=== PATIENT | female | born 1995 | race Caucasian/White ===

== ENCOUNTER 2017-09-03 20:50 | Emergency (ER) | payer MEDICAID, SELFPAY ==
[2017-09-03 20:51] VITALS: BP 117/73; PULSE 93; RESP 15; TEMP 36.5; O2SAT 97; BMI 24.2
--- NOTE | 2017-09-03 22:17 | ED.RN ---
PT CALLS THIS RN TO ROOM, STATES I CAN'T GET THIS STYE TO DRAIN, ASKS IF SHE CAN TAKE ORAL MEDS TO JUST MAKE IT GO AWAY, PT EDUCATED ON TYPICAL TX FOR STYES, STATES I JUST CAN'T STAND TO HAVE ANYTHING COMING AT MY [facility] SHE WILL NOT ALLW MD TO TOUCH MY EYE. PT REQUESTS MD COME BACK FOR RE MD CELE AWARE.
--- NOTE | 2017-09-03 22:31 | ED.RN ---
THIS RN CALLED TO PT'S ROOM, PT STATES I'M JUST GOING TO LEAVE, I HAVE TO GET HOME. ADVISED PT THAT SHE WAS UP FOR RE CELE, MD WOULD BE BACK TO HER ROOM SOON. PT STATES SHE DOES NOT WANT TO WAIT AND SEE MD, STATES I'M JUST GOING TO LEAVE. PT DENIES FURTHER NEEDS, AMBULATED OUT OF UNIT WITH NO SIGNS OF DISTRESS.
--- NOTE | 2017-09-03 22:45 | ED.DCSUM_ITS ---
History of Present Illness Chief Complaint: Eye Problem Informant: Patient Onset: Days - 3 Context: Gradual Onset Timing: Continuous Quality: sore/pain, swollen Location: right lower eyelid Current Severity: Moderate Maximum Severity: Moderate Worsened by: blinking, palpation Relieved by: nothing. tried warm compresses. Associated Symptoms: matting this AM. no fevers, injury, other systemic sx. Narrative: Wears contacts, has left them out since beginning of this issue, and just wearing glasses. Also avoiding makeup application. Past Medical History - Allergies and Home Meds Allergies/Adverse Reactions: Allergies amoxicillin [Amoxicillin] Allergy (Verified 09/03/17 20:50) Hives codeine Allergy (Verified 09/03/17 20:50) Hives hydrocodone Allergy (Verified 09/03/17 20:50) Hives Primary Care Physician: Care Physician,No Primary [Primary Care Provider] - Past Medical History: None Smoking Status: Current every day smoker Review of Systems General: Denies: Fever Eyes: Reports: - - R lower eyelid pain/swelling. Denies: Visual changes - right , Diplopia Respiratory: Denies: Dyspnea, Cough Physical Exam Vital Signs/Narrative: Vital Signs Temp Pulse Resp BP Pulse Ox 09/03/17 20:51 97.7 F L 93 15 117/73 97 General: Well nourished, Well developed, - - well-appearing, nad Head: Normocephalic, Atraumatic Eyes: Perrl, EOMI, - - Medial right lower eyelid redness, swelling, with pointing whiteheaded abscess / hordeolum w/o spontaneous discharge. Tender w/ palpation. Normal globe and conjunctivae. No chemosis. No periorbital swelling/ erythema. Neck: Supple, No lymphadenopathy Neurological: Alert, Oriented x3, Cranial nerves II-XII grossly intact, Normal Strength, Normal Sensation Psychological: Normal affect Diagnostic/Tx/Re-eval - Medical Decision Making Given that she has been trying warm compresses and this small hordeolum is pointing and large for what it is, I recommend an incision and drainage at the margin as this will make it heal faster. After discussing this, and the fact that it would be very difficult to anesthetize in a painless way, recommending that we simply poke it at the peak and unroofed it, she was amenable. I swabbed it with a small amount of Betadine, and then with the patient's head against the bed, attempted to stab the roof of it with the tip of an 11 blade. She somehow moved her head further into the bed, so that the 11 blade did not puncture the abscess. I attempted again, the patient immediately turned her head and withdrew saying that she wanted me to stop which I did. I gave her the piece of gauze and advised her to squeeze it as hard as she could to see if she could get it to rupture, when I went to recheck on her, she eloped. ED Disposition - Plan for ED Patient: Chief Complaint: Eye Problem Diagnosis: Hordeolum externum right lower eyelid
== END 2017-09-03 22:46 | disposition home or self-care (01) ==
LOC: ED 21:57
PROVIDERS: Emergency Provider Emergency Medicine
DX: H00.012 Hordeolum externum right lower eyelid (principal)
CPT/HCPCS: 99282

== ENCOUNTER 2019-04-03 18:56 | Emergency (ER) | payer SELFPAY ==
[2019-04-03 18:57] VITALS: BP 119/74; PULSE 64; RESP 16; TEMP 36.6; O2SAT 98; BMI 29.0
[2019-04-03 19:21] LABS: Mucous, Urine 0 SEEN /hpf (<or=2+)
[2019-04-03 19:22] LABS: Color, Urine Yellow (Yellow); Glucose, Dipstick Normal (Normal); Leukocyte Esterase-Dipstick 500 /ul (Negative); Nitrite-Dipstick Positive (Negative); Occult Blood-Urine 250 /ul (Negative); Protein-Dipstick 30 mg/dl (Negative); Specific Gravity, Urine 1.025 (1.002-1.030); Urine Bilirubin Dipstick Negative (Negative); Urine Clarity Cloudy (Clear); Urine Urobilinogen Normal (Normal)
--- NOTE | 2019-04-03 19:33 | CT_ITS ---
STUDY: CT ABDOMEN AND PELVIS WITHOUT CONTRAST REASON FOR EXAM: Female, 24 years old. RIGHT FLANK PAIN WITH N/V TODAY RADIATION DOSAGE (If Supplied By Facility): CTDIvol = ( 6.61 ) mGy, DLP = ( 315.34 ) mGycm TECHNIQUE: Transaxial images were obtained from the dome of the diaphragm to the symphysis pubis without oral contrast, and without intravenous contrast. Sagittal and coronal images were reconstructed. Individualized dose optimization techniques were used for this CT. COMPARISON: None. FINDINGS: The visualized lung bases are unremarkable. The visualized portions of the heart are within normal limits. Normal liver. Normal gallbladder and extrahepatic biliary system. Normal spleen. Normal pancreas. Normal bilateral adrenal glands. There is a mild right hydronephrosis. There are several nonobstructing calculi in the cortex of the medial pole of the right kidney largest measuring 3 mm. There is an obstructing calculus in the proximal right ureter at the level of the UPJ measuring 8.7 x 5.3 mm. Normal left kidney. Normal visualized stomach. Normal small intestine. Normal colon. The appendix is visualized and appears normal. Normal abdominal aorta. Normal inferior vena cava. Normal retroperitoneum. Normal urinary bladder. An IUD is noted appearing in adequate position. Adnexal structures are unremarkable. There is a small umbilical hernia containing fat. Normal osseous structures. CT/Abdomen/Pelvis without Cont IMPRESSION: Obstructing 8.7 x 5.3 mm calculus in the proximal right ureter at the level of the UPJ with mild right hydronephrosis. There are several additional nonobstructing cortical calculi of the medial pole of the right kidney, largest measuring 3 mm. An IUD is seen appearing in adequate position. There is a small fat-containing umbilical hernia. Electronically Signed: Cedrick Ramos MD at 21:04 EST , Service support ,
[2019-04-03 19:47] LABS: Ketone-Dipstick 150 mg/dl (Negative)
[2019-04-03 19:50] LABS: Bacteria 3+ /hpf (None Seen); Red Blood Cells-Urine 50-100 SEEN /hpf (0-5); White Blood Cells 25-50 SEEN /hpf (0-5)
[2019-04-03 19:51] LABS: Squamous Epithelial Cells - UA 0-5 SEEN /hpf (5-10)
[2019-04-03] MEDS: 0.9% Normal Saline 1,000 ML 1000 ML IV (19:52)
[2019-04-03] MEDS: Morphine 4 MG/ML Syringe IV ×2 (19:52→22:38)
[2019-04-03] MEDS: Ondansetron 4 MG/2 ML Vial IV (19:52)
[2019-04-03 19:53] LABS: Transitional Epithelial - Ur 0-5 SEEN /hpf (0-5)
[2019-04-03] MEDS: Ketorolac 30 MG/ML Syringe IV (19:53)
[2019-04-03 20:08] LABS: Absolute Lymphocyte Count 2.67 X10^3/uL (0.83-4.51); Absolute Neutrophil Count 15.3 X10^3/uL (2.0-7.7); Basophil# 0.05 X10^3/uL; Basophil% 0.3 % (0-1); Eosinophil# 0.27 X10^3/uL; Eosinophils% 1.4 % (0-5); Hematocrit 44.2 % (37-47); Hemoglobin 15.2 g/dL (12.0-15.0); Lymphocyte # 2.67 X10^3/ul (4.0); Lymphocyte % 13.8 % (19-41); Mean Corp Hgb Conc 34.4 g/dL (32-36); Mean Corpuscular Hgb 31.1 pg (27.0-32.0); Mean Corpuscular Volume 90.4 fL (81-99); Mean Platelet Vol. 9.7 fl (6.2-12.0); Monocyte# 0.93 X10^3/uL; Monocyte% 4.8 % (0-10); NRBC Flagged by Analyzer 0 % (0-5); Neutrophil # 15.28 X10^3/uL (2.7-7.7); Neutrophil % 79.1 % (47-70); Platelet Count 303 K/mm3 (150-450); RBC Distribution Width CV 11.9 % (11.6-14.6); RBC Distribution Width SD 39.1 fl (35.1-43.9); Red Blood Count 4.89 M/mm3 (4.2-5.4); White Blood Count 19.3 K/mm3 (4.4-11.0)
[2019-04-03 20:24] LABS: Internal QC Validated? YES +Cl - CLEAR BKGD; Pregnancy, Serum, hCG Quali. NEGATIVE Negative
[2019-04-03 20:31] LABS: ALB/GLOB Ratio 1.1 RATIO (0.9-2.4); AST(SGOT) 8 U/L (15-37); Alanine Aminotransfer ALT/SGPT 18 U/L (13-56); Albumin, Serum 3.7 g/dL (3.2-5.0); Alkaline Phosphatase 74 U/L (45-117); Anion Gap 9 (5-15); BUN 9 mg/dL (7-18); Calcium,Total 8.6 mg/dL (8.5-10.1); Chloride 109 mmol/L (98-107); EST Glomerular Filtration Rate 161 mL/min (>60); Est Glom Filt Rate - Afr Amer 195 mL/min (>60); Estimated Creatinine Clearance 124.62 ml/min; Globulin 3.3 g/dL (2.2-4.2); Glucose 98 mg/dL (74-106); Lipase 65 U/L (73-393); Potassium 3.4 mmol/L (3.5-5.1); Sodium Level 140 mmol/L (136-145)
[2019-04-03] MEDS: Ceftriaxone 1 GM/50 ML BAG IV (20:52)
[2019-04-03 20:59] LABS: Lactic Acid 1.4 mmol/L (0.4-1.9)
--- NOTE | 2019-04-03 21:06 | ED.DCSUM_ITS ---
- ER Visit Summary Date of Service: 04/03/19 Chief Complaint: Right flank pain History of Present Illness: The patient is a 24 F with no primary care physician. She reports she has right flank pain that began this morning. States that it is gradually gotten worse. Over the past 2 hours it is become very severe. She describes it as sharp pain is 10 on 10 worsening a 10 currently. Nothing makes this better or worse. She is unable to find a comfortable position. She reports is been nausea on 10-12 times. No blood in her emesis. Last bowel was today. No melena [place]. No dysuria or frequency. She reports she is had chills, but no fever. Physical Examination: Vitals: Stable. Afebrile. General: Well-nourished and well-developed. Head: Normocephalic atraumatic. Neck: Supple, no lymphadenopathy. No JVD. Nontender. Cardiovascular: Regular rate and rhythm. No murmurs. Respiratory: No respiratory distress. Clear to auscultation bilaterally. Abdominal: Soft, mild diffuse tenderness palpation, nondistended, normal bowel sounds. No guarding, rebound, or peritoneal signs. Back: Moderate right CVA tenderness. Extremities: Nontender, no edema. Skin: Normal color, no rash. Neurologic: Alert and oriented ?3. Cranial nerves II through XII are intact. Normal strength and sensation. Psych: Normal affect. Test Results: CBC shows a white count of 19.3 with 79 segment neutrophils and 14 lymphocytes. Hemoglobin is 15.2. Lactic acid is 1.4. Chem-7 shows potassium 3.4, chloride 109, creatinine 0.5. LFTs show an AST of 6. Lipase is normal. UA does show an infection with 25-50 white blood cells and 50-100 red blood cells with 3+ bacteria. test is negative. Clinical Impression(s) from Imaging Studies Abdomen/Pelvis CT 04/03/19 19:33 IMPRESSION: Obstructing 8.7 x 5.3 mm calculus in the proximal right ureter at the level of the UPJ with mild right hydronephrosis. There are several additional nonobstructing cortical calculi of the medial pole of the right kidney, largest measuring 3 mm. An IUD is seen appearing in adequate position. There is a small fat-containing umbilical hernia. Electronically Signed: Cedrick Ramos MD at 21:04 EST , Service support , Emergency Department Course and Treatment: Patient had a urine sent for culture. She is given Rocephin IV. She was given morphine, Zofran, and Toradol IV. She is resting more comfortably. She feels well and would like to go home. Treatment Plan: The patient was discussed with Dr. Davila. She will be discharged with naproxen, Percocet, Zofran, and Cipro. Instructed to follow-up in the office in 2 days for another exam. Return the emerge part if she is unable to keep her antibiotic down or she cannot stand the pain. Disposition: To home in improved and stable condition. Impression: 1. Right ureterolithiasis. 2. Pyelonephritis. This note was generated with [employer] [place] dictation software. It may contain incorrect words, spelling, and punctuation that were not noted in review of the chart prior to signing ED Disposition - Plan for ED Patient: Disposition: Home or Assisted Living Instructions: PYELONEPHRITIS, Female (Adult), KIDNEY STONE w/ Colic Prescriptions: Ciprofloxacin [Cipro] 500 mg PO BID #14 tab Prescription Printed Naproxen [Naprosyn] 500 mg PO BID #14 tab Prescription Printed Oxycodone HCl/Acetaminophen [Percocet 5/325] 1 tab PO Q6H PRN PRN 5 Days #20 tab PRN Reason: Pain Score 6-10/10 Prescription Printed Ondansetron [Zofran Odt] 4 mg PO Q8H PRN PRN #10 tab PRN Reason: Nausea Prescription Printed
[2019-04-03 22:41] VITALS: BP 117/65; BP 117/75; PULSE 88; RESP 16; O2SAT 98
== END 2019-04-03 22:42 | disposition home or self-care (01) ==
PROVIDERS: Emergency Provider Emergency Medicine
DX: N13.6 Pyonephrosis (principal); R11.2 Nausea with vomiting, unspecified; Z72.0 Tobacco use
CPT/HCPCS: 74176; 80053; 81001; 83605; 83690; 84703; 85025; 87077; 87086; 87088; 87186; 96361; 96365; 96375; 96376; 99283; J7030; J7050; A4216; J2405

== ENCOUNTER 2019-04-09 19:23 | Emergency (ER) | payer SELFPAY ==
[2019-04-09 19:24] VITALS: BP 110/74; PULSE 79; RESP 18; TEMP 36.8; O2SAT 96; BMI 28.3
--- NOTE | 2019-04-09 20:42 | RAD_ITS ---
STUDY: X-RAY - ABDOMEN/PELVIS REASON FOR EXAM: Female, 24 years old. RIGHT KIDNEY STONE TECHNIQUE: Single AP view of the abdomen / pelvis. COMPARISON: CT 04/03/2019 FINDINGS: There is an unremarkable bowel gas pattern. No change in a 5 mm calcific opacity at the level of L2 consistent with a stone at the right ureteral pelvic junction. Normal soft tissue structures. Normal visualized osseous structures. RAD/Abdomen Single View IMPRESSION: No change in 5 mm right ureteropelvic junction stone. Electronically Signed: Juan Miguel Barreto MD at 21:38 EST Tel , Service support ,
--- NOTE | 2019-04-09 20:43 | ED.VIS.GEN ---
History of Present Illness Chief Complaint: Flank Pain Informant: Patient Onset: Days Context: Gradual Onset Timing: Waxes and wanes Current Severity: Moderate Maximum Severity: Severe Narrative: Patient presents with continued right flank pain, nausea, and vomiting. She was seen in the ER last Tuesday and diagnosed with a large proximal right-sided kidney stone. She also had evidence of a UTI. Patient was discharged with Percocet, anti-inflammatories, Zofran, and Cipro. Patient states she has had nausea and vomiting the past 4 days and has not been able to keep her medication down. She states she did follow-up with urology but was told it may be another week until she can have her surgery. Due to increased pain tonight she came to the emergency room. - Past Medical History (1) Bipolar disorder Status: Chronic (2) Asthma Status: Chronic (3) Kidney stone Status: Acute Past Medical History - Allergies and Home Meds Allergies/Adverse Reactions: Allergies amoxicillin [Amoxicillin] Allergy (Verified 04/09/19 19:27) Hives codeine Allergy (Verified 04/09/19 19:27) Hives hydrocodone Allergy (Verified 04/09/19 19:27) Hives Primary Care Physician: Care Physician,No Primary [Primary Care Provider] - Lives: With Family Smoking Status: Current every day smoker Review of Systems General: Denies: Chills, Fever Eyes: Denies: Visual changes - bilaterally ENT: Denies: Bilateral ear pain Cardiovascular: Denies: Chest pain Respiratory: Denies: Dyspnea, Cough Gastrointestinal: Reports: Abdominal pain, Nausea, Vomiting Genitourinary: Reports: Dysuria, Hematuria Musculoskeletal: Denies: Extremity Pain Skin: Denies: Rash Neurological: Denies: Headache Hematologic: Denies: Easy bruising, Easy bleeding Allergy: Denies: Uticaria Physical Exam Vital Signs/Narrative: Vital Signs Temp Pulse Resp BP Pulse Ox 04/09/19 19:24 98.3 F 79 18 110/74 96 Inital Vital Signs reviewed: Yes General: Well nourished, Well developed Head: Normocephalic ENT: Moist mucous membranes Neck: Supple Cardiovascular: Regular rate, Regular rhythm Respiratory: No distress, CTA bilaterally Abdomen: Soft, Nontender Back: CVA tenderness Skin: Normal color, No rash Neurological: Alert, Oriented x3 Psychological: Normal affect Diagnostic/Tx/Re-eval Impressions KUB X-Ray 04/09/19 20:42 IMPRESSION: No change in 5 mm right ureteropelvic junction stone. Electronically Signed: Juan Miguel Barreto MD at 21:38 EST Tel , Service support , 04/09/19 20:42 KUB [Abdomen Single View] [RAD] Stat Laboratory Results 04/09/19 04/09/19 04/09/19 20:38 20:38 21:30 WBC 9.6 RBC 4.65 Hgb 14.5 Hct 41.7 MCV 89.7 MCH 31.2 MCHC 34.8 RDW Std Deviation 38.0 RDW Coeff of Esme 11.9 Plt Count 364 MPV 9.3 Immature Gran % (Auto) 0.900 Neut % (Auto) 62.9 Lymph % (Auto) 26.7 Yates % (Auto) 6.3 Eos % (Auto) 2.7 Baso % (Auto) 0.5 Absolute Neuts (auto) 6.0 Absolute Lymphs (auto) 2.56 Nucleated RBC % 0 Sodium 138 Potassium 3.9 Chloride 108 H Carbon Dioxide 25.0 Anion Gap 5 BUN 12 Creatinine 0.66 Estim Creat Clear Calc 94.41 Est GFR (MDRD) Af Amer 141 Est GFR (MDRD) Non-Af 117 BUN/Creatinine Ratio 18.2 Glucose 85 Calcium 9.2 Urine Color Yellow Urine Clarity Cloudy Urine pH 6.5 Ur Specific [place] 1.015 Urine Protein 15 H Urine Glucose (UA) Normal Urine Ketones 50 H Urine Occult Blood 150 H Urine Nitrite Negative Urine Bilirubin Negative Urine Urobilinogen Normal Ur Leukocyte Esterase 500 H Urine RBC 0-5 SEEN Urine WBC 10-25 SEEN Ur Squamous Epith Cells 0-5 SEEN Urine Bacteria RARE Urine Mucus 0 SEEN - Medical Decision Making Patient was given morphine, Toradol, Zofran, and IV fluids. On repeat evaluation she feels significantly improved. In fact on repeat examination she is eating a bag of Fritos. Patient was discussed with Dr. Velasquez whom she has seen in the office. We will get her better antiemetics for home along with some more Percocet. Dr. Velasquez's office is supposed to be calling the patient to set up her surgery. Patient is given return instructions. She is happy with this plan. ED Disposition - Plan for ED Patient: Disposition: Home or Assisted Living Diagnosis: Kidney stone Instructions: KIDNEY STONE w/ Colic Prescriptions: Oxycodone HCl/Acetaminophen [Percocet 5/325] 1 tablet PO Q6H PRN PRN 5 Days #20 tablet PRN Reason: Pain Score 4-10/10 proMETHazine tablet [Phenergan] 25 mg PO Q6H PRN PRN #20 tablet PRN Reason: Nausea Referrals: Love Velasquez MD [STAFF PHYSICIAN] - As soon as possible
[2019-04-09] MEDS: 0.9% Normal Saline 1,000 ML 150 ML IV (21:14)
[2019-04-09] MEDS: 0.9% Normal Saline 1,000 ML 1000 ML IV (21:14)
[2019-04-09] MEDS: Morphine 4 MG/ML Syringe IV (21:14)
[2019-04-09] MEDS: Ketorolac 30 MG/ML Syringe IV (21:14)
[2019-04-09] MEDS: Ondansetron 4 MG/2 ML Vial IV (21:14)
[2019-04-09 21:30] VITALS: BP 116/71; PULSE 71; O2SAT 96
[2019-04-09 21:44] LABS: Absolute Lymphocyte Count 2.56 X10^3/uL (0.83-4.51); Basophil# 0.05 X10^3/uL; Basophil% 0.5 % (0-1); Eosinophil# 0.26 X10^3/uL; Eosinophils% 2.7 % (0-5); Hematocrit 41.7 % (37-47); Hemoglobin 14.5 g/dL (12.0-15.0); Lymphocyte # 2.56 X10^3/ul (4.0); Lymphocyte % 26.7 % (19-41); Mean Corp Hgb Conc 34.8 g/dL (32-36); Mean Corpuscular Hgb 31.2 pg (27.0-32.0); Mean Corpuscular Volume 89.7 fL (81-99); Mean Platelet Vol. 9.3 fl (6.2-12.0); Monocyte% 6.3 % (0-10); NRBC Flagged by Analyzer 0 % (0-5); Neutrophil # 6.04 X10^3/uL (2.7-7.7); Neutrophil % 62.9 % (47-70); Platelet Count 364 K/mm3 (150-450); RBC Distribution Width CV 11.9 % (11.6-14.6); Red Blood Count 4.65 M/mm3 (4.2-5.4); White Blood Count 9.6 K/mm3 (4.4-11.0)
[2019-04-09 21:53] LABS: Anion Gap 5 (5-15); BUN 12 mg/dL (7-18); BUN/Creat Ratio 18.2 RATIO (10-20); Calcium,Total 9.2 mg/dL (8.5-10.1); Chloride 108 mmol/L (98-107); Creatinine, Serum 0.66 mg/dL (0.55-1.02); EST Glomerular Filtration Rate 117 mL/min (>60); Est Glom Filt Rate - Afr Amer 141 mL/min (>60); Estimated Creatinine Clearance 94.41 ml/min; Glucose 85 mg/dL (74-106); Potassium 3.9 mmol/L (3.5-5.1); Sodium Level 138 mmol/L (136-145)
[2019-04-09 22:44] LABS: Mucous, Urine 0 SEEN /hpf (<or=2+)
[2019-04-09 22:45] LABS: Color, Urine Yellow (Yellow); Glucose, Dipstick Normal (Normal); Ketone-Dipstick 50 mg/dl (Negative); Leukocyte Esterase-Dipstick 500 /ul (Negative); Nitrite-Dipstick Negative (Negative); Occult Blood-Urine 150 /ul (Negative); Protein-Dipstick 15 mg/dl (Negative); Specific Gravity, Urine 1.015 (1.002-1.030); Urine Bilirubin Dipstick Negative (Negative); Urine Clarity Cloudy (Clear); Urine Urobilinogen Normal (Normal); Urine pH 6.5 (5.0 - 8.0)
[2019-04-09 22:51] LABS: White Blood Cells 10-25 SEEN /hpf (0-5)
[2019-04-09 22:52] LABS: Bacteria RARE /hpf (None Seen); Red Blood Cells-Urine 0-5 SEEN /hpf (0-5); Squamous Epithelial Cells - UA 0-5 SEEN /hpf (5-10)
[2019-04-09 23:17] VITALS: BP 138/75; PULSE 80; RESP 16; O2SAT 97
== END 2019-04-09 23:19 | disposition home or self-care (01) ==
PROVIDERS: Emergency Provider Emergency Medicine
DX: N20.2 Calculus of kidney with calculus of ureter (principal); J45.909 Unspecified asthma, uncomplicated; F17.200 Nicotine dependence, unspecified, uncomplicated; Z79.899 Other long term (current) drug therapy; Z88.0 Allergy status to penicillin; Z88.5 Allergy status to narcotic agent
CPT/HCPCS: 74018; 80048; 81001; 85025; 96361; 96374; 96375; 99285; J2405

== ENCOUNTER 2019-05-20 17:35 | Observation (INO) | payer SELFPAY ==
[2019-05-20 17:36] VITALS: BP 133/81; PULSE 107; RESP 18; TEMP 35.7; O2SAT 97; BMI 26.9
[2019-05-20] MEDS: 0.9% Normal Saline 1,000 ML 125 ML IV (18:02)
[2019-05-20] MEDS: Morphine 4 MG/ML Syringe IV ×2 (18:02→23:51)
[2019-05-20] MEDS: Ondansetron 4 MG/2 ML Vial IV (18:03)
[2019-05-20] MEDS: Ketorolac 30 MG/ML Syringe IV ×2 (18:03→22:19)
[2019-05-20 18:09] LABS: Mucous, Urine 0 SEEN /hpf (<or=2+)
--- NOTE | 2019-05-20 18:10 | RAD_ITS ---
STUDY: X-RAY - ABDOMEN/PELVIS REASON FOR EXAM: Female, 24 years old. right kidney stone, flank pain, vomiting TECHNIQUE: Single AP view of the abdomen / pelvis. COMPARISON: April 09, 2019 FINDINGS: Normal visualized lung bases. There is an unremarkable bowel gas pattern. 8 mm stone near the ureteropelvic junction on the right is unchanged in position. IUD is noted in the pelvis. The visualized liver, spleen and kidneys are grossly normal in size and morphology. Normal soft tissue structures. Normal visualized osseous structures. IMPRESSION: Stable nephrolith on the right. Normal x-ray examination of the abdomen and pelvis. Electronically Signed: Richy Beltre MD at 19:26 EDT , Service support , RAD/Abdomen Single View
[2019-05-20 18:12] LABS: Absolute Lymphocyte Count 2.38 X10^3/uL (0.83-4.51); Absolute Neutrophil Count 10.3 X10^3/uL (2.0-7.7); Basophil% 0.7 % (0-1); Eosinophil# 0.05 X10^3/uL; Eosinophils% 0.3 % (0-5); Hematocrit 40.1 % (37-47); Hemoglobin 13.8 g/dL (12.0-15.0); Lymphocyte # 2.38 X10^3/ul (4.0); Lymphocyte % 15.6 % (19-41); Mean Corp Hgb Conc 34.4 g/dL (32-36); Mean Corpuscular Hgb 30.5 pg (27.0-32.0); Mean Corpuscular Volume 88.5 fL (81-99); Mean Platelet Vol. 9.4 fl (6.2-12.0); Monocyte# 1.96 X10^3/uL; Monocyte% 12.8 % (0-10); NRBC Flagged by Analyzer 0 % (0-5); Neutrophil # 10.33 X10^3/uL (2.7-7.7); Neutrophil % 67.5 % (47-70); POSITIVE DIFFERENTIAL YES; Platelet Count 340 K/mm3 (150-450); RBC Distribution Width CV 12.7 % (11.6-14.6); RBC Distribution Width SD 41.4 fl (35.1-43.9); Red Blood Count 4.53 M/mm3 (4.2-5.4); White Blood Count 15.3 K/mm3 (4.4-11.0)
--- NOTE | 2019-05-20 18:12 | ED.VISSUMM ---
- ER Visit Summary Date of Service: 05/20/19 Chief Complaint: [Flank pain] History of Present Illness: The patient is a 24 F [presents to the emergency department with complaint of flank pain that started over a week ago. Patient states that she was diagnosed in the emergency department with a 9 mm proximal right ureteral stone and she has been following up with Dr. Velasquez. Patient was supposed to have surgery a week ago for this stone however it was canceled due to the novel coronavirus pandemic. Patient apparently did contact Dr. Velasquez who instructed her to come to the emergency department if she continued experience discomfort. Patient states she is been taking Percocet at home and it is taken the edge off at times and at times the pain severe. Patient is having hard time eating as she has had nausea and vomiting. Patient states that she has had some fevers at home but nothing higher than 99.8. She denies any urgency or frequency or hematuria. Patient otherwise has no medical history.] Physical Examination: [HEENT-PERRLA, EOMI. Cranial nerves II through XII grossly intact. TMs clear. Mucous membranes moist. No adenopathy. Cardiovascular-regular rate and rhythm without murmur or ectopy Lungs-clear to auscultation, chest wall stable without crepitus or subcu emphysema Abdomen-normoactive bowel sounds, soft, nontender, no rebound or rigidity, no peritoneal signs. Patient does have CVA tenderness on the right. Extremities-intact ?4, normal range of motion, normal pulses, atraumatic] Test Results: [CBC with differential obtained showed a white count of 15.3, hemoglobin 13.8, hematocrit 40, placed 340. Chemistries unremarkable other than a depressed potassium of 2.7. Urinalysis was positive for 500 cassette esterase as well as nitrites and 25-50 WBCs. KUB obtained was read by urology as nothing acute. They did not comment on the ureteral calculus at about the level of L1-L2 which does not seem to be changed in position compared to prior KUB.] Emergency Department Course and Treatment: [Patient was started on Rocephin 1 g IV. Patient on arrival was medicated with Toradol 30 mg IV, Zofran 4 mg IV, and morphine 4 mg IV. Case was discussed with urologist on-call who will admit patient] Treatment Plan: [Admit] Disposition: [Admit] Impression: [Kidney stone with colic UTI Intractable pain Hypokalemia] This note was generated with [employer] dictation software. It may contain incorrect words, spelling, and punctuation that were not noted in review of the chart prior to signing ED Disposition - Plan for ED Patient: Referrals: Love Velasquez MD [STAFF PHYSICIAN] -
[2019-05-20 18:13] LABS: Color, Urine Yellow (Yellow); Glucose, Dipstick Normal (Normal); Leukocyte Esterase-Dipstick 500 /ul (Negative); Nitrite-Dipstick Positive (Negative); Occult Blood-Urine 250 /ul (Negative); Protein-Dipstick 100 mg/dl (Negative); Urine Clarity Sl. Cloudy (Clear); Urine Urobilinogen 4 mg/dl (Normal)
[2019-05-20 18:14] LABS: Urine Bilirubin Dipstick 1 mg/dL (Negative)
[2019-05-20 18:19] LABS: Ketone-Dipstick 150 mg/dl (Negative)
[2019-05-20 18:20] LABS: Differential Indicated SCAN CRITERIA MET; Red Blood Cells-Urine 25-50 SEEN /hpf (0-5); Squamous Epithelial Cells - UA 5-10 SEEN /hpf (5-10); White Blood Cells 50-100 SEEN /hpf (0-5)
[2019-05-20 18:21] LABS: Amorphous Sediment 1+ URATE; Bacteria 3+ /hpf (None Seen)
[2019-05-20 18:25] LABS: Anion Gap 6 (5-15); BUN 10 mg/dL (7-18); BUN/Creat Ratio 11.2 RATIO (10-20); Calcium,Total 9.4 mg/dL (8.5-10.1); Chloride 102 mmol/L (98-107); Creatinine, Serum 0.89 mg/dL (0.55-1.02); EST Glomerular Filtration Rate 83 mL/min (>60); Est Glom Filt Rate - Afr Amer 100 mL/min (>60); Estimated Creatinine Clearance 70.01 ml/min; Glucose 98 mg/dL (74-106); Potassium 2.7 mmol/L (3.5-5.1); Sodium Level 135 mmol/L (136-145)
[2019-05-20 18:41] LABS: Differential Comment SCANNED
[2019-05-20 18:42] VITALS: BP 98/66; PULSE 99; RESP 15
[2019-05-20] MEDS: Ceftriaxone 1 GM/50 ML BAG IV (19:55)
[2019-05-20 20:15] VITALS: BP 105/69; PULSE 98; RESP 16; TEMP 36.7; O2SAT 96
[2019-05-20 20:23] VITALS: BMI 27.0
[2019-05-20 20:38] VITALS: BMI 27.1
[2019-05-20 20:58] VITALS: BP 91/65; PULSE 88; RESP 16; TEMP 37.2; O2SAT 95
[2019-05-20] MEDS: Dext 5%-0.45% NS 1,000 ML 125 ML IV (22:19)
[2019-05-20] MEDS: 0.9% Saline Lock 10 ML Syringe IV ×2 (22:19→23:51)
[2019-05-20 23:53] LABS: Internal QC Validated? YES +Cl - CLEAR BKGD; Pregnancy, Urine Negative Negative
[2019-05-21] VITALS (13 sets, daily range): BP systolic 92–108; BP diastolic 56–72; PULSE 83–118; RESP 16–36; TEMP 36.3–39.3; O2SAT 91–100; BMI 27.0
[2019-05-21] MEDS: proMETHazine 25 MG/ML Syringe 12.5 MG IV
--- NOTE | 2019-05-21 | CALC_PTH ---
PATIENT: JUSTIN LOVE LOC: PCU U#:[id number] AGE/SX: 24/F ROOM: [facility] RE05/20/[address]: Dr. Love Velasquez MD : 1995 BED: 1 DIS: 05/22/2019 SPEC #: [id number] RECD: 05/21/19 12:03 STATUS: KRISTIE RUTHANN #: [id number] KAREN: 05/21/19 00:[address]: Love Velasquez DEPT: SURGICAL PATHOLOGY RECD BY: Vazquez Rasheed ENTERED: 05/21/19 12:04 SP TYPE: Calculi OTHR DR: No Primary Care Phys Tissues: CALCULI Procedures: Surgery Specimen Level I HEADER OPERATION: Not noted PRE-OP DIAGNOSIS: Calculi TISSUE SUBMITTED: Calculi GROSS DIAGNOSIS Two minute fragments of stones, clinically urinary stones for analysis. SJ:mauri 05/21/19 COMMENT The calculi are submitted in its entirety for chemical stone analysis. The results from this study will be reported separately. GROSS DESCRIPTION Received is one container labeled with the patient's name and designated urinary stone for analysis. The specimen consists of two minute fragments of brownish-black stone each measuring <0.1 cm in greatest dimension. The entire specimen is submitted for stone analysis. / PAGE:mauri 05/21/19 CPT: 40201
[2019-05-21] MEDS: Morphine 4 MG/ML Syringe IV (03:26)
[2019-05-21] MEDS: 0.9% Saline Lock 10 ML Syringe IV ×3 (03:26→14:18)
[2019-05-21] MEDS: Dext 5%-0.45% NS 1,000 ML 125 ML IV ×3 (06:15→20:02)
[2019-05-21] MEDS: Ketorolac 30 MG/ML Syringe IV ×3 (06:15→22:53)
[2019-05-21] MEDS: Ciprofloxacin 400 MG/200 ML BAG 200 MG IV ×2 (07:08→22:52)
[2019-05-21 07:52] LABS: Anion Gap 8 (5-15); BUN 8 mg/dL (7-18); BUN/Creat Ratio 10.1 RATIO (10-20); Chloride 104 mmol/L (98-107); Creatinine, Serum 0.79 mg/dL (0.55-1.02); EST Glomerular Filtration Rate 95 mL/min (>60); Est Glom Filt Rate - Afr Amer 115 mL/min (>60); Estimated Creatinine Clearance 108.34 ml/min; Glucose 130 mg/dL (74-106); Sodium Level 135 mmol/L (136-145)
[2019-05-21 08:35] LABS: Potassium 2.7 mmol/L (3.5-5.1)
--- NOTE | 2019-05-21 08:38 | NURSING ---
report called to Teressa MUNOZ PACU/AC
[2019-05-21] MEDS: Lactated Ringers 1,000 ML 100 ML IV (09:00)
[2019-05-21] MEDS: Potassium Chloride 10mEq/100mL 10 MEQ/100 ML IV.SOLN. 100 MEQ IV BOLUS ×4 (09:03→16:42)
--- NOTE | 2019-05-21 09:06 | PCM.HP.STD ---
Problem List (1) Urinary tract infection Status: Acute (2) Kidney stone Status: Acute History of Present Illness Date of Admission: 05/20/19 Chief Complaint: right back pain, nausea and vomiting The patient is a 24 year old F with a known right proximal ureteral calculus. She was initially scheduled for surgical intervention on April 27, 2019. Due to the [address] emergency, this surgical case was canceled. She called on Tuesday complaining of pain with no pain medication. At that time she had no fever but was having nausea and vomiting secondary to pain. She was given medication and 5 days later the nausea and vomiting returned and worsened significantly. Yesterday she presented to the emergency room with systemic symptoms including low-grade fever at home, continued nausea, vomiting, dehydration and fatigue. Her pain had also worsened. Past Medical History Past Medical History (Chronic Problems): Chronic Problems Bipolar disorder (Chronic) Asthma (Chronic) Allergies amoxicillin [Amoxicillin] Allergy (Verified 05/20/19 17:38) Hives codeine Allergy (Verified 05/20/19 17:38) Hives hydrocodone Allergy (Verified 05/20/19 17:38) Hives Influenza Virus Vaccines Allergy (Verified 05/20/19 20:49) Anaphylaxis Home Medications: Ambulatory Orders Medication Instructions Recorded Oxycodone HCl/Acetaminophen 1 ea PO Q4H PRN 05/20/19 [Percocet 5-325 mg Tablet] Tamsulosin HCl [Flomax] 0.4 mg PO DAILY 05/20/19 Smoking Status: Current every day smoker Tobacco Use: Cigarettes Review of Systems Constitutional: Reports: Anorexia, Chills, Fever, Malaise, Fatigue Eyes: Denies: Vision Change HEENT: Denies: Difficulty Swallowing, Visual Changes Cardiovascular: Denies: Chest Pain, Chest Pressure, Chest Tightness Respiratory: Denies: Cough, Shortness of Breath Gastrointestinal: Reports: Abdominal Pain, Nausea, Vomiting Genitourinary: Reports: Dysuria. Denies: Hematuria, Incontinence, Nocturia, Retention Musculoskeletal: Denies: Joint Pain, Muscle pain Skin: Denies: Wounds Neurological: Denies: Balance problems Endocrine: Denies: Change in Body Habitus Hematologic/ Lymphatic: Denies: Petechiae VTE Information - Inpt Only VTE Present on Admission: Yes VTE Mechan Device Prophylaxis: SCD's VTE Pharm Prophylaxis ordered?: No Reason prophylaxis not ordered:: Treatment Not Indicated Patient Problems: Active and Suspected Problems Urinary tract infection (Acute) - Physical Exam Vitals/I&O's: Vital Signs Temp Pulse Resp BP Pulse Ox 98.9 F 102 H 20 H 103/67 98 05/21/19 07:14 05/21/19 07:14 05/21/19 07:14 05/21/19 07:14 05/21/19 07:14 Oxygen Flow Rate (L/min) 2 Oxygen Delivery Method Nasal Cannula Weight: 62.5 kg Body Mass Index (BMI) 27.0 Intake and Output for Last 24 Hours 05/19/19 05/20/19 05/21/19 23:59 23:59 23:59 Intake Total 585.42 / 1285.42 1810.42 / 1810.42 Output Total 125 / 125 Balance 585.42 / 1285.42 1685.42 / 1685.42 General: Alert, Oriented x3, Cooperative, No apparent distress HEENT: Atraumatic, Normocephalic Oral: Dry Mucosa Neck: Supple, Trachea Midline Lungs: Normal air movement Cardiovascular: Tachycardic Abdomen: Soft, Non-Distended, - - right CVA tenderness Extremities: No Calf Tenderness Skin: No rashes Musculoskeletal: No Muscle Wasting Neurological: Cranial nerves II-XII grossly intact Psych/Mental Status: Normal Affect, Appropriate Laboratory Results 05/20/19 18:00: WBC 15.3 H, RBC 4.53, Hgb 13.8, Hct 40.1, MCV 88.5, MCH 30.5, MCHC 34.4, RDW Std Deviation 41.4, RDW Coeff of Esme 12.7, Plt Count 340, MPV 9.4, Immature Gran % (Auto) 3.100 H, Neut % (Auto) 67.5, Lymph % (Auto) 15.6 L, Mclean % (Auto) 12.8 H, Eos % (Auto) 0.3, Baso % (Auto) 0.7, Absolute Neuts (auto) 10.3 H, Absolute Lymphs (auto) 2.38, Nucleated RBC % 0, Differential Comment SCANNED, Diff Path Review June05/20/19 18:00: Sodium 135 L, Potassium 2.7 L*, Chloride 102, Carbon Dioxide 27.0, Anion Gap 6, BUN 10, Creatinine 0.89, Estim Creat Clear Calc 70.01, Est GFR (MDRD) Af Amer 100, Est GFR (MDRD) Non-Af 83, BUN/Creatinine Ratio 11.2, Glucose 98, Calcium 9.4 05/20/19 18:00: Urine Color Yellow, Urine Clarity Sl. Cloudy, Urine pH 6.0, Ur Specific Mccaskill 1.020, Urine Protein 100 H, Urine Glucose (UA) Normal, Urine Ketones 150 H, Urine Occult Blood 250 H, Urine Nitrite Positive H, Urine Bilirubin 1 H, Urine Urobilinogen 4 H, Ur Leukocyte Esterase 500 H, Urine RBC 25-50 SEEN, Urine WBC 50-100 SEEN, Ur Squamous Epith Cells 5-10 SEEN, Amorphous Sediment 1+ URATE, Urine Bacteria 3+, Urine Mucus 0 SEEN 05/20/19 23:30: Urine Test Negative 05/21/19 06:54: Sodium 135 L, Potassium 2.7 L*, Chloride 104, Carbon Dioxide 23.0, Anion Gap 8, BUN 8, Creatinine 0.79, Estim Creat Clear Calc 108.34, Est GFR (MDRD) Af Amer 115, Est GFR (MDRD) Non-Af 95, BUN/Creatinine Ratio 10.1, Glucose 130 H, Calcium 8.0 L Current Medications Acetaminophen (Tylenol) 650 mg PO Q4H PRN PRN PRN Reason: Pain or Fever Sodium Chloride () 250 mls @ 15 mls/hr IV .[id number] PRN PRN Reason: Saline Flush Sodium Chloride () 250 mls @ 15 mls/hr IV .[id number] PRN PRN Reason: Additional IVPB Infusion Dextrose/Sodium Chloride () 1,000 mls @ 125 mls/hr IV .Q8H [facility] Last Infusion: 05/21/19 07:12 Dose: 0 mls/hr Documented by: Ciprofloxacin (Cipro) 400 mg in 200 mls @ 200 mls/hr IV Q12 [facility] Last Admin: 05/21/19 07:08 Dose: 200 mls/hr Documented by: Potassium Chloride () 10 meq in 100 mls @ 100 mls/hr IV BOLUS Q1H [facility] Stop: 05/21/19 13:14 Last Admin: 05/21/19 09:03 Dose: 100 mls/hr Documented by: Ketorolac Tromethamine (Toradol (Bkc)) 30 mg IV Q8 [facility] Stop: 05/25/19 22:01 Last Admin: 05/21/19 06:15 Dose: 30 mg Documented by: Morphine Sulfate () 4 mg IV Q3H PRN PRN PRN Reason: pain score 7-10/10 Last Admin: 05/21/19 03:26 Dose: 4 mg Documented by: Nutritional Formula (Lactose Free) (Ensure Enlive) 120 ml PO 4X/DAY DERRICK Ondansetron HCl (Zofran) 4 mg IV Q8H PRN PRN PRN Reason: NAUSEA/VOMITING Oxycodone HCl (Oxyir) 5 - 10 mg PO Q4H PRN PRN PRN Reason: pain Promethazine HCl (Phenergan) 12.5 mg IV Q8H PRN PRN PRN Reason: NAUSEA/VOMITING Last Admin: 05/21/19 00:00 Dose: 12.5 mg Documented by: Sodium Chloride () 10 - 40 ml IV UD PRN PRN Reason: SALINE FLUSH Last Admin: 05/21/19 06:15 Dose: 10 ml Documented by: Assessment/Plan All Active Problems Kidney stone (Acute) Urinary tract infection (Acute) Vaginitis (Acute) Dysuria (Acute) antibiotics, await culture results supportive care electrolyte management cystoscopy and right ureteral stent home as soon as stable enough to tolerate oral management with fluid and meds. Essential Procedure Criteria Procedure Essential: Yes Criteria Note: On 04/24/2019 the [place] Department of Health ([facility]) Public Order signed by [facility] Director Nicole Riley M.D., regarding the Management of Non-Essential Surgeries and Procedures for the purpose of preserving Personal Protective Equipment (PPE) and critical hospital capacity and resources within [place] went into effect as of 04/25/2019 at 5:00PM. According to the [facility] Public Order: This action will remain in full force and effect until the State of Emergency declared by the Governor no longer exists or the Director of the [facility] rescinds or modifies this Order.. This [facility] order stated all non-essential or elective surgeries and procedures that utilize PPE should be delayed unless there is undue risk to the current or future health of a patient. After reviewing the aforementioned [facility] Public Order and the patients clinical case, I have determined that the scheduled procedure meets the criteria to go forward. Risk to Patient if Procedure Delayed: Threat to patient's life if surgery or procedure is not performed - Patient has an obstructing right proximal ureteral calculus with evidence of sepsis.
--- NOTE | 2019-05-21 09:41 | OP.PCM_ITS ---
Problem List (1) Urinary tract infection Status: Acute (2) Kidney stone Status: Acute Report of Operation Date of Procedure: 05/21/19 Pre-Operative Diagnosis: right proximal ureteral calculus with obstruction and infection Post-Operative Diagnosis: same Surgery/Procedure Performed:: cystoscopy, right ureteral stent insertion Type of Anesthesia:: MAC Description of Procedure: The patient is a 24-year-old female with an obstructing 9 mm right proximal ureteral calculus with infection. She presents for a cystoscopy and insertion of right ureteral stent under anesthesia. All risks, benefits and alternatives were discussed and informed consent was obtained. The patient was taken to the operating room and placed on the operating room table. Anesthesia monitored the head, neck, airway, IV access and vital signs throughout the case. Once anesthesia was appropriately administered the patient was placed into dorsal lithotomy position was prepped and draped in usual sterile fashion. A cystourethroscopy with 30 degree lens was then performed through the urethra. There is very minimal urine concentrated within the urinary bladder. There was a small calculus approximately 2 to 3 mm in size was identified on the floor of the bladder wall. This was grasped, removed and sent for analysis. At this time a 0.035 Glidewire was inserted through the right ureteral orifice into the urinary bladder under fluoroscopic visualization. The wire was manipulated past the area of the stone and purulent fluid began to emanate from the right ureteral orifice. A 6 German 22 cm double-J stent was then inserted over the wire passed the stone with positioning in the renal pelvis and curling in the bladder. Urine was sent for culture. The patient tolerated the procedure and was awakened and taken to the recovery room in good condition. No complications during the procedure. Grafts/Implants Used: [id number] jj ureteral stent - Complications None - Admit VTE Documentation VTE Present on Admission: Yes VTE Mechan Device Prophylaxis: SCD's VTE Pharm Prophylaxis ordered?: Yes Essential Procedure Criteria Procedure Essential: Yes Criteria Note: On 04/24/2019 the [place] Department of Health ([facility]) Public Order signed by [facility] Director Nicole Riley M.D., regarding the Management of Non- Essential Surgeries and Procedures for the purpose of preserving Personal Protective Equipment (PPE) and critical hospital capacity and resources within [place] went into effect as of 04/25/2019 at 5:00PM. According to the [facility] Public Order: This action will remain in full force and effect until the State of Emergency declared by the Governor no longer exists or the Director of the [facility] rescinds or modifies this Order.. This [facility] order stated all non-essential or elective surgeries and procedures that utilize PPE should be delayed unless there is undue risk to the current or future health of a patient. After reviewing the aforementioned [facility] Public Order and the patients clinical case, I have determined that the scheduled procedure meets the criteria to go forward. Risk to Patient if Procedure Delayed: Threat to patient's life if surgery or procedure is not performed - Right ureteral obstruction secondary to stone with urosepsis
[2019-05-21 11:12] LABS: Pathologist Review Reviewed
[2019-05-21] MEDS: oxyCODONE 5 MG Tablet PO ×2 (11:44→18:02)
[2019-05-22 04:02] VITALS: BP 95/61; PULSE 84; RESP 16; TEMP 36.4; O2SAT 97
[2019-05-22] MEDS: Dext 5%-0.45% NS 1,000 ML 125 ML IV (04:08)
[2019-05-22 05:07] LABS: Hematocrit 32.3 % (37-47); Mean Corp Hgb Conc 34.1 g/dL (32-36); Mean Corpuscular Hgb 30.3 pg (27.0-32.0); Mean Platelet Vol. 9.4 fl (6.2-12.0); POSITIVE COUNT YES; POSITIVE MORPHOLOGY YES; Platelet Count 319 K/mm3 (150-450); RBC Distribution Width CV 12.7 % (11.6-14.6); Red Blood Count 3.63 M/mm3 (4.2-5.4); White Blood Count 10.5 K/mm3 (4.4-11.0)
[2019-05-22 05:08] LABS: Differential Indicated MANUAL DIFF
[2019-05-22 05:34] LABS: Anion Gap 5 (5-15); BUN 7 mg/dL (7-18); Calcium,Total 7.9 mg/dL (8.5-10.1); Chloride 105 mmol/L (98-107); Creatinine, Serum 0.54 mg/dL (0.55-1.02); EST Glomerular Filtration Rate 148 mL/min (>60); Est Glom Filt Rate - Afr Amer 179 mL/min (>60); Glucose 117 mg/dL (74-106); Potassium 3.1 mmol/L (3.5-5.1); Sodium Level 136 mmol/L (136-145)
[2019-05-22 05:43] LABS: Basophil 3 % (0-1); Lymphocyte 25 % (19-41); Monocyte 9 % (0-10); Neutrophil-Band 7 % (0-5); Neutrophil-Segmented 56 % (47-70); Total Cells Counted 100 (MANUAL DIFF)
[2019-05-22 05:44] LABS: Absolute Lymphocyte Count 2.63 X10^3/uL (0.83-4.51); Absolute Neutrophil Count 6.6 X10^3/uL (2.0-7.7); Lymphocyte # 2.63 X10^3/ul (4.0); Neutrophil # 6.63 X10^3/uL (2.7-7.7)
[2019-05-22 05:45] LABS: Monocyte# 0.74 X10^3/uL
[2019-05-22] MEDS: Ketorolac 30 MG/ML Syringe IV (06:22)
[2019-05-22] MEDS: Ciprofloxacin 400 MG/200 ML BAG 200 MG IV (09:03)
--- NOTE | 2019-05-22 09:06 | CASEMGMT ---
SW spoke with patient, introduced self and role at [facility]. SW gave patient financial resources for the community. She thanked SW for the information. Lauryn PHILLIPS MSW
[2019-05-22 09:08] VITALS: BP 92/55; PULSE 69; RESP 18; TEMP 36.4; O2SAT 98
--- NOTE | 2019-05-22 11:09 | DCINST_ITS ---
Discharge Diet: No Restrictions Discharge Activity: May not drive while taking narcotic pain medications., May Shower May resume sexual activity in: 1 week Call your doctor if you observe: Fever of 101 or Higher - you will likely have some fever, usually at night, on and off for the next 2 weeks. if you are concerned or otherwise not feeling well, or fever is greater than 102, please call., Inability to urinate, Inability to have a bowel movement, Uncontrolled pain Allergies/Adverse Reactions: Allergies amoxicillin [Amoxicillin] Allergy (Verified 05/20/19 17:38) Hives codeine Allergy (Verified 05/20/19 17:38) Hives hydrocodone Allergy (Verified 05/20/19 17:38) Hives Influenza Virus Vaccines Allergy (Verified 05/20/19 20:49) Anaphylaxis strawberry Allergy (Verified 05/21/19 11:45) Anaphylaxis Medications to take at Discharge Oxycodone HCl/Acetaminophen [Percocet 5-325 mg Tablet] 1 ea PO Q4H PRN 05/20/19 Tamsulosin HCl [Flomax] 0.4 mg PO DAILY 05/20/19 Oxycodone HCl/Acetaminophen [Percocet 5/325] 2 tablet PO Q8H PRN PRN 7 Days #30 tablet 05/22/19 Phenazopyridine HCl [Pyridium] 200 mg PO TID PRN PRN 7 Days #30 tab 05/22/19 Smz/Tmp Ds [Bactrim Ds] 1 tab PO BID 14 Days #28 tab 05/22/19 The following prescriptions were given: Smz/Tmp Ds [Bactrim Ds] 1 tab PO BID 14 Days #28 tab Transmission Status: Pending to [facility] Oxycodone HCl/Acetaminophen [Percocet 5/325] 2 tablet PO Q8H PRN PRN 7 Days #30 tablet PRN Reason: Pain Transmission Status: Sent to [facility] Phenazopyridine HCl [Pyridium] 200 mg PO TID PRN PRN 7 Days #30 tab PRN Reason: Bladder Spasms Transmission Status: Pending to [facility] Primary Care Physician: Love Velasquez MD [STAFF PHYSICIAN] - Test Results: Test results from this visit will be discussed in further detail at your follow- up appointment, if applicable. Please Follow Up With: Love Velasquez MD When: call the office for appt in 10-14 days, telemedicine Proposed Discharge Date: 05/22/19
[2019-05-22 11:11] VITALS: BP 104/71; PULSE 67; RESP 20; TEMP 36.6; O2SAT 93
[2019-05-22 11:44] LABS: Pathologist Review Reviewed
== END 2019-05-22 11:30 | disposition home or self-care (01) ==
LOC: ED 18:27 → PCU 05-21 07:12
PROVIDERS: Admitting Provider Urology; Emergency Provider Emergency Medicine; Visit Provider Urology
PROC: (CPT 52332; principal; 2019-05-21 09:20)
DX: N20.1 Calculus of ureter (principal); N39.0 Urinary tract infection, site not specified; E87.6 Hypokalemia; J45.909 Unspecified asthma, uncomplicated; F17.210 Nicotine dependence, cigarettes, uncomplicated
CPT/HCPCS: 52332; 36415; 74018; 76000; 80048; 81001; 81025; 82360; 85025; 87040; 87077; 87086; 87088; 87186; 88300; 96361; 96365; 96366; 96367; 96375; 96376; 97802; 99218; 99285; 99406; J7030; J7040; J7120; A4216; C1769; C2625; G0378; J0744; J2405; J7799

== ENCOUNTER → 2019-06-14 16:50 | Outpatient (CLI) | payer SELFPAY ==
[2019-05-21 08:22] VITALS: BMI 27.0
== END ==
PROVIDERS: Referring Provider Urology; Visit Provider Urology
DX: N20.1 Calculus of ureter (principal)
CPT/HCPCS: 87077; 87086; 87088; 87186

== ENCOUNTER → 2019-07-06 15:20 | Outpatient (CLI) | payer SELFPAY ==
[2019-05-21 08:22] VITALS: BMI 27.0
== END ==
PROVIDERS: Referring Provider Urology; Visit Provider Urology
DX: N39.0 Urinary tract infection, site not specified (principal)
CPT/HCPCS: 87086; 87088

== ENCOUNTER → 2019-07-09 15:38 | Outpatient (CLI) | payer SELFPAY ==
[2019-05-21 08:22] VITALS: BMI 27.0
== END ==
LOC: MTLAB 15:40
PROVIDERS: Referring Provider Urology; Visit Provider Urology
DX: N39.0 Urinary tract infection, site not specified (principal)
CPT/HCPCS: 87086; 87088

== ENCOUNTER 2019-07-13 11:54 | Day surgery (SDC) | payer SELFPAY ==
[2019-05-21 08:22] VITALS: BMI 27.0
[2019-07-12 17:52] LABS: Probe Check PASS; Specimen Processing Control PASS
[2019-07-13] VITALS (9 sets, daily range): BP systolic 94–116; BP diastolic 64–85; PULSE 57–96; RESP 14–16; TEMP 36.3–36.6; O2SAT 95–99; BMI 27.1
[2019-07-13] MEDS: Lactated Ringers 1,000 ML 100 ML IV (12:49)
[2019-07-13 12:50] LABS: Internal QC Validated? YES +Cl - CLEAR BKGD; Pregnancy, Urine Negative Negative
[2019-07-13] MEDS: Ciprofloxacin 400 MG/200 ML BAG 200 MG IV (12:50)
--- NOTE | 2019-07-13 13:08 | PCM.HP.STD ---
Problem List (1) Kidney stone Status: Acute History of Present Illness Date of Admission: 07/13/19 Chief Complaint: left renal stone The patient is a 24 year old F who underwent a left ureteral stent insertion for obstructing left renal calculus. She now presents for definitive management of her stone. Benefits and alternatives were discussed including that of COVID-19. Patient understands and agrees to proceed. Past Medical History Past Medical History (Chronic Problems): Chronic Problems Bipolar disorder (Chronic) Asthma (Chronic) Allergies amoxicillin [Amoxicillin] Allergy (Verified 07/13/19 12:30) Hives codeine Allergy (Verified 07/13/19 12:30) Hives hydrocodone Allergy (Verified 07/13/19 12:30) Hives Influenza Virus Vaccines Allergy (Verified 07/13/19 12:30) Anaphylaxis strawberry Allergy (Verified 07/13/19 12:30) Anaphylaxis Home Medications: Ambulatory Orders Medication Instructions Recorded Ibuprofen 200 mg PO PRN PRN 06/18/19 Surgical History: - - cystoscopy with left ureteral stent insertion Smoking Status: Current some day smoker Tobacco Use: Cigarettes Review of Systems Constitutional: Denies: Anorexia, Chills, Fever, Weight Change, Fatigue Eyes: Denies: Vision Change HEENT: Denies: Visual Changes Cardiovascular: Denies: Chest Pain, Chest Pressure Respiratory: Denies: Cough, Shortness of Breath Gastrointestinal: Reports: Abdominal Pain, - - left flank pain. Denies: Vomiting Genitourinary: Reports: Frequency, Hematuria, Urgency. Denies: Dysuria Gynecological: Denies: Breast symptoms Musculoskeletal: Denies: Muscle pain Skin: Denies: Wounds Neurological: Denies: Difficulty swallowing VTE Information - Inpt Only VTE Present on Admission: Yes VTE Mechan Device Prophylaxis: SCD's VTE Pharm Prophylaxis ordered?: No Reason prophylaxis not ordered:: Treatment Not Indicated - Physical Exam Vitals/I&O's: Vital Signs Temp Pulse Resp BP Pulse Ox 97.9 F 76 14 100/67 99 07/13/19 12:30 07/13/19 12:30 07/13/19 12:30 07/13/19 12:30 07/13/19 12:30 Oxygen Delivery Method Room Air Weight: 63.1 kg Body Mass Index (BMI) 27.1 General: Alert, Oriented x3, Cooperative, No apparent distress HEENT: Atraumatic, Normocephalic Oral: Moist Mucosa Neck: Supple, Trachea Midline Lungs: Normal air movement Cardiovascular: Regular rate, Regular Rhythm Abdomen: Soft, Non Tender, Non-Distended Extremities: No clubbing, No cyanosis Skin: No rashes Musculoskeletal: No Muscle Wasting Neurological: Cranial nerves II-XII grossly intact, Neuro grossly intact Psych/Mental Status: Normal Affect, Alert and oriented to time, place, person, mood and affect Laboratory Results 07/12/19 14:40: COVID-19 (YOMAIRA) Negative 07/13/19 12:15: Urine Test Negative Current Medications Lactated Ringer's () 1,000 mls @ 100 mls/hr IV .Q10H [facility] Last Admin: 07/13/19 12:49 Dose: 100 mls/hr Documented by: Assessment/Plan All Active Problems Kidney stone (Acute) Urinary tract infection (Acute) Vaginitis (Acute) Dysuria (Acute) left renal extracorporeal shockwave lithotripsy Procedure Criteria Procedure Type: Elective Procedure Essential: Yes Criteria Statement: On 04/24/2019 the [facility] ([facility]) Public Order signed by [facility] Director Nicole Riley M.D., regarding the Management of Non-Essential Surgeries and Procedures for the purpose of preserving Personal Protective Equipment (PPE) and critical hospital capacity and resources within [place] went into effect as of 04/25/2019 at 5:00PM. According to the [facility] Public Order: This action will remain in full force and effect until the State of Emergency declared by the Governor no longer exists or the Director of the [facility] rescinds or modifies this Order. This [facility] order stated all non-essential or elective surgeries and procedures that utilize PPE should be delayed unless there is undue risk to the current or future health of a patient. After reviewing the aforementioned [facility] Public Order and the patient's clinical case, I have determined that the scheduled procedure meets the criteria to go forward. Risk to Patient if Procedure Delayed: Presence of severe symptoms causing an inability to perform ADL's - pain, infection and renal obstruction COVID Risk Discussion: The surgeon/proceduralist and patient have discussed in detail the risk of exposure to and/or potential harm posed by the COVID-19 virus with having a surgery/procedure at this time versus the risk of delaying the surgery/procedure. It is not possible to know either the risk of delaying the surgery or procedure or chance of getting an infection with perfect accuracy, but a joint decision was made between the patient and the surgeon/proceduralist to proceed at this time with the scheduled surgery/procedure as indicated on the consent form.
--- NOTE | 2019-07-13 13:12 | PCM.OPRPT ---
Problem List (1) Kidney stone Status: Acute Report of Operation Date of Procedure: 07/13/19 Pre-Operative Diagnosis: right renal stone Post-Operative Diagnosis: same Surgery/Procedure Performed:: right renal extracorporeal shockwave lithotripsy Type of Anesthesia:: General Specimen's removed: none Description of Procedure: The patient is a 24-year-old female with a right renal calculus status post insertion of right ureteral stent via cystoscopy. She now presents for definitive management of her right renal calculus. Risk benefits and alternatives were discussed including that of COVID-19. She understands and agrees to proceed. Patient was taken to the operating room and placed on the operating room table. Anesthesia monitored the head, neck, airway, IV access and vital signs throughout the case. Once anesthesia was a probably administered, the patient was aligned with the lithotripter. The stone was easily identified. 3000 shocks were applied to the stone which appeared to be fragmented at the conclusion of the shocks. The patient was then awakened and taken to the recovery room in good condition. There were no complications during this procedure. - Complications none - Admit VTE Documentation VTE Present on Admission: Yes VTE Mechan Device Prophylaxis: SCD's VTE Pharm Prophylaxis ordered?: No Reason prophylaxis not ordered:: Treatment Not Indicated
--- NOTE | 2019-07-13 13:16 | DCINST_ITS ---
Discharge Diet: No Restrictions Discharge Activity: May not drive while taking narcotic pain medications. Call your doctor if you observe: Fever of 101 or Higher, Inability to urinate, Inability to have a bowel movement Allergies/Adverse Reactions: Allergies amoxicillin [Amoxicillin] Allergy (Verified 07/13/19 12:30) Hives codeine Allergy (Verified 07/13/19 12:30) Hives hydrocodone Allergy (Verified 07/13/19 12:30) Hives Influenza Virus Vaccines Allergy (Verified 07/13/19 12:30) Anaphylaxis strawberry Allergy (Verified 07/13/19 12:30) Anaphylaxis Medications to take at Discharge Ibuprofen 200 mg PO PRN PRN 06/18/19 Oxycodone HCl/Acetaminophen [Percocet 5/325] 2 tablet PO Q8H PRN PRN 7 Days #20 tablet 07/13/19 Phenazopyridine HCl [Pyridium] 200 mg PO TID PRN PRN 7 Days #30 tab 07/13/19 Smz/Tmp Ds [Bactrim Ds] 1 tab PO BID 3 Days #6 tab 07/13/19 The following prescriptions were given: Smz/Tmp Ds [Bactrim Ds] 1 tab PO BID 3 Days #6 tab [facility] Oxycodone HCl/Acetaminophen [Percocet 5/325] 2 tablet PO Q8H PRN PRN 7 Days #20 tablet PRN Reason: Pain [id number] Phenazopyridine HCl [Pyridium] 200 mg PO TID PRN PRN 7 Days #30 tab PRN Reason: Bladder Spasms Transmission [facility] Orders to be completed after discharge: CORONAVIRUS 19, YOMAIRA Time Frame: 07/12/19, Facility: [facility], Location: Laboratory Primary Care Physician: Care Physician,No Primary [Primary Care Provider] - Test Results: Test results from this visit will be discussed in further detail at your follow- up appointment, if applicable. Please Follow Up With: Love Velasquez MD When: call office for appt to be seen in 2-3 weeks Proposed Discharge Date: 07/13/19
[2019-07-13] MEDS: Acetaminophen 325 MG Tablet 650 MG PO (16:20)
[2019-07-13] MEDS: oxyCODONE 5 MG Tablet 10 MG PO (16:26)
== END 2019-07-13 15:10 | disposition home or self-care (01) ==
LOC: SDC 11:56 → AC 11:57
PROVIDERS: Anesthesiology; Referring Provider Urology; Visit Provider Urology
PROC: (CPT 50590; principal; 2019-07-13 13:20)
DX: N20.0 Calculus of kidney (principal); F17.210 Nicotine dependence, cigarettes, uncomplicated; Z88.0 Allergy status to penicillin; Z88.5 Allergy status to narcotic agent; Z11.59 Encounter for screening for other viral diseases
CPT/HCPCS: 50590; 81025; 87635; G2023; J7120; J0744; J2405; U0003

== ENCOUNTER → 2019-07-26 14:30 | Outpatient (CLI) | payer SELFPAY ==
[2019-07-13 12:30] VITALS: BMI 27.1
--- NOTE | 2019-07-26 14:32 | RAD_ITS ---
STUDY: X-RAY - ABDOMEN/PELVIS REASON FOR EXAM: Female, 24 years old. Right-sided nephrolithiasis TECHNIQUE: Single AP view of the abdomen / pelvis. COMPARISON: 05/20/2019 FINDINGS: Normal visualized lung bases. Normal bowel gas pattern. There is no demonstrated free abdominal air. No mucosal wall thickening. The visualized liver, spleen and kidneys are grossly normal in size and morphology. Interval placement of a right double-J ureteral stent with the cranial pigtail loop formed over the region of the right renal pelvis and the caudal pigtail loop formed over the region of the urinary bladder. The calcific density previously seen in the region of the proximal right ureter has clear. No residual calculus identified. Normal soft tissue structures. Normal visualized osseous structures. Intrauterine device overlies the mid pelvis. RAD/Abdomen Single View IMPRESSION: Interval placement of a right double-J ureteral stent with interval clearing of a previously noted proximal right ureteral calculus. Electronically Signed: Vazquez Sullivan MD at 3:14 EDT Tel , Service support ,
== END ==
PROVIDERS: Referring Provider Urology; Visit Provider Urology
DX: N20.1 Calculus of ureter (principal)
CPT/HCPCS: 74018

== ENCOUNTER 2020-08-11 19:01 | Observation (INO) | payer SELFPAY ==
[2019-07-13 12:30] VITALS: BMI 27.1
[2020-08-11 19:02] VITALS: BP 120/67; PULSE 125; RESP 18; TEMP 38.1; O2SAT 99; BMI 24.6
--- NOTE | 2020-08-11 19:17 | CT_ITS ---
STUDY: CT ABDOMEN AND PELVIS WITHOUT CONTRAST REASON FOR EXAM: Female, 25 years old. left flank pain RADIATION DOSAGE (If Supplied By Facility): CTDIvol = ( 6.04 ) mGy, DLP = ( 283.99 ) mGycm TECHNIQUE: Transaxial images were obtained from the dome of the diaphragm to the symphysis pubis without oral contrast, and without intravenous contrast. Sagittal and coronal images were reconstructed. Individualized dose optimization techniques were used for this CT. COMPARISON: 04/03/2019. FINDINGS: The visualized lung bases are unremarkable. The visualized portions of the heart are within normal limits. There is obstruction of the left kidney with mild hydronephrosis and moderate hydroureter down to a 6.5 mm left UVJ stone seen on axial image 140 and coronal image 56. Additional nonobstructing stones are seen in the lower pole the right kidney and at the right renal hilum. There is fatty liver with hepatomegaly. Gallbladder, pancreas, spleen, and adrenal glands are unremarkable. Evaluation of the GI tract is limited by absence of oral contrast. Cannot exclude stomach wall thickening. No dilated loops of bowel or evidence for obstruction. Cannot exclude segmental thickening of the baker of the small or large bowel. Cannot exclude enteritis or colitis. Moderate diffuse fecal retention. Appendix within normal limits. Normal appearance of the bladder and uterus, with IUD in normal position. Abdominal wall and skeletal structures are unremarkable. CT/Abdomen/Pelvis without Cont IMPRESSION: Obstruction of the left kidney collecting system and ureter from a 6.5 mm left UVJ stone. Electronically Signed: Akash Larry MD at 21:55 EDT , Service support ,
--- NOTE | 2020-08-11 19:34 | EDS_ITS ---
HPI History of Present Illness Chief Complaint: Flank Pain Informant: patient Onset/Context/Timing Onset: Weeks Context: Gradual Onset Timing: Intermittent Current Severity: Moderate Maximum Severity: Moderate Narrative Narrative: Patient presents with intermittent left flank and back pain over the past couple of weeks. She describes body aches, fever, nausea and vomiting. She denies diarrhea. She has had some mild dysuria with urgency and frequency. She reports a mild cough. T-max has been 101.6. She denies having the Covid vaccine but denies any known exposures as well. Past medical history: Bipolar disorder Asthma Kidney stone Pyelonephritis PFSH PFSH Home Medications ibuprofen 200 mg PO PRN PRN 06/18/19 [History Last Taken Unknown] Allergy/AdvReac Type Severity Reaction Status Date / Time amoxicillin [Amoxicillin] Allergy Hives Verified 08/11/20 19:04 codeine Allergy Hives Verified 08/11/20 19:04 hydrocodone Allergy Hives Verified 08/11/20 19:04 Influenza Virus Vaccines Allergy Anaphylaxis Verified 08/11/20 19:04 strawberry Allergy Anaphylaxis Verified 08/11/20 19:04 Social History Smoking Status: Former smoker ROS ROS ED Constitutional Constitutional ED: Reports chills and fever(s) Eyes Eyes: Denies change in vision ENT ENT ED: Denies sore throat Cardiovascular Cardiovascular: Denies chest pain Respiratory/Chest Respiratory/Chest: Denies cough or dyspnea Gastrointestinal Gastrointestinal: Reports abdominal pain, nausea and vomiting; Denies diarrhea Genitourinary Genitourinary ED: Reports dysuria Musculoskeletal Musculoskeletal: Reports back pain Integumentary Denies rash Neurologic Neurologic: Denies headache(s) or weakness Psychiatric Psychiatric: Denies anxiety or depression Endocrine Endocrinology: Denies polydipsia or polyuria Allergic/Immunologic Allergic/Immunologic ED: Denies urticaria EXAM Physical Exam Const Vital Signs: 08/11/20 19:02 08/11/20 21:15 Temperature 100.6 F H 99.6 F H Temperature Source Temporal Oral Pulse Rate 125 H 83 Respiratory Rate 18 18 Blood Pressure 120/67 106/63 Blood Pressure Mean 84 77 Pulse Ox 99 97 Oxygen Delivery Method Room Air Room Air Positive well nourished and well developed General Appearance ED: well developed HEENT Reports normocephalic and head/scalp atraumatic Eyes PERRL and EOMs intact bilaterally Neck supple Chest Wall inspection of chest normal and palpation of chest normal Resp normal respiratory effort and clear to auscultation bilaterally Cardio regular rate and regular rhythm GI normal to inspection, nondistended, normoactive bowel sounds and non-tender Palpation: soft Back/Spine General Back: CVA tenderness left Extremity normal to inspection Neuro oriented x3 and no sensory deficits noted Sensorium / Orientation: alert Motor Exam: strength 5/5 throughout Psych mental status grossly normal Skin no rashes or lesions noted MDM MDM MDM Narrative Medical decision making narrative: Patient was given Tylenol along with Toradol, morphine, Zofran, and IV fluids. Lab work, blood cultures, urinalysis, urine cultures are sent. CT flank is obtained. Lab Data Attestation: I reviewed the patient's lab results. Labs: Laboratory Results - last 24 hr 08/11/20 08/11/20 08/11/20 19:45 19:45 19:45 WBC 15.3 H RBC 4.29 Hgb 13.2 Hct 38.6 MCV 90.0 MCH 30.8 MCHC 34.2 RDW Std Deviation 38.5 RDW Coeff of Esme 11.8 Plt Count 376 MPV 9.0 Immature Gran % (Auto) 0.500 Neut % (Auto) 80.0 H Lymph % (Auto) 8.8 L [place] % (Auto) 9.4 Eos % (Auto) 1.0 Baso % (Auto) 0.3 Absolute Neuts (auto) 12.2 H Absolute Lymphs (auto) 1.35 Nucleated RBC % 0 Sodium 141 Potassium 3.3 L Chloride 108 H Carbon Dioxide 25.0 Anion Gap 8 BUN 6 L Creatinine 0.46 L Estim Creat Clear Calc 134.29 Est GFR (MDRD) Af Amer 213 Est GFR (MDRD) Non-Af 176 BUN/Creatinine Ratio 13.1 Glucose 92 Lactic Acid 0.7 Calcium 8.3 L Serum , Qual Urine Color Urine Clarity Urine pH Ur Specific [place] Urine Protein Urine Glucose (UA) Urine Ketones Urine Occult Blood Urine Nitrite Urine Bilirubin Urine Urobilinogen Ur Leukocyte Esterase Urine RBC Urine WBC Ur Squamous Epith Cells Urine Bacteria Urine Mucus 08/11/20 08/11/20 19:45 19:45 WBC RBC Hgb Hct MCV MCH MCHC RDW Std Deviation RDW Coeff of Esme Plt Count MPV Immature Gran % (Auto) Neut % (Auto) Lymph % (Auto) [place] % (Auto) Eos % (Auto) Baso % (Auto) Absolute Neuts (auto) Absolute Lymphs (auto) Nucleated RBC % Sodium Potassium Chloride Carbon Dioxide Anion Gap BUN Creatinine Estim Creat Clear Calc Est GFR (MDRD) Af Amer Est GFR (MDRD) Non-Af BUN/Creatinine Ratio Glucose Lactic Acid Calcium Serum , Qual NEGATIVE Urine Color Yellow Urine Clarity Cloudy Urine pH 7.0 Ur Specific [place] 1.010 Urine Protein 30 H Urine Glucose (UA) Normal Urine Ketones Negative Urine Occult Blood 50 H Urine Nitrite Positive H Urine Bilirubin Negative Urine Urobilinogen Normal Ur Leukocyte Esterase 500 H Urine RBC 0-5 SEEN Urine WBC 25-50 SEEN Ur Squamous Epith Cells 0-5 SEEN Urine Bacteria 1+ Urine Mucus 0 SEEN Radiography Diagnostic Testing: Radiology Impression Abdomen/Pelvis CT 08/11/20 19:17 IMPRESSION: Obstruction of the left kidney collecting system and ureter from a 6.5 mm left UVJ stone. Electronically Signed: Akash Larry MD at 21:55 EDT , Service support , Treatment and Re-Evaluation Comments:: Repeat evaluation patient is feeling improved. She does have evidence of a UTI and was given a dose of Rocephin. She does have evidence of obstruction on the left collecting system secondary to a 6.5 mm left UVJ stone. I spoke with Dr. Davila who the patient is seen in the past. He will admit the patient for further treatment. Discharge Plan Triage Chief Complaint: Flank Pain ED Provider: Lucero Tijerina Dx/Rx/DC Orders Clinical Impression: Kidney stone, Pyelonephritis Prescriptions: No Action ibuprofen 200 MG tablet 200 mg PO PRN PRN (Reason: Pain Or Fever) RF: 0 Primary Care Provider: Care Physician,No Primary Referrals: Care Physician,No Primary [Primary Care Provider] - Disposition Disposition: [facility]
[2020-08-11] MEDS: Ondansetron 4 MG/2 ML Vial IV (19:42)
[2020-08-11] MEDS: Acetaminophen 325 MG Tablet 650 MG PO (19:42)
[2020-08-11] MEDS: 0.9% Normal Saline 1,000 ML 1000 ML IV (19:42)
[2020-08-11] MEDS: Ketorolac 15 MG/ML Vial IV (19:42)
[2020-08-11] MEDS: Morphine 4 MG/ML Syringe IV (19:42)
[2020-08-11 19:56] LABS: Mucous, Urine 0 SEEN /hpf (<or=2+)
[2020-08-11 19:58] LABS: Absolute Lymphocyte Count 1.35 X10^3/uL (0.83-4.51); Absolute Neutrophil Count 12.2 X10^3/uL (2.0-7.7); Basophil# 0.05 X10^3/uL; Basophil% 0.3 % (0-1); Eosinophil# 0.15 X10^3/uL; Hematocrit 38.6 % (37-47); Hemoglobin 13.2 g/dL (12.0-15.0); Lymphocyte # 1.35 X10^3/ul (0.83-4.51); Lymphocyte % 8.8 % (19-41); Mean Corp Hgb Conc 34.2 g/dL (32-36); Mean Corpuscular Hgb 30.8 pg (27.0-32.0); Monocyte# 1.44 X10^3/uL; Monocyte% 9.4 % (0-10); NRBC Flagged by Analyzer 0 % (0-5); Neutrophil # 12.21 X10^3/uL (2.7-7.7); Platelet Count 376 K/mm3 (150-450); RBC Distribution Width CV 11.8 % (11.6-14.6); RBC Distribution Width SD 38.5 fl (35.1-43.9); Red Blood Count 4.29 M/mm3 (4.2-5.4); White Blood Count 15.3 K/mm3 (4.4-11.0)
[2020-08-11 19:59] LABS: Color, Urine Yellow (Yellow); Glucose, Dipstick Normal (Normal); Ketone-Dipstick Negative (Negative); Leukocyte Esterase-Dipstick 500 /ul (Negative); Nitrite-Dipstick Positive (Negative); Occult Blood-Urine 50 /ul (Negative); Protein-Dipstick 30 mg/dl (Negative); Urine Bilirubin Dipstick Negative (Negative); Urine Clarity Cloudy (Clear); Urine Urobilinogen Normal (Normal)
[2020-08-11 20:07] LABS: Bacteria 1+ /hpf (None Seen); Red Blood Cells-Urine 0-5 SEEN /hpf (0-5); Squamous Epithelial Cells - UA 0-5 SEEN /hpf (5-10); White Blood Cells 25-50 SEEN /hpf (0-5)
[2020-08-11 20:08] LABS: Internal QC Validated? YES +Cl - CLEAR BKGD; Pregnancy, Serum, hCG Quali. NEGATIVE Negative
[2020-08-11 20:12] LABS: Anion Gap 8 (5-15); BUN 6 mg/dL (7-18); BUN/Creat Ratio 13.1 RATIO (10-20); Calcium,Total 8.3 mg/dL (8.5-10.1); Chloride 108 mmol/L (98-107); Creatinine, Serum 0.46 mg/dL (0.55-1.02); EST Glomerular Filtration Rate 176 mL/min (>60); Est Glom Filt Rate - Afr Amer 213 mL/min (>60); Estimated Creatinine Clearance 134.29 ml/min; Glucose 92 mg/dL (74-106); Potassium 3.3 mmol/L (3.5-5.1); Sodium Level 141 mmol/L (136-145)
[2020-08-11 20:46] LABS: Lactic Acid 0.7 mmol/L (0.4-1.9)
[2020-08-11] MEDS: Ceftriaxone 1 GM/50 ML BAG IV (20:57)
[2020-08-11] MEDS: 0.9% Normal Saline 1,000 ML 150 ML IV (20:57)
[2020-08-11 21:15] VITALS: BP 106/63; PULSE 83; RESP 18; TEMP 37.6; O2SAT 97
[2020-08-11 22:32] VITALS: BP 97/63; PULSE 85; RESP 18; TEMP 36.6; O2SAT 96
[2020-08-11 23:17] VITALS: BMI 22.8
[2020-08-11 23:22] VITALS: BP 95/53; PULSE 71; RESP 16; TEMP 36.6; O2SAT 96
[2020-08-11] MEDS: 0.9% Saline Lock 10 ML Syringe IV (23:43)
[2020-08-11] MEDS: 0.9% Normal Saline 1,000 ML 125 ML IV (23:43)
[2020-08-12] VITALS (9 sets, daily range): BP systolic 95–117; BP diastolic 62–76; PULSE 70–97; RESP 16–18; TEMP 36.3–37.7; O2SAT 96–100; BMI 23.1
[2020-08-12] MEDS: Ketorolac 15 MG/ML Vial IV ×2 (02:21→10:17)
[2020-08-12 06:05] LABS: Absolute Lymphocyte Count 1.23 X10^3/uL (0.83-4.51); Absolute Neutrophil Count 9.8 X10^3/uL (2.0-7.7); Basophil# 0.04 X10^3/uL; Basophil% 0.3 % (0-1); Eosinophil# 0.06 X10^3/uL; Eosinophils% 0.5 % (0-5); Hematocrit 32.4 % (37-47); Lymphocyte # 1.23 X10^3/ul (0.83-4.51); Lymphocyte % 10.1 % (19-41); Mean Corpuscular Hgb 30.9 pg (27.0-32.0); Mean Platelet Vol. 9.1 fl (6.2-12.0); Monocyte# 0.98 X10^3/uL; Monocyte% 8.1 % (0-10); NRBC Flagged by Analyzer 0 % (0-5); Neutrophil # 9.77 X10^3/uL (2.7-7.7); Neutrophil % 80.6 % (47-70); Platelet Count 308 K/mm3 (150-450); RBC Distribution Width CV 11.8 % (11.6-14.6); RBC Distribution Width SD 39.7 fl (35.1-43.9); Red Blood Count 3.56 M/mm3 (4.2-5.4); White Blood Count 12.1 K/mm3 (4.4-11.0)
--- NOTE | 2020-08-12 06:57 | HP.PCM_ITS ---
HPI - General General Date of Admission: 08/11/20 HPI Narrative JUSTIN LOVE, is a 25 F who presents with multiple stone fragments in the distal left ureter causing obstruction and hydronephrosis, she also has some nonobstructing stones in the right kidney lower pole. Patient was admitted for fever and pain control and pyelonephritis. PFSH Medical History Anemia Depression Former smoker Home Medications NK 08/11/20 [History Last Taken Unknown] Allergy/AdvReac Type Severity Reaction Status Date / Time amoxicillin [Amoxicillin] Allergy Hives Verified 08/11/20 19:04 codeine Allergy Hives Verified 08/11/20 19:04 hydrocodone Allergy Hives Verified 08/11/20 19:04 Influenza Virus Vaccines Allergy Anaphylaxis Verified 08/11/20 19:04 strawberry Allergy Anaphylaxis Verified 08/11/20 19:04 Surgical History (Updated 08/12/20 @ 00:17 by Chauncey Kingsley) History of lithotripsy Social History Smoking Status: Former smoker ROS Constitutional Constitutional: Denies chills, fever(s) or malaise Eyes Eyes: Denies blurry vision or change in vision ENT HEENT: Reports none Cardiovascular Cardiovascular: Denies chest pain or palpitations Respiratory/Chest Respiratory/Chest: Denies cough or shortness of breath with exertion Gastrointestinal Gastrointestinal: Denies abdominal pain, constipation or diarrhea Genitourinary Genitourinary: Reports systems reviewed and no addt'l complaints, except as documented Musculoskeletal Musculoskeletal: Denies back pain, joint stiffness or joint swelling Integumentary Integumentary: Denies dry skin, jaundice, lesions or rash Neurologic Neurologic: Denies confusion, syncope or weakness Psychiatric Psychiatric: Reports none; Denies anxiety or depression Endocrine Endocrinology: Denies excessive sweating, fatigue or flushing Hematologic/Lymphatic Hematologic/Lymphatic: Denies anemia, easy bleeding or easy bruising Vital Signs Vital Signs Vital Signs: 08/11/20 19:02 08/11/20 21:15 08/11/20 22:32 Temperature 100.6 F H 99.6 F H 97.8 F Temperature Source Temporal Oral Oral Pulse Rate 125 H 83 85 Respiratory Rate 18 18 18 Blood Pressure 120/67 106/63 97/63 Blood Pressure Mean 84 77 74 Blood Pressure Source Blood Pressure Position Blood Pressure Location Pulse Ox 99 97 96 Oxygen Delivery Method Room Air Room Air Room Air 08/11/20 23:22 08/12/20 02:23 Temperature 97.9 F 99.8 F H Temperature Source Oral Oral Pulse Rate 71 97 Respiratory Rate 16 17 Blood Pressure 95/53 L 117/69 Blood Pressure Mean 67 85 Blood Pressure Source Monitor Monitor Blood Pressure Position Semi-Fowlers Semi-Fowlers Blood Pressure Location Right Arm Left Arm Pulse Ox 96 99 Oxygen Delivery Method Room Air Room Air Weight Weight: 53.2 kg Body Mass Index (BMI) 22.8 Physical Exam Const alert and oriented x3 General Appearance: cooperative HEENT normocephalic, head/scalp atraumatic, EAC's normal and TM's normal bilaterally Eyes PERRL and EOMs intact bilaterally Pupil: sluggish Neck no lymphadenopathy, supple and no JVD General: trachea midline Lymph Lymphatic: no lymphadenopathy noted, lymphedema and lymphadenopathy Resp normal respiratory effort, normal air movement and clear to auscultation bilaterally Cardio regular rate, regular rhythm and peripheral pulses 2+ throughout GI soft to palpation, non-tender and non-distended Extremity normal capillary refill and no clubbing, cyanosis or edema General Extremity: no tenderness to palpation of joints or extremities Skin no rashes or lesions noted General Skin Exam: turgor normal Lesions: no lesions Rashes: no rashes Neuro CN's II-XII intact bilaterally Speech: speech normal Motor Exam: strength 5/5 throughout; Negative for general weakness Psych thought process normal, cooperative and affect normal Appearance: appropriate Results Lab / Micro Data Result Diagrams: 08/12/20 05:38 08/11/20 19:45 Labs: Laboratory Results - last 24 hr 08/11/20 08/11/20 08/11/20 19:45 19:45 19:45 WBC 15.3 H RBC 4.29 Hgb 13.2 Hct 38.6 MCV 90.0 MCH 30.8 MCHC 34.2 RDW Std Deviation 38.5 RDW Coeff of Esme 11.8 Plt Count 376 MPV 9.0 Immature Gran % (Auto) 0.500 Neut % (Auto) 80.0 H Lymph % (Auto) 8.8 L [place] % (Auto) 9.4 Eos % (Auto) 1.0 Baso % (Auto) 0.3 Absolute Neuts (auto) 12.2 H Absolute Lymphs (auto) 1.35 Nucleated RBC % 0 Sodium 141 Potassium 3.3 L Chloride 108 H Carbon Dioxide 25.0 Anion Gap 8 BUN 6 L Creatinine 0.46 L Estim Creat Clear Calc 134.29 Est GFR (MDRD) Af Amer 213 Est GFR (MDRD) Non-Af 176 BUN/Creatinine Ratio 13.1 Glucose 92 Lactic Acid 0.7 Calcium 8.3 L Serum , Qual Urine Color Urine Clarity Urine pH Ur Specific [place] Urine Protein Urine Glucose (UA) Urine Ketones Urine Occult Blood Urine Nitrite Urine Bilirubin Urine Urobilinogen Ur Leukocyte Esterase Urine RBC Urine WBC Ur Squamous Epith Cells Urine Bacteria Urine Mucus 08/11/20 08/11/20 08/12/20 19:45 19:45 05:38 WBC 12.1 H RBC 3.56 L Hgb 11.0 L Hct 32.4 L MCV 91.0 MCH 30.9 MCHC 34.0 RDW Std Deviation 39.7 RDW Coeff of Esme 11.8 Plt Count 308 MPV 9.1 Immature Gran % (Auto) 0.400 Neut % (Auto) 80.6 H Lymph % (Auto) 10.1 L [place] % (Auto) 8.1 Eos % (Auto) 0.5 Baso % (Auto) 0.3 Absolute Neuts (auto) 9.8 H Absolute Lymphs (auto) 1.23 Nucleated RBC % 0 Sodium Potassium Chloride Carbon Dioxide Anion Gap BUN Creatinine Estim Creat Clear Calc Est GFR (MDRD) Af Amer Est GFR (MDRD) Non-Af BUN/Creatinine Ratio Glucose Lactic Acid Calcium Serum , Qual NEGATIVE Urine Color Yellow Urine Clarity Cloudy Urine pH 7.0 Ur Specific [place] 1.010 Urine Protein 30 H Urine Glucose (UA) Normal Urine Ketones Negative Urine Occult Blood 50 H Urine Nitrite Positive H Urine Bilirubin Negative Urine Urobilinogen Normal Ur Leukocyte Esterase 500 H Urine RBC 0-5 SEEN Urine WBC 25-50 SEEN Ur Squamous Epith Cells 0-5 SEEN Urine Bacteria 1+ Urine Mucus 0 SEEN Micro: Microbiology 08/11/20 19:45 SARS-CoV-2 Antigen (Rapid) - Final Mucosa - Nose Radiology Impression Abdomen/Pelvis CT 08/11/20 19:17 IMPRESSION: Obstruction of the left kidney collecting system and ureter from a 6.5 mm left UVJ stone. Electronically Signed: Akash Larry MD at 21:55 EDT , Service support , Assessment & Plan Assessment/Plan (1) Ureteral calculi: PLAN: Plan to take the surgery today for cystoscopy and left stent placeme nt for obstructing stone and infection.
[2020-08-12] MEDS: 0.9% Normal Saline 1,000 ML 125 ML IV (07:09)
[2020-08-12 08:14] LABS: Anion Gap 5 (5-15); BUN 5 mg/dL (7-18); BUN/Creat Ratio 14.1 RATIO (10-20); Calcium,Total 7.7 mg/dL (8.5-10.1); Chloride 110 mmol/L (98-107); Creatinine, Serum 0.36 mg/dL (0.55-1.02); EST Glomerular Filtration Rate 236 mL/min (>60); Est Glom Filt Rate - Afr Amer 286 mL/min (>60); Estimated Creatinine Clearance 171.59 ml/min; Glucose 91 mg/dL (74-106); Potassium 3.4 mmol/L (3.5-5.1); Sodium Level 139 mmol/L (136-145)
[2020-08-12] MEDS: Ceftriaxone 1 GM/50 ML BAG IV (10:17)
--- NOTE | 2020-08-12 16:37 | CASEMGMT ---
Social Work Note Pt is listed as self-pay. SW placed Self-pay packet on pt's table in pt's room as pt is out of the room currently. PFS has also been in contact with pt per PFS notes. Deborah Vogel [employer]ESS OPERATOR, [employer]
--- NOTE | 2020-08-12 17:46 | PCM.DC ---
Discharge Instructions Diet Discharge Diet: No restrictions Activity Discharge Activity: Return to Normal Activity and May Not Drive (while taking narcotic pain medications.) Dressing / Incision Call your doctor if you observe: Fever of 101 or Higher Follow Up Care Please Follow Up With: Trevor Davila MD When: Call [phone] for an appointment Test Results: Test results from this visit will be discussed in further detail at your follow-up appointment, if applicable. Discharge Plan Admission Admit Date/Time: 08/11/20 22:26 Primary Reason for Your Visit: cysto stent placement Attending Provider: Trevor Davila Primary Care Provider: Care Physician,No Primary Instructions Additional Instructions / Restrictions: Plan is to have outpatient surgery on Tuesday08/15/20 at [facility] with Pt needs to be NPO at midnight [facility] will call pt a day prior to surgery for arrival time. Discharge Orders/Prescriptions Prescriptions: New ciprofloxacin HCl [Cipro] 500 mg tablet 500 mg PO BID Qty: 10 RF: 0 oxycodone-acetaminophen 5-325 mg tablet 1 tab PO Q4H PRN (Reason: pain) 7 Days Qty: 14 RF: 0 Referrals / Follow Up: Trevor Davila MD [STAFF PHYSICIAN] - Care Physician,No Primary [Primary Care Provider] - Disposition Discharge Orders: Discharge Patient (Routine); Ordered 08/12/20 Ordered By: Dr. Trevor Davila
[2020-08-12] MEDS: Lidocaine Jelly 2% 20 ML Syringe (URO-JET) 20 APPLIC (18:03)
--- NOTE | 2020-08-12 18:10 | PCM.OPRPT ---
Report of Operation Date of Procedure: 08/12/20 Pre-Operative Diagnosis: Left obstructing distal ureteral calculi Post-Operative Diagnosis: Same Surgery/Procedure Performed:: Cystoscopy, left retrograde pyelogram left stent placement interpretation fluoroscopic images Description of Surgical Findings:: Patient was taken back to the operating room after induction of general anesthesia, the patient was placed in dorsolithotomy position. The urethra and genitals were prepped and draped in usual sterile fashion. Using a 21 [place] rigid cystourethroscope the entire length of the urethra was normal then went into the bladder. Identified the trigone the left and right ureteral orifice. I then cannulated the left orifice and advanced a wire up into the kidney. I then backloaded a 5 [place] open ended catheter over the wire and injected contrast to delineate the anatomy. Contrast was injected into the ureter he can see contrast going up to the kidney in a smooth fashion there were no filling defects stones along the course of the ureter the kidney filled out nicely with no filling defects within the kidney. After the retrograde was performed I then used fluoroscopic images and guidance to advanced a wire up into the kidney and over the 0.038 glidewire I advanced a 6 [place] by 26 cm double pigtail stent. I then pulled the 0.038 Glidewire off and the stent coiled in the kidney bladder good position. The bladder was then drained. We confirmed the position of the stent by fluoroscopy. Patient anesthetic was reversed and was taken back to the PACU in good condition. Type of Anesthesia: General Drains: stent left Admit VTE Documentation VTE Present on Admission: No VTE Mechan Device Prophylaxis: SCD's
== END 2020-08-12 20:35 | disposition home or self-care (01) ==
LOC: ED 22:26 → MS3 22:39
PROVIDERS: Admitting Provider Urology; Emergency Provider Emergency Medicine; Visit Provider Urology
PROC: (CPT 52332; principal; 2020-08-12 16:50)
DX: N13.6 Pyonephrosis (principal); J45.909 Unspecified asthma, uncomplicated; Z87.891 Personal history of nicotine dependence
CPT/HCPCS: 52332; 36415; 74176; 76000; 80048; 81001; 83605; 84703; 85025; 87040; 87077; 87086; 87088; 87186; 87426; 96361; 96365; 96366; 96375; 96376; 99218; 99283; J7030; A4216; C1769; C2617; G0378; J2405

== ENCOUNTER 2020-08-15 06:18 | Day surgery (SDC) | payer SELFPAY ==
[2020-08-12 10:26] VITALS: BMI 23.1
[2020-08-15 06:39] LABS: Internal QC Validated? YES +Cl - CLEAR BKGD; Pregnancy, Urine Negative Negative
[2020-08-15 06:47] VITALS: BP 101/66; PULSE 72; RESP 14; TEMP 36.2; O2SAT 97; BMI 22.7
[2020-08-15] MEDS: Lactated Ringers 1,000 ML 100 ML IV (07:03)
--- NOTE | 2020-08-15 07:49 | PCM.HP.STD ---
HPI - General HPI Narrative JUSTIN LOVE, is a 25 F who presents treatment of a distal left ureteral calculi status post stent placement. She also has several nonobstructing stones in the right kidney plan to treat as later. [facility] Medical History (Updated 08/13/20 @ 11:33 by Azul Ames) Anemia Asthma Depression Former smoker History of renal disease Wears contact lenses Wears glasses Home Medications ciprofloxacin HCl [Cipro] 500 mg PO BID #10 tab 08/12/20 [Rx Last Taken Unknown] oxycodone-acetaminophen 1 tab PO Q4H PRN 7 Days #14 tab 08/12/20 [Rx Last Taken Unknown] Allergy/AdvReac Type Severity Reaction Status Date / Time amoxicillin [Amoxicillin] Allergy Hives Verified 08/11/20 19:04 codeine Allergy Hives Verified 08/11/20 19:04 hydrocodone Allergy Hives Verified 08/11/20 19:04 Influenza Virus Vaccines Allergy Anaphylaxis Verified 08/11/20 19:04 strawberry Allergy Anaphylaxis Verified 08/11/20 19:04 Surgical History (Updated 08/12/20 @ 00:17 by Chauncey Kingsley) History of lithotripsy Social History Smoking Status: Former smoker ROS Constitutional Constitutional: Denies chills, fever(s) or malaise Eyes Eyes: Denies blurry vision or change in vision ENT HEENT: Reports none Cardiovascular Cardiovascular: Denies chest pain or palpitations Respiratory/Chest Respiratory/Chest: Denies cough or shortness of breath with exertion Gastrointestinal Gastrointestinal: Denies abdominal pain, constipation or diarrhea Musculoskeletal Musculoskeletal: Denies back pain, joint stiffness or joint swelling Integumentary Integumentary: Denies dry skin, jaundice, lesions or rash Neurologic Neurologic: Denies confusion, syncope or weakness Psychiatric Psychiatric: Reports none; Denies anxiety or depression Endocrine Endocrinology: Denies excessive sweating, fatigue or flushing Hematologic/Lymphatic Hematologic/Lymphatic: Denies anemia, easy bleeding or easy bruising Vital Signs Vital Signs Vital Signs: 08/15/20 06:47 Temperature 97.2 F L Temperature Source Temporal Pulse Rate 72 Respiratory Rate 14 Respiratory Pattern Normal Blood Pressure 101/66 Blood Pressure Mean 77 Blood Pressure Source Monitor Blood Pressure Position Semi-Fowlers Blood Pressure Location Right Arm Pulse Ox 97 Oxygen Delivery Method Room Air Weight Weight: 52.9 kg Body Mass Index (BMI) 22.7 Physical Exam Const alert and oriented x3 General Appearance: cooperative HEENT normocephalic, head/scalp atraumatic, EAC's normal and TM's normal bilaterally Eyes PERRL and EOMs intact bilaterally Pupil: sluggish Neck no lymphadenopathy, supple and no JVD General: trachea midline Lymph Lymphatic: no lymphadenopathy noted, lymphedema and lymphadenopathy Resp normal respiratory effort, normal air movement and clear to auscultation bilaterally Cardio regular rate, regular rhythm and peripheral pulses 2+ throughout GI soft to palpation, non-tender and non-distended Extremity normal capillary refill and no clubbing, cyanosis or edema General Extremity: no tenderness to palpation of joints or extremities Skin no rashes or lesions noted General Skin Exam: turgor normal Lesions: no lesions Rashes: no rashes Neuro CN's II-XII intact bilaterally Speech: speech normal Motor Exam: strength 5/5 throughout; Negative for general weakness Psych thought process normal, cooperative and affect normal Appearance: appropriate Results Lab / Micro Data Labs: Laboratory Results - last 24 hr 08/14/20 08/15/20 16:00 06:30 Urine Test Negative COVID-19 ([place]) Not Detected Assessment & Plan Assessment/Plan (1) Kidney stone: PLAN: Plan to proceed with left ureteroscopy laser and basket of stones.
--- NOTE | 2020-08-15 07:51 | PCM.DC ---
Discharge Instructions Diet Discharge Diet: No restrictions Activity Discharge Activity: Return to Normal Activity and May Not Drive (while taking narcotic pain medications.) Dressing / Incision Call your doctor if you observe: Fever of 101 or Higher Follow Up Care Please Follow Up With: Trevor Davila MD When: Call [phone] for an appointment Test Results: Test results from this visit will be discussed in further detail at your follow-up appointment, if applicable. Discharge Plan Admission Primary Reason for Your Visit: ureteroscopy laser stone Attending Provider: Trevor Davila Primary Care Provider: Care Physician,No Primary Discharge Orders/Prescriptions Prescriptions: Continued ciprofloxacin HCl [Cipro] 500 mg tablet 500 mg PO BID Qty: 10 RF: 0 oxycodone-acetaminophen 5-325 mg tablet 1 tab PO Q4H PRN (Reason: pain) 7 Days Qty: 14 RF: 0 Referrals / Follow Up: Trevor Davila MD [STAFF PHYSICIAN] - Care Physician,No Primary [Primary Care Provider] - Disposition Disposition (needs filled in before D/C Order can be placed): Home, Self Care
[2020-08-15] MEDS: Cefazolin 2 GM in 0.9% Normal Saline 100 ML IV (08:02)
--- NOTE | 2020-08-15 08:19 | PCM.OPRPT ---
Report of Operation Date of Procedure: 08/15/20 Pre-Operative Diagnosis: Left ureteral calculi status post stent Post-Operative Diagnosis: Same Surgery/Procedure Performed:: Cystoscopy left ureteroscopy basket extraction, no stent Description of Surgical Findings:: 25-year-old female who presented to the operating room today for she is status post stent placement for obstructing stone in the distal left ureter earlier this week and infection. She is still taking Cipro. Today she presents for treatment of the obstructing stones possible removal of stent. Patient was taken back to the operating room at the smooth induction of general anesthesia she was placed in dorsolithotomy position the urethra vaginal area prepped and draped usual sterile fashion went into the bladder with a twenty-one Latvian rigid cystourethroscope grabbed the existing stent from the left side pulled out to the meatus advance a wire through the stent left the wire in place and then next the wire went in with a seven Latvian semirigid ureteroscope. Was able to get into the ureter quite easily encountered an area of severe inflammation with the stone apparently been stuck and then worked my way up the ureter, I worked all my way up to the UPJ did not see any major fragments look that the large fragment has passed it was a small little fragment that was in the ureter I used a tipless nitinol basket was able to basket this fragment out but is quite small. Since all the stones were gone there is no obstruction I then remove the wire came out with the ureteroscope drained the bladder and patient anesthetic reversed she will go home she has no stent in place plan to see her back in a few weeks with a KUB she does have some larger stones in the right kidney that are up in the kidney the need to be treated Surgeon: vahe Drains: none Admit VTE Documentation VTE Present on Admission: No VTE Mechan Device Prophylaxis: SCD's
[2020-08-15 08:28] VITALS: BP 101/66; BP 91/63; PULSE 80; RESP 16; TEMP 36.5; O2SAT 99
[2020-08-15 08:45] VITALS: BP 101/66; BP 94/61; PULSE 71; RESP 16; O2SAT 97
[2020-08-15 09:00] VITALS: BP 101/66; BP 96/66; PULSE 76; RESP 16; O2SAT 98
[2020-08-15 09:02] VITALS: BP 101/66; BP 98/67; PULSE 75; RESP 16; TEMP 36.7; O2SAT 97
[2020-08-15 09:30] VITALS: BP 101/66
== END 2020-08-15 09:41 | disposition home or self-care (01) ==
LOC: SDC 06:19 → AC 06:20
PROVIDERS: Anesthesiology; Referring Provider Urology; Visit Provider Urology
PROC: 0TJ98ZZ Inspection of Ureter, Via Natural or Artificial Opening Endoscopic (ICD-10-PCS; CPT 52352; principal; 2020-08-15 08:05)
DX: N20.2 Calculus of kidney with calculus of ureter (principal); Z20.822 Contact with and (suspected) exposure to COVID-19; J45.909 Unspecified asthma, uncomplicated; F32.9 Major depressive disorder, single episode, unspecified; Z79.899 Other long term (current) drug therapy; Z87.891 Personal history of nicotine dependence
CPT/HCPCS: 00918; 52352; 76000; 81025; 87635; J7120; U0005; C1769; J2405; U0003

== ENCOUNTER 2021-02-24 16:40 | Emergency (ER) | payer SELFPAY ==
[2021-02-24 16:41] VITALS: BP 110/75; PULSE 104; RESP 16; TEMP 36.4; O2SAT 96; BMI 22.4
--- NOTE | 2021-02-24 17:48 | EDS_ITS ---
HPI History of Present Illness Chief Complaint: General Illness Informant: patient Onset/Context/Timing Onset: Yesterday Context: Gradual Onset Timing: Continuous Quality: Lightheadedness Location: Generalized Worsened by: Standing up Relieved by: Laying down Narrative Narrative: Patient presents with dizziness and fever that began last night. Patient states her temperature at home was up to 101.2. Patient states her dizziness feels like she is lightheaded. Patient states this is worse with standing and better with laying down. Patient admits to some cough but denies any sputum production. Patient admits to nausea but denies any vomiting. Patient also admits to a headache. Patient also admits to some rhinorrhea. Patient states other family members have had similar symptoms. [facility] Medical History Anemia Asthma Depression Former smoker History of renal disease Wears contact lenses Wears glasses Home Medications ciprofloxacin HCl [Cipro] 500 mg PO BID #10 tab 08/12/20 [Rx Last Taken Unknown] oxycodone-acetaminophen 1 tab PO Q4H PRN 7 Days #14 tab 08/12/20 [Rx Last Taken Unknown] Allergy/AdvReac Type Severity Reaction Status Date / Time amoxicillin [Amoxicillin] Allergy Hives Verified 08/11/20 19:04 codeine Allergy Hives Verified 08/11/20 19:04 hydrocodone Allergy Hives Verified 08/11/20 19:04 Influenza Virus Vaccines Allergy Anaphylaxis Verified 08/11/20 19:04 strawberry Allergy Anaphylaxis Verified 08/11/20 19:04 Surgical History History of lithotripsy Social History Smoking Status: Former smoker ROS ROS ED Constitutional Constitutional ED: Reports fever(s); Denies chills Eyes Eyes: Denies blurry vision or change in vision ENT ENT ED: Reports rhinorrhea; Denies sore throat Cardiovascular Cardiovascular: Denies chest pain or palpitations Respiratory/Chest Respiratory/Chest: Reports cough; Denies dyspnea Gastrointestinal Gastrointestinal: Reports nausea; Denies vomiting Genitourinary Genitourinary ED: Denies dysuria or hematuria Musculoskeletal Musculoskeletal: Reports back pain; Denies neck pain Integumentary Denies abscess or rash Neurologic Neurologic: Reports headache(s); Denies weakness Allergic/Immunologic Allergic/Immunologic ED: Denies mouth swelling or urticaria EXAM Physical Exam Const Vital Signs: 02/24/21 16:41 02/24/21 17:19 Temperature 97.5 F L Temperature Source Temporal Pulse Rate 104 H Respiratory Rate 16 Respiratory Effort Normal Non-Labored Blood Pressure 110/75 Blood Pressure Mean 86 Pulse Ox 96 Oxygen Delivery Method Room Air Positive well nourished and well developed General Appearance ED: well developed HEENT Reports moist mucous membranes HEENT Narrative: Oropharynx is clear. Airway is patent. There are no exudates noted. Neck supple and no JVD Resp normal respiratory effort and clear to auscultation bilaterally Cardio regular rate, regular rhythm and no murmurs GI normal to inspection, nondistended, normoactive bowel sounds and non-tender Palpation: soft Extremity normal to inspection General Extremety ED: Negative for edema or tenderness General Extremity: Negative for edema Neuro oriented x3, CN's II-XII intact bilaterally and no sensory deficits noted Sensorium / Orientation: alert Motor Exam: strength 5/5 throughout Psych mental status grossly normal Skin no rashes or lesions noted MDM MDM MDM Narrative Medical decision making narrative: Portable 1 view chest x-ray was obtained. On my interpretation, lung cuellar are clear. There is normal cardiac silhouette. Bony thorax is normal. There is no acute process noted. Radiologist also interpreted the x-ray and agrees. COVID-19 rapid antigen was obtained and was negative. Patient was advised of her findings. Patient was advised that this may be a viral upper respiratory infection. Patient was instructed to follow-up with her primary care physician in 5 to 7 days. Patient understood and was agreeable with the plan. All questions were answered. Radiography Diagnostic Testing: Clinical Impression(s) from Imaging Studies Chest X-Ray 02/24/21 18:00 IMPRESSION: There are no acute findings. Electronically Signed: Elliott Hogan MD at 18:30 EST , Service support , Discharge Plan Triage Chief Complaint: General Illness ED Provider: Dennis Galindo Dx/Rx/DC Orders Clinical Impression: Viral upper respiratory tract infection Instructions: ED URI, Viral, No Abx (Adult) Prescriptions: No Action ciprofloxacin HCl [Cipro] 500 mg tablet 500 mg PO BID Qty: 10 RF: 0 oxycodone-acetaminophen 5-325 mg tablet 1 tab PO Q4H PRN (Reason: pain) 7 Days Qty: 14 RF: 0 Primary Care Provider: Care Physician,No Primary Referrals: Cynthia Carl [NON-STAFF] - 5-7 Days Care Physician,No Primary [Primary Care Provider] - Disposition Disposition: Home, Self Care
--- NOTE | 2021-02-24 18:00 | RAD_ITS ---
STUDY: X-RAY CHEST REASON FOR EXAM: Female, 25 years old. CHEST PAIN Cough TECHNIQUE: XR Chest 1 View COMPARISON: 4 FINDINGS: There is no demonstrated pleural abnormality. Normal size heart. Normal mediastinum and pradeep. Normal visualized pulmonary arteries. Normal visualized aortic arch and descending thoracic aorta. Normal visualized thoracic spine. Normal visualized ribs, clavicles, and shoulders. There is no demonstrated abnormality of the visualized soft tissue structures of the upper abdomen. RAD/Chest 1 View (Portable) IMPRESSION: There are no acute findings. Electronically Signed: Elliott Hogan MD at 18:30 EST , Service support ,
[2021-02-24 19:49] VITALS: BP 119/78; PULSE 81; RESP 16; O2SAT 100
--- NOTE | 2021-02-24 19:49 | ED.RN ---
THIS NURSE REVIEWED D/C INSTRUCTIONS WITH PT. PT VERBALIZED UNDERSTANDING OF INSTRUCTIONS. PT DENIES FURTHER NEEDS OR QUESTIONS AT THIS TIME
== END 2021-02-24 19:50 | disposition home or self-care (01) ==
PROVIDERS: Emergency Provider Emergency Medicine; Visit Provider Emergency Medicine
DX: J06.9 Acute upper respiratory infection, unspecified (principal); Z87.891 Personal history of nicotine dependence
CPT/HCPCS: 71045; 87426; 99282

== ENCOUNTER 2023-03-22 14:37 | Emergency (ER) | payer MEDICAID, SELFPAY ==
[2023-03-22 14:38] VITALS: BP 121/64; PULSE 91; RESP 18; TEMP 36.6; O2SAT 96; BMI 24.6
[2023-03-22] MEDS: proMETHazine 25 MG Tablet PO (17:11)
--- NOTE | 2023-03-22 17:16 | EX.ED.VIS.UR ---
HPI HPI - URI History of Present Illness Chief Complaint: Nausea/Vomiting Narrative Narrative: 28-year-old female presenting for nausea and vomiting. She states that Tuesday of last week she left work because she felt ill. She states that she went to urgent care on Tuesday and was diagnosed with influenza B. She reports that she was sent back to work on of that week. She still was not better and went home. Tuesday and Tuesday she had more nausea and vomiting. Fevers have since resolved. Patient states she still vomiting. She was post to go back to work because she could not. She has Zofran which is not helping. Patient does have some abdominal pain which she thinks is from retching. No urinary or vaginal complaints. No constipation or diarrhea. ROS ROS ED Constitutional Constitutional ED: Denies chills, fever(s) or sweats Eyes Eyes: Denies blurry vision or change in vision ENT ENT ED: Denies ear pain or sore throat Cardiovascular Cardiovascular: Denies chest pain, palpitations or racing heartbeat Respiratory/Chest Respiratory/Chest: Denies cough, dyspnea or sputum Gastrointestinal Gastrointestinal: Reports abdominal pain, nausea and vomiting; Denies constipation or diarrhea Genitourinary Genitourinary ED: Denies dysuria, hematuria or urinary frequency Musculoskeletal Musculoskeletal: Denies arthralgias, myalgias or neck pain Integumentary Denies abscess, Abrasions or rash Neurologic Neurologic: Denies headache(s), paresthesias or weakness Psychiatric Psychiatric: Denies anxiety, depression, suicidal ideation or suicidal thoughts Endocrine Endocrinology: Denies polydipsia or polyuria PFSH PFS Medical History Anemia Asthma Depression Former smoker History of renal disease Wears contact lenses Wears glasses Home Medications ciprofloxacin HCl 500 mg tablet (Cipro) 500 mg PO BID #10 tabs 08/12/20 [Rx Last Taken Unknown] oxycodone-acetaminophen 5 mg-325 mg tablet 1 tab PO Q4H PRN pain 7 days #14 tabs 08/12/20 [Rx Last Taken Unknown] Allergy/AdvReac Type Severity Reaction Status Date / Time acetaminophen [From Vicodin] Allergy Mild Other Verified 03/22/23 14:38 amoxicillin [Amoxicillin] Allergy Hives Verified 03/22/23 14:37 codeine Allergy Hives Verified 03/22/23 14:37 hydrocodone Allergy Hives Verified 03/22/23 14:37 Influenza Virus Vaccines Allergy Anaphylaxis Verified 03/22/23 14:37 strawberry Allergy Anaphylaxis Verified 03/22/23 14:37 Surgical History History of lithotripsy Social History Smoking Status: Former smoker EXAM Physical Exam Const Vital Signs: 03/22/23 14:38 Temperature 98 F Temperature Source Temporal Pulse Rate 91 Respiratory Rate 18 Blood Pressure 121/64 H Blood Pressure Mean 83 Pulse Ox 96 Oxygen Delivery Method Room Air Positive well nourished General Appearance ED: NAD; Negative for pallor HEENT Reports moist mucous membranes normocephalic and atraumatic Neck no lymphadenopathy Resp normal respiratory effort Auscultation: Negative for rales, rhonchi or wheezes Cardio Rate: regular rate Rhythm: regular rhythm GI non-tender Neuro oriented x3 and CN's II-XII intact bilaterally Sensorium / Orientation: alert Motor Exam: strength 5/5 throughout Psych mental status grossly normal Skin General Skin Exam: Negative for jaundice or pallor MDM MDM MDM Narrative Medical decision making narrative: 20-year-old female with history of flu B requesting something for nausea. She is given Phenergan and was able to hold this down. I offered her IV fluids and IV medications but she declines. She states she just wants to feel little bit better and go home. She also request a work note. On reevaluation he is doing much better. Discharged home with some Phenergan. Return precautions discussed. Impression: 1. Nausea/vomiting. 2. History of influenza B. Lab Data Attestation: I reviewed the patient's lab results. Discharge Plan Triage Chief Complaint: Nausea/Vomiting ED Provider: Moses Khalil Dx/Rx/DC Orders Prescriptions: No Action ciprofloxacin HCl [Cipro] 500 mg tablet 500 mg PO BID Qty: 10 0RF oxycodone-acetaminophen 5-325 mg tablet 1 tab PO Q4H PRN (Reason: pain) 7 Days Qty: 14 0RF Primary Care Provider: Care Physician,No Primary Referrals: Care Physician,No Primary [Primary Care Provider] -
[2023-03-22 18:20] VITALS: BP 112/76; PULSE 66; RESP 18; TEMP 36.8; O2SAT 100
== END 2023-03-22 18:21 | disposition home or self-care (01) ==
PROVIDERS: Emergency Provider Student in an Organized Health Care Education/Training Program; Visit Provider Student in an Organized Health Care Education/Training Program
DX: R11.2 Nausea with vomiting, unspecified (principal); R10.9 Unspecified abdominal pain; J45.909 Unspecified asthma, uncomplicated; Z79.899 Other long term (current) drug therapy; Z87.891 Personal history of nicotine dependence
CPT/HCPCS: 99282

== ENCOUNTER 2023-08-26 16:09 | Emergency (ER) | payer SELFPAY ==
[2023-08-26 16:10] VITALS: BP 133/87; PULSE 99; RESP 17; TEMP 36.1; O2SAT 99; BMI 25.7
[2023-08-26 16:11] VITALS: BP 133/87; PULSE 99; RESP 17; TEMP 36.1; O2SAT 99
--- NOTE | 2023-08-26 17:31 | EDS_ITS ---
HPI <MARY Merlos - Last Filed: 08/26/23 20:59> History of Present Illness Chief Complaint: Complaint Narrative Narrative: 28-year-old female states 1 week ago she had [employer] and drank alcohol and the next day had nausea and vomiting which she thought was from this but it continued throughout the week. She had some mild lower abdominal pain and a few episodes of sharp right flank pain so she went to urgent care yesterday. Her urine dip showed blood and they prescribed Macrobid for a UTI but the urine culture came back negative today. She states she is concerned that her symptoms could be from a kidney stone because she has had these twice in the past. Both times required a stent. She states her abdominal pain is well-managed right now with Tylenol and she has no dysuria, frequency, or hematuria. PFSH <MARY Merlos - Last Filed: 08/26/23 20:59> PFSH Medical History Anemia Asthma Depression Former smoker History of renal disease Wears contact lenses Wears glasses Home Medications ?Medication ?Instructions ?Recorded ?Last Taken ?Type ciprofloxacin HCl 500 mg tablet 500 mg PO BID #10 tabs 08/12/20 Unknown Rx (Cipro) oxycodone-acetaminophen 5 mg-325 1 tab PO Q4H PRN pain 7 days #14 08/12/20 Unknown Rx mg tablet tabs famotidine 20 mg tablet (Pepcid) 20 mg PO BID #10 tabs 03/22/23 Unknown Rx promethazine 25 mg tablet 25 mg PO Q6H PRN nausea and 03/22/23 Unknown Rx vomiting #20 tabs ondansetron 4 mg disintegrating 4 mg PO Q6H PRN nausea and 08/26/23 Unknown Rx tablet vomiting #12 tabs Allergy/AdvReac Type Severity Reaction Status Date / Time acetaminophen (From Vicodin) Allergy Mild Other Verified 08/26/23 16:09 amoxicillin (Amoxicillin) Allergy Hives Verified 08/26/23 16:09 codeine Allergy Hives Verified 08/26/23 16:09 hydrocodone Allergy Hives Verified 08/26/23 16:09 Influenza Virus Vaccines Allergy Anaphylaxis Verified 08/26/23 16:09 strawberry Allergy Anaphylaxis Verified 08/26/23 16:09 Surgical History History of lithotripsy Social History Smoking Status: Former smoker ROS <MARY Merlos - Last Filed: 08/26/23 20:59> ROS ED ROS Narrative Constitutional: Negative for fever, chills, malaise. CVS: Negative for chest pain. Respiratory: Negative for shortness of breath. GI: Positive for abdominal pain, nausea, vomiting. Negative for diarrhea, constipation, melena, hematochezia. : Negative for dysuria, hematuria or frequency. EXAM <MARY Merlos - Last Filed: 08/26/23 20:59> Physical Exam Narrative Exam Narrative: CONST: Patient sitting in no acute distress. EYES: Normal inspection. ENT: Normal inspection, moist mucous membranes. NECK: Normal inspection. RESP: No respiratory distress, CTAB. CVS: Regular rate and rhythm, no murmur, no gallop. ABD: Soft with suprapubic tenderness, no guarding or rebound, nondistended. Back: Normal inspection, no CVA tenderness. SKIN: Color normal, no rash, warm, dry, intact. EXTREMITIES: Normal appearance, no pedal edema. NEURO: Alert and answering questions appropriately. PSYCH: Normal affect. Const Vital Signs: 08/26/23 16:10 08/26/23 16:11 08/26/23 17:55 Temperature 97 F L 97 F L 98.4 F Temperature Source Temporal Temporal Oral Pulse Rate 99 99 74 Respiratory Rate 17 17 16 Blood Pressure 133/87 H 133/87 H 102/71 Blood Pressure Mean 102 102 81 Pulse Ox 99 99 98 Oxygen Delivery Method Room Air Room Air 08/26/23 17:57 08/26/23 20:00 08/26/23 20:57 Temperature 98.4 F 97.8 F 99 F Temperature Source Oral Temporal Pulse Rate 75 68 18 L Respiratory Rate 16 18 18 Blood Pressure 102/71 113/78 104/86 H Blood Pressure Mean 81 89 92 Pulse Ox 98 98 99 Oxygen Delivery Method Room Air Room Air <Dr. Dean Alfaro DO - Last Filed: 08/26/23 22:08> Physical Exam Const Vital Signs: 08/26/23 16:10 08/26/23 16:11 08/26/23 17:55 Temperature 97 F L 97 F L 98.4 F Temperature Source Temporal Temporal Oral Pulse Rate 99 99 74 Respiratory Rate 17 17 16 Blood Pressure 133/87 H 133/87 H 102/71 Blood Pressure Mean 102 102 81 Pulse Ox 99 99 98 Oxygen Delivery Method Room Air Room Air 08/26/23 17:57 08/26/23 20:00 08/26/23 20:57 Temperature 98.4 F 97.8 F 99 F Temperature Source Oral Temporal Pulse Rate 75 68 18 L Respiratory Rate 16 18 18 Blood Pressure 102/71 113/78 104/86 H Blood Pressure Mean 81 89 92 Pulse Ox 98 98 99 Oxygen Delivery Method Room Air Room Air [facility] <MARY Merlos - Last Filed: 08/26/23 20:59> [facility] Narrative Medical decision making narrative: Patient has had recent nausea and vomiting and suprapubic pain. She had 1 brief episode of right flank pain earlier this week. She started Macrobid last night from urgent care for UTI. She appears well and nontoxic and is afebrile with normal vital signs. She has mild suprapubic tenderness on exam and no flank pain. She states she really has no pain and declined analgesia. CBC, BMP, liver enzymes and lipase are unremarkable. Urine is nitrite positive, 500 leukocytes, and has had over 100 WBCs. There is no RBCs or bacteria. It was sent for culture. Based on her exam and symptoms I do not have strong concern for a kidney stone or pyelonephritis and she has no leukocytosis; I do not think a CT scan is indicated. I recommended she continue Macrobid and I prescribed Zofran as needed. Return if symptoms worsen. She was discharged in stable condition. Lab Data Attestation: I reviewed the patient's lab results. Labs: Laboratory Results - last 24 hr 08/26/23 08/26/23 17:53 18:35 WBC 8.9 RBC 4.53 Hgb 13.9 Hct 41.2 MCV 90.9 MCH 30.7 MCHC 33.7 RDW Std Deviation 40.5 RDW Coeff of Esme 12.4 Plt Count 322 MPV 9.3 Immature Gran % (Auto) 0.700 Neut % (Auto) 58.7 Lymph % (Auto) 29.2 Ward % (Auto) 7.0 Eos % (Auto) 3.8 Baso % (Auto) 0.6 Absolute Neuts (auto) 5.2 Absolute Lymphs (auto) 2.59 Nucleated RBC % 0 Sodium 143 Potassium 3.5 Chloride 109 H Carbon Dioxide 28.0 Anion Gap 6 BUN 5 L Creatinine 0.47 L Estim Creat Clear Calc 144.21 Est GFR (MDRD) Af Amer 204 Est GFR (MDRD) Non-Af 168 BUN/Creatinine Ratio 10.7 Glucose 95 Calcium 8.5 Total Bilirubin 0.40 Direct Bilirubin 0.12 AST 11 L ALT 12 L Alkaline Phosphatase 65 Total Protein 6.4 Albumin 3.2 Globulin 3.2 Lipase 24 Urine Color Yellow Urine Clarity Turbid Urine pH 7.0 Ur Specific [place] 1.010 Urine Protein 100 H Urine Glucose (UA) Normal Urine Ketones Negative Urine Occult Blood 250 H Urine Nitrite Positive H Urine Bilirubin Negative Urine Urobilinogen Normal Ur Leukocyte Esterase 500 H Urine RBC 0 SEEN Urine WBC >100 SEEN Ur Squamous Epith Cells 0 SEEN Urine Bacteria 0 SEEN Urine Mucus 0 SEEN Urine Test Negative <Dr. Dean Alfaro, DO - Last Filed: 08/26/23 22:08> [facility] Narrative Medical decision making narrative: Patient has had recent nausea and vomiting and suprapubic pain. She had 1 brief episode of right flank pain earlier this week. She started Macrobid last night from urgent care for UTI. She appears well and nontoxic and is afebrile with normal vital signs. She has mild suprapubic tenderness on exam and no flank pain. She states she really has no pain and declined analgesia. CBC, BMP, liver enzymes and lipase are unremarkable. Urine is nitrite positive, 500 leukocytes, and has had over 100 WBCs. There is no RBCs or bacteria. It was sent for culture. Based on her exam and symptoms I do not have strong concern for a kidney stone or pyelonephritis and she has no leukocytosis; I do not think a CT scan is indicated. I recommended she continue Macrobid and I prescribed Zofran as needed. Return if symptoms worsen. She was discharged in stable condition. I have personally performed a face to face assessment of the patient and have reviewed the CYNDI Note. I performed a substantive portion of the visit including all aspects of the following. My cowart findings include: History is 28-year-old female presenting to the emergency room with nausea vomiting. She was at urgent care yesterday and they told that she had blood in her urine and placed her on Macrobid. Exam is afebrile vital signs are stable. Mild suprapubic tenderness. She is otherwise well-appearing. Medical Decison Making CBC BMP liver enzymes and lipase is negative. Urine is nitrate positive greater than 1 blood cells. This was sent for culture. Think she should continue on the Macrobid. Urinary symptoms improved with the vomiting. Patient to return if worsening or concerns. History & Record Review Discussion w/independent historian: Patient Lab Data Labs: Laboratory Results - last 24 hr 08/26/23 08/26/23 17:53 18:35 WBC 8.9 RBC 4.53 Hgb 13.9 Hct 41.2 MCV 90.9 MCH 30.7 MCHC 33.7 RDW Std Deviation 40.5 RDW Coeff of Esme 12.4 Plt Count 322 MPV 9.3 Immature Gran % (Auto) 0.700 Neut % (Auto) 58.7 Lymph % (Auto) 29.2 Ward % (Auto) 7.0 Eos % (Auto) 3.8 Baso % (Auto) 0.6 Absolute Neuts (auto) 5.2 Absolute Lymphs (auto) 2.59 Nucleated RBC % 0 Sodium 143 Potassium 3.5 Chloride 109 H Carbon Dioxide 28.0 Anion Gap 6 BUN 5 L Creatinine 0.47 L Estim Creat Clear Calc 144.21 Est GFR (MDRD) Af Amer 204 Est GFR (MDRD) Non-Af 168 BUN/Creatinine Ratio 10.7 Glucose 95 Calcium 8.5 Total Bilirubin 0.40 Direct Bilirubin 0.12 AST 11 L ALT 12 L Alkaline Phosphatase 65 Total Protein 6.4 Albumin 3.2 Globulin 3.2 Lipase 24 Urine Color Yellow Urine Clarity Turbid Urine pH 7.0 Ur Specific [place] 1.010 Urine Protein 100 H Urine Glucose (UA) Normal Urine Ketones Negative Urine Occult Blood 250 H Urine Nitrite Positive H Urine Bilirubin Negative Urine Urobilinogen Normal Ur Leukocyte Esterase 500 H Urine RBC 0 SEEN Urine WBC >100 SEEN Ur Squamous Epith Cells 0 SEEN Urine Bacteria 0 SEEN Urine Mucus 0 SEEN Urine Test Negative Discharge Plan Triage Chief Complaint: Complaint ED Midlevel Provider: Alley Cash ED Provider: Dean Alfaro Dx/Rx/DC Orders Clinical Impression: UTI (urinary tract infection), Nausea and vomiting Instructions: Urinary Tract Infections in Women, ED Vomiting (Adult) Prescriptions: New ondansetron 4 mg tablet,disintegrating 4 mg PO Q6H PRN (Reason: nausea and vomiting) Qty: 12 0RF No Action ciprofloxacin HCl [Cipro] 500 mg tablet 500 mg PO BID Qty: 10 0RF oxycodone-acetaminophen 5-325 mg tablet 1 tab PO Q4H PRN (Reason: pain) 7 Days Qty: 14 0RF promethazine 25 mg tablet 25 mg PO Q6H PRN (Reason: nausea and vomiting) Qty: 20 0RF famotidine [Pepcid] 20 mg tablet 20 mg PO BID Qty: 10 0RF Primary Care Provider: Care Physician,No Primary Referrals: Care Physician,No Primary [Primary Care Provider] - Activity Restrictions/Additional Instructions: Continue the nitrofurantoin antibiotic prescribed for UTI by urgent care and I prescribed Zofran as needed for nausea and vomiting. I recommend Tylenol or ib uprofen for pain. Print Language: Lithuanian Disposition Disposition: Home, Self Care Discharge Date/Time: 08/26/23 20:58
[2023-08-26 17:55] VITALS: BP 102/71; PULSE 74; RESP 16; TEMP 36.9; O2SAT 98
[2023-08-26 17:56] LABS: Bacteria 0 SEEN /hpf (None Seen); Mucous, Urine 0 SEEN /hpf (<or=2+); Red Blood Cells-Urine 0 SEEN /hpf (0-5); Squamous Epithelial Cells - UA 0 SEEN /hpf (5-10)
[2023-08-26 17:57] VITALS: BP 102/71; PULSE 75; RESP 16; TEMP 36.9; O2SAT 98
[2023-08-26 18:01] LABS: Color, Urine Yellow (Yellow); Glucose, Dipstick Normal (Normal); Ketone-Dipstick Negative (Negative); Leukocyte Esterase-Dipstick 500 /ul (Negative); Nitrite-Dipstick Positive (Negative); Occult Blood-Urine 250 /ul (Negative); Protein-Dipstick 100 mg/dl (Negative); Urine Bilirubin Dipstick Negative (Negative); Urine Clarity Turbid (Clear); Urine Urobilinogen Normal (Normal)
[2023-08-26 18:04] LABS: Internal QC Validated? YES +Cl - CLEAR BKGD; Pregnancy, Urine Negative Negative; Record Kit Lot#,Urine Preg 772476
[2023-08-26 18:46] LABS: White Blood Cells >100 SEEN /hpf (0-5)
[2023-08-26 18:48] LABS: Absolute Lymphocyte Count 2.59 X10^3/uL (0.83-4.51); Absolute Neutrophil Count 5.2 X10^3/uL (2.0-7.7); Basophil# 0.05 X10^3/uL; Basophil% 0.6 % (0-1); Eosinophil# 0.34 X10^3/uL; Eosinophils% 3.8 % (0-5); Hematocrit 41.2 % (37-47); Hemoglobin 13.9 g/dL (12.0-15.0); Lymphocyte # 2.59 X10^3/ul (0.83-4.51); Lymphocyte % 29.2 % (19-41); Mean Corp Hgb Conc 33.7 g/dL (32-36); Mean Corpuscular Hgb 30.7 pg (27.0-32.0); Mean Corpuscular Volume 90.9 fL (81-99); Mean Platelet Vol. 9.3 fl (6.2-12.0); Monocyte# 0.62 X10^3/uL; NRBC Flagged by Analyzer 0 % (0-5); Neutrophil # 5.21 X10^3/uL (2.7-7.7); Neutrophil % 58.7 % (47-70); Platelet Count 322 K/mm3 (150-450); RBC Distribution Width CV 12.4 % (11.6-14.6); RBC Distribution Width SD 40.5 fl (35.1-43.9); Red Blood Count 4.53 M/mm3 (4.2-5.4); White Blood Count 8.9 K/mm3 (4.4-11.0)
[2023-08-26 19:07] LABS: Anion Gap 6 (5-15); BUN 5 mg/dL (7-18); BUN/Creat Ratio 10.7 RATIO (10-20); Calcium,Total 8.5 mg/dL (8.5-10.1); Chloride 109 mmol/L (98-107); Creatinine, Serum 0.47 mg/dL (0.55-1.02); EST Glomerular Filtration Rate 168 mL/min (>60); Est Glom Filt Rate - Afr Amer 204 mL/min (>60); Estimated Creatinine Clearance 144.21 ml/min; Glucose 95 mg/dL (74-106); Potassium 3.5 mmol/L (3.5-5.1); Sodium Level 143 mmol/L (136-145)
[2023-08-26 20:00] VITALS: BP 113/78; PULSE 68; RESP 18; TEMP 36.6; O2SAT 98
[2023-08-26 20:28] LABS: AST(SGOT) 11 U/L (15-37); Alanine Aminotransfer ALT/SGPT 12 U/L (13-56); Albumin, Serum 3.2 g/dL (3.2-5.0); Alkaline Phosphatase 65 U/L (45-117); Bilirubin, Direct 0.12 mg/dL (0.00-0.30); Globulin 3.2 g/dL (2.2-4.2); Lipase 24 U/L (13-75); Protein, Total 6.4 g/dL (6.4-8.2)
[2023-08-26 20:57] VITALS: BP 104/86; PULSE 18; RESP 18; TEMP 37.2; O2SAT 99
== END 2023-08-26 20:58 | disposition home or self-care (01) ==
PROVIDERS: Physician Assistant; Emergency Provider Emergency Medicine; Visit Provider Emergency Medicine
DX: N39.0 Urinary tract infection, site not specified (principal); R11.2 Nausea with vomiting, unspecified; R31.9 Hematuria, unspecified; R10.30 Lower abdominal pain, unspecified; J45.909 Unspecified asthma, uncomplicated; Z87.891 Personal history of nicotine dependence
CPT/HCPCS: 80048; 80076; 81001; 81025; 83690; 85025; 87077; 87086; 87088; 87186; 99283; A4216

== ENCOUNTER 2024-08-19 12:08 | Emergency (ER) | payer MEDICAID, SELFPAY ==
[2024-08-19 12:09] VITALS: BP 124/77; PULSE 62; RESP 18; TEMP 36.6; O2SAT 98; BMI 21.5
--- NOTE | 2024-08-19 12:14 | EDS_ITS ---
HPI History of Present Illness Chief Complaint: Nausea/Vomiting [facility] Medical History Anemia Asthma Depression Former smoker History of renal disease Wears contact lenses Wears glasses Home Medications ?Medication ?Instructions ?Recorded ?Last Taken ?Type ondansetron 4 mg disintegrating 4 mg PO Q6H PRN nausea and 08/26/23 Unknown Rx tablet vomiting #12 tabs albuterol sulfate 90 mcg/actuation inhalation 08/19/24 Unknown History aerosol inhaler benzonatate 100 mg capsule 100 mg PO TID 08/19/24 Unkn own History Allergy/AdvReac Type Severity Reaction Status Date / Time amoxicillin (Amoxicillin) Allergy Hives Verified 08/19/24 12:10 codeine Allergy Hives Verified 08/19/24 12:10 hydrocodone Allergy Hives Verified 08/19/24 12:10 Influenza Virus Vaccines Allergy Anaphylaxis Verified 08/19/24 12:10 strawberry Allergy Anaphylaxis Verified 08/19/24 12:10 Surgical History History of lithotripsy Social History Smoking Status: Former smoker EXAM Physical Exam Const Vital Signs: 08/19/24 12:09 08/19/24 14:08 Temperature 97.8 F 98.4 F Temperature Source Oral Oral Pulse Rate 62 55 L Respiratory Rate 18 17 Blood Pressure 124/77 H 121/86 H Blood Pressure Mean 92 97 Pulse Ox 98 100 Oxygen Delivery Method Room Air Room Air MDM MDM MDM Narrative Medical decision making narrative: HISTORY OF PRESENT ILLNESS: Chief complaint: Nausea vomiting 29-year-old female history of bipolar disorder, asthma presents with nausea vomiting since 5 AM approximately 7 hours prior to arrival. She states she is exhausted. She notes no sick contacts. No recent travel, antibiotics hospitalization. She notes left-sided abdominal pain. She denies any dysuria, hematuria urgency. Does not feel like prior kidney stones. Denies fevers or chills or cough. REVIEW OF SYSTEMS: Pertinent positives: Nausea vomiting, abdominal pain Pertinent negatives: Chest pain, fever PHYSICAL EXAM: Nursing triage notes reviewed, Vital signs reviewed Constitutional: please see mdm HENT: MMM Eyes: Pupils equal round and reactive to light, Extraocular muscles intact Neck: No stridor, no JVD, full neck ROM Lungs: Clear to auscultation, No wheezing or rales. No increased work of breathing, no conversational dyspnea, no accessory muscle use, no nasal flaring. No respiratory distress noted Heart: Regular rate and rhythm, No murmurs, No rubs and No gallops, 2+ distal pulses (radial, femoral, posterior tibial) in all extremities Abdomen: Soft, there is no tenderness, rigidity, rebound or guarding, no obvious peritoneal signs, no palpable pulsatile abdominal masses, no auscultated abdominal bruit : No CVAT Extremities: No edema Neuro: No new focal neurological deficits, cranial nerves II through XII intact, 5/5 strength in all present extremities. Intact sensation to light touch in all present extremities, 2+ reflexes bilateral patella tendons. Skin: No rash or lesions noted MEDICAL DECISION MAKING: Chief Complaint: please see HPI External records reviewed: Reviewed prior ER visits. Factors affecting care: Social determinants of health: none History obtained from others: none Consults: none [facility] Narrative: Patient was initially hemodynamically stable, afebrile and nontoxic-appearing. Exam with benign abdomen. No CVA tenderness. No elicited tenderness on exam. I considered the following differential diagnosis: Dehydration, viral gastroenteritis, obstruction, perforation While I considered bowel obstruction or solid organ perforation the patient abdominal exam and vital signs not consistent with these etiologies. As such no advanced imaging was pursued initially I obtained labs and gave IV fluids as well as Reglan and Pepcid for symptomatic relief. Labs to further determine if the patient was suffering from a life- threatening etiology specifically dehydration, electrolyte abnormalities or BETTINA. ALL IMAGES (IF OBTAINED) HAVE BEEN PERSONALLY REVIEWED AND INTERPRETED BY MYSELF. CBC with leukocytosis that similar to prior studies actually downtrending from prior studies, no significant anemia or thrombocytopenia noted Lipase is wnl indicating no pancreatic inflammation. LFTs show no evidence of hepatobiliary pathology. Repeat abdominal exam remained benign. Patient was able to tolerate p.o. ice chips and fluids after haloperidol. Will give Phenergan for home-going nausea control. Strict return precaution will be discussed The patient and/or family, caregivers express understanding. The patient and/or family, caregivers agrees with the plan. Shared decision making: I will have a discussion with the patient and or visitors regarding risk/b enefits of further testing or admission. They will be made aware of of the risk/benefits inherent in this decision they will be given the opportunity to voice understanding. Total critical care time today provided was at least 0 minutes. This excludes separately billable procedures. Critical care time (if documented) is secondary to the patient having high probability of clinically significant/life threatening deterioration in the patient's condition which required my urgent intervention. Impression: 1. Acute abdominal pain 2. Nausea vomiting Dispo: Discharge home This note was generated with [employer] dictation software. It may contain incorrect words, spelling, and punctuation that were not noted in review of the chart prior to signing. Lab Data Labs: Laboratory Results - last 24 hr 08/19/24 12:30 WBC 13.4 H RBC 4.69 Hgb 14.5 Hct 40.7 MCV 86.8 MCH 30.9 MCHC 35.6 RDW Std Deviation 37.4 RDW Coeff of Esme 11.9 Plt Count 487 H MPV 9.8 Immature Gran % (Auto) 0.700 Neut % (Auto) 86.1 H Lymph % (Auto) 10.9 L Sequoyah % (Auto) 1.9 Eos % (Auto) 0.0 Baso % (Auto) 0.4 Absolute Neuts (auto) 11.5 H Absolute Lymphs (auto) 1.46 Nucleated RBC % 0 Sodium 140 Potassium 3.6 Chloride 102 Carbon Dioxide 22.6 Anion Gap 16 H BUN 5 Creatinine 0.60 L Estim Creat Clear Calc 99.37 Est GFR (MDRD) Non-Af 125 BUN/Creatinine Ratio 8.9 L Glucose 169 H Calcium 9.6 Total Bilirubin 0.62 AST 20 ALT 14 Alkaline Phosphatase 97 Total Protein 7.4 Albumin 4.4 Globulin 3.0 Albumin/Globulin Ratio 1.4 Lipase 18 Discharge Plan Triage Chief Complaint: Nausea/Vomiting ED Provider: Joshua Lopez Dx/Rx/DC Orders Instructions: ED Diet Vomiting Diarrhea Prescriptions: No Action ondansetron 4 mg tablet,disintegrating 4 mg PO Q6H PRN (Reason: nausea and vomiting) Qty: 12 0RF benzonatate 100 mg capsule 100 mg PO TID albuterol sulfate 90 mcg/actuation HFA aerosol inhaler inhalation Primary Care Provider: Care Physician,No Primary Referrals: Care Physician,No Primary [Primary Care Provider] - Print Language: Vietnamese
--- NOTE | 2024-08-19 12:36 | EKG12_ITS ---
Test Reason : N/V Blood Pressure : */* mmHG Vent. Rate : 53 BPM Atrial Rate : 53 BPM P-R Int : 110 ms QRS Dur : 94 ms QT Int : 566 ms P-R-T Axes : 37 68 61 degrees QTcB Int : 531 ms Sinus bradycardia with short [place] Prolonged QT Abnormal ECG Confirmed by Timur Arce ([id number]), deputy editor in chief NAY MURRY ([id number]) on 08/20/2024 1:10:36 PM Referred By: Confirmed By: Timur Arce
[2024-08-19] MEDS: 0.9% Normal Saline (1000mL) 1,000 ML 999 ML IV (12:46)
--- OUTSIDE RECORDS SUMMARY | 2024-08-19 12:48 | XMS RPT_ITS | CCD ---
Author Organization [facility] Care Team Providers Care Office Executive Name Role Phone CHARLEE CHAVEZ Unavailable Unavailable DEBRA FENG Unavailable Unavailable Debra Feng Primary Care Provider JungDebra seaman Primary Care Provider Care Physician, No Primary Primary Care Unava ilable Dean Alfaro Attending Unavailable Care Physician, No Primary Primary Care Unava ilable Moses Khalil Attending Unavailable Unavailable Primary Care Provider UnavailNAOMI Brownlee Attending Unavailable ROYAL MARSH Attending Unavailable JUNG, DEBRA KINCAID Primary Care Unavaila LUCITA Wells Attending Unavailable SELF Referring Unavailable Allergies Allergy Classification Reported Allergen(s) Allergy Type Date of Onset Reaction(s) Facility (9 sources) Amoxicillin; Translations: [AMOXICILLIN] Drug Allergy 3 [facility] (8 sources) Ciprofloxacin; Translations: [CIPROFLOXACIN] Drug Allergy [address] [facility] Work Phone: (9 sources) Codeine; Translations: [CODEINE] Drug Allergy 7 [facility] (8 sources) Seasonal allergy; Translations: [SEASONAL ALLERGIES] Allergy to substance 3 Other: See [facility] (8 sources) Flu Vac 2011 (18-64yrs)(Pf); Translations: [FLU VAC 2011 (18-64YRS)(PF)] Drug Allergy [address] [facility] (1 source) Acetaminophen Drug Allergy [address] [facility] (1 source) HYDROcodone Drug Allergy [address] [facility] (1 source) Influenza Vaccines Allergy to substance [address] [facility] (1 source) strawberry allergenic extract Drug Allergy [address] [facility] (1 source) Acetaminophen Drug Allergy [address] [facility] (1 source) Amoxicillin Drug Allergy [address] [facility] (1 source) Codeine Drug Allergy [address] [facility] (1 source) HYDROcodone Drug Allergy [address] [facility] (1 source) strawberry allergenic extract Drug Allergy [address] [facility] (1 source) Influenza Virus Vaccines Drug allergy (disorder) [address] [facility] Medications Current Medications Medication Drug Class(es) Dates Sig (Normalized) Sig (Original) acetaminophen 325 mg / oxyCODONE hydrochloride 5 mg oral tablet (5 sources) Opioid Agonist Start: 08-12-2020 take 1 tablet by mouth every four hours Oxycodone-Acetami nophen Active 1 TABLET PO Q4H 14 7 August 12, 2020 Start: 07-13-2019 End: 07-20-2019 take 2 tablets by mouth every eight hours as needed Oxycodone-Acetaminophen Discontinued 2 TABLET PO EVERY 8 HOURS NEEDED 7 July 13, 2019 July 19, 2019 11:02pm Start: 05-22-2019 End: 05-29-2019 take 2 tablets by mouth every eight hours as needed Oxycodone-Acetaminophen Discontinued 2 TABLET PO EVERY 8 HOURS NEEDED 30 7 May 22, 2019 May 28, 2019 11:02pm Start: 04-09-2019 End: 04-14-2019 take 1 tablet by mouth every six hours as needed Oxycodone-Acetaminophen Discontinued 1 TABLET PO EVERY 6 HOURS NEEDED 20 5 April 09, 2019 April 14, 2019 12:09am Start: 04-03-2019 End: 04-08-2019 take 1 tablet by mouth every six hours as needed Oxycodone-Acetaminophen Discontinued 1 TABLET PO EVERY 6 HOURS NEEDED 20 5 April 03, 2019 April 08, 2019 12:11am [id number] 200 actuat albuterol 0.09 mg/actuat metered dose inhaler (8 sources) beta2-Adrenergic Agonist Start: 01-23-2018 End: 09-12-2024 take 2 puff(s) by inhalation every four hours as needed for wheezing albuterol HFA (PROVENTIL HFA, VENTOLIN HFA) 90 mcg/actuation inhaler Inhale 2 puffs as instructed every 4 hours as needed for wheezing/shortness of breath. 1 each 08/13/2024 09/12/2024 Active Comment on above: Inhale 2 Puffs as in structed every 4 hours as needed for Wheezing/Shortness of Breath. Beclomethasone (7 sources) Corticosteroid BECLOMETHASONE DIPROPIONATE (QVAR INHALATION) Inhale as instructed. Active BECLOMETHASONE D IPROPIONATE (QVAR INHALATION) Inhale as instructed. 0 Active Comment on above: Inhale as instructed . benzonatate 100 mg oral capsule (1 source) Non-narcotic Antitussive Start: End: take 1 capsule by mouth three times daily as needed for cough benzonatate (TESSALON PERLE) 100 mg capsule Indications: Acute URI Take 1 capsule by mouth three times a day as needed for cough for up to 7 days. 21 capsule 08/13/2024 08/20/2024 Active ciprofloxacin 500 mg oral tablet (1 source) Quinolone Antimicrobial Start: 021 take 1 tablet by mouth twice daily Ciprofloxacin Hcl (Cipro) 500 mg tablet Active 500 MG PO TWICE A DAY August 11, 2020 11:00pm famotidine 20 mg oral tablet (1 source) Histamine-2 Receptor Antagonist Start: 024 take 1 tablet by mouth twice daily Famotidine (Pepcid) 20 mg tablet Active 20 MG PO TWICE A DAY March 22, 2023 12:00am levonorgestrel 0.475714 mg/hr intrauterine system (7 sources) Progestin, Progestin-containing Intrauterine Device levonorgestrel (MIRENA) 20 mcg/24 hr (5 years) IUD 1 Each by INTRAUTERINE route one time only. Active Comment on above: 1 Each by INTRAUTERI NE route one time only. loratadine 10 mg oral tablet (7 sources) take 1 tablet by mouth once daily loratadine (CLARITIN) 10 mg tablet Take 10 mg by mouth once daily. Active Comment on above: Take 10 mg by mouth once daily. Mometasone (7 sources) Corticosteroid MOMETASONE FUROA TE (NASONEX NASAL) Use in the nose. Active MOMETASONE FUROA TE (NASONEX NASAL) Use in the nose. 0 Active Comment on above: Use in the nose. nitrofurantoin, macrocrystals 25 mg / nitrofurantoin, monohydrate 75 mg oral capsule (2 sources) Nitrofuran Antibacterial Start: End: take 1 capsule by mouth twice daily nitrofurantoin monohydrate and macrocrystal (MACROBID) 100 mg capsule Indications: Nausea and vomiting, unspecified vomiting type Take 1 capsule by mouth two times a day for 5 days. 10 capsule 0 08/25/2023 08/30/2023 Active ondansetron 4 mg disintegrating oral tablet (10 sources) Serotonin-3 Receptor Antagonist Start: take 1 tablet by mouth every six hours as needed ondansetron orally disintegrating (ZOFRAN ODT) 4 mg disintegrating tablet Take 1 tablet by mouth every 6 hours as needed for nausea/vomiting. 12 tablet 03/14/2024 Active Start: 08-25-2023 take 1 tablet by tod th every eight hours as needed for nausea ondansetron orally disintegrating (ZOFRAN ODT) 4 mg disintegrating tablet Indications: Nausea and vomiting, unspecified vomiting type Take 1 tablet by mouth every 8 hours as needed for nausea/vomiting. 10 tablet 08/25/2023 Active promethazine hydrochloride 25 mg oral tablet (1 source) Phenothiazine Start: 03-22-2023 take 25 mg by mouth every six hours Promethazine Active 25 MG PO EVERY 6 HOURS March 22, 2023 5:46pm Completed/Discontinued Medications Medication Drug Class(es) Dates Sig (Normalized) Sig (Original) Inhalational Spacing Device (1 source) Start: 08-13-2024 End: 08-13-2024 Inhalational Spacing Device 1 device one time only for 1 dose. 1 each 08/13/2024 08/13/2024 nitrofurantoin, macrocrystals 100 mg oral capsule (1 source) Nitrofuran Antibacterial Start: 12-29-2012 End: 02-15-2013 take 100 mg by mouth every twelve hours Nitrofurantoin Monohyd/M-Cryst Discontinued 100 MG PO EVERY 12 HOURS December 29, 2012 12:00am February 15, 2013 4:27pm phenazopyridine hydrochloride 200 mg oral tablet (2 sources) Start: 07-13-2019 End: 07-20-2019 take 200 mg by mouth three times daily as needed Phenazopyridine Discontinued 200 MG PO 3 TIMES DAILY NEEDED 30 July 12, 2019 11:00pm July 19, 2019 11:02pm Start: 12-29-2012 End: 02-15-2013 take 200 mg by mouth three times daily Phenazopyridine Discontinued 200 MG PO THREE TIMES A DAY December 29, 2012 12:00am February 15, 2013 4:27pm sulfamethoxazole 800 mg / trimethoprim 160 mg oral tablet (2 sources) Dihydrofolate Reductase Inhibitor Antibacterial, Sulfonamide Antimicrobial Start: 07-13-2019 End: 07-16-2019 take 1 tablet by mouth twice daily Sulfamethoxazole-Trimethoprim Discontinued 1 TABLET PO TWICE A DAY 6 July 12, 2019 11:00pm July 15, 2019 11:02pm Start: 05-22-2019 End: 06-05-2019 take 1 tablet by mouth twice daily Sulfamethoxazole-Trimethoprim Discontinu ed 1 TABLET PO TWICE A DAY May 21, 2019 11:00pm June 04, 2019 11:02pm Problems Active Problems Problem Classification Problem Date Documented Date Episodic/Chronic Administrative/social admission (1 source) Patient encounter status; Translations: [Encounter for other administrative examinations] 03-14-2024 Episodic Asthma (10 sources) Exercise-induced asthma; Translations: [Exercise induced bronchospasm] Onset: 12-12-2012 12-12-2012 Chronic Calculus of urinary tract (2 sources) Kidney stone; Translations: [Calculus of kidney] 08-11-2020 Episodic Fever of unknown origin (2 sources) Fever; Translations: [Fever, unspecified] Onset: 08-01-2024 08-01-2024 Episodic Immunizations and screening for infectious disease (1 source) Contact with and (suspected) exposure to other viral communicable diseases; Translations: [Contact with or exposure to other viral diseases] 03-14-2024 Episodic Inflammation; infection of eye (except that caused by tuberculosis or sexually transmitteddisease) (1 source) Hordeolum externum of lower eyelid of right eye; Translations: [Hordeolum externum right lower eyelid] 09-04-2017 Episodic Inflammatory diseases of female pelvic organs (1 source) Vaginitis; Translations: [Acute vaginitis] 09-03-2017 Episodic Intestinal infection (2 sources) Viral gastroenteritis; Translations: [Viral intestinal infection, unspecified] Onset: 08-01-2024 08-01-2024 Episodic Mood disorders (1 source) Bipolar disorder; Translations: [Bipolar disorder, unspecified] 04-09-2019 Chronic Nausea and vomiting (4 sources) Nausea and vomiting; Translations: [Nausea with vomiting, unspecified] Onset: 04-30-2023 08-25-2023 Episodic Other upper respiratory infections (6 sources) Viral upper respiratory tract infection; Translations: [Acute upper respiratory infection, unspecified] Onset: 08-13-2024 03-04-2021 Episodic Residual codes; unclassified (1 source) Viral syndrome; Translations: [Other general symptoms and signs] 03-18-2024 Episodic Urinary tract infections (2 sources) Urinary tract infectious disease; Translations: [Urinary tract infection, site not specified] 07-13-2019 Episodic Past or Other Problems Problem Classification Problem Date Documented Da te Episodic/Chronic Bacterial infection; unspecified site (6 sources) Bacteria present; Translations: [Streptococcus, group B, as the cause of diseases classified elsewhere] Onset: 07-20-2016 Resolved: 09-09-2016 09-09-2016 Episodic Genitourinary symptoms and ill-defined conditions (8 sources) Dysuria; Translations: [Dysuria] Onset: 04-08-2016 Resolved: 09-09-2016 09-03-2017 Episodic Other complications of (6 sources) Late entry into care; Translations: [Supervision of with insufficient care, unspecified trimester] Onset: 04-08-2016 Resolved: 09-09-2016 09-09-2016 Episodic Other diseases of kidney and ureters (7 sources) Kidney disease; Translations: [Disorder of kidney and ureter, unspecified] Onset: 12-12-2012 12-12-2012 Episodic Screening and history of mental health and substance abuse codes (7 sources) H/O: manic depressive disorder; Translations: [Personal history of other mental and behavioral disorders] Onset: 04-08-2016 04-08-2016 Episodic Results Test Name Value Interpretation Reference Range Facil ity CNOVon 08-13-2024 CNOV Office Visit (UCWSTR ) JUSTIN GARCIA ([id number]) 1995 F Date Time Provider Department 08/13/24 7:00 PM MORENITAROYAL [facility] During your visit today, we recorded the following information about you: Temperature Pulse Respiration Blood pressure 99.2 degrees 112/minute 16/minute 108/62 Weight 52.7 kg Royal Marsh PA-C 08/13/2024 7:17 PM Signed This note was created using VisConPro. Subjective Justin Garcia is a 29 year old female. Patient is a 29-year-old female who complains of mild congestion, sore throat and cough that she has been experiencing for the past 3 days. Patient reports no sinus pressure or ear pain. Patient also denies fever, chills or myalgia. Patient does have asthma but reports no increased episodes of wheezing. Patient states that her albuterol inhaler is and is requesting a new prescription for same. Review of Systems HENT: Positive for congestion and sore throat. Respiratory: Positive for cough. All other systems reviewed and are negative. Objective BP 108/62 Pulse 112 Temp 37.3 ?C (99.2 ?F) Resp 16 Wt 52.7 kg (116 lb 2.9 oz) LMP 01/02/2017 (Exact Date) SpO2 94% BMI 21.95 kg/m? Physical Exam Vitals and nursing note reviewed. Constitutional: Appearance: Normal appearance. She is normal weight. HENT: Head: Normocephalic and atraumatic. Right Ear: Tympanic membrane, ear canal and external ear normal. Left Ear: Tympanic membrane, ear canal and external ear normal. Nose: Nose normal. Mouth/Throat: Mouth: Mucous membranes are moist. Pharynx: Oropharynx is clear. Eyes: Extraocular Movements: Extraocular movements intact. Conjunctiva/sclera: Conjunctivae normal. Pupils: Pupils are equal, round, and reactive to light. Cardiovascular: Rate and Rhythm: Normal rate and regular rhythm. Pulses: Normal pulses. Heart sounds: Normal heart sounds. Pulmonary: Effort: Pulmonary effort is normal. Breath sounds: Normal breath sounds. Musculoskeletal: Cervical back: Normal range of motion and neck supple. Skin: General: Skin is warm and dry. Capillary Refill: Capillary refill takes less than 2 seconds. Neurological: General: No focal deficit present. Mental Status: She is alert and oriented to person, place, and time. Psychiatric: Mood and Affect: Mood normal. Behavior: Behavior normal. Thought Content: Thought content normal. Judgment: Judgment normal. Assessment and Plan Physical exam findings as noted above. Rapid strep test is negative. Patient was provided with prescriptions for Tessalon 100 mg and an albuterol MDI. Supportive care instructions were discussed and patient verbalizes excellent understanding of same. CLINICAL IMPRESSION: Acute URI; Asthma; Medication Refill ASSESSMENT/PLAN: 1. Sore throat - ICD9: 462, ICD10: J02.9 (primary diagnosis) - STREP A MOLECULAR (POC) 2. Mild intermittent asthma without complication (HCC) - ICD9: 493.90, ICD10: J45.20 3. Acute URI - ICD9: 465.9, ICD10: J06.9 - BENZONATATE 100 MG CAPSULE Royal Marsh PA-C Allergies As of Date: 08/13/2024 Noted Allergy Reaction AMOXICILLIN 12/12/2012 4 - Hives CIPROFLOXACIN 06/16/2016 8 - GI Upset Comments: Nausea, Dizziness, and Racing Heartbeat. CODEINE 04/05/2016 4 - Hives FLU VAC 2011 (18-64YRS)(PF) 01/23/2018 8 - GI Upset SEASONAL ALLERGIES 12/12/2012 14 - Other: See Comments Comments: Stuffy nose sore throat hives Date Reviewed: 08/13/2024 Reviewed by: Aline Madrid MA - Fully Assessed Reason for Visit: Chest Congestion [236] Cmt: cough x 1 week Primary Visit Diagnosis:Sore throat [J02.9] Other Visit Diagnoses:Mild intermittent asthma without complication (HCC) [J45.20] Acute URI [J06.9] Order(s):STREP A MOLECULAR (POC) [2016130] Order #: [id number]. #:[id number] albuterol HFA (PROVENTIL HFA, VENTOLIN HFA) 90 mcg/actuation inhalerInhale 2 puffs as instructed every 4 hours as needed for wheezing/shortness of breath.Disp: 1 eachRfl: 0 Inhalational Spacing Device1 device one time only for 1 dose.Disp: 1 eachRfl: 0 benzonatate (TESSALON PERLE) 100 mg capsuleTake 1 capsule by mouth three times a day as needed for cough for up to 7 days.Disp: 21 capsuleRfl: 0 Prescriptions as of 08/13/2024 - albuterol HFA (PROVENTIL HFA, VENTOLIN HFA) 90 mcg/actuation inhaler Inhale 2 puffs as instructed every 4 hours as needed for wheezing/shortness of breath. - Inhalational Spacing Device 1 device one time only for 1 dose. - benzonatate (TESSALON PERLE) 100 mg capsule Take 1 capsule by mouth three times a day as needed for cough for up to 7 days. - ondansetron orally disintegrating (ZOFRAN ODT) 4 mg disintegrating tablet Take 1 tablet by mouth every 6 hours as needed for nausea/vomiting. - ondansetron orally disintegrating (ZOFRAN ODT) 4 mg disintegrating tablet Take 1 tablet (more content not included)... Normal [facility] STREP A MOLECULAR (POC)on Procedural Control Valid [facility] Strep A (POCT) Negative Negative [facility] CNOVon 08-01-2024 CNOV Office Visit (UCWSTR ) JUSTIN GARCIA ([id number]) 1995 F Date Time Provider Department 08/01/24 8:15 AM NAOMI MITCHELL [facility] During your visit today, we recorded the following information about you: Temperature Pulse Respiration Blood pressure 98.3 degrees 104/minute 18/minute 102/64 Weight 55 kg Naomi Mitchell APRN.[facility] 08/01/2024 8:30 AM Signed [facility] Subjective Justin Garcia is a 29 year old female. Patient presents with: Fever: Fever, vomiting, diarrhea and bodyaches x 1 day Fever, Nausea, Emesis, and Abdominal Pain: - Symptoms began after returning from a 5-day vacation at [place]. - Initially thought it was sun poisoning; stayed indoors with blinds shut and air conditioning on low. - Persistent emesis since 0530 this morning. - Recorded fever of 100.1 degreeF; took Tylenol 45 minutes before leaving home, reducing fever to 99.6 degreeF. - Experiencing mild abdominal pain upper gastric. - Able to drink fluids; slight improvement in nausea. - Does have zophran at home. - Finataly was sick for a couple of days at the beginning of the vacation. Constitutional: (+) fever Gastrointestinal: (+) vomiting, (+) nausea, (-) abdominal pain Objective BP 102/64 Pulse 104 Temp 36.8 ?C (98.3 ?F) (Tympanic) Resp 18 Wt 55 kg (121 lb 4.1 oz) LMP 01/02/2017 (Exact Date) SpO2 99% BMI 22.91 kg/m? PAST MEDICAL HISTORY Diagnosis Date Asthma (HCC) Bipolar affective (HCC) Irregular menses Kidney disorder PAST SURGICAL HISTORY Procedure Laterality Date PAST SURGICAL HISTORY OF wisdom teeth, tubes in ears ALLERGIES Amoxicillin, Ciprofloxacin, Codeine, Flu Vac 2011 (18-64yrs)(Pf), and Seasonal Allergies MEDICATIONS ondansetron orally disintegrating (ZOFRAN ODT) 4 mg disintegrating tablet Take 1 tablet by mouth every 6 hours as needed for nausea/vomiting. ondansetron orally disintegrating (ZOFRAN ODT) 4 mg disintegrating tablet Take 1 tablet by mouth every 8 hours as needed for nausea/vomiting. levonorgestrel (MIRENA) 20 mcg/24 hr (5 years) IUD 1 Each by INTRAUTERINE route one time only. albuterol HFA (PROAIR HFA) 90 mcg/actuation inhaler Inhale 2 Puffs as instructed every 4 hours as needed for Wheezing/Shortness of Breath. loratadine (CLARITIN) 10 mg tablet Take 10 mg by mouth once daily. BECLOMETHASONE DIPROPIONATE (QVAR INHALATION) Inhale as instructed. MOMETASONE FUROATE (NASONEX NASAL) Use in the nose. FAMILY HISTORY Problem Relation Age of Onset Psychiatry Mother Bipolar Asthma Father None Brother COPD Maternal Grandmother Heart Maternal Grandfather Kidney Disease Paternal Grandmother Social History Tobacco Use Smoking status: Never Smokeless tobacco: Never Substance Use Topics Alcohol use: No Drug use: No Physical Exam Vitals and nursing note reviewed. Constitutional: Appearance: Normal appearance. HENT: Mouth/Throat: Mouth: Mucous membranes are moist. Pharynx: No oropharyngeal exudate or posterior oropharyngeal erythema. Cardiovascular: Rate and Rhythm: Normal rate and regular rhythm. Pulses: Normal pulses. Heart sounds: Normal heart sounds. Pulmonary: Effort: Pulmonary effort is normal. Breath sounds: Normal breath sounds. Abdominal: General: Abdomen is flat. Bowel sounds are normal. There is no distension. Tenderness: There is no abdominal tenderness. There is no right CVA tenderness, left CVA tenderness or guarding. Neurological: Mental Status: She is alert. {1. Viral gastroenteritis (A08.4) 2. Nausea and vomiting, unspecified vomiting type (R11.2) 3. Fever, unspecified fever cause (R50.9) - Recent travel history; returned from a five-day vacation at [place]. - Experiencing nausea, vomiting, and low-grade fever (Tmax 100.1 degreeF) - Symptoms persist with viral gastroenteritis. - No concern of an acute abdomen such as appendicitis based on exam today. - Advised rest, hydration, and continuation of Zofran for nausea management; patient has six doses remaining. - Provided work notes for missed days. - ER if severe abddominal pain, unable to tolerate fluids, or worsening of symptoms. and Recording using inZair software for draft documentation of the visit was discussed with the patient/authorized traffic representative; all questions welcomed and answered. Patient/authorized traffic representative agreed to proceed History and Record Review Clinical information obtained from an independent historian. History obtained from or confirmed by: parent. External record(s) reviewed: prior outpatient record. Findings from review of outpatient records: Previous medical history Differential Diagnoses - Viral gastroenteritis is more likely for the following reason(s): suggested by HANDP - Acute abdomen is less likely for the following reason(s): Abdominal exam within normal limits, MERA (more content not included)... Normal [facility] CNCOon 03-18-2024 CNCO Letter Text Normal [facility] CNOVon 03-14-2024 CNOV Office Visit (UCWSTR ) JUSTIN GARCIA ([id number]) 1995 F Date Time Provider Department 03/14/24 4:30 PM MARIA EUGENIA GODOY [facility] During your visit today, we recorded the following information about you: Temperature Pulse Respiration Blood pressure 98.3 degrees 64/minute 20/minute 106/74 Weight 56.1 kg Maria Eugenia Godoy APRN.[employer] 03/14/2024 5:07 PM Signed This note was created using NoteWriter. Subjective Justin Garcia is a 29 year old female. 29 year old female with PMH exercise induced asthma presents for illness Acute onset 2 days ago +fever +nausea +emesis, x 6 non bloody bouts +fever +diarrhea x 2 bouts +nasal congestion +body aches +fatigue +headache Denies CP Denies cough Denies sore throat Denies dyspnea Denies using homeopathic or OTC medicines Denies tobacco usage The history is provided by the patient. No speech language pathology assistant was used. Flu Like Symptoms This is a new problem. Episode onset: 2 days ago. The problem occurs constantly. The problem has been gradually worsening. Associated symptoms include congestion, fatigue, a fever, headaches, myalgias, nausea, swollen glands and vomiting. Pertinent negatives include no abdominal pain, anorexia, arthralgias, change in bowel habit, chest pain, chills, coughing, diaphoresis, joint swelling, neck pain, numbness, rash, sore throat, urinary symptoms, vertigo, visual change or weakness. Nothing aggravates the symptoms. She has tried nothing for the symptoms. The treatment provided no relief. PAST MEDICAL HISTORY Diagnosis Date Asthma Bipolar affective (HCC) Irregular menses Kidney disorder PAST SURGICAL HISTORY Procedure Laterality Date PAST SURGICAL HISTORY OF wisdom teeth, tubes in ears ALLERGIES Amoxicillin, Ciprofloxacin, Codeine, Flu Vac 2011 (18-64yrs)(Pf), and Seasonal Allergies MEDICATIONS ondansetron orally disintegrating (ZOFRAN ODT) 4 mg disintegrating tablet Take 1 tablet by mouth every 8 hours as needed for nausea/vomiting. levonorgestrel (MIRENA) 20 mcg/24 hr (5 years) IUD 1 Each by INTRAUTERINE route one time only. albuterol HFA (PROAIR HFA) 90 mcg/actuation inhaler Inhale 2 Puffs as instructed every 4 hours as needed for Wheezing/Shortness of Breath. loratadine (CLARITIN) 10 mg tablet Take 10 mg by mouth once daily. BECLOMETHASONE DIPROPIONATE (QVAR INHALATION) Inhale as instructed. MOMETASONE FUROATE (NASONEX NASAL) Use in the nose. ondansetron orally disintegrating (ZOFRAN ODT) 4 mg disintegrating tablet Take 1 tablet by mouth every 6 hours as needed for nausea/vomiting. FAMILY HISTORY Problem Relation Age of Onset Psychiatry Mother Bipolar Asthma Father None Brother COPD Maternal Grandmother Heart Maternal Grandfather Kidney Disease Paternal Grandmother Social History Tobacco Use Smoking status: Never Smokeless tobacco: Never Substance Use Topics Alcohol use: No Drug use: No Review of Systems Constitutional: Positive for fatigue and fever. Negative for chills and diaphoresis. HENT: Positive for congestion. Negative for sore throat. Respiratory: Negative for cough. Cardiovascular: Negative for chest pain. Gastrointestinal: Positive for nausea and vomiting. Negative for abdominal pain, anorexia and change in bowel habit. Musculoskeletal: Positive for myalgias. Negative for arthralgias, joint swelling and neck pain. Skin: Negative for rash. Neurological: Positive for headaches. Negative for vertigo, weakness and numbness. Objective BP 106/74 Pulse 64 Temp 36.8 ?C (98.3 ?F) Resp 20 Wt 56.1 kg (123 lb 10.9 oz) LMP 01/02/2017 (Exact Date) SpO2 99% BMI 23.37 kg/m? Physical Exam Vitals and nursing note reviewed. Constitutional: General: She is not in acute distress. Appearance: Normal appearance. She is normal weight. She is not ill-appearing, toxic-appearing or diaphoretic. HENT: Head: Normocephalic and atraumatic. Right Ear: Ear canal and external ear normal. Left Ear: Ear canal and external ear normal. Nose: Nose normal. No congestion or rhinorrhea. Mouth/Throat: Mouth: Mucous membranes are moist. Pharynx: Posterior oropharyngeal erythema present. No oropharyngeal exudate. Eyes: General: Right eye: No discharge. Left eye: No discharge. Extraocular Movements: Extraocular movements intact. Conjunctiva/sclera: Conjunctivae normal. Pupils: Pupils are equal, round, and reactive to light. Cardiovascular: Rate and Rhythm: Normal rate and regular rhythm. Pulses: Normal pulses. Heart sounds: Normal heart sounds. No murmur heard. No friction rub. Pulmonary: Effort: Pulmonary effort is normal. No respiratory distress. Breath sounds: Normal breath sounds. No stridor. No wheezing, rhonchi or rales. Chest: Chest wall: No tenderness. Abdominal: General: Abdomen is flat. There is no distension. (more content not included)... Normal [facility] COVID AND INFLUENZA A/B AND RSV PCR, ROUTINEon 03-14-2024 SARS-CoV-2 (COVID-19) RNA YOMAIRA+probe Ql (Unsp spec) SARS-COV-2 (AGENT OF COVID-19) RNA: Not detected INFLUENZA A RNA: Not detected INFLUENZA B RNA: Not detected RESPIRATORY SYNCYTIAL VIRUS (RSV) RNA: Not detected Normal [facility] Comment on above: Performed By: #### C VFLRS ####[facility] LABCLIA [id number] [place] [address] [place] Urine Cultureon 08-29-2023 [facility] Escherichia coli Arthur Count 50,000-80,000 Escherichia coli Arthur Count 80,000-100,000 Escherichia coli: REACTION Ampicillin Islt FRANCIS <=2 S Ampicillin+Sulbac Islt FRANCIS <=2 S ceFAZolin Islt FRANCIS <=4 S Cefepime Islt FRANCIS <=0.12 S cefTRIAXone Islt FRANCIS <=0.25 S Ciprofloxacin Islt FRANCIS <=0.25 S Ertapenem Islt FRANCIS <=0.12 S B-Lactamase Extended Susc Islt NEG Gentamicin Islt FRANCIS <=1 S Imipenem Islt FRANCIS <=0.25 S levoFLOXacin Islt FRANCIS <=0.12 S Nitrofurantoin Islt FRANCIS <=16 S Pip+Tazo Islt FRANCIS <=4 S Tobramycin Islt FRANCIS <=1 S TMP SMX Islt FRANCIS <=20 S Escherichia coli: REACTION Ampicillin Islt FRANCIS >=32 R Ampicillin+Sulbac Islt FRANCIS >=32 R ceFAZolin Islt FRANCIS >=64 R Cefepime Islt FRANCIS <=0.12 S cefTRIAXone Islt FRANCIS 32 R Ciprofloxacin Islt FRANCIS <=0.25 S Ertapenem Islt FRANCIS <=0.12 S B-Lactamase Extended Susc Islt NEG Gentamicin Islt FRANCIS <=1 S Imipenem Islt FRANCIS 0.5 S levoFLOXacin Islt FRANCIS <=0.12 S Nitrofurantoin Islt FRANCIS 256 R Pip+Tazo Islt FRANCIS <=4 S Tobramycin Islt FRANCIS <=1 S TMP SMX Islt FRANCIS [address] [facility] Comment on above: Performed By: #### M 100.2200 #### [facility] [address] [place], [address] Basic Metabolic Profile (BMP )on 08-26-2023 BUN/CRE 10.7 RATIO Normal 10-[address] [facility] Comment on above: Performed By: #### L 100.0100, L500.2500 #### [facility] [address] [place], [address] CA,Total 8.5 mg/dL Normal 8.5-10.[address] [facility] Comment on above: Performed By: #### L 100.0100, L500.2500 #### [facility] [address] [place], [address] Chloride [Moles/Vol] 109 mmol/L High 98-[address] [facility] Comment on above: Performed By: #### L 100.0100, L500.2500 #### [facility] [address] [place], [address] CO2 [Moles/Vol] 28.0 mmol/L Normal 21.0-32.[address] [facility] Comment on above: Performed By: #### L 100.0100, L500.2500 #### [facility] [address] [place], [address] Creatinine [Mass/Vol] 0.47 mg/dL Low 0.55-1.[address] [facility] Comment on above: Result Comment: The validity of the calculated GFR GFRAA in patients over 70 years has not been determined. Clinical correlation is essential. Performed By: #### L 100.0100, L500.2500 #### [facility] [address] [place], [address] ECRCL 144.21 ml/min Normal [facility] Comment on above: Performed By: #### L 100.0100, L500.2500 #### [facility] [address] [place], [address] EST GFR - AA 204 mL/min Normal >[address] [facility] Comment on above: Result Comment: Afri can Albanian GFR Calc Performed By: #### L 100.0100, L500.2500 #### [facility] [address] [place], [address] GAP 6 Normal 5-[address] [facility] Comment on above: Performed By: #### L 100.0100, L500.2500 #### [facility] [address] [place], [address] GFR/1.73 sq M.predicted among non-blacks MDRD (S/P/Bld) [Vol rate/Area] 168 mL/min/{1.73_m2} Normal >[address] [facility] Comment on above: Result Comment: Non- GFR Calc Performed By: #### L 100.0100, L500.2500 #### [facility] [address] [place], [address] Glucose [Mass/Vol] 95 mg/dL Normal 74-106 [facility] Comment on above: Performed By: #### L 100.0100, L500.2500 #### [facility] [address] [place], [address] Potassium [Moles/Vol] 3.5 mmol/L Normal 3.5-5.[address] [facility] Comment on above: Performed By: #### L 100.0100, L500.2500 #### [facility] [address] [place], [address] Sodium [Moles/Vol] 143 mmol/L Normal 136-145 [facility] Comment on above: Performed By: #### L 100.0100, L500.2500 #### [facility] [address] [place], [address] Urea nitrogen [Mass/Vol] 5 mg/dL Low 7-[address] [facility] Comment on above: Performed By: #### L 100.0100, L500.2500 #### [facility] [address] [place], [address] CBC W/Diff, Automatedon 08-07 Absolute Lymph 2.59 X10 3/uL Normal 0.83-4.[address] [facility] Comment on above: Performed By: #### L 100.0100, L500.2500 #### [facility] [address] [place], [address] Absolute Neut 5.2 X10 3/uL Normal 2.0-7.[address] [facility] Comment on above: Performed By: #### L 100.0100, L500.2500 #### [facility] [address] [place], [address] Basophils/100 WBC (Bld) 0.6 % Normal 0-[address] [facility] Comment on above: Performed By: #### L 100.0100, L500.2500 #### [facility] [address] [place], [address] Eosinophils/100 WBC (Bld) 3.8 % Normal 0-[address] [facility] Comment on above: Performed By: #### L 100.0100, L500.2500 #### [facility] [address] [place], [address] Erythrocyte distribution width (RBC) [Ratio] 12.4 % Normal 11.6-14.[address] [facility] Comment on above: Performed By: #### L 100.0100, L500.2500 #### [facility] [address] [place], [address] Hematocrit (Bld) [Volume fraction] 41.2 % Normal 37-[address] [facility] Comment on above: Performed By: #### L 100.0100, L500.2500 #### [facility] [address] [place], [address] Hemoglobin (Bld) [Mass/Vol] 13.9 g/dL Normal 12.0-15.[address] [facility] Comment on above: Performed By: #### L 100.0100, L500.2500 #### [facility] [address] [place], [address] IG% 0.700 Normal 0.0-0.[address] [facility] Comment on above: Result Comment: IG% - Immature Granulocytes (promyelocytes, myelocytes and metamyelocytes) > 1% indicates that a LEFT SHIFT is Present. Performed By: #### L 100.0100, L500.2500 #### [facility] [address] [place], [address] Lymphocytes/100 WBC (Bld) 29.2 % Normal 19-[address] [facility] Comment on above: Performed By: #### L 100.0100, L500.2500 #### [facility] [address] [place], [address] MCH (RBC) [Entitic mass] 30.7 pg Normal 27.0-32.[address] [facility] Comment on above: Performed By: #### L 100.0100, L500.2500 #### [facility] [address] [place], [address] MCHC (RBC) [Mass/Vol] 33.7 g/dL Normal 32-[address] [facility] Comment on above: Performed By: #### L 100.0100, L500.2500 #### [facility] [address] [place], [address] MCV (RBC) [Entitic vol] 90.9 fL Normal 81-[address] [facility] Comment on above: Performed By: #### L 100.0100, L500.2500 #### [facility] [address] [place], [address] Monocytes/100 WBC (Bld) 7.0 % Normal 0-[address] [facility] Comment on above: Performed By: #### L 100.0100, L500.2500 #### [facility] [address] [place], [address] Neutrophils/100 WBC (Bld) 58.7 % Normal 47-[address] [facility] Comment on above: Performed By: #### L 100.0100, L500.2500 #### [facility] [address] [place], [address] Nucleated RBC (Bld) [#/Vol] 0 10*3/uL Normal 0-[address] [facility] Comment on above: Performed By: #### L 100.0100, L500.2500 #### [facility] [address] [place], [address] Platelet mean volume (Bld) [Entitic vol] 9.3 fL Normal 6.2-12.[address] [facility] Comment on above: Performed By: #### L 100.0100, L500.2500 #### [facility] [address] [place], [address] Platelets (Bld) [#/Vol] 322 10*3/uL Normal 150-[address] [facility] Comment on above: Performed By: #### L 100.0100, L500.2500 #### [facility] [address] [place], [address] RBC (Bld) [#/Vol] 4.53 10*6/uL Normal 4.2-5.4 [facility] Comment on above: Performed By: #### L 100.0100, L500.2500 #### [facility] [address] [place], [address] RDW SD 40.5 fl Normal 35.1-43.[address] [facility] Comment on above: Performed By: #### L 100.0100, L500.2500 #### [facility] [address] [place], [address] WBC (Bld) [#/Vol] 8.9 10*3/uL Normal 4.4-11.0 [facility] Comment on above: Performed By: #### L 100.0100, L500.2500 #### [facility] [address] [place], [address] CNPNon 08-26-2023 [facility] Telephone ([facility]) JUSTIN GARCIA ([id number]) 1995 F Date Time Provider Department 08/26/23 MARYSOL ISABEL [facility] During your visit today, we recorded the following information about you: Marysol Isabel APRN.CNP 08/26/2023 1:21 PM Signed No significant bacteria growth on urine culture. Please notify. If symptoms [persist she needs to follow up with PCP. Soumya Harris MA 08/26/2023 1:37 PM Signed Left VM instructing patient to return call to receive results. BRIELLE Banda Stephanie, TAMMY 08/26/2023 1:47 PM Signed Patient notified of results and provider's instructions. Patient verbalizes understanding. Tabitha Jackson RN Allergies As of Date: 08/26/2023 Noted Allergy Reaction AMOXICILLIN 12/12/2012 4 - Hives CIPROFLOXACIN 06/16/2016 8 - GI Upset Comments: Nausea, Dizziness, and Racing Heartbeat. CODEINE 04/05/2016 4 - Hives FLU VAC 2011 (18-64YRS)(PF) 01/23/2018 8 - GI Upset SEASONAL ALLERGIES 12/12/2012 14 - Other: See Comments Comments: Stuffy nose sore throat hives Date Reviewed: 08/25/2023 Reviewed by: Lucita Cruz APRN.VETERINARIAN EPIDEMIOLOGIST - Fully Assessed Reason for Visit: Results [95] Prescriptions as of 08/26/2023 - ondansetron orally disintegrating (ZOFRAN ODT) 4 mg disintegrating tablet Take 1 tablet by mouth every 8 hours as needed for nausea/vomiting. - nitrofurantoin monohydrate and macrocrystal (MACROBID) 100 mg capsule Take 1 capsule by mouth two times a day for 5 days. - levonorgestrel (MIRENA) 20 mcg/24 hr (5 years) IUD 1 Each by INTRAUTERINE route one time only. - albuterol HFA (PROAIR HFA) 90 mcg/actuation inhaler Inhale 2 Puffs as instructed every 4 hours as needed for Wheezing/Shortness of Breath. - loratadine (CLARITIN) 10 mg tablet Take 10 mg by mouth once daily. - BECLOMETHASONE DIPROPIONATE (QVAR INHALATION) Inhale as instructed. - MOMETASONE FUROATE (NASONEX NASAL) Use in the nose. Problem List As Of Date 08/26/2023 Noted Resolved Kidney disorder [N28.9] 12/12/2012 Asthma, exercise induced [J45.990] 12/12/2012 Late care [O09.30] 04/08/2016 09/09/2016 History of bipolar disorder [Z86.59] 04/08/2016 History of recurrent UTI (urinary tract infecti*04/08/2016 09/09/2016 Positive GBS test [B95.1] 07/20/2016 09/09/2016 Encounter Status:Closed by TABITHA JACKSON on 08/26/23 Normal [facility] Emergency Department Summary on 08-26-2023 Emergency Department Summary [facility] Medical Records Department [address] [place] [address] Emergency Department Summary 08/26/23 MR#: [id number] Acct: [id number] Name: JUSTIN GARCIA Rep #: [id number] : 1995 28 From: Alley HERNANDEZ PCP: Care Physician,No Primary Status:DEP ER Location: ED HPI History of Present Illness Chief Complaint: Complaint Narrative Narrative: 28-year-old female states 1 week ago she had [employer] and drank alcohol and the next day had nausea and vomiting which she thought was from this but it continued throughout the week. She had some mild lower abdominal pain and a few episodes of sharp right flank pain so she went to urgent care yesterday. Her urine dip showed blood and they prescribed Macrobid for a UTI but the urine culture came back negative today. She states she is concerned that her symptoms could be from a kidney stone because she has had these twice in the past. Both times required a stent. She states her abdominal pain is well-managed right now with Tylenol and she has no dysuria, frequency, or hematuria. [facility] Medical History Anemia Asthma Depression Former smoker History of renal disease Wears contact lenses Wears glasses Home Medications ???Medication ???Instructions ???Recorded ???Last Taken ???Type ciprofloxacin HCl 500 mg tablet 500 mg PO BID #10 tabs 08/12/20 Unknown Rx (Cipro) oxycodone-acetaminoph en 5 mg-325 1 tab PO Q4H PRN pain 7 days #14 08/12/20 Unknown Rx mg tablet tabs famotidine 20 mg tablet (Pepcid) 20 mg PO BID #10 tabs 03/22/23 Unknown Rx promethazine 25 mg tablet 25 mg PO Q6H PRN nausea and 03/22/23 Unknown Rx vomiting #20 tabs ondansetron 4 mg disintegrating 4 mg PO Q6H PRN nausea and 08/26/23 Unknown Rx tablet vomiting #12 tabs Allergy/AdvReac Type Severity Reaction Status Date / Time acetaminophen (From Vicodin) Allergy Mild Other Verified 08/26/23 16:09 amoxicillin (Amoxicillin) Allergy Hives Verified 08/26/23 16:09 codeine Allergy Hives Verified 08/26/23 16:09 hydrocodone Allergy Hives Verified 08/26/23 16:09 Influenza Virus Vaccines Allergy Anaphylaxis Verified 08/26/23 16:09 strawberry Allergy Anaphylaxis Verified 08/26/23 16:09 Surgical History History of lithotripsy Social History Smoking Status: Former smoker ROS ROS ED ROS Narrative Constitutional: Negative for fever, chills, malaise. CVS: Negative for chest pain. Respiratory: Negative for shortness of breath. GI: Positive for abdominal pain, nausea, vomiting. Negative for diarrhea, constipation, melena, hematochezia. : Negative for dysuria, hematuria or frequency. EXAM Physical Exam Narrative Exam Narrative: CONST: Patient sitting in no acute distress. EYES: Normal inspection. ENT: Normal inspection, moist mucous membranes. NECK: Normal inspection. RESP: No respiratory distress, CTAB. CVS: Regular rate and rhythm, no murmur, no gallop. ABD: Soft with suprapubic tenderness, no guarding or rebound, nondistended. Back: Normal inspection, no CVA tenderness. SKIN: Color normal, no rash, warm, dry, intact. EXTREMITIES: Normal appearance, no pedal edema. NEURO: Alert and answering questions appropriately. PSYCH: Normal affect. Const Vital Signs: 08/26/23 16:10 08/26/23 16:11 08/26/23 17:55 Temperature 97 F L 97 F L 98.4 F Temperature Source Temporal Temporal Oral Pulse Rate 99 99 74 Respiratory Rate 17 17 16 Blood Pressure 133/87 H 133/87 H 102/71 Blood Pressure Mean 102 102 81 Pulse Ox 99 99 98 Oxygen Delivery Method Room Air Room Air 08/26/23 17:57 08/26/23 20:00 08/26/23 20:57 Temperature 98.4 F 97.8 F 99 F Temperature Source Oral Temporal Pulse Rate 75 68 18 L Respiratory Rate 16 18 18 Blood Pressure 102/71 113/78 104/86 H Blood Pressure Mean 81 89 92 Pulse Ox 98 98 99 Oxygen Delivery Method Room Air Room Air Physical Exam Const Vital Signs: 08/26/23 16:10 08/26/23 16:11 08/26/23 17:55 Temperature 97 F L 97 F L 98.4 F Temperature Source Temporal Temporal Oral Pulse Rate 99 99 74 Respiratory Rate 17 17 16 Blood Pressure 133/87 H 133/87 H 102/71 Blood Pressure Mean 102 102 81 Pulse Ox 99 99 98 Oxygen Delivery Method Room Air Room Air 08/26/23 17:57 08/26/23 20:00 08/26/23 20:57 Temperature 98.4 F 97.8 F 99 F Temperature Source Oral Temporal Pulse Rate 75 68 18 L Respiratory Rate 16 18 18 Blood Pressure 102/71 113/78 104/86 H Blood Pressure Mean 81 89 92 Pulse Ox 98 98 99 Oxygen Delivery Method Room Air Room Air MDM (more content not included)... Normal [facility] Lipaseon 08-26-2023 Lipase [Catalytic activity/Vol] 24 U/L Normal 13-[address] [facility] Comment on above: Result Comment: Jed bean note: LIPASE revised reference range effective 22. New Lipase methodology. Expected to produce lower values than the previous assay method. NEW Reference Range: 13 - 75 U/L Performed By: #### L 500.3400, L501.2450 #### [facility] [address] [place], [address] Liver Profileon 08-26-2023 Albumin [Mass/Vol] 3.2 g/dL Normal 3.2-5.0 [facility] Comment on above: Performed By: #### L 500.3400, L501.2450 #### [facility] [address] [place], [address] ALK P 65 U/L Normal 45-[address] [facility] Comment on above: Performed By: #### L 500.3400, L501.2450 #### [facility] [address] [place], [address] ALT [Catalytic activity/Vol] 12 U/L Low 13-[address] [facility] Comment on above: Performed By: #### L 500.3400, L501.2450 #### [facility] [address] [place], [address] AST [Catalytic activity/Vol] 11 U/L Low 15-[address] [facility] Comment on above: Performed By: #### L 500.3400, L501.2450 #### [facility] [address] [place], [address] Bilirubin [Mass/Vol] 0.40 mg/dL Normal 0.20-1.[address] [facility] Comment on above: Result Comment: For patients on eltrombopag therapy, use of Dimension [place] TBIL is not recommended. Performed By: #### L 500.3400, L501.2450 #### [facility] [address] [place], [address] Bilirubin.direct [Mass/Vol] 0.12 mg/dL Normal 0.00-0.[address] [facility] Comment on above: Performed By: #### L 500.3400, L501.2450 #### [facility] [address] [place], [address] Globulin (S) [Mass/Vol] 3.2 g/dL Normal 2.2-4.[address] [facility] Comment on above: Performed By: #### L 500.3400, L501.2450 #### [facility] [address] [place], [address] T PROT 6.4 g/dL Normal 6.4-8.[address] [facility] Comment on above: Performed By: #### L 500.3400, L501.2450 #### [facility] [address] [place], [address] ,Urineon 08-26-2023 Beta HCG ( test) Ql (U) Negative Normal [facility] Comment on above: Order Comment: If fe male of childbearing age (8-55 years old) CLEAN CATCH Result Comment: Very dilute urine specimens, as indicated by a low specific gravity, may not contain traffic representative levels of hCG. If is still suspected, a first morning urine specimen should be collected 48 hours later and tested. Performed By: #### L 400.7600, L400.0001 #### [facility] [address] [place], [address] Urinalysis, Completeon 08-25 WBC >100 SEEN Normal 0-[address] [facility] Comment on above: Order Comment: If fe male of childbearing age (8-55 years old) CLEAN CATCH Result Comment: Micr oscopic field is filled. Other elements may be obscured. Performed By: #### L 400.7600, L400.0001 #### [facility] [address] [place], [address] BACTERIA 0 SEEN Normal None Seen [facility] Comment on above: Order Comment: If fe male of childbearing age (8-55 years old) CLEAN CATCH Performed By: #### L 400.7600, L400.0001 #### [facility] [address] [place], [address] EPI,SQUAMOUS 0 SEEN Normal 5-[address] [facility] Comment on above: Order Comment: If fe male of childbearing age (8-55 years old) CLEAN CATCH Performed By: #### L 400.7600, L400.0001 #### [facility] [address] [place], [address] Mucus Ql (Urine sed) [address] [facility] Comment on above: Order Comment: If fe male of childbearing age (8-55 years old) CLEAN CATCH Performed By: #### L 400.7600, L400.0001 #### [facility] [address] [place], [address] RBC 0 SEEN Normal 0-[address] [facility] Comment on above: Order Comment: If fe male of childbearing age (8-55 years old) CLEAN CATCH Performed By: #### L 400.7600, L400.0001 #### [facility] [address] [place], [address] Bacteria Ur Culton 4 Bacteria identified Cx Nom (U) ORGANISM ID: 1 10,000 -<50,000 CFU/ml Mixed microbiota No further workup. Mixed microbiota can be due to???urine???contamin ation with skin bacteria at time of collection or presence of a long-term urinary catheter. If a new culture is needed, please consider re-education of the patient on proper midstream co llection technique or straight catheterization for???urine???collect ion. Normal [facility] Comment on above: Performed By: #### 6 30-4 #### [facility] CLIA [id number] [address] [place] [address] [place] CNOVon 08-25-2023 CNOV Office Visit (UCWSTR ) JUSTIN GARCIA ([id number]) 1995 F Date Time Provider Department 08/25/23 9:15 AM LUCITA CRUZ [facility] During your visit today, we recorded the following information about you: Temperature Pulse Respiration Blood pressure 98 degrees 69/minute 18/minute 123/94 Weight 58.8 kg Lucita Cruz APRN.VETERINARIAN EPIDEMIOLOGIST 08/25/2023 9:37 AM Addendum (R11.2) Nausea and vomiting, unspecified vomiting type (primary encounter diagnosis) Plan: ondansetron orally disintegrating (ZOFRAN ODT) 4 mg disintegrating tablet, UA DIP, URINE (POC), UA DIP,URINE HCG (POC), URINE CULTURE, nitrofurantoin monohydrate and macrocrystal (MACROBID) 100 mg capsule UA unable to process. Will start macrobid and send culture. Check mychart for results. -Negative . -Zofran for nausea and vomiting. -Increase fluid intake. Focus on clears for 24 hours. Minimize caffeine and sugar drinks. -May increase to the BRAT diet as tolerated, see below. -Signs of dehydration: lethargy, rapid heart rate, dizziness, dry mouth, and decreased urination. -If no improvement please be re-seen in 3-5 days with primary care. -Be seen immediately with worsening symptoms: unable to keep fluids down/fever of 101F or higher/chest pain/shortness of breath/pain the abdomen or flank areas, life threatening symptoms, or signs of dehydration. BRAT DIET (may eat any of the following as tolerated) Bananas Applesauce [place] Saltine Crackers Animal Crackers Pretzels Oatmeal Unsweetened Dry Cereal (Rice Krispies, Cheerios) Plain Baked or Boiled Potato Plain White Rice Plain Noodles All clear liquid listed below CLEAR LIQUID DIET (need to drink 2 ounces total every half hour) Broth Jello Popsicles Pedialyte Gatorade NO Juices NO Milk NO Dairy Products Lucita Cruz APRN.CNP 08/25/2023 9:44 AM Signed This note was created using Pop.itriter. Subjective Justin Garcia is a 28 year old female. HPI by patient: Justin Garcia is a 28 year old presenting to the office with the complaint of viral symptoms. Started approximately 6 days ago, last Tuesday. This is intermittent. Will be okay some days then wake up the next with symptoms. Admits symptoms started after a night of heavy drinking and eating greasy food. Sent home from work Tuesday. Associated symptoms include temperature of 99.9F, nausea, vomiting, and a dry cough that she always has. Is more fatigued. States a baseline of urinary frequency. States she has kidney disease, gets frequent utis but isn't ever seen by anyone because she self treats at home with cranberry juice. States possible even though she has an iud, states it's due to be taken out. Denies body aches, congestion, ear pain, headaches, and diarrhea. Last night had KF for dinner. Covid Immunization Dates Overdue - Covid-19 Vaccine ( season) Never done No completion, postpone, frequency change, or communication history exists for this topic. Sick contacts: yes but resolved quicker. Smoking history/second hand smoke: none. OTC not helping No antibiotic use in the last 60 days. ALLERGIES Amoxicillin Hives Ciprofloxacin GI Upset Comment:Nausea, Dizziness, and Racing Heartbeat. Codeine Hives Flu Vac 2011 (18-64* GI Upset Seasonal Allergies Other: See Comments Comment:Stuffy nose sore throat hives Family History Reviewed Including Cardiac Diseases, Psychiatric Diseases, AND Substance Abuse Problem: Psychiatry Relation: Mother Age of Onset: (Not Specified) Comment: Bipolar Problem: Asthma Relation: Father Age of Onset: (Not Specified) Problem: None Relation: Brother Age of Onset: (Not Specified) Problem: COPD Relation: Maternal Grandmother Age of Onset: (Not Specified) Problem: Heart Relation: Maternal Grandfather Age of Onset: (Not Specified) Problem: Kidney Disease Relation: Paternal Grandmother Age of Onset: (Not Specified) Social History Tobacco Use Smoking status: Never Smokeless tobacco: Never Alcohol use: No Drug use: No Active Ambulatory Problems Kidney disorder Date Noted: 12/12/2012 Asthma, exercise induced Date Noted: 12/12/2012 History of bipolar disorder Date Noted: 04/08/2016 Resolved Ambulatory Problems Late care Date Noted: 04/08/2016 History of recurrent UTI (urinary tract infection) Date Noted: 04/08/2016 Positive GBS test Date Noted: 07/20/2016 Past Medical History: No date: Asthma No date: Bipolar affective (HCC) No date: Irregular menses Review of Systems HENT: Negative. Eyes: Negative. Respiratory: Negative. Cardiovascular: Negative. Gastrointestinal: Positive for nausea and vomiting. Endocrine: Negative. Genitourinary: Positive for frequency. Negative for vaginal discharge. Musculoskeletal: Negative. Skin: Negative. Neurological: (more content not included)... Normal [facility] UA DIP,URINE HCG (POC)on Beta HCG ( test) Ql (U) Negative Negative [facility] Comment on above: Location:[address], [place], [address] [employer] (POCT) Internal QC OK [facility] Location:[address], [place], [address] [facility] POINT OF CARE [facility] Emergency Department Summary on 03-22-2023 Emergency Department Summary [facility] Medical Records Department [address] [place] [address] Emergency Department Summary 03/22/23 MR#: [id number] Acct: [id number] Name: JUSTIN GARCIA Rep #: [id number] : 1995 28 From: Moses Khalil DO PCP: Care Physician,No Primary Status:REG ER Location: ED HPI HPI - URI History of Present Illness Chief Complaint: Nausea/Vomiting Narrative Narrative: 28-year-old female presenting for nausea and vomiting. She states that Tuesday of last week she left work because she felt ill. She states that she went to urgent care on Tuesday and was diagnosed with influenza B. She reports that she was sent back to work on of that week. She still was not better and went home. Tuesday and Tuesday she had more nausea and vomiting. Fevers have since resolved. Patient states she still vomiting. She was post to go back to work because she could not. She has Zofran which is not helping. Patient does have some abdominal pain which she thinks is from retching. No urinary or vaginal complaints. No constipation or diarrhea. ROS ROS ED Constitutional Constitutional ED: Denies chills, fever(s) or sweats Eyes Eyes: Denies blurry vision or change in vision ENT ENT ED: Denies ear pain or sore throat Cardiovascular Cardiovascular: Denies chest pain, palpitations or racing heartbeat Respiratory/Chest Respiratory/Chest: Denies cough, dyspnea or sputum Gastrointestinal Gastrointestinal: Reports abdominal pain, nausea and vomiting; Denies constipation or diarrhea Genitourinary Genitourinary ED: Denies dysuria, hematuria or urinary frequency Musculoskeletal Musculoskeletal: Denies arthralgias, myalgias or neck pain Integumentary Denies abscess, Abrasions or rash Neurologic Neurologic: Denies headache(s), paresthesias or weakness Psychiatric Psychiatric: Denies anxiety, depression, suicidal ideation or suicidal thoughts Endocrine Endocrinology: Denies polydipsia or polyuria [facility] Medical History Anemia Asthma Depression Former smoker History of renal disease Wears contact lenses Wears glasses Home Medications ciprofloxacin HCl 500 mg tablet (Cipro) 500 mg PO BID #10 tabs 08/12/20 [Rx Last Taken Unknown] oxycodone-acetaminoph en 5 mg-325 mg tablet 1 tab PO Q4H PRN pain 7 days #14 tabs 08/12/20 [Rx Last Taken Unknown] Allergy/AdvReac Type Severity Reaction Status Date / Time acetaminophen [From Vicodin] Allergy Mild Other Verified 03/22/23 14:38 amoxicillin [Amoxicillin] Allergy Hives Verified 03/22/23 14:37 codeine Allergy Hives Verified 03/22/23 14:37 hydrocodone Allergy Hives Verified 03/22/23 14:37 Influenza Virus Vaccines Allergy Anaphylaxis Verified 03/22/23 14:37 strawberry Allergy Anaphylaxis Verified 03/22/23 14:37 Surgical History History of lithotripsy Social History Smoking Status: Former smoker EXAM Physical Exam Const Vital Signs: 03/22/23 14:38 Temperature 98 F Temperature Source Temporal Pulse Rate 91 Respiratory Rate 18 Blood Pressure 121/64 H Blood Pressure Mean 83 Pulse Ox 96 Oxygen Delivery Method Room Air Positive well nourished General Appearance ED: NAD; Negative for pallor HEENT Reports moist mucous membranes normocephalic and atraumatic Neck no lymphadenopathy Resp normal respiratory effort Auscultation: Negative for rales, rhonchi or wheezes Cardio Rate: regular rate Rhythm: regular rhythm GI non-tender Neuro oriented x3 and CN's II-XII intact bilaterally Sensorium / Orientation: alert Motor Exam: strength 5/5 throughout Psych mental status grossly normal Skin General Skin Exam: Negative for jaundice or pallor MDM MDM MDM Narrative Medical decision making narrative: 20-year-old female with history of flu B requesting something for nausea. She is given Phenergan and was able to hold this down. I offered her IV fluids and IV medications but she declines. She states she just wants to feel little bit better and go home. She also request a work note. On reevaluation he is doing much better. Discharged home with some Phenergan. Return precautions discussed. Impression: 1. Nausea/vomiting. 2. History of influenza B. Lab Data Attestation: I reviewed the patient's lab results. Discharge Plan Triage Chief Complaint: Nausea/Vomiting ED Provider: Moses Khalil Dx/Rx/DC Orders Prescriptions: No Action ciprofloxacin HCl [Cipro] 500 mg tablet 500 mg PO BID Qty: 10 0RF oxycodone-acetaminoph en 5-325 mg tablet 1 tab PO Q4H PRN (Reason: pain) 7 Days Qty: 14 0RF Primary Care Provider: Care Physician,No Primary Referral (more content not included)... Normal [facility] Emergency Room Note on 02-27-2017 [place] Emergency Room Note Normal [facility] [place] Patient Summary Documentson 02-27-2017 Patient Summary Documents Normal [facility] [place] XR WRIST MINIMUM 3 VIEWS RIG HTon 02-27-2017 XR WRIST MINIMUM 3 VIEWS RIGHT ORIGINALXR WRIST MINIMUM 3 VIEWS RIGHT CLINICAL STATEMENT: Diffuse tenderness to palpation, injured wrist while pulling back pain medially and laterally of right wrist COMPARISON: None FINDINGS: No acute fracture or dislocation is identified. The joint spaces are maintained. No significant soft tissue swelling. There is no radiopaque foreign body. IMPRESSION: No acute fracture or dislocation. I have personally reviewed the images of this examination and agree with the resident's findings and interpretation. Interpreted By: Lashanda Schulz MDPreliminary Report By: Giacomo Shaw DOElectronically Signed By: Lashanda Schulz MD Dictated Date: 02/27/2017 1:00:52 AM Prelim Date: 02/27/2017 1:02:01 AM Sign Date: 02/27/2017 9:17:56 AM Normal [facility] [place] Vital Signs Date Time Vital Sign Value Performing Clinician Facility 08-13-2024 18:57-0400 Body mass index (BMI) [Ratio] 21.95 kg/m2 Royal Marsh PA-C Work Phone: [facility] 08-13-2024 18:57-0400 Body temperature 99.19 [degF] Royal Marsh PA-C Work Phone: [facility] 08-13-2024 18:57-0400 Body weight 52.7 kg Royal Marsh PA-C Work Phone: [facility] 08-13-2024 18:57-0400 Diastolic blood pressure 62 mm[Hg] Royal Marsh PA-C Work Phone: [facility] 08-13-2024 18:57-0400 Heart rate 112 /min Royal Clutter PA-C Work Phone: [facility] 08-13-2024 18:57-0400 Respiratory rate 16 /min Royal Clutter PA-C Work Phone: [facility] 08-13-2024 18:57-0400 SaO2% (BldA) [Mass fraction] 94 % Royal Clutter PA-C Work Phone: [facility] 08-13-2024 18:57-0400 Systolic blood pressure 108 mm[Hg] Royal Clutter PA-C Work Phone: [facility] 08-01-2024 08:04-0400 Body mass index (BMI) [Ratio] 22.91 kg/m2 Naomi Swank CLINICAL STATISTICS MANAGER.VETERINARIAN EPIDEMIOLOGIST Work Phone: [facility] 08-01-2024 08:04-0400 Body temperature 98.29 [degF] Naomi Swank CLINICAL STATISTICS MANAGER.VETERINARIAN EPIDEMIOLOGIST Work Phone: [facility] 08-01-2024 08:04-0400 Body weight 55 kg Naomi Swank CLINICAL STATISTICS MANAGER.VETERINARIAN EPIDEMIOLOGIST Work Phone: [facility] 08-01-2024 08:04-0400 Diastolic blood pressure 64 mm[Hg] Naomi Swank CLINICAL STATISTICS MANAGER.VETERINARIAN EPIDEMIOLOGIST Work Phone: [facility] 08-01-2024 08:04-0400 Heart rate 104 /min Naomi Swank CLINICAL STATISTICS MANAGER.VETERINARIAN EPIDEMIOLOGIST Work Phone: [facility] 08-01-2024 08:04-0400 Respiratory rate 18 /min Naomi Swank CLINICAL STATISTICS MANAGER.VETERINARIAN EPIDEMIOLOGIST Work Phone: [facility] 08-01-2024 08:04-0400 SaO2% (BldA) [Mass fraction] 99 % Naomi Swank CLINICAL STATISTICS MANAGER.VETERINARIAN EPIDEMIOLOGIST Work Phone: [facility] 08-01-2024 08:04-0400 Systolic blood pressure 102 mm[Hg] Naomi Swank CLINICAL STATISTICS MANAGER.VETERINARIAN EPIDEMIOLOGIST Work Phone: [facility] 03-14-2024 16:40-0500 Body mass index (BMI) [Ratio] 23.37 kg/m2 Maria Eugenia Godoy CLINICAL STATISTICS MANAGER.VETERINARIAN EPIDEMIOLOGIST Work Phone: [facility] 03-14-2024 16:40-0500 Body temperature 98.29 [degF] Maria Eugenia Godoy CLINICAL STATISTICS MANAGER.VETERINARIAN EPIDEMIOLOGIST Work Phone: [facility] 03-14-2024 16:40-0500 Body weight 56.1 kg Maria Eugenia Godoy CLINICAL STATISTICS MANAGER.VETERINARIAN EPIDEMIOLOGIST Work Phone: [facility] 03-14-2024 16:40-0500 Diastolic blood pressure 74 mm[Hg] Maria Eugenia Godoy CLINICAL STATISTICS MANAGER.VETERINARIAN EPIDEMIOLOGIST Work Phone: [facility] 03-14-2024 16:40-0500 Heart rate 64 /min Maria Eugenia Godoy CLINICAL STATISTICS MANAGER.VETERINARIAN EPIDEMIOLOGIST Work Phone: [facility] 03-14-2024 16:40-0500 Respiratory rate 20 /min Maria Eugenia Godoy CLINICAL STATISTICS MANAGER.VETERINARIAN EPIDEMIOLOGIST Work Phone: [facility] 03-14-2024 16:40-0500 SaO2% (BldA) [Mass fraction] 99 % Maria Eugenia Godoy CLINICAL STATISTICS MANAGER.VETERINARIAN EPIDEMIOLOGIST Work Phone: [facility] 03-14-2024 16:40-0500 Systolic blood pressure 106 mm[Hg] Maria Eugenia Godoy CLINICAL STATISTICS MANAGER.VETERINARIAN EPIDEMIOLOGIST Work Phone: [facility] 08-25-2023 09:14-0400 Body mass index (BMI) [Ratio] 24.49 kg/m2 Lucita Cruz CLINICAL STATISTICS MANAGER.VETERINARIAN EPIDEMIOLOGIST Work Phone: [facility] 08-25-2023 09:14-0400 Body temperature 98.01 [degF] Lucita Cruz CLINICAL STATISTICS MANAGER.VETERINARIAN EPIDEMIOLOGIST Work Phone: [facility] 08-25-2023 09:14-0400 Body weight 58.8 kg Lucita Cruz CLINICAL STATISTICS MANAGER.VETERINARIAN EPIDEMIOLOGIST Work Phone: [facility] 08-25-2023 09:14-0400 Diastolic blood pressure 94 mm[Hg] Lucita Cruz CLINICAL STATISTICS MANAGER.VETERINARIAN EPIDEMIOLOGIST Work Phone: [facility] 08-25-2023 09:14-0400 Heart rate 69 /min Lucita Cruz CLINICAL STATISTICS MANAGER.VETERINARIAN EPIDEMIOLOGIST Work Phone: [facility] 08-25-2023 09:14-0400 Respiratory rate 18 /min Lucita Cruz CLINICAL STATISTICS MANAGER.VETERINARIAN EPIDEMIOLOGIST Work Phone: [facility] 08-25-2023 09:14-0400 SaO2% (BldA) [Mass fraction] 100 % Lucita Cruz CLINICAL STATISTICS MANAGER.VETERINARIAN EPIDEMIOLOGIST Work Phone: [facility] 08-25-2023 09:14-0400 Systolic blood pressure 123 mm[Hg] Lucita Cruz CLINICAL STATISTICS MANAGER.VETERINARIAN EPIDEMIOLOGIST Work Phone: [facility] 03-22-2023 18:20-0500 Body temperature 98.2 [degF] [facility] 03-22-2023 18:20-0500 Diastolic blood pressure 76 mm[Hg] [facility] 03-22-2023 18:20-0500 Heart rate 66 /min [facility] 03-22-2023 18:20-0500 Respiratory rate 18 /min [facility] 03-22-2023 18:20-0500 SaO2% (BldA) [Mass fraction] 100 % [facility] 03-22-2023 18:20-0500 Systolic blood pressure 112 mm[Hg] [facility] 03-22-2023 14:38-0500 Body height 152.[address] [facility] 03-22-2023 14:38-0500 Body mass index (BMI) [Ratio] 24.6 kg/m2 [facility] 03-22-2023 14:38-0500 Body weight 57.[address] [facility] Encounters Encounter Date Encounter Type Care Provider Facility Start: 08-13-2024 End: 08-13-2024 Office outpatient visit 25 minutes Royal Marsh PA-C Work Phone: [facility] Comment on above: Sore throat (Primary Dx); Mild intermittent asthma without complication (HCC); Acute URI Start: 08-13-2024 End: 08-13-2024 ambulatory ROYAL MARSH Facility:[facility] Start: 08-01-2024 End: 08-01-2024 Patient encounter procedure Naomi Mitchell EDDIE.MYNOR Work Phone: [facility] Comment on above: Viral gastroenteriti s; Nausea and vomiting, unspecified vomiting type; Fever, unspecified fever cause Start: 08-01-2024 End: 08-01-2024 ambulatory NAOMI MITCHELL Facility:[facility] Start: 03-18-2024 End: 03-18-2024 ambulatory NAOMI MITCHELL Facility:[facility] Start: 03-18-2024 End: 03-18-2024 Telemedicine consultation with patient Sandra R Manju MORGAN.VETERINARIAN EPIDEMIOLOGIST Work Phone: [facility] Comment on above: Flu-like symptoms (P rimary Dx) Start: 03-14-2024 End: 03-14-2024 ambulatory SELF Facility:[facility] Start: 03-14-2024 End: 03-14-2024 Patient encounter procedure Maria Eugenia Poolemarie MORGAN.VETERINARIAN EPIDEMIOLOGIST Work Phone: [facility] Comment on above: Exposure to the flu (Primary Dx); URI, acute; Encounter to obtain excuse from work Start: 08-26-2023 End: 08-26-2023 Emergency department patient visit No Primary Care Physician Facility:[facility] Start: 08-26-2023 Telephone encounter Marysol Isabel APRN.CNP Work Phone: [facility] Comment on above: Results Start: 08-25-2023 End: 08-25-2023 ambulatory DEBRA FENG Facility:[facility] Start: 08-25-2023 End: 08-25-2023 Office outpatient visit 25 minutes Lucita Cruz APRN.MYNOR Work Phone: [facility] Comment on above: Nausea and vomiting, unspecified vomiting type (Primary Dx) Start: 03-22-2023 End: 03-22-2023 Emergency department patient visit [facility] Work Phone: Start: 03-16-2023 Telephone encounter Adrienne Diaz Danielito MORGAN.VETERINARIAN EPIDEMIOLOGIST Work Phone: [facility] Comment on above: Patient Update Start: 02-27-2017 End: 02-27-2017 Emergency department patient visit CHARLEE CHAVEZ Facility:B Procedures Date Procedure Procedure Detail Performing Clinician Start: 08-13-2024 Iadna streptococcus group a amplified probe tq Royal Marsh PA-C Work Phone: Start: 08-25-2023 UA DIP,URINE HCG (POC) Lucita Cruz APRN.VETERINARIAN EPIDEMIOLOGIST Work Phone: Plan of Treatment Date Care Activity Detail Author Start: 05-05-2026 Urine microalbumin profile DTaP,Tdap,Td Vaccine (9 - Td or Tdap) [facility] Start: 10-08-2024 Influenza vaccination [facility] Start: 10-09-2023 Covid-19 Vaccine ( season) Covid-19 Vaccine () [facility] Start: 10-09-2023 Influenza vaccination Influenza Vacc ine (#1) [facility] Start: 02-07-2023 Behavioral Health Screening Behavioral Health Screening [facility] Start: 02-07-2023 Depression Assessment Depression Ass essment [facility] Start: 10-08-2022 Covid-19 Vaccine ( season) Covid-19 Vaccine ( season) [facility] Start: 10-08-2022 Influenza vaccination Influenza Vacc ine (#1) [facility] Start: 04-05-2019 Screening for malign ant neoplasm of cervix [facility] Start: 2013 Annual PCP Team Form Designer rosemary Disease Visit Annual PCP Team Chronic Disease Visit [facility] Start: 2013 Anxiety Screening Anxiety Screening [facility] Start: 2013 Depression Screening Depression Scre ening [facility] Start: 2013 Spirometry Spirometry [facility] Start: 2001 Pneumococcal vaccination Pneumococcal Vaccine (1 of 2 - PCV) [facility] Start: 1995 Covid-19 Vaccine (#1) Covid-19 Vacci ne (#1) [facility] Bacteria identified in Urine by Culture URINE CULTURE Microbiology Routine Nausea and vomiting, unspecified vomiting type Ordered: 08/25/2023 [facility] Comment on above: Ordered: 08/25/2023 COVID & INFLUENZA A/ B & RSV PCR, ROUTINE COVID & INFLUENZA A/B & RSV PCR, ROUTINE Microbiology Routine Exposure to the flu URI, acute Ordered: 03/14/2024 [facility] Work Phone: Comment on above: Ordered: 03/14/2024 Patient Education ED Influenza ( Adult) ED Gastroenteritis, Viral (Adult) [facility] Work Phone: Patient referral [facility] Work Phone: UA DIP, URINE (POC) UA DIP, URIN E (POC) Lab Routine Nausea and vomiting, unspecified vomiting type Ordered: 08/25/2023 [facility] Work Phone: Comment on above: Ordered: 08/25/2023 Immunizations Immunization Date Immunization Notes Care Provider Kike dubose 05-05-2016 tetanus toxoid, redu rosana diphtheria toxoid, and acellular pertussis vaccine, adsorbed Adrienne Montero-Mendel CLINICAL STATISTICS MANAGER.VETERINARIAN EPIDEMIOLOGIST Work Phone: [facility] 04-08-2016 tetanus toxoid, redu rosana diphtheria toxoid, and acellular pertussis vaccine, adsorbed [facility] 11-08-2013 influenza virus vaccine, unspecified formulation Adrienne Jenkins CLINICAL STATISTICS MANAGER.VETERINARIAN EPIDEMIOLOGIST Work Phone: [facility] Payers Date Payer Category Payer Medicaid [facility] MEDIC [facility] [id number] 2023 Medicaid [id number] 2023 Self-pay [id number] Private Health Insurance [id number] Medicaid MEDICAID [id number] Unknown [facility] [id number] Unknown [id number] Unknown [id number] Social History Date Type Detail Facility Start: 03-15-2023 Tobacco smoking stat [facility] Never smoked tobacco [facility] Work Phone: Start: 03-15-2023 Tobacco use and exposure Smokeless tobacco non-user [facility] Work Phone: Start: 03-15-2023 End: 08-01-2024 Alcohol intake Current non-drinker of alcohol (finding) [facility] Start: 01-16-2020 End: 03-15-2023 History of Social function [facility] Start: 01-16-2020 End: 03-15-2023 Tobacco use panel [facility] National Score (1-100), lower number is lower risk Not on file [facility] Start: 1995 Sex Assigned At Not on file [facility] Start: 03-22-2023 Tobacco smoking stat [facility] Unknown if ever smoked [facility] Start: 04-09-2019 With Family [facility] Start: 06-18-2019 Cigarettes [facility] Start: 1995 Sex Assigned At Female [facility] Medical Equipment Procedure Code Equipment Code Equipment Origin al Text Equipment Identifier Dates Cystoscopy, with retrograde pyelogram and ureteral stent insertion STENT,URETERAL PIGTAIL [id number] FDA Start: 08-12-2020 Cystoscopic insertion of stent STENT,URET PIGTAIL 6x22 FDA Start: 05-21-2019 Clinical Notes 07-20-2016 to 08-13-2024 Royal Marsh PA-C - 08/13/2024 7:04 PM Naomi Sharp APRN.[facility] - 08/01/2024 8:17 AM Sandra Pierre APRN.[facility] - 03/18/2024 6:38 PM Maria Eugenia Prakash APRN.[facility] - 03/14/2024 4:43 PM EST Note Date & Type Note Facility 08-13-2024 Note HNO ID: [id number] Author: ROYAL MARSH PA-C Service: ? Author Type: Physician Employment Coordinator Type: Progress Notes Filed: 08/13/2024 19:17 Note Text: This note was created using Transifexter. Subjective Justin Garcia is a 29 year old female. Patient is a 29-year-old female who complains of mild congestion, sore throat and cough that she has been experiencing for the past 3 days. Patient reports no sinus pressure or ear pain. Patient also denies fever, chills or myalgia. Patient does have asthma but reports no increased episodes of wheezing. Patient states that her albuterol inhaler is and is requesting a new prescription for same. Review of Systems HENT: Positive for congestion and sore throat. Respiratory: Positive for cough. All other systems reviewed and are negative. Objective BP 108/62 Pulse 112 Temp 37.3 ?C (99.2 ?F) Resp 16 Wt 52.7 kg (116 lb 2.9 oz) LMP 01/02/2017 (Exact Date) SpO2 94% BMI 21.95 kg/m? Physical Exam Vitals and nursing note reviewed. Constitutional: Appearance: Normal appearance. She is normal weight. HENT: Head: Normocephalic and atraumatic. Right Ear: Tympanic membrane, ear canal and external ear normal. Left Ear: Tympanic membrane, ear canal and external ear normal. Nose: Nose normal. Mouth/Throat: Mouth: Mucous membranes are moist. Pharynx: Oropharynx is clear. Eyes: Extraocular Movements: Extraocular movements intact. Conjunctiva/sclera: Conjunctivae normal. Pupils: Pupils are equal, round, and reactive to light. Cardiovascular: Rate and Rhythm: Normal rate and regular rhythm. Pulses: Normal pulses. Heart sounds: Normal heart sounds. Pulmonary: Effort: Pulmonary effort is normal. Breath sounds: Normal breath sounds. Musculoskeletal: Cervical back: Normal range of motion and neck supple. Skin: General: Skin is warm and dry. Capillary Refill: Capillary refill takes less than 2 seconds. Neurological: General: No focal deficit present. Mental Status: She is alert and oriented to person, place, and time. Psychiatric: Mood and Affect: Mood normal. Behavior: Behavior normal. Thought Content: Thought content normal. Judgment: Judgment normal. Assessment and Plan Physical exam findings as noted above. Rapid strep test is negative. Patient was provided with prescriptions for Tessalon 100 mg and an albuterol MDI. Supportive care instructions were discussed and patient verbalizes excellent understanding of same. CLINICAL IMPRESSION: Acute URI; Asthma; Medication Refill ASSESSMENT/PLAN: 1. Sore throat - ICD9: 462, ICD10: J02.9 (primary diagnosis) - STREP A MOLECULAR (POC) 2. Mild intermittent asthma without complication (HCC) - ICD9: 493.90, ICD10: J45.20 3. Acute URI - ICD9: 465.9, ICD10: J06.9 - BENZONATATE 100 MG CAPSULE Royal Marsh PA-C [facility] 08-13-2024 History of Presen t illness Narrative This note was created using VisConPro. Subjective Justin Garcia is a 29 year old female. Patient is a 29-year-old female who complains of mild congestion, sore throat and cough that she has been experiencing for the past 3 days. Patient reports no sinus pressure or ear pain. Patient also denies fever, chills or myalgia. Patient does have asthma but reports no increased episodes of wheezing. Patient states that her albuterol inhaler is and is requesting a new prescription for same. Review of Systems HENT: Positive for congestion and sore throat. Respiratory: Positive for cough. All other systems reviewed and are negative. Objective BP 108/62 Pulse 112 Temp 37.3 C (99.2 F) Resp 16 Wt 52.7 kg (116 lb 2.9 oz) LMP 01/02/2017 (Exact Date) SpO2 94% BMI 21.95 kg/m Physical Exam Vitals and nursing note reviewed. Constitutional: Appearance: Normal appearance. She is normal weight. HENT: Head: Normocephalic and atraumatic. Right Ear: Tympanic membrane, ear canal and external ear normal. Left Ear: Tympanic membrane, ear canal and external ear normal. Nose: Nose normal. Mouth/Throat: Mouth: Mucous membranes are moist. Pharynx: Oropharynx is clear. Eyes: Extraocular Movements: Extraocular movements intact. Conjunctiva/sclera: Conjunctivae normal. Pupils: Pupils are equal, round, and reactive to light. Cardiovascular: Rate and Rhythm: Normal rate and regular rhythm. Pulses: Normal pulses. Heart sounds: Normal heart sounds. Pulmonary: Effort: Pulmonary effort is normal. Breath sounds: Normal breath sounds. Musculoskeletal: Cervical back: Normal range of motion and neck supple. Skin: General: Skin is warm and dry. Capillary Refill: Capillary refill takes less than 2 seconds. Neurological: General: No focal deficit present. Mental Status: She is alert and oriented to person, place, and time. Psychiatric: Mood and Affect: Mood normal. Behavior: Behavior normal. Thought Content: Thought content normal. Judgment: Judgment normal. Assessment and Plan Physical exam findings as noted above. Rapid strep test is negative. Patient was provided with prescriptions for Tessalon 100 mg and an albuterol MDI. Supportive care instructions were discussed and patient verbalizes excellent understanding of same. CLINICAL IMPRESSION: Acute URI; Asthma; Medication Refill ASSESSMENT/PLAN: 1. Sore throat - ICD9: 462, ICD10: J02.9 (primary diagnosis) - STREP A MOLECULAR (POC) 2. Mild intermittent asthma without complication (HCC) - ICD9: 493.90, ICD10: J45.20 3. Acute URI - ICD9: 465.9, ICD10: J06.9 - BENZONATATE 100 MG CAPSULE Royal Marsh PA-C documented in this encounter [facility] 08-01-2024 Note HNO ID: [id number] Author: NAOMI MITCHELL APRN.VETERINARIAN EPIDEMIOLOGIST Service: ? Author Type: Nurse Practitioner Type: Progress Notes Filed: 08/01/2024 08:30 Note Text: [facility] Subjective Justin Garcia is a 29 year old female. Patient presents with: Fever: Fever, vomiting, diarrhea and bodyaches x 1 day Fever, Nausea, Emesis, and Abdominal Pain: - Symptoms began after returning from a 5-day vacation at [place]. - Initially thought it was sun poisoning; stayed indoors with blinds shut and air conditioning on low. - Persistent emesis since 0530 this morning. - Recorded fever of 100.1 degreeF; took Tylenol 45 minutes before leaving home, reducing fever to 99.6 degreeF. - Experiencing mild abdominal pain upper gastric. - Able to drink fluids; slight improvement in nausea. - Does have zophran at home. - Hany was sick for a couple of days at the beginning of the vacation. Constitutional: (+) fever Gastrointestinal: (+) vomiting, (+) nausea, (-) abdominal pain Objective BP 102/64 Pulse 104 Temp 36.8 ?C (98.3 ?F) (Tympanic) Resp 18 Wt 55 kg (121 lb 4.1 oz) LMP 01/02/2017 (Exact Date) SpO2 99% BMI 22.91 kg/m? PAST MEDICAL HISTORY Diagnosis Date Asthma (HCC) Bipolar affective (HCC) Irregular menses Kidney disorder PAST SURGICAL HISTORY Procedure Laterality Date PAST SURGICAL HISTORY OF wisdom teeth, tubes in ears ALLERGIES Amoxicillin, Ciprofloxacin, Codeine, Flu Vac 2011 (18-64yrs)(Pf), and Seasonal Allergies MEDICATIONS ondansetron orally disintegrating (ZOFRAN ODT) 4 mg disintegrating tablet Take 1 tablet by mouth every 6 hours as needed for nausea/vomiting. ondansetron orally disintegrating (ZOFRAN ODT) 4 mg disintegrating tablet Take 1 tablet by mouth every 8 hours as needed for nausea/vomiting. levonorgestrel (MIRENA) 20 mcg/24 hr (5 years) IUD 1 Each by INTRAUTERINE route one time only. albuterol HFA (PROAIR HFA) 90 mcg/actuation inhaler Inhale 2 Puffs as instructed every 4 hours as needed for Wheezing/Shortness of Breath. loratadine (CLARITIN) 10 mg tablet Take 10 mg by mouth once daily. BECLOMETHASONE DIPROPIONATE (QVAR INHALATION) Inhale as instructed. MOMETASONE FUROATE (NASONEX NASAL) Use in the nose. FAMILY HISTORY Problem Relation Age of Onset Psychiatry Mother Bipolar Asthma Father None Brother COPD Maternal Grandmother Heart Maternal Grandfather Kidney Disease Paternal Grandmother Social History Tobacco Use Smoking status: Never Smokeless tobacco: Never Substance Use Topics Alcohol use: No Drug use: No Physical Exam Vitals and nursing note reviewed. Constitutional: Appearance: Normal appearance. HENT: Mouth/Throat: Mouth: Mucous membranes are moist. Pharynx: No oropharyngeal exudate or posterior oropharyngeal erythema. Cardiovascular: Rate and Rhythm: Normal rate and regular rhythm. Pulses: Normal pulses. Heart sounds: Normal heart sounds. Pulmonary: Effort: Pulmonary effort is normal. Breath sounds: Normal breath sounds. Abdominal: General: Abdomen is flat. Bowel sounds are normal. There is no distension. Tenderness: There is no abdominal tenderness. There is no right CVA tenderness, left CVA tenderness or guarding. Neurological: Mental Status: She is alert. {1. Viral gastroenteritis (A08.4) 2. Nausea and vomiting, unspecified vomiting type (R11.2) 3. Fever, unspecified fever cause (R50.9) - Recent travel history; returned from a five-day vacation at [place]. - Experiencing nausea, vomiting, and low-grade fever (Tmax 100.1 degreeF) - Symptoms persist with viral gastroenteritis. - No concern of an acute abdomen such as appendicitis based on exam today. - Advised rest, hydration, and continuation of Zofran for nausea management; patient has six doses remaining. - Provided work notes for missed days. - ER if severe abddominal pain, unable to tolerate fluids, or worsening of symptoms. and Recording using inZair software for draft documentation of the visit was discussed with the patient/authorized traffic representative; all questions welcomed and answered. Patient/authorized traffic representative agreed to proceed History and Record Review Clinical information obtained from an independent historian. History obtained from or confirmed by: parent. External record(s) reviewed: prior outpatient record. Findings from review of outpatient records: Previous medical history Differential Diagnoses - Viral gastroenteritis is more likely for the following reason(s): suggested by HANDP - Acute abdomen is less likely for the following reason(s): Abdominal exam within normal limits, HANDP not suggestive - Dehydration is less likely for the following reason(s): tolerating fluids, vitals stable Disposition The patient was discharged. OTC Medications were advised: Tylenol, Ibuprofen as needed [facility] 08-01-2024 History of Presen t illness Narrative [facility] Bautista Justin Garcia is a 29 year old female. Patient presents with: Fever: Fever, vomiting, diarrhea and bodyaches x 1 day Fever, Nausea, Emesis, and Abdominal Pain: - Symptoms began after returning from a 5-day vacation at [place]. - Initially thought it was sun poisoning; stayed indoors with blinds shut and air conditioning on low. - Persistent emesis since 0530 this morning. - Recorded fever of 100.1 degreeF; took Tylenol 45 minutes before leaving home, reducing fever to 99.6 degreeF. - Experiencing mild abdominal pain upper gastric. - Able to drink fluids; slight improvement in nausea. - Does have zophran at home. - Hany was sick for a couple of days at the beginning of the vacation. Constitutional: (+) fever Gastrointestinal: (+) vomiting, (+) nausea, (-) abdominal pain Objective BP 102/64 Pulse 104 Temp 36.8 C (98.3 F) (Tympanic) Resp 18 Wt 55 kg (121 lb 4.1 oz) LMP 01/02/2017 (Exact Date) SpO2 99% BMI 22.91 kg/m PAST MEDICAL HISTORY Diagnosis Date Asthma (HCC) Bipolar affective (HCC) Irregular menses Kidney disorder PAST SURGICAL HISTORY Procedure Laterality Date PAST SURGICAL HISTORY OF wisdom teeth, tubes in ears ALLERGIES Amoxicillin, Ciprofloxacin, Codeine, Flu Vac 2011 (18-64yrs)(Pf), and Seasonal Allergies MEDICATIONS ondansetron orally disintegrating (ZOFRAN ODT) 4 mg disintegrating tablet Take 1 tablet by mouth every 6 hours as needed for nausea/vomiting. ondansetron orally disintegrating (ZOFRAN ODT) 4 mg disintegrating tablet Take 1 tablet by mouth every 8 hours as needed for nausea/vomiting. levonorgestrel (MIRENA) 20 mcg/24 hr (5 years) IUD 1 Each by INTRAUTERINE route one time only. albuterol HFA (PROAIR HFA) 90 mcg/actuation inhaler Inhale 2 Puffs as instructed every 4 hours as needed for Wheezing/Shortness of Breath. loratadine (CLARITIN) 10 mg tablet Take 10 mg by mouth once daily. BECLOMETHASONE DIPROPIONATE (QVAR INHALATION) Inhale as instructed. MOMETASONE FUROATE (NASONEX NASAL) Use in the nose. FAMILY HISTORY Problem Relation Age of Onset Psychiatry Mother Bipolar Asthma Father None Brother COPD Maternal Grandmother Heart Maternal Grandfather Kidney Disease Paternal Grandmother Social History Tobacco Use Smoking status: Never Smokeless tobacco: Never Substance Use Topics Alcohol use: No Drug use: No Physical Exam Vitals and nursing note reviewed. Constitutional: Appearance: Normal appearance. HENT: Mouth/Throat: Mouth: Mucous membranes are moist. Pharynx: No oropharyngeal exudate or posterior oropharyngeal erythema. Cardiovascular: Rate and Rhythm: Normal rate and regular rhythm. Pulses: Normal pulses. Heart sounds: Normal heart sounds. Pulmonary: Effort: Pulmonary effort is normal. Breath sounds: Normal breath sounds. Abdominal: General: Abdomen is flat. Bowel sounds are normal. There is no distension. Tenderness: There is no abdominal tenderness. There is no right CVA tenderness, left CVA tenderness or guarding. Neurological: Mental Status: She is alert. {1. Viral gastroenteritis (A08.4) 2. Nausea and vomiting, unspecified vomiting type (R11.2) 3. Fever, unspecified fever cause (R50.9) - Recent travel history; returned from a five-day vacation at [place]. - Experiencing nausea, vomiting, and low-grade fever (Tmax 100.1 degreeF) - Symptoms persist with viral gastroenteritis. - No concern of an acute abdomen such as appendicitis based on exam today. - Advised rest, hydration, and continuation of Zofran for nausea management; patient has six doses remaining. - Provided work notes for missed days. - ER if severe abddominal pain, unable to tolerate fluids, or worsening of symptoms. and Recording using inZair software for draft documentation of the visit was discussed with the patient/authorized traffic representative; all questions welcomed and answered. Patient/authorized traffic representative agreed to proceed History and Record Review Clinical information obtained from an independent historian. History obtained from or confirmed by: parent. External record(s) reviewed: prior outpatient record. Findings from review of outpatient records: Previous medical history Differential Diagnoses - Viral gastroenteritis is more likely for the following reason(s): suggested by H&P - Acute abdomen is less likely for the following reason(s): Abdominal exam within normal limits, H&P not suggestive - Dehydration is less likely for the following reason(s): tolerating fluids, vitals stable Disposition The patient was discharged. OTC Medications were advised: Tylenol, Ibuprofen as needed documented in this encounter [facility] 03-18-2024 Note HNO ID: [id number] Author: SANDRA NUNES APRN.MYNOR Service: ? Author Type: Nurse Practitioner Type: Progress Notes Filed: 03/18/2024 18:44 Note Text: Telemedicine Visit - Distance Health Virtual Visit Note Patient seen on [employer] Video Visit platform. Location of patient: [place] I have communicated my name and active licensure. The patient's identity and physical location were verified at the time of this visit. Either the patient or their legal traffic representative has been informed of the risks and benefits of -- and alternatives to -- treatment through a remote evaluation and consents to proceed with the evaluation remotely. CC: work note History of Present Illness Justin Garcia is a 29 year old female who presents for the past 5 days with symptoms that are:improving. Symptoms include: Positive for Headache, Negative for Fever, Chills/Sweats, Cough, Hemoptysis, SOB, TORRES, Wheezing, Nasal congestion, PND, Ear pain, Ear pressure, Otalgia, Sore throat, Fatigue, Nausea, Emesis, and Diarrhea, Oral intake: Normal appetite Recent rapid at-home COVID test completed: Yes COVID, FLU and RSV all negative Patient needs a return to work note Sick contacts: yes Recent travel: no /Lactating: : No: Lactating: No OTC meds/remedies that patient has tried: nothing PAST MEDICAL HISTORY Diagnosis Date Asthma Bipolar affective (HCC) Irregular menses Kidney disorder PAST SURGICAL HISTORY Procedure Laterality Date PAST SURGICAL HISTORY OF wisdom teeth, tubes in ears FAMILY HISTORY Problem Relation Age of Onset Psychiatry Mother Bipolar Asthma Father None Brother COPD Maternal Grandmother Heart Maternal Grandfather Kidney Disease Paternal Grandmother Social History Tobacco Use Smoking status: Never Smokeless tobacco: Never Substance Use Topics Alcohol use: No Drug use: No Current Outpatient Medications Medication Sig ondansetron orally disintegrating (ZOFRAN ODT) 4 mg disintegrating tablet Take 1 tablet by mouth every 6 hours as needed for nausea/vomiting. ondansetron orally disintegrating (ZOFRAN ODT) 4 mg disintegrating tablet Take 1 tablet by mouth every 8 hours as needed for nausea/vomiting. levonorgestrel (MIRENA) 20 mcg/24 hr (5 years) IUD 1 Each by INTRAUTERINE route one time only. albuterol HFA (PROAIR HFA) 90 mcg/actuation inhaler Inhale 2 Puffs as instructed every 4 hours as needed for Wheezing/Shortness of Breath. loratadine (CLARITIN) 10 mg tablet Take 10 mg by mouth once daily. BECLOMETHASONE DIPROPIONATE (QVAR INHALATION) Inhale as instructed. MOMETASONE FUROATE (NASONEX NASAL) Use in the nose. No current facility-administered medications for this visit. ALLERGIES Allergen Reactions Amoxicillin Hives Ciprofloxacin GI Upset Nausea, Dizziness, and Racing Heartbeat. Codeine Hives Flu Vac 2011 (64* GI Upset Seasonal Allergies Other: See Comments Stuffy nose sore throat hives Video Exam (Examination performed via Video enabled technology) General appearance: Alert, oriented, pleasant, in NAD: Yes Ill appearing: No Lethargic appearing: No Eyes: Sclera clear: Yes Conjunctiva without erythema: Yes Ears: Tragus / outer ear tenderness by self palpation: No Oropharynx: moist mucus membranes Frontal sinus tenderness by self palpation: No Maxillary sinus tenderness by self palpation: No Tender cervical adenopathy by self palpation: No Respiratory distress: No Coughing noted: No Audible wheezing noted: No ASSESSMENT/PLAN: 1. Flu-like symptoms - ICD9: 780.99, ICD10: R68.89 - Symptoms resolved - Work note provided -[email or web address] This link shares information about when antibiotics may help and when they may not. - Red flags discussed for need for in person care - All questions answered Sandra Nunes APRN.[facility] 03-18-2024 History of Presen t illness Narrative Telemedicine Visit - Distance Health Virtual Visit Note Patient seen on [employer] Video Visit platform. Location of patient: [place] I have communicated my name and active licensure. The patient's identity and physical location were verified at the time of this visit. Either the patient or their legal traffic representative has been informed of the risks and benefits of -- and alternatives to -- treatment through a remote evaluation and consents to proceed with the evaluation remotely. CC: work note History of Present Illness Justin Garcia is a 29 year old female who presents for the past 5 days with symptoms that are:improving. Symptoms include: Positive for Headache, Negative for Fever, Chills/Sweats, Cough, Hemoptysis, SOB, TORRES, Wheezing, Nasal congestion, PND, Ear pain, Ear pressure, Otalgia, Sore throat, Fatigue, Nausea, Emesis, and Diarrhea, Oral intake: Normal appetite Recent rapid at-home COVID test completed: Yes COVID, FLU and RSV all negative Patient needs a return to work note Sick contacts: yes Recent travel: no /Lactating: : No: Lactating: No OTC meds/remedies that patient has tried: nothing PAST MEDICAL HISTORY Diagnosis Date Asthma Bipolar affective (HCC) Irregular menses Kidney disorder PAST SURGICAL HISTORY Procedure Laterality Date PAST SURGICAL HISTORY OF wisdom teeth, tubes in ears FAMILY HISTORY Problem Relation Age of Onset Psychiatry Mother Bipolar Asthma Father None Brother COPD Maternal Grandmother Heart Maternal Grandfather Kidney Disease Paternal Grandmother Social History Tobacco Use Smoking status: Never Smokeless tobacco: Never Substance Use Topics Alcohol use: No Drug use: No Current Outpatient Medications Medication Sig ondansetron orally disintegrating (ZOFRAN ODT) 4 mg disintegrating tablet Take 1 tablet by mouth every 6 hours as needed for nausea/vomiting. ondansetron orally disintegrating (ZOFRAN ODT) 4 mg disintegrating tablet Take 1 tablet by mouth every 8 hours as needed for nausea/vomiting. levonorgestrel (MIRENA) 20 mcg/24 hr (5 years) IUD 1 Each by INTRAUTERINE route one time only. albuterol HFA (PROAIR HFA) 90 mcg/actuation inhaler Inhale 2 Puffs as instructed every 4 hours as needed for Wheezing/Shortness of Breath. loratadine (CLARITIN) 10 mg tablet Take 10 mg by mouth once daily. BECLOMETHASONE DIPROPIONATE (QVAR INHALATION) Inhale as instructed. MOMETASONE FUROATE (NASONEX NASAL) Use in the nose. No current facility-administered medications for this visit. ALLERGIES Allergen Reactions Amoxicillin Hives Ciprofloxacin GI Upset Nausea, Dizziness, and Racing Heartbeat. Codeine Hives Flu Vac 2011 (18-64* GI Upset Seasonal Allergies Other: See Comments Stuffy nose sore throat hives Video Exam (Examination performed via Video enabled technology) General appearance: Alert, oriented, pleasant, in NAD: Yes Ill appearing: No Lethargic appearing: No Eyes: Sclera clear: Yes Conjunctiva without erythema: Yes Ears: Tragus / outer ear tenderness by self palpation: No Oropharynx: moist mucus membranes Frontal sinus tenderness by self palpation: No Maxillary sinus tenderness by self palpation: No Tender cervical adenopathy by self palpation: No Respiratory distress: No Coughing noted: No Audible wheezing noted: No ASSESSMENT/PLAN: 1. Flu-like symptoms - ICD9: 780.99, ICD10: R68.89 - Symptoms resolved - Work note provided -[email or web address] This link shares information about when antibiotics may help and when they may not. - Red flags discussed for need for in person care - All questions answered Sandra Nunes APRN.MYNOR documented in this encounter [facility] 03-14-2024 Note HNO ID: [id number] Author: MARIA EUGENIA GODOY APRN.MYNOR Service: ? Author Type: Nurse Practitioner Type: Progress Notes Filed: 03/14/2024 17:07 Note Text: This note was created using NoteWriter. Subjective Justin Garcia is a 29 year old female. 29 year old female with PMH exercise induced asthma presents for illness Acute onset 2 days ago +fever +nausea +emesis, x 6 non bloody bouts +fever +diarrhea x 2 bouts +nasal congestion +body aches +fatigue +headache Denies CP Denies cough Denies sore throat Denies dyspnea Denies using homeopathic or OTC medicines Denies tobacco usage The history is provided by the patient. No speech language pathology assistant was used. Flu Like Symptoms This is a new problem. Episode onset: 2 days ago. The problem occurs constantly. The problem has been gradually worsening. Associated symptoms include congestion, fatigue, a fever, headaches, myalgias, nausea, swollen glands and vomiting. Pertinent negatives include no abdominal pain, anorexia, arthralgias, change in bowel habit, chest pain, chills, coughing, diaphoresis, joint swelling, neck pain, numbness, rash, sore throat, urinary symptoms, vertigo, visual change or weakness. Nothing aggravates the symptoms. She has tried nothing for the symptoms. The treatment provided no relief. PAST MEDICAL HISTORY Diagnosis Date Asthma Bipolar affective (HCC) Irregular menses Kidney disorder PAST SURGICAL HISTORY Procedure Laterality Date PAST SURGICAL HISTORY OF wisdom teeth, tubes in ears ALLERGIES Amoxicillin, Ciprofloxacin, Codeine, Flu Vac 2011 (18-64yrs)(Pf), and Seasonal Allergies MEDICATIONS ondansetron orally disintegrating (ZOFRAN ODT) 4 mg disintegrating tablet Take 1 tablet by mouth every 8 hours as needed for nausea/vomiting. levonorgestrel (MIRENA) 20 mcg/24 hr (5 years) IUD 1 Each by INTRAUTERINE route one time only. albuterol HFA (PROAIR HFA) 90 mcg/actuation inhaler Inhale 2 Puffs as instructed every 4 hours as needed for Wheezing/Shortness of Breath. loratadine (CLARITIN) 10 mg tablet Take 10 mg by mouth once daily. BECLOMETHASONE DIPROPIONATE (QVAR INHALATION) Inhale as instructed. MOMETASONE FUROATE (NASONEX NASAL) Use in the nose. ondansetron orally disintegrating (ZOFRAN ODT) 4 mg disintegrating tablet Take 1 tablet by mouth every 6 hours as needed for nausea/vomiting. FAMILY HISTORY Problem Relation Age of Onset Psychiatry Mother Bipolar Asthma Father None Brother COPD Maternal Grandmother Heart Maternal Grandfather Kidney Disease Paternal Grandmother Social History Tobacco Use Smoking status: Never Smokeless tobacco: Never Substance Use Topics Alcohol use: No Drug use: No Review of Systems Constitutional: Positive for fatigue and fever. Negative for chills and diaphoresis. HENT: Positive for congestion. Negative for sore throat. Respiratory: Negative for cough. Cardiovascular: Negative for chest pain. Gastrointestinal: Positive for nausea and vomiting. Negative for abdominal pain, anorexia and change in bowel habit. Musculoskeletal: Positive for myalgias. Negative for arthralgias, joint swelling and neck pain. Skin: Negative for rash. Neurological: Positive for headaches. Negative for vertigo, weakness and numbness. Objective BP 106/74 Pulse 64 Temp 36.8 ?C (98.3 ?F) Resp 20 Wt 56.1 kg (123 lb 10.9 oz) LMP 01/02/2017 (Exact Date) SpO2 99% BMI 23.37 kg/m? Physical Exam Vitals and nursing note reviewed. Constitutional: General: She is not in acute distress. Appearance: Normal appearance. She is normal weight. She is not ill-appearing, toxic-appearing or diaphoretic. HENT: Head: Normocephalic and atraumatic. Right Ear: Ear canal and external ear normal. Left Ear: Ear canal and external ear normal. Nose: Nose normal. No congestion or rhinorrhea. Mouth/Throat: Mouth: Mucous membranes are moist. Pharynx: Posterior oropharyngeal erythema present. No oropharyngeal exudate. Eyes: General: Right eye: No discharge. Left eye: No discharge. Extraocular Movements: Extraocular movements intact. Conjunctiva/sclera: Conjunctivae normal. Pupils: Pupils are equal, round, and reactive to light. Cardiovascular: Rate and Rhythm: Normal rate and regular rhythm. Pulses: Normal pulses. Heart sounds: Normal heart sounds. No murmur heard. No friction rub. Pulmonary: Effort: Pulmonary effort is normal. No respiratory distress. Breath sounds: Normal breath sounds. No stridor. No wheezing, rhonchi or rales. Chest: Chest wall: No tenderness. Abdominal: General: Abdomen is flat. There is no distension. Palpations: Abdomen is soft. There is no mass. Tenderness: There is no abdominal tenderness. There is no right CVA tenderness, left CVA tenderness, guarding or rebound. Hernia: No hernia is present. Musculoskeletal: General: No swelling, tenderness, deformity or signs of injury. Normal (more content not included)... [facility] 03-14-2024 History of Presen t illness Narrative This note was created using Pop.itriter. Subjective Justin Garcia is a 29 year old female. 29 year old female with PMH exercise induced asthma presents for illness Acute onset 2 days ago +fever +nausea +emesis, x 6 non bloody bouts +fever +diarrhea x 2 bouts +nasal congestion +body aches +fatigue +headache Denies CP Denies cough Denies sore throat Denies dyspnea Denies using homeopathic or OTC medicines Denies tobacco usage The history is provided by the patient. No speech language pathology assistant was used. Flu Like Symptoms This is a new problem. Episode onset: 2 days ago. The problem occurs constantly. The problem has been gradually worsening. Associated symptoms include congestion, fatigue, a fever, headaches, myalgias, nausea, swollen glands and vomiting. Pertinent negatives include no abdominal pain, anorexia, arthralgias, change in bowel habit, chest pain, chills, coughing, diaphoresis, joint swelling, neck pain, numbness, rash, sore throat, urinary symptoms, vertigo, visual change or weakness. Nothing aggravates the symptoms. She has tried nothing for the symptoms. The treatment provided no relief. PAST MEDICAL HISTORY Diagnosis Date Asthma Bipolar affective (HCC) Irregular menses Kidney disorder PAST SURGICAL HISTORY Procedure Laterality Date PAST SURGICAL HISTORY OF wisdom teeth, tubes in ears ALLERGIES Amoxicillin, Ciprofloxacin, Codeine, Flu Vac 2011 (18-64yrs)(Pf), and Seasonal Allergies MEDICATIONS ondansetron orally disintegrating (ZOFRAN ODT) 4 mg disintegrating tablet Take 1 tablet by mouth every 8 hours as needed for nausea/vomiting. levonorgestrel (MIRENA) 20 mcg/24 hr (5 years) IUD 1 Each by INTRAUTERINE route one time only. albuterol HFA (PROAIR HFA) 90 mcg/actuation inhaler Inhale 2 Puffs as instructed every 4 hours as needed for Wheezing/Shortness of Breath. loratadine (CLARITIN) 10 mg tablet Take 10 mg by mouth once daily. BECLOMETHASONE DIPROPIONATE (QVAR INHALATION) Inhale as instructed. MOMETASONE FUROATE (NASONEX NASAL) Use in the nose. ondansetron orally disintegrating (ZOFRAN ODT) 4 mg disintegrating tablet Take 1 tablet by mouth every 6 hours as needed for nausea/vomiting. FAMILY HISTORY Problem Relation Age of Onset Psychiatry Mother Bipolar Asthma Father None Brother COPD Maternal Grandmother Heart Maternal Grandfather Kidney Disease Paternal Grandmother Social History Tobacco Use Smoking status: Never Smokeless tobacco: Never Substance Use Topics Alcohol use: No Drug use: No Review of Systems Constitutional: Positive for fatigue and fever. Negative for chills and diaphoresis. HENT: Positive for congestion. Negative for sore throat. Respiratory: Negative for cough. Cardiovascular: Negative for chest pain. Gastrointestinal: Positive for nausea and vomiting. Negative for abdominal pain, anorexia and change in bowel habit. Musculoskeletal: Positive for myalgias. Negative for arthralgias, joint swelling and neck pain. Skin: Negative for rash. Neurological: Positive for headaches. Negative for vertigo, weakness and numbness. Objective BP 106/74 Pulse 64 Temp 36.8 C (98.3 F) Resp 20 Wt 56.1 kg (123 lb 10.9 oz) LMP 01/02/2017 (Exact Date) SpO2 99% BMI 23.37 kg/m Physical Exam Vitals and nursing note reviewed. Constitutional: General: She is not in acute distress. Appearance: Normal appearance. She is normal weight. She is not ill-appearing, toxic-appearing or diaphoretic. HENT: Head: Normocephalic and atraumatic. Right Ear: Ear canal and external ear normal. Left Ear: Ear canal and external ear normal. Nose: Nose normal. No congestion or rhinorrhea. Mouth/Throat: Mouth: Mucous membranes are moist. Pharynx: Posterior oropharyngeal erythema present. No oropharyngeal exudate. Eyes: General: Right eye: No discharge. Left eye: No discharge. Extraocular Movements: Extraocular movements intact. Conjunctiva/sclera: Conjunctivae normal. Pupils: Pupils are equal, round, and reactive to light. Cardiovascular: Rate and Rhythm: Normal rate and regular rhythm. Pulses: Normal pulses. Heart sounds: Normal heart sounds. No murmur heard. No friction rub. Pulmonary: Effort: Pulmonary effort is normal. No respiratory distress. Breath sounds: Normal breath sounds. No stridor. No wheezing, rhonchi or rales. Chest: Chest wall: No tenderness. Abdominal: General: Abdomen is flat. There is no distension. Palpations: Abdomen is soft. There is no mass. Tenderness: There is no abdominal tenderness. There is no right CVA tenderness, left CVA tenderness, guarding or rebound. Hernia: No hernia is present. Musculoskeletal: General: No swelling, tenderness, deformity or signs of injury. Normal range of motion. Cervical back: Normal range of motion and neck supple. No rigidity. Right lower leg: No edema. Left lower leg: No edema. Lymphadenopathy: Cervical: Cervical adenopathy present. Skin: General: Skin is warm and dry. Coloration: Skin is not jaundiced or pale. Findings: No bruising, erythema, lesion or rash. Neurological: General: No focal deficit present. Mental Status: She is alert and oriented to person, place, and time. Cranial Nerves: No cranial nerve deficit. Sensory: No sensory deficit. Motor: No weakness. Coordination: Coordination normal. Gait: Gait normal. Psychiatric: Mood and Affect: Mood normal. Behavior: Behavior normal. Thought Content: Thought content normal. Judgment: Judgment normal. Assessment and Plan ASSESSMENT/PLAN: 1. Exposure to the flu - ICD9: V01.79, ICD10: Z20.828 (primary diagnosis) + ill contacts at work 2. URI, acute - ICD9: 465.9, ICD10: J06.9 X 2 days - Discussed viral etiology and rationale for treatment. - Symptomatic treatment with prn analgesia - Supportive care with fluids and rest - The patient may also use OTC cough and cold meds as needed and warm salt water gargles, throat lozenges and/or OTC throat spray as needed. - Follow up in 3-5 days if symptoms persist or sooner if worsening of symptoms COVID obtained and pending 3. Encounter to obtain excuse from work - ICD9: V68.89, ICD10: Z02.89 Endorses that her employer is requesting work note. Provided Maria Eugenia Godoy APRN.MYNOR documented in this encounter [facility] 08-26-2023 Telephone encounter Note Patient notified of results and provider's instructions. Patient verbalizes understanding. Tabitha Jackson RN [facility] 08-26-2023 Miscellaneous Notes Patient notified of results and provider's instructions. Patient verbalizes understanding. Tabitha Jackson RN Left VM instructing patient to return call to receive results. Soumya Harris MA No significant bacteria growth on urine culture. Please notify. If symptoms [persist she needs to follow up with PCP. documented in this encounter [facility] 08-26-2023 Telephone encounter Note Left VM instructing patient to return call to receive results. Soumya Harris MA [facility] 08-26-2023 Telephone encounter Note No significant bacteria growth on urine culture. Please notify. If symptoms [persist she needs to follow up with PCP. [facility] Work Phone: 08-25-2023 Note HNO ID: [id number] Author: LUCITA CRUZ APRN.MYNOR Service: ? Author Type: Nurse Practitioner Type: Progress Notes Filed: 08/25/2023 09:44 Note Text: This note was created using Pop.itriter. Subjective Justin Garcia is a 28 year old female. HPI by patient: Justin Garcia is a 28 year old presenting to the office with the complaint of viral symptoms. Started approximately 6 days ago, last Tuesday. This is intermittent. Will be okay some days then wake up the next with symptoms. Admits symptoms started after a night of heavy drinking and eating greasy food. Sent home from work Tuesday. Associated symptoms include temperature of 99.9F, nausea, vomiting, and a dry cough that she always has. Is more fatigued. States a baseline of urinary frequency. States she has kidney disease, gets frequent utis but isn't ever seen by anyone because she self treats at home with cranberry juice. States possible even though she has an iud, states it's due to be taken out. Denies body aches, congestion, ear pain, headaches, and diarrhea. Last night had [employer] for dinner. Covid Immunization Dates Overdue - Covid-19 Vaccine ( season) Never done No completion, postpone, frequency change, or communication history exists for this topic. Sick contacts: yes but resolved quicker. Smoking history/second hand smoke: none. OTC not helping No antibiotic use in the last 60 days. ALLERGIES Amoxicillin Hives Ciprofloxacin GI Upset Comment:Nausea, Dizziness, and Racing Heartbeat. Codeine Hives Flu Vac 2012 (18-64* GI Upset Seasonal Allergies Other: See Comments Comment:Stuffy nose sore throat hives Family History Reviewed Including Cardiac Diseases, Psychiatric Diseases, AND Substance Abuse Problem: Psychiatry Relation: Mother Age of Onset: (Not Specified) Comment: Bipolar Problem: Asthma Relation: Father Age of Onset: (Not Specified) Problem: None Relation: Brother Age of Onset: (Not Specified) Problem: COPD Relation: Maternal Grandmother Age of Onset: (Not Specified) Problem: Heart Relation: Maternal Grandfather Age of Onset: (Not Specified) Problem: Kidney Disease Relation: Paternal Grandmother Age of Onset: (Not Specified) Social History Tobacco Use Smoking status: Never Smokeless tobacco: Never Alcohol use: No Drug use: No Active Ambulatory Problems Kidney disorder Date Noted: 12/12/2012 Asthma, exercise induced Date Noted: 12/12/2012 History of bipolar disorder Date Noted: 04/08/2016 Resolved Ambulatory Problems Late care Date Noted: 04/08/2016 History of recurrent UTI (urinary tract infection) Date Noted: 04/08/2016 Positive GBS test Date Noted: 07/20/2016 Past Medical History: No date: Asthma No date: Bipolar affective (HCC) No date: Irregular menses Review of Systems HENT: Negative. Eyes: Negative. Respiratory: Negative. Cardiovascular: Negative. Gastrointestinal: Positive for nausea and vomiting. Endocrine: Negative. Genitourinary: Positive for frequency. Negative for vaginal discharge. Musculoskeletal: Negative. Skin: Negative. Neurological: Negative. Hematological: Negative. Objective BP 123/94 Pulse 69 Temp 36.7 ?C (98 ?F) Resp 18 Wt 58.8 kg (129 lb 10.1 oz) LMP 01/02/2017 (Exact Date) SpO2 100% BMI 24.49 kg/m? Physical Exam Vitals reviewed. Constitutional: General: She is not in acute distress. Appearance: She is not ill-appearing, toxic-appearing or diaphoretic. Cardiovascular: Rate and Rhythm: Normal rate and regular rhythm. Pulmonary: Effort: Pulmonary effort is normal. Abdominal: General: Bowel sounds are normal. Palpations: Abdomen is soft. Tenderness: There is generalized abdominal tenderness. There is no right CVA tenderness, left CVA tenderness, guarding or rebound. Neurological: Mental Status: She is alert. Assessment and Plan (R11.2) Nausea and vomiting, unspecified vomiting type (primary encounter diagnosis) Plan: ondansetron orally disintegrating (ZOFRAN ODT) 4 mg disintegrating tablet, UA DIP, URINE (POC), UA DIP,URINE HCG (POC), URINE CULTURE, nitrofurantoin monohydrate and macrocrystal (MACROBID) 100 mg capsule UA unable to process, manually read, + large leukocytes and moderate blood. Will start macrobid and send culture. Check mychart for results. -Negative . -Zofran for nausea and vomiting. -Increase fluid intake. Focus on clears for 24 hours. Minimize caffeine and sugar drinks. -May increase to the BRAT diet as tolerated, see below. -Signs of dehydration: lethargy, rapid heart rate, dizziness, dry mouth, and decreased urination. -If no improvement please be re-seen in 3-5 days with primary care. -Be seen immediately with worsening symptoms: unable to keep fluids down/fever of 101F or higher/chest pain/shortness of breath/pain the abdomen or flank areas, life threatening symptoms (more content not included)... [facility] 08-25-2023 History of Presen t illness Narrative This note was created using Pop.itriter. Subjective Justin Garcia is a 28 year old female. HPI by patient: Justin Garcia is a 28 year old presenting to the office with the complaint of viral symptoms. Started approximately 6 days ago, last Tuesday. This is intermittent. Will be okay some days then wake up the next with symptoms. Admits symptoms started after a night of heavy drinking and eating greasy food. Sent home from work Tuesday. Associated symptoms include temperature of 99.9F, nausea, vomiting, and a dry cough that she always has. Is more fatigued. States a baseline of urinary frequency. States she has kidney disease, gets frequent utis but isn't ever seen by anyone because she self treats at home with cranberry juice. States possible even though she has an iud, states it's due to be taken out. Denies body aches, congestion, ear pain, headaches, and diarrhea. Last night had [facility] for dinner. Covid Immunization Dates Overdue - Covid-19 Vaccine ( season) Never done No completion, postpone, frequency change, or communication history exists for this topic. Sick contacts: yes but resolved quicker. Smoking history/second hand smoke: none. OTC not helping No antibiotic use in the last 60 days. ALLERGIES Amoxicillin Hives Ciprofloxacin GI Upset Comment:Nausea, Dizziness, and Racing Heartbeat. Codeine Hives Flu Vac 2011 (-64* GI Upset Seasonal Allergies Other: See Comments Comment:Stuffy nose sore throat hives Family History Reviewed Including Cardiac Diseases, Psychiatric Diseases, & Substance Abuse Problem: Psychiatry Relation: Mother Age of Onset: (Not Specified) Comment: Bipolar Problem: Asthma Relation: Father Age of Onset: (Not Specified) Problem: None Relation: Brother Age of Onset: (Not Specified) Problem: COPD Relation: Maternal Grandmother Age of Onset: (Not Specified) Problem: Heart Relation: Maternal Grandfather Age of Onset: (Not Specified) Problem: Kidney Disease Relation: Paternal Grandmother Age of Onset: (Not Specified) Social History Tobacco Use Smoking status: Never Smokeless tobacco: Never Alcohol use: No Drug use: No Active Ambulatory Problems Kidney disorder Date Noted: 12/12/2012 Asthma, exercise induced Date Noted: 12/12/2012 History of bipolar disorder Date Noted: 04/08/2016 Resolved Ambulatory Problems Late care Date Noted: 04/08/2016 History of recurrent UTI (urinary tract infection) Date Noted: 04/08/2016 Positive GBS test Date Noted: 07/20/2016 Past Medical History: No date: Asthma No date: Bipolar affective (HCC) No date: Irregular menses Review of Systems HENT: Negative. Eyes: Negative. Respiratory: Negative. Cardiovascular: Negative. Gastrointestinal: Positive for nausea and vomiting. Endocrine: Negative. Genitourinary: Positive for frequency. Negative for vaginal discharge. Musculoskeletal: Negative. Skin: Negative. Neurological: Negative. Hematological: Negative. Objective BP 123/94 Pulse 69 Temp 36.7 C (98 F) Resp 18 Wt 58.8 kg (129 lb 10.1 oz) LMP 01/02/2017 (Exact Date) SpO2 100% BMI 24.49 kg/m Physical Exam Vitals reviewed. Constitutional: General: She is not in acute distress. Appearance: She is not ill-appearing, toxic-appearing or diaphoretic. Cardiovascular: Rate and Rhythm: Normal rate and regular rhythm. Pulmonary: Effort: Pulmonary effort is normal. Abdominal: General: Bowel sounds are normal. Palpations: Abdomen is soft. Tenderness: There is generalized abdominal tenderness. There is no right CVA tenderness, left CVA tenderness, guarding or rebound. Neurological: Mental Status: She is alert. Assessment and Plan (R11.2) Nausea and vomiting, unspecified vomiting type (primary encounter diagnosis) Plan: ondansetron orally disintegrating (ZOFRAN ODT) 4 mg disintegrating tablet, UA DIP, URINE (POC), UA DIP,URINE HCG (POC), URINE CULTURE, nitrofurantoin monohydrate and macrocrystal (MACROBID) 100 mg capsule UA unable to process, manually read, + large leukocytes and moderate blood. Will start macrobid and send culture. Check mychart for results. -Negative . -Zofran for nausea and vomiting. -Increase fluid intake. Focus on clears for 24 hours. Minimize caffeine and sugar drinks. -May increase to the BRAT diet as tolerated, see below. -Signs of dehydration: lethargy, rapid heart rate, dizziness, dry mouth, and decreased urination. -If no improvement please be re-seen in 3-5 days with primary care. -Be seen immediately with worsening symptoms: unable to keep fluids down/fever of 101F or higher/chest pain/shortness of breath/pain the abdomen or flank areas, life threatening symptoms, or signs of dehydration. The patient will pursue further outpatient evaluation with the primary care physician or another Urgent Care/Express Care as outlined in the after visit summary. The patient is agreeable to this plan of care and follow-up instructions have been explained in detail. The patient has received these instructions in written format and have expressed an understanding of the after visit summary. Medical Decision Making: Level: 4 - Moderate I spent a total of 20 minutes on the date of the service which included preparing to see the patient, [id number] patient care, completing clinical documentation, obtaining and/or reviewing separately obtained history, performing a medically appropriate examination, counseling and educating the patient/family/caregiver, and ordering medications, tests, or procedures. documented in this encounter [facility] 08-25-2023 Instructions Lucita Cruz APRN.CNP - 08/25/2023 9:12 AM EDT (R11.2) Nausea and vomiting, unspecified vomiting type (primary encounter diagnosis) Plan: ondansetron orally disintegrating (ZOFRAN ODT) 4 mg disintegrating tablet, UA DIP, URINE (POC), UA DIP,URINE HCG (POC), URINE CULTURE, nitrofurantoin monohydrate and macrocrystal (MACROBID) 100 mg capsule UA unable to process. Will start macrobid and send culture. Check mychart for results. -Negative . -Zofran for nausea and vomiting. -Increase fluid intake. Focus on clears for 24 hours. Minimize caffeine and sugar drinks. -May increase to the BRAT diet as tolerated, see below. -Signs of dehydration: lethargy, rapid heart rate, dizziness, dry mouth, and decreased urination. -If no improvement please be re-seen in 3-5 days with primary care. -Be seen immediately with worsening symptoms: unable to keep fluids down/fever of 101F or higher/chest pain/shortness of breath/pain the abdomen or flank areas, life threatening symptoms, or signs of dehydration. BRAT DIET (may eat any of the following as tolerated) Bananas Applesauce [place] Saltine Crackers Animal Crackers Pretzels Oatmeal Unsweetened Dry Cereal (Rice Krispies, Cheerios) Plain Baked or Boiled Potato Plain White Rice Plain Noodles All clear liquid listed below CLEAR LIQUID DIET (need to drink 2 ounces total every half hour) Broth Jello Popsicles Pedialyte Gatorade NO Juices NO Milk NO Dairy Products documented in this encounter [facility] 03-22-2023 Discharge summary Note Date/Time March 22, 2023 5:19pm [facility] Medical Records Department [address] [place] [id number] Emergency Department Summary 03/22/23 MR#: [id number] Acct: [id number] Name: JUSTIN GARCIA Rep #:[id number] : 1995 28 From: Moses Khalil DO PCP: Care Physician,No Primary Status :REG ER Location: ED HPI HPI - URI History of Present Illness Chief Complaint: Nausea/Vomiting Narrative Narrative: 28-year-old female presenting for nausea and vomiting. She states that Tuesday of last week she left work because she felt ill. She states that she went to urgent care on Tuesday and was diagnosed with influenza B. She reports that shewas sent back to work on of that week. She still was not better and went home. Tuesday and Tuesday she had more nausea and vomiting. Fevers have since resolved. Patient states she still vomiting. She was post to go back to work because she could not. She has Zofran which is not helping. Patient does have some abdominal pain which she thinks is from retching. No urinary or vaginal complaints. No constipation or diarrhea. ROS ROS ED Constitutional Constitutional ED: Denies chills, fever(s) or sweats Eyes Eyes: Denies blurry vision or change in vision ENT ENT ED: Denies ear pain or sore throat Cardiovascular Cardiovascular: Denies chest pain, palpitations or racing heartbeat Respiratory/Chest Respiratory/Chest: Denies cough, dyspnea or sputum Gastrointestinal Gastrointestinal: Reports abdominal pain, nausea and vomiting; Denies constipation or diarrhea Genitourinary Genitourinary ED: Denies dysuria, hematuria or urinary frequency Musculoskeletal Musculoskeletal: Denies arthralgias, myalgias or neck pain Integumentary Denies abscess, Abrasions or rash Neurologic Neurologic: Denies headache(s), paresthesias or weakness Psychiatric Psychiatric: Denies anxiety, depression, suicidal ideation or suicidal thoughts Endocrine Endocrinology: Denies polydipsia or polyuria PFSH [facility] Medical History Anemia Asthma Depression Former smoker History of renal disease Wears contact lenses Wears glasses Home Medications ciprofloxacin HCl 500 mg tablet (Cipro) 500 mg PO BID #10 tabs 08/12/20 [Rx Last Taken Unknown] oxycodone-acetaminophen 5 mg-325 mg tablet 1 tab PO Q4H PRN pain 7 days #14 tabs08/12/20 [Rx Last Taken Unknown] Allergy/AdvReac Type Severity Reaction Status Date / Time acetaminophen [From Vicodin] Allergy Mild Other Verified 03/22/23 14:38 amoxicillin [Amoxicillin] Allergy Hives Verified 03/22/23 14:37 codeine Allergy Hives Verified 03/22/23 14:37 hydrocodone Allergy Hives Verified 03/22/23 14:37 Influenza Virus Vaccines Allergy Anaphylaxis Verified 03/22/23 14:37 strawberry Allergy Anaphylaxis Verified 03/22/23 14:37 Surgical History History of lithotripsy Social History Smoking Status: Former smoker EXAM Physical Exam Const Vital Signs: 03/22/23 14:38 Temperature 98 F Temperature Source Temporal Pulse Rate 91 Respiratory Rate 18 Blood Pressure 121/64 H Blood Pressure Mean 83 Pulse Ox 96 Oxygen Delivery Method Room Air Positive well nourished General Appearance ED: NAD; Negative for pallor HEENT Reports moist mucous membranes normocephalic and atraumatic Neck no lymphadenopathy Resp normal respiratory effort Auscultation: Negative for rales, rhonchi or wheezes Cardio Rate: regular rate Rhythm: regular rhythm GI non-tender Neuro oriented x3 and CN's II-XII intact bilaterally Sensorium / Orientation: alert Motor Exam: strength 5/5 throughout Psych mental status grossly normal Skin General Skin Exam: Negative for jaundice or pallor MDM MDM MDM Narrative Medical decision making narrative: 20-year-old female with history of flu B requesting something for nausea. She is given Phenergan and was able to hold this down. I offered her IV fluids and IV medications but she declines. She states she just wants to feel little bit better and go home. She also request a work note. On reevaluation he is doing much better. Discharged home with some Phenergan. Return precautions discussed. Impression: 1. Nausea/vomiting. 2. History of influenza B. Lab Data Attestation: I reviewed the patient's lab results. Discharge Plan Triage Chief Complaint: Nausea/Vomiting ED Provider: Moses Khalil Dx/Rx/DC Orders Prescriptions: No Action ciprofloxacin HCl [Cipro] 500 mg tablet 500 mg PO BID Qty: 10 0RF oxycodone-acetaminophen 5-325 mg tablet 1 tab PO Q4H PRN (Reason: pain) 7 Days Qty: 14 0RF Primary Care Provider: Care Physician,No Primary Referrals: Care Physician,No Primary [Primary Care Provider] - What to do if you have Problems For any increased pain, shortness of breath, bleeding, nausea or vomiting, chestpain, or any unexpected problems, contact your Primary Care Provider. Call [facility] ([phone]) or report to the closest Emergency Room. Call 911 if necessary. 03/22/23 1719 <Electronically signed by Moses Khalil DO> Cosigner Signature (if applicable): CC: No Primary Care Physician ~ Signed [facility] Work Phone: [phone] 198-149302-07-2024 Miscellaneous Notes* Telephone Encounter - Adrienne Jenkins APRN.CNP - 03/16/2023 3:01 PM EST Note created and handed to patient. Adrienne Jenkins APRN.MYNOR * Telephone Encounter - Sonia Montez LPN - 03/16/2023 2:58 PM EST Patient seen yesterday and we called today with positive flu results. They would like a work note-please review and advise.Sonia Montez LPN documented in this encounterW[facility]06-[facility] History of Past illness Narrative* Problem Noted Date Diagnosed Date Resolved Date Positive GBS test 07/20/2016 09/09/2016 Late care 04/08/2016 7 Overview: Quagn boy on us Repeat us growth ordered June 16, 2016 Celina Rudolph MD 04/08/2016Patient has not had any care prior to her appointment with Dr Curtis [id number] due to insurance issues. She had an ultrasound yesterday by Norman.FOB is involved. TKRN History of recurrent UTI (ur inary tract infection) 04/08/2016 09/09/2016 Overview: 3 utis in put on daily keflex Celina Rudolph MD 05/24/16 Keflex Rx for UTI. Repeat culture next visit. 04/08/2016Patient states she was treated for some type of kidney disease when I was younger. I ran fevers and had several urinary tract infections. She denies any issues for several years. Patient signed a release form to get her medical records from 2008 from [facility]. TKRN documented as of this encounter (statuses as of 03/17/2023) [facility] noteNo assessment information availableWAvita Health System Work Phone: Evaluation note* Diagnosis Nausea and vomiting, unspecified vomiting type- Primary documented in this encounter [facility]* Diagnosis Exposure to the flu- Primary Contact with or exposure to other viral diseases URI, acute Acute upper respiratory infections of unspecified site Encounter to obtain excuse from work documented in this encounter [facility]* Diagnosis Flu-like symptoms- Primary Other general symptoms documented in this encounter [facility]* Diagnosis Viral gastroenteritis Intestinal infection due to other organism, not elsewhere classified Nausea and vomiting, unspecified vomiting type Fever, unspecified fever cause documented in this encounter [facility]* Diagnosis Sore throat- Primary Acute pharyngitis Mild intermittent asthma without complication (HCC) Unspecified asthma Acute URI Acute upper respiratory infections of unspecified site documented in this encounter [facility] Summary Purpose Family History No Family History Records FoundNo Family History Records FoundNo Family History Records Found Advance Directives No Advanced Directives Records Found Advance Directive Response Recorded Date/ Time Living Will No March 22, 2 024 3:32pm Power of Facility Maintenance Manager No March 22, 2023 3:32pm Health Concerns Infection Onset Date Last Indicated Resolved Time COVID-19 Rule-Out 03/15/2023 03/15/2023 03/16/2023 5:42 AM EST Influenza 03/15/2023 03/15/2023 Chief Complaint and Reason for Visit Chief Complaint nausea/vomitting/fev er Additional Source Comments INFORMATION SOURCE (unrecogn ized section and content) DATE CREATED AUTHOR 08/01/2017 [facility] ([place]) DATE CREATED AUTHOR AUTHOR'S ORGANIZ ATION 09/13/[address] [facility] DATE CREATED AUTHOR AUTHOR'S ORGANIZ ATION 08/17/2024 [facility] Source Comments (unrecognize d section and content) In the event this informatio n is protected by the Federal Confidentiality of Alcohol and Drug Abuse Patient Records regulations: The Federal rules restrict any use of the information to criminally investigate or prosecute any alcohol or drug abuse patient.[facility] HospitalIn the event this information is protected by the Federal Confidentiality of Alcohol and Drug Abuse Patient Records regulations: The Federal rules restrict any use of the information to criminally investigate or prosecute any alcohol or drug abuse patient.[facility] HospitalIn the event this information is protected by the Federal Confidentiality of Alcohol and Drug Abuse Patient Records regulations: The Federal rules restrict any use of the information to criminally investigate or prosecute any alcohol or drug abuse patient.[facility] HospitalIn the event this information is protected by the Federal Confidentiality of Alcohol and Drug Abuse Patient Records regulations: The Federal rules restrict any use of the information to criminally investigate or prosecute any alcohol or drug abuse patient.[facility] HospitalIn the event this information is protected by the Federal Confidentiality of Alcohol and Drug Abuse Patient Records regulations: The Federal rules restrict any use of the information to criminally investigate or prosecute any alcohol or drug abuse patient.[facility] HospitalIn the event this information is protected by the Federal Confidentiality of Alcohol and Drug Abuse Patient Records regulations: The Federal rules restrict any use of the information to criminally investigate or prosecute any alcohol or drug abuse patient.[facility] HospitalIn the event this information is protected by the Federal Confidentiality of Alcohol and Drug Abuse Patient Records regulations: The Federal rules restrict any use of the information to criminally investigate or prosecute any alcohol or drug abuse patient.[facility] Reason for Visit (unrecogniz ed section and content) Reason Comments Patient Update Reason Comments Nausea & Vomiting X1 week Specialty Diagnoses / Procedures Referred By Glen t Referred To Contact Internal Medicine / [facility] Diagnoses nausea and vomiting, fever off and on x1wk Procedures EST SAME DAY Self Lucita Cruz APRN.VETERINARIAN EPIDEMIOLOGIST [address] [place] [address] Referral ID Status Reason Start Date Expiration Date Visits Requested Visits Authorized [id number] New Request Financial Clearance Required - Self Pay 08/25/2023 11/23/2023 1 1 Reason Comments Results Reason Comments Cough Nausea, vomiting, di arrhea, LUO, fever x 2 days Specialty Diagnoses / Procedures Referred By Contac t Referred To Contact [facility] Medicine / [facility] Diagnoses fever, vomiting, diarrhea, cough, headache Procedures EST SAME DAY Self [facility] [address] [place] [address] Referral ID Status Reason Start Date Expiration Date Visits Requested Visits Authorized [id number] New Request Financial Clearance Required - Self Pay 03/14/2024 06/12/2024 1 1 Reason Comments Appointment Cancelled Reason Comments Fever Fever, vomiting, rafia rrhea and bodyaches x 1 day Reason Comments Chest Congestion cough x 1 week Care Teams (unrecognized sec tion and content) Office Executive Relationship Specialty Start Date End Date Debra Feng [address] [facility] [address] [place] [address] PCP - General Pediatrics 10/05/12 Team Status: Active Member Role Status Dates No Primary Care Physician Family Provider Active No Primary Care Physician Primary Care Provider Active Team Status: Inactive Member Role Status Dates No Primary Care Physician Primary Care Provider Active Dr. Moses Khalil , DO Emergency Provider Active Office Executive Relationship Specialty Start Date End Date Debra Feng [address] [facility] [address] [place] [address] PCP - General Pediatrics 10/05/12 Office Executive Relationship Specialty Start Date End Date Debra Feng [address] [facility] [place] [address] PCP - General Pediatrics 10/05/12 Goals (unrecognized section and content) Goals may be documented in a n alternate section FOR RECORDS PERTAINING TO PATIENTS WHO ARE OR HAVE BEEN ENROLLED IN A CHEMICAL DEPENDENCY/SUBSTANCEABUSE PROGRAM, SOME INFORMATION MAY BE OMITTED. This clinical summary was aggregated from multiple sources. Caution should be exercised in using it in the provision of clinical care. This summary normalizes information from multiple sources, and as a consequence, information in this document may materially change the coding, format and clinical context of patient data. In addition, data may be omitted in some cases. CLINICAL DECISIONS SHOULD BE BASED ON THE PRIMARY CLINICAL RECORDS. [facility]. provides no warranty or guarantee of the accuracy or completeness of information in this document.
[2024-08-19 12:57] LABS: Hematocrit 40.7 % (37-47); Hemoglobin 14.5 g/dL (12.0-15.0); Immature Granulocytes Count 0.100 X10^3/uL (0.0-0.0); Mean Corp Hgb Conc 35.6 g/dL (32-36); Mean Corpuscular Volume 86.8 fL (81-99); Mean Platelet Vol. 9.8 fl (6.2-12.0); NRBC Flagged by Analyzer 0 % (0-5); Platelet Count 487 K/mm3 (150-450); RBC Distribution Width CV 11.9 % (11.6-14.6); RBC Distribution Width SD 37.4 fl (35.1-43.9); Red Blood Count 4.69 M/mm3 (4.2-5.4); White Blood Count 13.4 K/mm3 (4.4-11.0)
[2024-08-19 13:21] LABS: AST(SGOT) 20 U/L (<=31); Alanine Aminotransfer ALT/SGPT 14 U/L (<=34); Albumin, Serum 4.4 g/dL (3.5-5.0); Alkaline Phosphatase 97 U/L (35-104); Anion Gap 16 (5-15); BUN 5 mg/dL (4-19); BUN/Creat Ratio 8.9 RATIO (10-20); Calcium,Total 9.6 mg/dL (7.6-11.0); Carbon Dioxide 22.6 mmol/L (21.0-32.0); Chloride 102 mmol/L (98-108); Estimated Creatinine Clearance 99.37 ml/min (50-250); Globulin 3.0 g/dL (2.2-4.2); Glucose 169 mg/dL (70-99); Lipase 18 U/L (13-75); Potassium 3.6 mmol/L (3.3-5.1)
[2024-08-19] MEDS: Famotidine 200 MG/20 ML MDV 20 MG in 0.9% Normal Saline (Pres. free 8 ML 300 MG IV (13:36)
[2024-08-19 14:08] VITALS: BP 121/86; PULSE 55; RESP 17; TEMP 36.9; O2SAT 100
[2024-08-19 15:35] LABS: Mucous, Urine 0 SEEN /hpf (<or=2+)
[2024-08-19 15:41] LABS: Color, Urine Yellow (Yellow); Glucose, Dipstick Normal (Normal); Leukocyte Esterase-Dipstick 500 /ul (Negative); Nitrite-Dipstick Negative (Negative); Occult Blood-Urine 150 /ul (Negative); Protein-Dipstick 100 mg/dl (Negative); Specific Gravity, Urine 1.015 (1.002-1.030); Urine Bilirubin Dipstick Negative (Negative)
[2024-08-19 15:44] LABS: Internal QC Validated? YES +Cl - CLEAR BKGD; Pregnancy, Urine Negative Negative; Record Kit Lot#,Urine Preg 947241
[2024-08-19 15:48] VITALS: BP 134/78; PULSE 64; RESP 16; TEMP 36.9; O2SAT 99
[2024-08-19 15:51] LABS: Ketone-Dipstick 150 mg/dl (Negative)
[2024-08-19 16:01] LABS: Red Blood Cells-Urine 5-10 SEEN /hpf (0-5); Squamous Epithelial Cells - UA 5-10 SEEN /hpf (5-10)
== END 2024-08-19 15:48 | disposition home or self-care (01) ==
PROVIDERS: Emergency Provider Emergency Medicine; Visit Provider Emergency Medicine
DX: R10.9 Unspecified abdominal pain (principal); F31.9 Bipolar disorder, unspecified; R11.2 Nausea with vomiting, unspecified; J45.909 Unspecified asthma, uncomplicated; Z87.891 Personal history of nicotine dependence
CPT/HCPCS: 80053; 81001; 81025; 83690; 85025; 93005; 96361; 96374; 96375; 99283; A4216

== ENCOUNTER 2024-08-20 08:38 | Emergency (ER) | payer MEDICAID, SELFPAY ==
[2024-08-20 08:38] VITALS: BP 113/82; PULSE 99; RESP 14; TEMP 36.7; O2SAT 98; BMI 22.5
--- NOTE | 2024-08-20 09:06 | CT_ITS ---
PROCEDURE: ABDOMEN/PELVIS W IV CONT ONLY 08/20/2024 REASON FOR EXAM: BILAT LOWER ABD PAIN, N/V, FEVER TECHNIQUE: ABDOMEN/PELVIS W IV CONT ONLY Coronal and Sagittal reconstruction series were provided. CONTRAST: Isovue-300 VOLUME: 100 mL One or more dose reduction techniques were used (e.g., Automated exposure control, adjustment of the mA and/or kV according to patient size, use of iterative reconstruction technique. RADIATION DOSE SUMMARY: CTDlvol: 15.5 mGy DLP: 386.93 mGycm COMPARISON: Prior study dated August 11, 2020. FINDINGS: Lung bases: Lung bases are clear. Liver: Normal size. No mass. Gallbladder: No evidence of gallstones. Spleen: Normal size. Pancreas: Normal size without evidence of mass surrounding inflammation or ductal dilation. Adrenals: Unremarkable Kidneys: There is evidence of a large staghorn calculus in the right kidney filling the entire collecting system with the minimal left hydronephrosis. Bladder: Unremarkable Reproductive Organs: There is a 1.7 cm follicle in the right ovary. An IUD is seen within the endometrium. Bowel: Unremarkable Appendix: Unremarkable Lymph nodes: Unremarkable. Vasculature: The abdominal aorta and IVC are normal. Peritoneum / Retroperitoneum: Unremarkable Bones: Unremarkable CT/Abdomen/Pelvis W IV Cont ONLY IMPRESSION: Large right staghorn calculus. Reading Location: [place] [address]
--- NOTE | 2024-08-20 09:08 | ED.VIS.GI ---
HPI HPI - GI History of Present Illness Chief Complaint: Nausea/Vomiting Informant: patient Narrative Narrative: 29-year-old female has been vomiting since yesterday morning. She was seen here yesterday for the same thing, she states she is feeling worse. 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 She is still vomiting and having significant diffuse abdominal pain that radiates into her back. The pain is worse in the lower but she states even when it started, it was on both sides at the same time. She has had kidney stones in the past and states this does not feel the same. She has had urinary infections in the past and states she has no symptoms of a urinary infection such as frequency, dysuria, urgency. She has had no vaginal bleeding or discharge and actually has not had a menstrual cycle in 8 years since she has been on Mirena which is currently in place. She states after the ER visit yesterday she went home and had a fever up to 100.8. She denies any known sick contacts. She has had no diarrhea or blood in her stool or melena, her bowel movements been normal. She denies any hematemesis. She has had a cough and a little bit of asthma exacerbation wheezing, she states she was on vacation recently and thought it was related. She states the breathing is not as bad now but the cough is persistent occasionally productive with clear phlegm. No blood. PFSH PFSH Medical History Wears contact lenses Wears glasses History of renal disease Asthma Anemia Depression Former smoker Home Medications ?Medication ?Instructions ?Recorded ?Last Taken ?Type albuterol sulfate 90 mcg/actuation 1 inh inhalation Q4H 08/19/24 Unknown History aerosol inhaler ciprofloxacin HCl 500 mg tablet 500 mg PO BID #14 TABLETS 08/20/24 Unknown Rx tramadol 50 mg tablet 50 mg PO Q6H PRN pain 3 days #12 08/20/24 Unknown Rx tabs Allergy/AdvReac Type Severity Reaction Status Date / Time amoxicillin (Amoxicillin) Allergy Hives Verified 08/20/24 08:38 codeine Allergy Hives Verified 08/20/24 08:38 hydrocodone Allergy Hives Verified 08/20/24 08:38 Influenza Virus Vaccines Allergy Anaphylaxis Verified 08/20/24 08:38 strawberry Allergy Anaphylaxis Verified 08/20/24 08:38 Surgical History History of lithotripsy Social History Smoking Status: Former smoker ROS ROS ED Constitutional Constitutional ED: Reports fever(s); Denies chills Eyes Eyes: Denies change in vision or diplopia ENT ENT ED: Denies rhinorrhea or sore throat Cardiovascular Cardiovascular: Denies chest pain or palpitations Respiratory/Chest Respiratory/Chest: Reports cough, dyspnea and sputum Gastrointestinal Gastrointestinal: Reports abdominal pain, nausea and vomiting; Denies diarrhea Genitourinary Genitourinary ED: Denies dysuria, hematuria or urinary frequency Musculoskeletal Musculoskeletal: Reports back pain; Denies neck pain Integumentary Denies abscess or rash Neurologic Neurologic: Denies headache(s), paresthesias or weakness Psychiatric Psychiatric: Denies suicidal thoughts EXAM Physical Exam Const Vital Signs: 08/20/24 08:38 08/20/24 10:38 08/20/24 12:00 Temperature 98.1 F Temperature Source Temporal Pulse Rate 99 74 71 Respiratory Rate 14 16 16 Blood Pressure 113/82 H 110/88 H 112/81 H Blood Pressure Mean 92 95 91 Pulse Ox 98 100 97 Oxygen Delivery Method Room Air Positive well nourished and well developed General Appearance ED: well developed and NAD HEENT Reports moist mucous membranes normocephalic and atraumatic Eyes PERRL and EOMs intact bilaterally Neck full ROM and supple Resp normal respiratory effort and clear to auscultation bilaterally Cardio regular rate, regular rhythm and no murmurs Rate: Negative for tachycardic GI non-distended GI Narrative: Diffuse abdominal tenderness but more prominent in the lower abdomen bilaterally, including McBurney's point the patient states more tender on the left than on the right. No guarding or rebound. No pulsatile mass. Auscultation: hyperactive bowel sounds Palpation: soft Back/Spine Back/Spine Narrative: Mild CVA tenderness on the left no rash or ecchymosis. General Back: other FROM Extremity normal to inspection General Extremety ED: Negative for edema, pulses abnormal or tenderness General Extremity: Negative for edema or pulses abnormal Neuro oriented x3, CN's II-XII intact bilaterally and no sensory deficits noted Sensorium / Orientation: awake and alert Motor Exam: strength 5/5 throughout Skin no rashes or lesions noted and no wounds MDM MDM MDM Narrative Medical decision making narrative: I reviewed the ED visit from yesterday. Patient had a leukocytosis around 13 88% segs, no bands, otherwise labs unremarkable, no imaging was performed. She has had a cough since before the vomiting and abdominal pain, so pneumonia is in the differential, and given that she is quite tender and had a fever last night, I will obtain a CT of the abdomen/pelvis which was not performed yesterday. She had a test that was negative yesterday so I do not think we need to repeat that to rule out ectopic. I think this is less likely to be tubo-ovarian abscess, she is having tenderness that is less pelvic and more lower abdomen, the tenderness is not very distal that is to say. The only surgery she has had in the past is lithotripsy, she has never had her abdomen open so about obstruction is less likely and she is having bowel movements. There is also possible that she is having pyelonephritis, she is a little tender in the left CVA, but again the majority of her symptoms are nonlateralizing making this less likely but still in the differential. She did have a urine culture yesterday after an abnormal urinalysis that is showing 80-100,000 CFU per mL E. coli resistant to many antibiotics but sensitive to ciprofloxacin. Given all of this, she was given cefepime, also appropriate according to sensitivities, 2 g here IV, and reevaluated. She is tolerating oral fluids, she is no longer nauseated or vomiting, her pain is well-controlled after Toradol, and clinically her vital signs are normal and she is not septic. I offered admission for intractable symptoms she states she does not have any intractable symptoms and wants to try going home first which I think is reasonable, and we will treat her as a pyelonephritis causing all of this. We discussed reasons to return, including all of the above that are not the case right now including intractable vomiting not able to keep antibiotics down. She already has promethazine prescribed at the pharmacy, that is reasonable to use for nausea we will also prescribe her something for pain as well as the Cipro. Lab Data Attestation: I reviewed the patient's lab results. Labs: Laboratory Results - last 24 hr 08/20/24 09:14 WBC 19.6 H RBC 4.58 Hgb 14.1 Hct 40.1 MCV 87.6 MCH 30.8 MCHC 35.2 RDW Std Deviation 38.4 RDW Coeff of Esme 11.9 Plt Count 460 H MPV 9.6 Immature Gran % (Auto) 1.000 H Neut % (Auto) 79.9 H Lymph % (Auto) 12.3 L [place] % (Auto) 6.4 Eos % (Auto) 0.1 Baso % (Auto) 0.3 Absolute Neuts (auto) 15.6 H Absolute Lymphs (auto) 2.41 Sodium 140 Potassium 3.1 L Chloride 104 Carbon Dioxide 23.3 Anion Gap 14 BUN 5 Creatinine 0.57 L Estim Creat Clear Calc 104.60 Est GFR (MDRD) Non-Af 126 BUN/Creatinine Ratio 9.5 L Glucose 107 H Calcium 9.6 Total Bilirubin 0.42 AST 20 ALT 12 Alkaline Phosphatase 86 Total Protein 7.0 Albumin 4.2 Globulin 2.8 Albumin/Globulin Ratio 1.5 Radiography Chest X-Ray - ED: 1 View, Read by ED Physician, No Acute Disease and No Infiltrates Diagnostic Testing: Clinical Impression(s) from Imaging Studies Abdomen/Pelvis CT 08/20/24 09:06 IMPRESSION: Large right staghorn calculus. Reading Location: [facility] Chest X-Ray 08/20/24 09:10 IMPRESSION: NEGATIVE CHEST Reading Location: [facility] Garrick Katz MD on 08/20/24 at 1026 This is an addendum report. If the patient does not have any history of right staghorn calculus, this most likely represents right hydronephrosis with dilatation of the right renal calices with possible inflammation in the renal pelvis with thickening of the proximal right ureter. Clinical correlation recommended. Reading Location: [facility] Management Discussion w/another healthcare provider: Radiologist Discharge Plan Triage Chief Complaint: Nausea/Vomiting ED Provider: Umesh Payne Dx/Rx/DC Orders Clinical Impression: Pyelonephritis of right kidney Instructions: Kidney Infec Dc Prescriptions: New ciprofloxacin HCl 500 mg tablet 500 mg PO BID Qty: 14 0RF tramadol 50 mg tablet 50 mg PO Q6H PRN (Reason: pain) 3 Days Qty: 12 0RF No Action albuterol sulfate 90 mcg/actuation HFA aerosol inhaler 1 inh inhalation Q4H Primary Care Provider: Care Physician,No Primary Referrals: Love Velasquez MD [Med Staff - Active Staff] - As soon as possible Print Language: German Disposition Disposition: Home, Self Care
--- NOTE | 2024-08-20 09:10 | RAD_ITS ---
PROCEDURE: CHEST PA AND LATERAL 08/20/2024 REASON FOR EXAM: COUGH, VOMITING, FEVER TECHNIQUE: CHEST PA AND LATERAL COMPARISON: None FINDINGS: Hardware: None Heart: The heart size is normal. Mediastinum: The mediastinal contour is unremarkable. Lungs: The lungs are clear. Bones: The bones are unremarkable. RAD/Chest PA and Lateral IMPRESSION: NEGATIVE CHEST Reading Location: [facility]
[2024-08-20] MEDS: 0.9% Normal Saline (1000mL) 1,000 ML 999 ML IV (09:19)
[2024-08-20] MEDS: Ketorolac 30 MG/ML Syringe IV (09:19)
[2024-08-20 09:55] LABS: Hematocrit 40.1 % (37-47); Hemoglobin 14.1 g/dL (12.0-15.0); Mean Corp Hgb Conc 35.2 g/dL (32-36); Mean Corpuscular Volume 87.6 fL (81-99); Mean Platelet Vol. 9.6 fl (6.2-12.0); Platelet Count 460 K/mm3 (150-450); RBC Distribution Width CV 11.9 % (11.6-14.6); RBC Distribution Width SD 38.4 fl (35.1-43.9); Red Blood Count 4.58 M/mm3 (4.2-5.4); White Blood Count 19.6 K/mm3 (4.4-11.0)
[2024-08-20 09:56] LABS: Immature Granulocytes Count 0.200 X10^3/uL (0.0-0.0)
[2024-08-20 10:17] LABS: AST(SGOT) 20 U/L (<=31); Alanine Aminotransfer ALT/SGPT 12 U/L (<=34); Albumin, Serum 4.2 g/dL (3.5-5.0); Alkaline Phosphatase 86 U/L (35-104); Anion Gap 14 (5-15); BUN 5 mg/dL (4-19); BUN/Creat Ratio 9.5 RATIO (10-20); Calcium,Total 9.6 mg/dL (7.6-11.0); Carbon Dioxide 23.3 mmol/L (21.0-32.0); Chloride 104 mmol/L (98-108); Estimated Creatinine Clearance 104.60 ml/min (50-250); Globulin 2.8 g/dL (2.2-4.2); Glucose 107 mg/dL (70-99); Potassium 3.1 mmol/L (3.3-5.1)
[2024-08-20 10:38] VITALS: BP 110/88; PULSE 74; RESP 16; O2SAT 100
[2024-08-20] MEDS: Cefepime HCl 2 GM in 0.9% Normal Saline (100mL MB+) 100 ML IV (11:18)
[2024-08-20 12:00] VITALS: BP 112/81; PULSE 71; RESP 16; O2SAT 97
[2024-08-20 13:51] VITALS: BP 110/88; PULSE 76; RESP 16; TEMP 37; O2SAT 99
== END 2024-08-20 13:52 | disposition home or self-care (01) ==
PROVIDERS: Emergency Provider Emergency Medicine; Visit Provider Emergency Medicine
DX: N12 Tubulo-interstitial nephritis, not specified as acute or chronic (principal); R10.84 Generalized abdominal pain; J45.909 Unspecified asthma, uncomplicated; Z79.899 Other long term (current) drug therapy; Z87.891 Personal history of nicotine dependence; Z87.442 Personal history of urinary calculi
CPT/HCPCS: 71046; 74177; 80053; 85025; 96361; 96365; 96375; 99283; Q9967; A4216; J0696

== ENCOUNTER 2024-11-01 21:22 | Emergency (ER) | payer MEDICAID, SELFPAY ==
[2024-11-01 21:23] VITALS: BP 108/79; PULSE 142; RESP 18; TEMP 37.2; O2SAT 97; BMI 24.5
[2024-11-01 21:25] VITALS: BP 108/79; PULSE 142; RESP 18; TEMP 37.2; O2SAT 97
[2024-11-01 21:57] LABS: Hematocrit 29.7 % (37-47); Hemoglobin 10.8 g/dL (12.0-15.0); Immature Granulocytes Count 0.220 X10^3/uL (0.0-0.0); Mean Corp Hgb Conc 36.4 g/dL (32-36); Mean Corpuscular Volume 87.6 fL (81-99); Mean Platelet Vol. 10.0 fl (6.2-12.0); NRBC Flagged by Analyzer 0 % (0-5); Platelet Count 215 K/mm3 (150-450); RBC Distribution Width CV 12.3 % (11.6-14.6); RBC Distribution Width SD 39.6 fl (35.1-43.9); Red Blood Count 3.39 M/mm3 (4.2-5.4); White Blood Count 18.9 K/mm3 (4.4-11.0)
[2024-11-01 22:06] VITALS: O2SAT 100
--- OUTSIDE RECORDS SUMMARY | 2024-11-01 22:07 | XMS RPT_ITS | CCD ---
Author Organization [facility] Care Team Providers Care Script Supervisor Name Role Phone RIDERCHARLEE Unavailable Unavailable DEBRA FENG Unavailable Unavailable Debra Feng Primary Care Provider [phone] Debra Feng Primary Care Provider Unavailable Primary Care Provider Unavailabl e Care Physician, No Primary Primary Care Provider Unavailable Dr. Joshua Lopez DO Emergency Provider [phone] Dr. Umesh Payne MD Emergency Provider Umesh Payne Attending Unavailable Care Physician, No Primary Primary Care Unava ilable Joshua Lopez Attending Unavailable Care Physician, No Primary Primary Care Unava ilable Tony Pepe MD Primary Care Provider Dionne HANDBAG STITCHER.Lou LOWE M Unavailable Dionne HANDBAG STITCHER.Lou LOWE M Unavailable TONY PEPE Primary Care Unavailable KIMBERLY STUBBS Referring Unavailable KIMBERLY STUBBS Attending Unavailable TONY PEPE Referring Unavailable TONY PEPE Primary Care Unavailable TONY PEPE Referring Unavailable TONY PEPE Primary Care Unavailable KIMBERLY STUBBS Attending Unavailable TONY PEPE Attending Unavailable TONY PEPE Primary Care Unavailable ROYAL XAVIER Attending Unavailable NAOMI MITCHELL Attending Unavailable SELF Referring Unavailable KIYA WALKER Attending Unavailabl e TONY PEPE Primary Care Unavailable KIYA WALKER Referring Unavailabl e PEPETONY H Primary Care Unavailable KIYA WALKER Admitting Unavailabl e PEPETONY H Primary Care Unavailable PROVIDER, UNKNOWN Referring Unavailable PROVIDER, UNKNOWN Attending Unavailable KIYA WALKER Referring Unavailabl e PEPE, SAI Primary Care Unavailable KIYA WALKER Referring Unavailabl e PEPE, SAI Primary Care Unavailable Allergies Allergy Classification Reported Allergen(s) Allergy Type Date of Onset Reaction(s) Facility (20 sources) Amoxicillin; Translations: [AMOXICILLIN] Drug Allergy 3 [facility] (20 sources) Ciprofloxacin; Translations: [CIPROFLOXACIN] Drug Allergy 7 GI Upset, Rash [facility] Work Phone: (20 sources) Codeine; Translations: [CODEINE] Drug Allergy 7 [facility] (8 sources) Seasonal allergy; Translations: [SEASONAL ALLERGIES] Allergy to substance 3 Other: See [facility] (20 sources) Flu Vac 2011 (18-64yrs)(Pf); Translations: [FLU VAC 2011 (18-64YRS)(PF)] Drug Allergy 8 GI [facility] [email or web address] [facility] (1 source) Acetaminophen Drug Allergy 4 Other [facility] (3 sources) HYDROcodone Drug Allergy 4 Hives [facility] (3 sources) Influenza Vaccines Allergy to substance 4 Anaphylaxis [facility] (3 sources) strawberry allergenic extract Drug Allergy 4 Anaphylaxis [facility] (1 source) Amoxicillin Drug Allergy 5 [facility] (1 source) Codeine Drug Allergy 5 [facility] (1 source) HYDROcodone Drug Allergy 5 [facility] (1 source) strawberry allergenic extract Drug Allergy 5 [facility] (1 source) Influenza Virus Vaccines Drug allergy (disorder) 5 [facility] Medications Current Medications Medication Drug Class(es) Dates Sig (Normalized) Sig (Original) [id number] 200 actuat albuterol 0.09 mg/actuat metered dose inhaler (20 sources) beta2-Adrenergic Agonist Start: 08-19-2024 Albuterol Sulfate 90 mcg/actuation HFA aerosol inhaler Active 1 NMA INHALATION Q4H August 19, 2024 12:00am Start: 08-19-2024 Albuterol Sulf ate 90 mcg/actuation HFA aerosol inhaler Active INHALATION August 19, 2024 12:00am Start: 01-23-2018 End: 09-12-2024 take 2 puff(s) by inhalation every four hours as needed for wheezing albuterol HFA (PROVENTIL HFA, VENTOLIN HFA) 90 mcg/actuation inhaler Inhale 2 puffs as instructed every 4 hours as needed for wheezing/shortness of breath. 1 each 08/13/2024 Active Comment on above: Inhale 2 Puffs as in structed every 4 hours as needed for Wheezing/Shortness of Breath. ciprofloxacin 500 mg oral tablet (4 sources) Quinolone Antimicrobial Start: 021 End: 025 take 1 tablet by mouth twice daily Ciprofloxacin Hcl 500 mg tablet Active 500 mg PO TWICE A DAY 14 0 August 20, 2024 12:00am levonorgestrel 0.482456 mg/hr intrauterine system (20 sources) Progestin, Progestin-containing Intrauterine Device Start: 025 End: 033 levonorgestrel (MIRENA) 21 mcg/24hr (up to 8 yrs) 52 mg IUD Indications: Encounter for IUD removal 1 each by INTRAUTERINE route as directed. 1 each 09/26/2024 09/24/2032 Active Start: 09-26-2024 End: 09-26-2024 1 each, INTRAUTERINE, ONCE ( UP TO 30 DAYS AMB), 1 dose, On Tue09/26/24 at 1030, Hazardous Potential Reproductive Risk Drug: Use appropriate PPE. levonorgestrel ( MIRENA) 20 mcg/24 hr (5 years) IUD 1 Each by INTRAUTERINE route one time only. Active Comment on above: 1 Each by INTRAUTERI NE route one time only. loratadine 10 mg oral tablet (17 sources) take 1 tablet by mouth once daily loratadine (CLARITIN) 10 mg tablet Take 10 mg by mouth once daily. Active Comment on above: Take 10 mg by mouth once daily. Mometasone (17 sources) Corticosteroid MOMETASONE FUROA TE (NASONEX NASAL) [...] Active ondansetron 4 mg disintegrating oral tablet (20 sources) Serotonin-3 Receptor Antagonist Start: End: take 1 tablet by mouth every six hours as needed ondansetron orally disintegrating (ZOFRAN ODT) 4 mg disintegrating tablet Take 1 tablet by mouth every 6 hours as needed for nausea/vomiting. 12 tablet 03/14/2024 Active Start: 08-25-2023 End: 09-05-2024 take 1 tablet by mouth every eight hours as needed for nausea ondansetron orally disintegrating (ZOFRAN ODT) 4 mg disintegrating tablet Indications: Nausea and vomiting, unspecified vomiting type Take 1 tablet by mouth every 8 hours as needed for nausea/vomiting. 10 tablet 08/25/2023 09/05/2024 Discontinued traMADol hydrochloride 50 mg oral tablet (1 source) Opioid Agonist Start: 08-20-2024 take 1 tablet by mouth every six hours as needed for pain Tramadol 50 mg tablet Active 50 mg PO EVERY 6 HOURS as needed for pain 12 3 0 August 20, 2024 1:21pm Pyelonephritis of right kidney Tubulo-interstitial nephritis, not specified as acute or chronic Completed/Discontinued Medications Medication Drug Class(es) Dates Sig (Normalized) Sig (Original) acetaminophen 325 mg / oxyCODONE hydrochloride 5 mg oral tablet (15 sources) Opioid Agonist Start: 08-12-2020 End: 08-19-2024 Oxycodone-Acetamino phen 5-325 mg tablet Discontinued 1 {tbl} PO Q4H as needed for pain 14 7 0 August 12, 2020 August 19, 2024 12:26pm Calculus of ureter Calculus of ureter Start: 08-12-2020 take 1 tablet by tod th every four hours Oxycodone-Acetaminophen Active 1 TABLET PO Q4H 14 7 August 12, 2020 Start: 07-13-2019 End: 07-20-2019 Oxycodone-Acetaminophen 1 TA BLET tablet Discontinued 2 {tbl} PO EVERY 8 HOURS NEEDED as needed for Pain 20 7 0 July 13, 2019 July 19, 2019 12:00am July 20, 2019 12:02am Calculus of kidney Calculus of kidney Start: 07-13-2019 End: 07-20-2019 take 2 tablets by mouth every eight hours as needed Oxycodone-Acetaminophen Discontinued 2 TABLET PO EVERY 8 HOURS NEEDED 20 7 July 13, 2019 July 19, 2019 11:02pm Start: 05-22-2019 End: 05-29-2019 Oxycodone-Acetaminophen 1 TA BLET tablet Discontinued 2 {tbl} PO EVERY 8 HOURS NEEDED as needed for Pain 30 7 0 May 22, 2019 May 28, 2019 12:00am May 29, 2019 12:02am Calculus of kidney Calculus of kidney Start: 05-22-2019 End: 05-29-2019 take 2 tablets by mouth every eight hours as needed Oxycodone-Acetaminophen Discontinued 2 TABLET PO EVERY 8 HOURS NEEDED 30 7 May 22, 2019 May 28, 2019 11:02pm Start: 04-09-2019 End: 04-14-2019 Oxycodone-Acetaminophen 1 TA BLET tablet Discontinued 1 {tbl} PO EVERY 6 HOURS NEEDED as needed for Pain Score 4-10/10 20 5 0 April 09, 2019 April 13, 2019 1:00am April 14, 2019 1:09am Calculus of kidney Calculus of kidney Start: 04-09-2019 End: 04-14-2019 take 1 tablet by mouth every six hours as needed Oxycodone-Acetaminophen Discontinued 1 TABLET PO EVERY 6 HOURS NEEDED 20 5 April 09, 2019 April 14, 2019 12:09am Start: 04-03-2019 End: 04-08-2019 Oxycodone-Acetaminophen 1 TA BLET tablet Discontinued 1 {tbl} PO EVERY 6 HOURS NEEDED as needed for Pain Score 6-10/10 20 5 0 April 03, 2019 April 07, 2019 1:00am April 08, 2019 1:11am Calculus of kidney Calculus of kidney Start: 04-03-2019 End: 04-08-2019 take 1 tablet by mouth every six hours as needed Oxycodone-Acetaminophen Discontinued 1 TABLET PO EVERY 6 HOURS NEEDED 20 5 April 03, 2019 April 08, 2019 12:11am Beclomethasone (8 sources) Corticosteroid End: 09-05-2024 BECLOMETHASONE DIPROPIONATE (QVAR INHALATION) Inhale as instructed. 09/05/2024 Discontinued BECLOMETHASONE D IPROPIONATE (QVAR INHALATION) Inhale as instructed. Active BECLOMETHASONE D IPROPIONATE (QVAR INHALATION) Inhale as instructed. 0 Active Comment on above: Inhale as instructed . benzonatate 100 mg oral capsule (3 sources) Non-narcotic Antitussive Start: End: take 1 capsule by mouth three times daily Benzonatate 100 mg capsule Discontinued 100 mg PO THREE TIMES A DAY August 19, 2024 12:00am August 20, 2024 12:47pm famotidine 20 mg oral tablet (3 sources) Histamine-2 Receptor Antagonist Start: 024 End: take 1 tablet by mouth twice daily Famotidine (Pepcid) 20 mg tablet Discontinued 20 mg PO TWICE A DAY 10 0 March 22, 2023 1:00am August 19, 2024 12:26pm Inhalational Spacing Device (1 source) Start: 025 End: Inhalational Spacing Device 1 device one time only for 1 dose. 1 each 08/13/2024 08/13/2024 nitrofurantoin, macrocrystals 100 mg oral capsule (3 sources) Nitrofuran Antibacterial Start: 013 End: take 1 capsule by mouth every twelve hours Nitrofurantoin Monohyd/M-Cryst 100 MG capsule Discontinued 100 mg PO EVERY 12 HOURS 14 0 December 29, 2012 1:00am February 15, 2013 5:27pm phenazopyridine hydrochloride 200 mg oral tablet (6 sources) Start: 06-06-08 End: take 1 tablet by mouth three times daily as needed for muscle spasms Phenazopyridine 200 MG tablet Discontinued 200 mg PO 3 TIMES DAILY NEEDED as needed for Bladder Spasms 30 7 0 July 13, 2019 12:00am July 19, 2019 12:00am July 20, 2019 12:02am Start: 12-29-2012 End: 02-15-2013 take 1 tablet by mouth three times daily Phenazopyridine 200 MG tablet Discontinued 200 mg PO THREE TIMES A DAY 9 0 December 29, 2012 1:00am February 15, 2013 5:27pm promethazine hydrochloride 25 mg oral tablet (5 sources) Phenothiazine Start: 08-19-2024 End: 08-20-2024 take 1 tablet by mouth three times daily as needed for nausea and vomiting Promethazine 25 mg tablet Discontinued 25 mg PO THREE TIMES A DAY as needed for nausea and vomiting 20 0 August 19, 2024 12:00am August 20, 2024 12:47pm Start: 03-22-2023 End: 08-19-2024 take 1 tablet by mouth every six hours as needed for nausea and vomiting Promethazine 25 mg tablet Discontinued 25 mg PO EVERY 6 HOURS as needed for nausea and vomiting 20 0 March 22, 2023 6:46pm August 19, 2024 12:26pm sulfamethoxazole 800 mg / trimethoprim 160 mg oral tablet (6 sources) Dihydrofolate Reductase Inhibitor Antibacterial, Sulfonamide Antimicrobial Start: 07-13-2019 End: 07-16-2019 Sulfamethoxazole-Trimethopri m 1 TABLET tablet Discontinued 1 {tbl} PO TWICE A DAY 6 3 0 July 13, 2019 12:00am July 15, 2019 12:00am July 16, 2019 12:02am Start: 07-13-2019 End: 07-16-2019 take 1 tablet by mouth twice daily Sulfamethoxazole-Trimethoprim Discontinu ed 1 TABLET PO TWICE A DAY 6 3 July 12, 2019 11:00pm July 15, 2019 11:02pm Start: 05-22-2019 End: 06-05-2019 Sulfamethoxazole-Trimethopri m 1 TABLET tablet Discontinued 1 {tbl} PO TWICE A DAY 28 14 0 May 22, 2019 12:00am June 04, 2019 12:00am June 05, 2019 12:02am Start: 05-22-2019 End: 06-05-2019 take 1 tablet by mouth twice daily Sulfamethoxazole-Trimethoprim Discontinu ed 1 TABLET PO TWICE A DAY May 21, 2019 11:00pm June 04, 2019 11:02pm Problems Active Problems Problem Classification Problem Date Documented Date Episodic/Chronic Administrative/social admission (3 sources) Patient encounter status; Translations: [Encounter for other administrative examinations] 03-14-2024 Episodic Asthma (20 sources) Exercise-induced asthma; Translations: [Exercise induced bronchospasm] Onset: 12-12-2012 12-12-2012 Chronic Calculus of urinary tract (20 sources) Kidney stone; Translations: [Calculus of kidney] Onset: 08-15-2020 08-11-2020 Episodic Contraceptive and procreative management (6 sources) Contraception status; Translations: [Encounter for removal and reinsertion of intrauterine contraceptive device] Onset: 09-06-2024 09-06-2024 Episodic Fever of unknown origin (2 sources) Fever; Translations: [Fever, unspecified] Onset: 08-01-2024 08-01-2024 Episodic Immunizations and screening for infectious disease (3 sources) Contact with and (suspected) exposure to other viral communicable diseases; Translations: [Contact with or exposure to other viral diseases] Onset: 09-06-2024 03-14-2024 Episodic Inflammation; infection of eye (except that caused by tuberculosis or sexually transmitteddisease) (3 sources) Hordeolum externum of lower eyelid of right eye; Translations: [Hordeolum externum right lower eyelid] 09-04-2017 Episodic Inflammatory diseases of female pelvic organs (3 sources) Vaginitis; Translations: [Acute vaginitis] 09-03-2017 Episodic Intestinal infection (2 sources) Viral gastroenteritis; Translations: [Viral intestinal infection, unspecified] Onset: 08-01-2024 08-01-2024 Episodic Mood disorders (3 sources) Bipolar disorder; Translations: [Bipolar disorder, unspecified] 04-09-2019 Chronic Nausea and vomiting (6 sources) Nausea and vomiting; Translations: [Nausea with vomiting, unspecified] Onset: 08-01-2024 08-25-2023 Episodic Other nervous system disorders (1 source) Other acute postprocedural pain; Translations: [Post-op pain] Onset: 10-30-2024 Episodic Other screening for suspected conditions (not mental disorders or infectious disease) (3 sources) Cancer cervix screening status; Translations: [Encounter for screening for malignant neoplasm of cervix] Onset: 09-06-2024 09-05-2024 Episodic Other upper respiratory infections (8 sources) Viral upper respiratory tract infection; Translations: [Acute upper respiratory infection, unspecified] Onset: 08-13-2024 03-04-2021 Episodic Residual codes; unclassified (1 source) Viral syndrome; Translations: [Other general symptoms and signs] 03-18-2024 Episodic Unclassified (1 source) Cancer cervix screening status 09-05-2024 Unclassified (2 sources) Autogenerated Problem Onset: 10-02-2024 10-02-2024 Urinary tract infections (9 sources) Urinary tract infectious disease; Translations: [Urinary tract infection, site not specified] 07-13-2019 Episodic Past or Other Problems Problem Classification Problem Date Documented Da te Episodic/Chronic Bacterial infection; unspecified site (16 sources) Bacteria present; Translations: [Streptococcus, group B, as the cause of diseases classified elsewhere] Onset: 07-20-2016 Resolved: 09-09-2016 09-09-2016 Episodic Genitourinary symptoms and ill-defined conditions (19 sources) Dysuria; Translations: [Dysuria] Onset: 04-08-2016 Resolved: 09-09-2016 09-03-2017 Episodic Other complications of (16 sources) Late entry into care; Translations: [Supervision of with insufficient care, unspecified trimester] Onset: 04-08-2016 Resolved: 09-09-2016 09-09-2016 Episodic Other diseases of kidney and ureters (17 sources) Kidney disease; Translations: [Disorder of kidney and ureter, unspecified] Onset: 12-12-2012 12-12-2012 Episodic Screening and history of mental health and substance abuse codes (20 sources) H/O: manic depressive disorder; Translations: [Personal history of other mental and behavioral disorders] Onset: 04-08-2016 04-08-2016 Episodic Unclassified (2 sources) Patient encounter status 09-26-2024 Results Test Name Value Interpretation Reference Range Facility Basic metabolic 2000 panelon 10-31-2024 Anion gap [Moles/Vol] 13 mmol/L Normal 8-15 [facility] Comment on above: Order Comment: Speci men Type: BLOOD SPECIMENOrdering Facility: [facility] Address: [address] [place] [address] Performed By: #### 2 4321-2 ####[facility] LABORATORYCLIA [id number] [place] [address] [place] Calcium [Mass/Vol] 7.8 mg/dL Low 8.5-10.2 [facility] Comment on above: Order Comment: Speci men Type: BLOOD SPECIMENOrdering Facility: [facility] Address: [address] [place] [address] Performed By: #### 2 4321-2 ####[facility] LABORATORYCLIA [id number] [address] [place] Chloride [Moles/Vol] 105 mmol/L Normal 98-107 [facility] Comment on above: Order Comment: Speci men Type: BLOOD SPECIMENOrdering Facility: [facility] Address: [address] [place] [address] Performed By: #### 2 4321-2 ####[facility] LABORATORYCLIA [id number] [place] [address] [place] CO2 [Moles/Vol] 20 mmol/L Low 22-30 [facility] Comment on above: Order Comment: Speci men Type: BLOOD SPECIMENOrdering Facility: [facility] Address: [address] [place] [address] Performed By: #### 2 4321-2 ####[facility] LABORATORYCLIA [id number] [address] [place] Creatinine [Mass/Vol] 0.57 mg/dL Low 0.58-0.96 [facility] Comment on above: Order Comment: Speci men Type: BLOOD SPECIMENOrdering Facility: [facility] Address: [address] [place] [address] Performed By: #### 2 4321-2 ####[facility] LABORATORYCLIA [id number] [place] [address] [place] eGFRcr SerPlBld CKD-EPI 2020 126 mL/min/1.73m??? Normal >=60 [facility] Comment on above: Order Comment: Emmanuel hensley Type: BLOOD SPECIMENOrdering Facility: [facility] Address: [address] [place] [address] Result Comment: Veirto mated Glomerular Filtration Rate (eGFR) is calculated using the 2020 CKD-EPI creatinine equation. This equation utilizes serum creatinine, sex, and age as parameters. The creatinine assay has traceable calibration to isotope dilution-mass spectrometry. Refer to KDIGO guidelines for clinical interpretation. In patients with unstable renal function, e.g. those with acute kidney injury, the eGFR may not accurately reflect actual GFR. Performed By: #### 2 4321-2 ####[facility] LABORATORYCLIA [id number] [place] [address] [place] Glucose [Mass/Vol] 138 mg/dL High 74-99 [facility] Comment on above: Order Comment: Emmanuel hensley Type: BLOOD SPECIMENOrdering Facility: [facility] Address: [address] [place] [address] Result Comment: The [place] [employer] (ADA) provides guidance for cutoff values for fasting glucose and random glucose. The ADA defines fasting as no caloric intake for at least 8 hours. Fasting plasma glucose results between 100 to 125 mg/dL indicate increased risk for diabetes (prediabetes). Fasting plasma glucose results greater than or equal to 126 mg/dL meet the criteria for diagnosis of diabetes. In the absence of unequivocal hyperglycemia, results should be confirmed by repeat testing. In a patient with classic symptoms of hyperglycemia or hyperglycemic crisis, random plasma glucose results greater than or equal to 200 mg/dL meet the criteria for diagnosis of diabetes. Reference: Standards of Medical Care in Diabetes 2016, [place] [employer]. Diabetes Care. 2016.39(Suppl 1). Performed By: #### 2 4321-2 ####[facility] LABORATORYCLIA [id number] [place] [address] [place] Potassium [Moles/Vol] 3.2 mmol/L Low 3.7-5.1 [facility] Comment on above: Order Comment: Emmanuel hensley Type: BLOOD SPECIMENOrdering Facility: [facility] Address: [address] [place] [address] Performed By: #### 2 4321-2 ####[facility] LABORATORYCLIA [id number] [address] Sodium [Moles/Vol] 138 mmol/L Normal 136-144 [facility] Comment on above: Order Comment: Speci men Type: BLOOD SPECIMENOrdering Facility: [facility] Address: [address] [place] [address] Performed By: #### 2 4321-2 ####[facility] LABORATORYCLIA [id number] [address] [place] [facility] Urea nitrogen [Mass/Vol] 5 mg/dL Low 7-21 [facility] Comment on above: Order Comment: Speci men Type: BLOOD SPECIMENOrdering Facility: [facility] Address: [address] [place] [address] Performed By: #### 2 4321-2 ####[facility] LABORATORYCLIA [id number] [address] CBC panel Auto (Bld)on 10-31 Erythrocyte distribution width (RBC) [Ratio] 12.6 % Normal 11.5-15.0 [facility] Comment on above: Order Comment: Speci men Type: BLOOD SPECIMENOrdering Facility: [facility] Address: [address] [place] [address] Performed By: #### 5 8410-2 ####[facility] LABORATORYCLIA [id number] [address] Hematocrit (Bld) [Volume fraction] 30.8 % Low 36.0-46.0 [facility] Comment on above: Order Comment: Speci men Type: BLOOD SPECIMENOrdering Facility: [facility] Address: [address] [place] [address] Performed By: #### 5 8410-2 ####[facility] LABORATORYCLIA [id number] [address] OF [facility] Hemoglobin (Bld) [Mass/Vol] 10.7 g/dL Low 11.5-15.5 [facility] Comment on above: Order Comment: Speci men Type: BLOOD SPECIMENOrdering Facility: [facility] Address: [address] [place] [address] Performed By: #### 5 8410-2 ####[facility] LABORATORYCLIA [id number] [address] MCH (RBC) [Entitic mass] 31.4 pg Normal 26.0-34.0 [facility] Comment on above: Order Comment: Speci men Type: BLOOD SPECIMENOrdering Facility: [facility] Address: [address] [place] [address] Performed By: #### 5 8410-2 ####[facility] LABORATORYCLIA [id number] [address] MCHC (RBC) [Mass/Vol] 34.7 g/dL Normal 30.5-36.0 [facility] Comment on above: Order Comment: Speci men Type: BLOOD SPECIMENOrdering Facility: [facility] Address: [address] [place] [address] Performed By: #### 5 8410-2 ####[facility] LABORATORYCLIA [id number] [address] MCV (RBC) [Entitic vol] 90.3 fL Normal 80.0-100.0 [facility] Comment on above: Order Comment: Speci men Type: BLOOD SPECIMENOrdering Facility: [facility] Address: [address] [place] [address] Performed By: #### 5 8410-2 ####[facility] LABORATORYCLIA [id number] [address] Nucleated RBC (Bld) [#/Vol] 10*3/uL Normal <0.01 [facility] Comment on above: Order Comment: Speci men Type: BLOOD SPECIMENOrdering Facility: [facility] Address: [address] [place] [address] Performed By: #### 5 8410-2 ####[facility] LABORATORYCLIA [id number] [address] [place] Platelet mean volume (Bld) [Entitic vol] 9.4 fL Normal 9.0-12.7 [facility] Comment on above: Order Comment: Speci men Type: BLOOD SPECIMENOrdering Facility: [facility] Address: [address] [place] [address] Performed By: #### 5 8410-2 ####[facility] LABORATORYCLIA [id number] [address] [place] Platelets (Bld) [#/Vol] 234 10*3/uL Normal 150-400 [facility] Comment on above: Order Comment: Speci men Type: BLOOD SPECIMENOrdering Facility: [facility] Address: [address] [place] [address] Performed By: #### 5 8410-2 ####[facility] SYSTEMCLIA [id number] [address] [place] [facility] RBC (Bld) [#/Vol] 3.41 10*6/uL Low 3.90-5.20 [facility] Comment on above: Order Comment: Speci men Type: BLOOD SPECIMENOrdering Facility: [facility] Address: [address] [place] [address] Performed By: #### 5 8410-2 ####[facility] LABORATORYCLIA [id number] [address] [place] WBC (Bld) [#/Vol] 20.66 10*3/uL High 3.70-11.00 [facility] Comment on above: Order Comment: Speci men Type: BLOOD SPECIMENOrdering Facility: [facility] Address: [address] [place] [address] Performed By: #### 5 8410-2 ####[facility] LABORATORYCLIA [id number] [address] CNDSon 10-31-2024 CNDS HNO ID: [id number] Author: KIYA WALKER MD Service: Urology Author Type: Resident Type: Discharge Summary Filed: 10/31/2024 13:09 Note Text: Attestation signed by Kiya Walker MD at 10/31/2024 1:09 PM Kiya Walker MD UROLOGY DISCHARGE SUMMARY PATIENT NAME: Justin Love ADMISSION DATE: 10/30/2024 DISCHARGE DATE: 10/31/2024 Attending Physician: Juhi Pimentel,* Reason for Hospitalization: right PCNL Principal Problem: Renal calculus, right (POA: Yes) Resolved Problems: * No resolved hospital problems. * Operations During Hospitalization: right PCNL Hospital Course: Patient was admitted for the above surgery. Patient was transferred to the recovery unit. Diet was slowly advanced as tolerated. Activity level was gradually increased. Pain was controlled on oral medications. The patient was then deemed fit for discharge. Patient was discharged with right PNT in place. Labs and Procedures Pending at Discharge: No pending results. Consulting Teams During Hospitalization: none Patient Condition @ Discharge: Stable Discharge Disposition: Home with Self Care Information Provided to Patient: See discharge instructions Discharge Medications: Medication List START taking these medications docusate sodium 100 mg capsule Commonly known as: COLACE Take 1 capsule by mouth two times a day for 14 days. nitrofurantoin monohydrate and macrocrystal 100 mg capsule Commonly known as: MACROBID Take 1 capsule by mouth two times a day for 7 days. oxyCODONE IR 5 mg immediate release tablet Commonly known as: ROXICODONE Take 1 tablet by mouth every 6 hours as needed for pain for up to 3 days. CONTINUE taking these medications albuterol HFA 90 mcg/actuation inhaler Commonly known as: PROVENTIL HFA, VENTOLIN HFA Inhale 2 puffs as instructed every 4 hours as needed for wheezing/shortness of breath. CLARITIN 10 mg tablet Generic drug: loratadine * MIRENA 21 mcg/24hr (up to 8 yrs) 52 mg IUD Generic drug: levonorgestrel * levonorgestrel 21 mcg/24hr (up to 8 yrs) 52 mg IUD Commonly known as: MIRENA 1 each by INTRAUTERINE route as directed. NASONEX NASAL ondansetron orally disintegrating 4 mg disintegrating tablet Commonly known as: ZOFRAN ODT Take 1 tablet by mouth every 6 hours as needed for nausea/vomiting. * This list has 2 medication(s) that are the same as other medications prescribed for you. Read the directions carefully, and ask your doctor or other care provider to review them with you. Where to Get Your Medications These medications were sent to [facility] [address] [place] [phone] [place] [address] docusate sodium 100 mg capsule nitrofurantoin monohydrate and macrocrystal 100 mg capsule oxyCODONE IR 5 mg immediate release tablet Future Appointments: Follow Up with Dr. Walker TIME OF CARE: Discharge Management: I personally spent less than 30 minutes involved in the discharge management of this patient. SIGNATURE: Karel Ponce MD DATE: October 31, 2024 TIME: 11:36 AM Normal [facility] ANES POSTPROC EVALon 025 ANES POSTPROC EVAL HNO ID: [id number] Author: NOLAN VALENTIN MD Service: Anesthesiology Author Type: Anesthesiologist Type: Anesthesia Postprocedure Evaluation Filed: 10/31/2024 09:21 Note Text: POST ANESTHESIA EVALUATION NOTE : 1995 Procedure Summary Date: 10/30/24 Room / Location: [place] OR / [place] OR Anesthesia Start: 1253 Anesthesia Stop: 1551 Procedures: RETROGRADE PYELOGRAM (Right) PERC NEPHROLITHOTOMY LITHOTRIPSY,STONE EXTRACTION,ANTEGRADE NEPHROSCOPY, NEPHROSTOMY TUBE INSERTION, NEPHROSTOGRAM (Right: Kidney) Diagnosis: Kidney stone (Kidney stone [N20.0]) Surgeons: Kiya Walker MD Responsible Provider: Nolan Valentin MD Anesthesia Type: general ASA Status: 2 Anesthesia Type: general Airway Type: ETT Last Vitals Vitals Value Taken Time BP 106/71 10/30/24 21:00 Temp 36.9 ?C (98.4 ?F) 10/30/24 18:23 Pulse 100 10/30/24 21:36 Resp 17 10/30/24 21:36 SpO2 97 % 10/30/24 21:36 Vitals shown include unfiled device data. Post Anesthesia Patient Status Patient Evaluation: PACU. PACU/ICU Patient Condition: stable. Anticipated Disposition: inpatient floor planned admission. Neurological Status: aware and responsive. Pulmonary Status: breathing comfortably on supplemental oxygen Airway Control: returned to baseline unsupported. Cardiovascular Status: stable. Pain Management: clinically adequate Postoperative Hydration: acceptable. Intraoperative Events: no significant anesthesia events Post Operative Nausea/Vomiting Status: no significant post operative nausea or vomiting Recommendation: further care per PACU/ICU/floor team. Anesthesia Observations No Documentation SIGNATURE: Nolan Valentin MD PATIENT NAME: Justin Love DATE: October 31, 2024 TIME: 9:20 AM CSN: [id number] [facility] ANES PRE-OPon 10-30-2024 ANES PRE-OP HNO ID: [id number] Author: DILLAN BAIRES MD Service: Anesthesiology Author Type: Anesthesiologist Type: Anesthesia Preprocedure Evaluation Filed: 10/30/2024 11:54 Note Text: ANESTHESIOLOGY DAY OF SURGERY NOTE : 1995 Procedure Information Date/Time: 10/30/24 1200 Procedures: RETROGRADE PYELOGRAM (Right) PERC NEPHROLITHOTOMY LITHOTRIPSY,STONE EXTRACTION,ANTEGRADE URETEROSCOPY,STENT PLACEMENT WHEN PERFORMED INCD IMAGING OVER 2cm (Right) Location: [place] OR / [place] OR Surgeons: Kiya Walker MD Estimated body mass index is 24.21 kg/m? as calculated from the following: Height as of this encounter: 153 cm (5' 0.25). Weight as of this encounter: 56.7 kg (125 lb). Most recent hematocrit and potassium results: Hematocrit 40.9 10/24/2024 Potassium 3.6 10/24/2024 Relevant Problems -RENAL (+) Kidney disorder (+) Kidney stone (+) Staghorn calculus I - PHYSICAL EVALUATION AIRWAY Patient intubated: No. Tracheostomy tube not present Mallampati: II. TM distance: >3 FB. Neck ROM: full ROM without neurological symptoms. Mouth openin FB. Short neck: no. Thick neck: no DENTAL Dental findings: missing tooth/teeth. II - ANESTHESIA PLAN ASA Score: 2 Anesthetic Plan: general Airway type: ETT NPO Status: adequate Monitoring Plan Monitoring plan: standard ASA. Informed Consent Anesthetic risks, benefits, alternatives, personnel and consent discussed: yes. Patient / Responsible Constitution Party agrees to proceed: yes Patient / Surrogate agrees to blood products: Yes Vitals Value Taken Time BP 120/79 10/30/24 11:20 Pulse 70 10/30/24 11:20 Resp 16 10/30/24 11:20 Temp 36.5 ?C (97.7 ?F) 10/30/24 10:22 SpO2 96 % 10/30/24 11:20 Facility-Administered Medications as of 10/30/2024 Medication Dose Route Frequency [COMPLETED] NaCl 0.9% iv infusion INTRAVENOUS X (OR/PROCEDURE) CONTINUOUS ondansetron (PF) 4 mg injection (ZOFRAN) 4 mg INTRAVENOUS ONCE fentaNYL 50 mcg/mL 50 mcg injection (SUBLIMAZE) 50 mcg INTRAVENOUS ONCE Outpatient Medications as of 10/30/2024 Medication Sig albuterol HFA (PROVENTIL HFA, VENTOLIN HFA) 90 mcg/actuation inhaler Inhale 2 puffs as instructed every 4 hours as needed for wheezing/shortness of breath. ondansetron orally disintegrating (ZOFRAN ODT) 4 mg disintegrating tablet Take 1 tablet by mouth every 6 hours as needed for nausea/vomiting. levonorgestrel (MIRENA) 20 mcg/24 hr (5 years) IUD 1 Each by INTRAUTERINE route one time only. loratadine (CLARITIN) 10 mg tablet Take 10 mg by mouth once daily. MOMETASONE FUROATE (NASONEX NASAL) Use in the nose. I have interviewed and examined the patient. I have reviewed the medical record and/or the pre-anesthesia evaluation, pertinent labs, and test results. This contains updated information obtained within 48 hours of Surgery/Procedure. SIGNATURE: Dillan Baires MD PATIENT NAME: Justin Love DATE: October 30, 2024 TIME: 11:53 AM CSN: [id number] [facility] BRIEF OP NOTon 10-30-2024 BRIEF OP NOT HNO ID: [id number] Author: JUHI PIMENTEL MD Service: Interventional Radiology Author Type: Physician Type: Brief Op Note Filed: 10/30/2024 11:06 Note Text: BRIEF OPERATIVE / PROCEDURE NOTE LOG ID: [id number] SURGERY/PROCEDURE DATE: 10/30/2024 INCISION/PROCEDURE START TIME: 10:32 AM INCISION CLOSE/PROCEDURE END TIME: 11:02 AM SURGEON(S)/PROCEDURAL IST(S) AND TRAVEL ASSISTANT(S): Surgeons and Role: * Juhi Pimentel MD, MD - Primary No Additional Staff Preoperative Concerns /Risks: None SURGERY/PROCEDURE(S): R NU catheter placement for stone access ANESTHESIA: Procedural Sedation FINDINGS: Successful placement of 10 F NU catheter ESTIMATED BLOOD LOSS: Minimal SPECIMENS: None Intraoperative Complication/Events: None CLOSURE TECHNIQUE: Primary PRE-OP/PRE-PROCEDURE DIAGNOSIS: Nephrolithiasis POST-OP/POST-PROCEDUR E DIAGNOSIS: Same as Preop SIGNATURE: Juhi Pimentel MD PATIENT NAME: Justin Love DATE: October 30, 2024 TIME: 11:06 AM [facility] Basic metabolic 2000 panelon 10-30-2024 Anion gap [Moles/Vol] 12 mmol/L Normal 8-15 [facility] Comment on above: Order Comment: Speci men Type: BLOOD SPECIMENOrdering Facility: [facility] Address: [address] [place] [address] Performed By: #### 2 4321-2 ####[facility] LABORATORYCLIA [id number] [place] [address] [place] Calcium [Mass/Vol] 7.7 mg/dL Low 8.5-10.2 [facility] Comment on above: Order Comment: Speci men Type: BLOOD SPECIMENOrdering Facility: [facility] Address: [address] [place] [address] Performed By: #### 2 4321-2 ####[facility] LABORATORYCLIA [id number] [place] [address] [place] Chloride [Moles/Vol] 107 mmol/L Normal 98-107 [facility] Comment on above: Order Comment: Speci men Type: BLOOD SPECIMENOrdering Facility: [facility] Address: [address] [place] [address] Performed By: #### 2 4321-2 ####[facility] LABORATORYCLIA [id number] [address] [place] CO2 [Moles/Vol] 20 mmol/L Low 22-30 [facility] Comment on above: Order Comment: Speci men Type: BLOOD SPECIMENOrdering Facility: [facility] Address: [address] [place] [address] Performed By: #### 2 4321-2 ####[facility] LABORATORYCLIA [id number] [address] STATES [place] [facility] Creatinine [Mass/Vol] 0.56 mg/dL Low 0.58-0.96 [facility] Comment on above: Order Comment: Speci men Type: BLOOD SPECIMENOrdering Facility: [facility] Address: [address] [place] [address] Performed By: #### 2 4321-2 ####[facility] LABORATORYCLIA [id number] [address] [place] eGFRcr SerPlBld CKD-EPI 2020 127 mL/min/1.73m??? Normal >=60 [facility] Comment on above: Order Comment: Speci men Type: BLOOD SPECIMENOrdering Facility: [facility] Address: [address] [place] [address] Result Comment: Verito mated Glomerular Filtration Rate (eGFR) is calculated using the 2020 CKD-EPI creatinine equation. This equation utilizes serum creatinine, sex, and age as parameters. The creatinine assay has traceable calibration to isotope dilution-mass spectrometry. Refer to KDIGO guidelines for clinical interpretation. In patients with unstable renal function, e.g. those with acute kidney injury, the eGFR may not accurately reflect actual GFR. Performed By: #### 2 4321-2 ####[facility] LABORATORYCLIA [id number] [place] [address] [place] Glucose [Mass/Vol] 124 mg/dL High 74-99 [facility] Comment on above: Order Comment: Emmanuel ayden Type: BLOOD SPECIMENOrdering Facility: [facility] Address: [address] [place] [address] Result Comment: The [place] Diabetes Association (ADA) provides guidance for cutoff values for fasting glucose and random glucose. The ADA defines fasting as no caloric intake for at least 8 hours. Fasting plasma glucose results between 100 to 125 mg/dL indicate increased risk for diabetes (prediabetes). Fasting plasma glucose results greater than or equal to 126 mg/dL meet the criteria for diagnosis of diabetes. In the absence of unequivocal hyperglycemia, results should be confirmed by repeat testing. In a patient with classic symptoms of hyperglycemia or hyperglycemic crisis, random plasma glucose results greater than or equal to 200 mg/dL meet the criteria for diagnosis of diabetes. Reference: Standards of Medical Care in Diabetes 2016, [place] Diabetes Association. Diabetes Care. 2016.39(Suppl 1). Performed By: #### 2 4321-2 ####[facility] LABORATORYCLIA [id number] [place] [address] [place] Potassium [Moles/Vol] 3.0 mmol/L Low 3.7-5.1 [facility] Comment on above: Order Comment: Emmanuel hensley Type: BLOOD SPECIMENOrdering Facility: [facility] Address: [address] [place] [address] Performed By: #### 2 4321-2 ####[facility] LABORATORYCLIA [id number] [place] [id number] [place] Sodium [Moles/Vol] 139 mmol/L Normal 136-144 [facility] Comment on above: Order Comment: Emmanuel ayden Type: BLOOD SPECIMENOrdering Facility: [facility] Address: [address] [place] [address] Performed By: #### 2 4321-2 ####[facility] LABORATORYCLIA [id number] [address] STATES [place] [facility] Urea nitrogen [Mass/Vol] 5 mg/dL Low 7-21 [facility] Comment on above: Order Comment: Speci men Type: BLOOD SPECIMENOrdering Facility: [facility] Address: [address] [place] [address] Performed By: #### 2 4321-2 ####[facility] LABORATORYCLIA [id number] [address] STATES [place] [facility] CBC panel Auto (Bld)on 10-30 Erythrocyte distribution width (RBC) [Ratio] 12.5 % Normal 11.5-15.0 [facility] Comment on above: Order Comment: Speci men Type: BLOOD SPECIMENOrdering Facility: [facility] Address: [address] [place] [address] Performed By: #### 5 8410-2 ####[facility] LABORATORYCLIA [id number] [address] Hematocrit (Bld) [Volume fraction] 31.5 % Low 36.0-46.0 [facility] Comment on above: Order Comment: Speci men Type: BLOOD SPECIMENOrdering Facility: [facility] Address: [address] [place] [address] Performed By: #### 5 8410-2 ####[facility] LABORATORYCLIA [id number] [address] [place] Hemoglobin (Bld) [Mass/Vol] 11.0 g/dL Low 11.5-15.5 [facility] Comment on above: Order Comment: Speci men Type: BLOOD SPECIMENOrdering Facility: [facility] Address: [address] [place] [address] Performed By: #### 5 8410-2 ####[facility] LABORATORYCLIA [id number] [address] MCH (RBC) [Entitic mass] 31.4 pg Normal 26.0-34.0 [facility] Comment on above: Order Comment: Speci men Type: BLOOD SPECIMENOrdering Facility: [facility] Address: [address] [place] [address] Performed By: #### 5 8410-2 ####[facility] LABORATORYCLIA [id number] [address] MCHC (RBC) [Mass/Vol] 34.9 g/dL Normal 30.5-36.0 [facility] Comment on above: Order Comment: Speci men Type: BLOOD SPECIMENOrdering Facility: [facility] Address: [address] [place] [address] Performed By: #### 5 8410-2 ####[facility] LABORATORYCLIA [id number] [address] MCV (RBC) [Entitic vol] 90.0 fL Normal 80.0-100.0 [facility] Comment on above: Order Comment: Speci men Type: BLOOD SPECIMENOrdering Facility: [facility] Address: [address] [place] [address] Performed By: #### 5 8410-2 ####[facility] LABORATORYCLIA [id number] [address] Nucleated RBC (Bld) [#/Vol] 10*3/uL Normal <0.01 [facility] Comment on above: Order Comment: Speci men Type: BLOOD SPECIMENOrdering Facility: [facility] Address: [address] [place] [address] Performed By: #### 5 8410-2 ####[facility] LABORATORYCLIA [id number] [address] Platelet mean volume (Bld) [Entitic vol] 9.1 fL Normal 9.0-12.7 [facility] Comment on above: Order Comment: Speci men Type: BLOOD SPECIMENOrdering Facility: [facility] Address: [address] [place] [address] Performed By: #### 5 8410-2 ####[facility] LABORATORYCLIA [id number] [address] Platelets (Bld) [#/Vol] 251 10*3/uL Normal 150-400 [facility] Comment on above: Order Comment: Speci men Type: BLOOD SPECIMENOrdering Facility: [facility] Address: [address] [place] [address] Performed By: #### 5 8410-2 ####[facility] LABORATORYCLIA [id number] [address] OF [place] [facility] RBC (Bld) [#/Vol] 3.50 10*6/uL Low 3.90-5.20 [facility] Comment on above: Order Comment: Speci men Type: BLOOD SPECIMENOrdering Facility: [facility] Address: [address] [place] [address] Performed By: #### 5 8410-2 ####[facility] LABORATORYCLIA [id number] [address] [place] [facility] WBC (Bld) [#/Vol] 18.97 10*3/uL High 3.70-11.00 [facility] Comment on above: Order Comment: Speci men Type: BLOOD SPECIMENOrdering Facility: [facility] Address: [address] [place] [address] Performed By: #### 5 8410-2 ####[facility] LABORATORYCLIA [id number] [address] ECG COMPLETEon 10-30-2024 ECG COMPLETE Ventricular Rate : 116 BPM Atrial Rate : 116 BPM P-R Interval : 118 ms QRS Duration : 100 ms Q-T Interval : 320 ms QTC Calculation(Bazett) : 444 ms Calculated P [place] : 68 degrees Calculated R [place] : 43 degrees Calculated T [place] : 16 degrees SINUS TACHYCARDIA INCOMPLETE RIGHT BUNDLE BRANCH BLOCK ST & T WAVE ABNORMALITY, CONSIDER INFEROLATERAL ISCHEMIA ABNORMAL ECG NO PREVIOUS ECGS AVAILABLE Confirmed by KASSIE LORENZO MD ([id number]) on 10/31/2024 8:44:53 PM NAME : JUSTIN LOVE PID : [id number] : 1995 Gender : Female Race : ORD : [id number] Procedure Date : Oct 30 2024 19:39:55 Edit Date : Oct 31 2024 20:44:56 Diagnosis: SINUS TACHYCARDIA INCOMPLETE RIGHT BUNDLE BRANCH BLOCK ST & T WAVE ABNORMALITY, CONSIDER INFEROLATERAL ISCHEMIA ABNORMAL ECG NO PREVIOUS ECGS AVAILABLE Confirmed by KASSIE LORENZO MD ([id number]) on 10/31/2024 8:44:53 PM Test Reason : Post-OP Location : 200 : [facility] Overread By : KASSIE LORENZO MD Edited By : KASSIE LORENZO MD Referred By : JUHI PIMENTEL Acquired by : STEWART PAK [facility] HCG Preg Ur Qlon 10-30-2024 HCG ( test) Ql (U) Negative Normal Negative [facility] Comment on above: Order Comment: Speci men Type: URINE SPECIMENOrdering Facility: [facility] Address: [address] [place] [place] [address] [place] [address] Result Comment: This test is intended to aid in the early detection of . Very dilute urine samples, as indicated by a low specific gravity, may not contain hostess party sales representative levels of hCG. This test detects intact hCG only. This test does not reliably detect hCG degradation products, including free-beta subunit and beta-core fragment. Therefore, this test may show reduced reactivity in urine after 8 weeks gestation. A number of conditions other than , including trophoblastic disease and certain non-trophoblastic neoplasms cause elevated levels of hCG. As with any assay employing mouse antibodies, the possibility exists for interference by human anti-mouse antibodies (HAMA) in the specimen. The test provides a presumptive diagnosis for . Performed By: #### 2 106-3 ####[facility] LABORATORYCLIA [id number] [place] [address] [place] HISTORY PHYSICALon HISTORY PHYSICAL HNO ID: [id number] Author: KIYA WALKER MD Service: Process Group Author Type: Physician Type: H&P Filed: 10/30/2024 12:49 Note Text: HISTORY AND PHYSICAL EXAMINATION SERVICE DATE: 10/30/2024 PRIMARY CARE PHYSICIAN: Tony Pepe MD Subjective CHIEF COMPLAINT: right staghorn calculous HPI: This is a 29 year old female who presents with staghorn calculous The following problems are present on admission at this time: FUNCTIONAL STATUS: Independent PAST MEDICAL HISTORY Diagnosis Date Anemia Asthma, exercise induced (HCC) 12/12/2012 Bipolar disorder (HCC) 2012 Dr. Feng History of bipolar disorder 04/08/2016 off medication since 2016 History of frequent urinary tract infections 10/14/2012 History of suicidal ideation 2012 Hydronephrosis, left 10/14/2012 Irregular menses Kidney stones 08/15/2020 Seasonal allergies 2013 Staghorn calculus 09/15/2024 Right side. PAST SURGICAL HISTORY Procedure Laterality Date CYSTOSCOPY, W/INSERTION URETHRAL STENT Left 08/12/2020 retrograde pyelogram CYSTOSCOPY, W/INSERTION URETHRAL STENT Right 05/23/2019 CYSTOSCOPY,URETEROSCO PY,STONE REMV Left 08/15/2020 INSERTION OF IUD 09/26/2024 Mirena placed in office LITHOTRIPSY EXTRACORP SHOCK WAVE(ESWL) Right 07/13/2019 PAST SURGICAL HISTORY OF wisdom teeth, tubes in ears FAMILY HISTORY Problem Relation Age of Onset Psychiatry Mother Bipolar Arthritis Mother Asthma Father No Known Problems Brother COPD Maternal Grandmother Breast Cancer Maternal Grandmother 68 Heart Maternal Grandfather Liver Disease Maternal Grandfather of liver failure ~72 years Alcohol abuse Maternal Grandfather Kidney Disease Paternal Grandmother Alzheimer's Disease Paternal Grandfather age 71 SOCIAL HISTORY[1] Prior to Admission Medications Prescriptions Last Dose Informant Patient Reported? Taking? MOMETASONE FUROATE (NASONEX NASAL) 10/28/2024 Yes No Sig: Use in the nose. albuterol HFA (PROVENTIL HFA, VENTOLIN HFA) 90 mcg/actuation inhaler 10/30/2024 at 7:00 AM No Yes Sig: Inhale 2 puffs as instructed every 4 hours as needed for wheezing/shortness of breath. levonorgestrel (MIRENA) 20 mcg/24 hr (5 years) IUD Yes No Si Each by INTRAUTERINE route one time only. levonorgestrel (MIRENA) 21 mcg/24hr (up to 8 yrs) 52 mg IUD No No Si each by INTRAUTERINE route as directed. loratadine (CLARITIN) 10 mg tablet 10/29/2024 Yes Yes Sig: Take 10 mg by mouth once daily. ondansetron orally disintegrating (ZOFRAN ODT) 4 mg disintegrating tablet 10/30/2024 at 12:15 PM No Yes Sig: Take 1 tablet by mouth every 6 hours as needed for nausea/vomiting. Facility-Administered Medications: None ALLERGIES Allergen Reactions Ciprofloxacin Rash, GI Upset Nausea, Dizziness, and Racing Heartbeat. Amoxicillin Hives Codeine Hives Flu Vac 2012 (18-64* GI Upset COMPLETE REVIEW OF SYSTEMS: GENERAL: No weight loss, malaise or fevers HEENT: Negative for frequent or significant headaches, No changes in hearing or vision, no nose bleeds or other nasal problems NECK: Negative for lumps, goiter, pain and significant neck swelling RESPIRATORY: Negative for cough, hemoptysis, wheezing, COPD, dyspnea or shortness of breath SKIN: Negative for lesions, rash, and itching PSYCH: Negative for sleep disturbance, mood disorder and recent psychosocial stressors Objective PHYSICAL EXAM: Physical Exam Performed: GENERAL: Alert, no distress, cooperative SKIN: Skin color, texture, turgor normal. No rashes or lesions. LUNGS: Lungs clear to auscultation, Good diaphragmatic excursion CARDIAC: Normal S1 and S2; no rubs, murmurs, or gallops ABDOMEN: Abdomen soft, non-tender, BS normal, No masses or organomegaly BP 128/78 Pulse 83 Temp 97.7 Resp 16 Ht 5' .25 (1.53m) Wt 125 lb (56.7kg) SpO2 96% LMP 05/09/2023 BMI 24.22 kg/(m2). O2 Therapy: Room Air DATA: Diagnostic tests reviewed for today's visit: Most recent labs and imaging results. Assessment AND Plan Right staghorn calculous for right PCNL Medication and Non-Pharmacologic VTE Prophylaxis/Anticoagu lants VTE Prophylaxis: VTE prophylaxis appropriate SIGNATURE: Kiya Walker MD PATIENT NAME: Justin Love DATE: October 30, 2024 TIME: 12:45 PM [1] Social History Tobacco Use Smoking status: Former Current packs/day: 0.50 Average packs/day: 0.5 packs/day for 1.2 years (0.6 ttl pk-yrs) Types: Cigarettes Start date: 09/06/2023 Smokeless tobacco: Never Vaping Use Vaping status: current everyday user Start date: 02/07/2022 Substances: Nicotine Devices: Disposable Substance Use Topics Alcohol use: No Drug use: Never [facility] HISTORY PHYSICAL HNO ID: [id number] Author: JUHI PIMENTEL MD Service: Interventional Radiology Author Type: Physician Type: H&P Filed: 10/30/2024 10:21 Note Text: UPDATED HISTORY AND PHYSICAL EXAMINATION SERVICE DATE: 10/30/2024 SERVICE TIME: 10:21 AM PHYSICAL EXAM MUST BE COMPLETED ON ADMISSION The History and Physical (completed in the past 30 days) has been reviewed and the patient has been examined. The contents accurately reflect the patient's condition with the following additions or revisions since the HANDP was completed. Examination indicates no changes. This HANDP can be found in the Electronic Medical Record. SIGNATURE: Juhi Pimentel MD PATIENT NAME: Justin Love DATE: October 30, 2024 TIME: 10:21 AM [facility] IR NEPHROSTOMY TUBE PLACEon 10-30-[address] * * *Final Report* * * DATE OF EXAM: Oct 30 2024 11:10AM [facility] 0779 - IR NEPHROSTOMY TUBE PLACE / PROCEDURE REASON: Kidney stone * * * * Physician Interpretation * * * * PROCEDURE: GENITOURINARY CATHETER PLACEMENT Procedural Personnel Attending physician(s): Juhi Pimentel MD Fellow physician(s): None Resident physician(s): None Advanced practice provider(s): None Medical Student(s): None Pre-procedure diagnosis: Nephrolithiasis Post-procedure diagnosis: Same Indication: Provision of access to the collecting system Catheter(s) placed because the previous catheter(s) became dislodged within 30 days of placement (QCDR): No Additional clinical history: None PROCEDURE SUMMARY - Target organ: Unilateral sun'aq kidney - Image-guided placement of genitourinary catheter(s) - Additional procedure(s): None PROCEDURE DETAILS: Pre-procedure Consent: Risks, benefits, treatment options, potential complications and personnel to be involved were discussed (including the risks of radiation exposure, contrast and anesthesia administration, and any equipment needed for the procedure to ensure best possible outcome) with the patient and all questions were answered and consent was obtained prior to procedure. Premedicated for contrast allergy: n/a Transfusion of blood products: No Medication reconciliation: The patient's medications and allergies were reviewed in the electronic medical record and reconciled to the proposed procedure/treatment. Neda-procedure discussion: The appropriate elements of the pre-procedure discussion, safety check list and sign-out were performed. Time out: A time out was performed immediately prior to procedure start with the nursing and interventional team, correctly identifying the name, date of , procedure, anatomy (including marking of site and side if applicable), patient position, procedure consent form, relevant diagnostic and radiology test results, antibiotic administration if applicable, safety precautions, and procedure-specific equipment needs. Start of procedure: 10:32 AM End of procedure: 11:02 AM Patient position: Prone Preparation: The site was prepared and draped using all elements of maximal sterile barrier technique including sterile gloves, sterile gown, cap, mask, large sterile sheet, sterile ultrasound probe cover, hand hygiene and cutaneous antisepsis. Antibiotics: None Antibiotic infusion start time: N/A Prophylactic antibiotic administered: None Contrast Contrast agent: VISPAQUE 270 Contrast volume (mL): 20 Image Guidance: Fluoroscopic and sonographic guidance with digital image storage Radiation Dose FLUOROSCOPIC RADIATION SUMMARY: Plane A, Air Kerma: 81.7 mGy Fluoro Time: 13:00 min:sec Radiation dose exceed 5 Gy: No If radiation dose exceeded 5 Gy, was counseling and instructional brochure provided: N/A Anesthesia/sedation Level of anesthesia/sedation: Moderate sedation (conscious sedation) Anesthesia/sedation administered by: Independent trained observer under attending supervision with continuous monitoring of the patient?s level of consciousness and physiologic status Total intra-service sedation time (minutes): 33 Local anesthesia: Lidocaine Right genitourinary catheter placement Local anesthesia was administered. A needle was advanced into an interpolar calyx under ultrasound and fluoroscopy guidance. A wire was then placed in the distal ureter. The tract was serially dilated and a nephroureteral catheter was placed. Contrast injection was performed. Genitourinary catheter placed: 10 F nephroureteral catheter Findings: Contrast opacifies the collecting system External catheter securement: Non-absorbable suture Additional Details Additional description of procedure: None Equipment details: None Number and Type of Removed Specimens: 0: N/A Estimated blood loss (mL): Less than 10 Standardized report: SIR_GUCatheterPlaceme nt_v3 Complications There were no immediate complications and no other complications. Conclusion The patient was comfortable and was transferred to the PACU in stable condition. The procedure was performed by the: attending radiologist, without an records assistant. The attending radiologist performed the following procedural activities: Entire procedure IMPRESSION: RIGHT NEPHROURETERAL PLACEMENT FOR ACCESS DURING SUBSEQUENT LITHOTRIPSY. Attestation Signer name: Juhi Pimentel MD I attest that I was present for the entire procedure. I reviewed the stored images and agree with the report as written. Forming Machine Upkeep Mechanic Helper: PSCB Transcribe Date/Time: Oct 31 2024 3:57P Dictated by : JUHI PIMENTEL MD This examination was interpreted and the report reviewed and electronically signed by: JUHI PIMENTEL MD on Oct 31 2024 4:04PM EST [id number] [facility] NURSING PROGon 10-30-2024 NURSING PROG HNO ID: [id number] Author: STAN JACOB RN Service: Nursing Author Type: Registered Nurse Type: Nursing Progress Note Filed: 10/31/2024 06:56 Note Text: Other: pt very nauseated and had a 150cc emesis. Med with zofran buts results were minimal at best. Pt complains of 8-10 flank pain and oxy IR was given but pt was nauseated and followed with a small emesis. Messaged resident about pts condition 0500 Pt reports feeling much better, nausea resolved and pain is under control. Reinforced dressing around nephrostomy tube 3X overnight due to saturation of serosanguinous fluid. Pt able to ambulate to the bathroom with no assist many times throughout the night. Pt in good spirits up to chair. [facility] NURSING PROG HNO ID: [id number] Author: MIKHAIL BELL RN Service: Nursing Author Type: Registered Nurse Type: Nursing Progress Note Filed: 10/30/2024 19:14 Note Text: Dr Buchanan Anesthesia called for pt HR increased to 120-130, pt awake and alert, asymptomatic, orders received. [facility] OPERATIVE NOon 10-30-2024 OPERATIVE NO HNO ID: [id number] Author: KIYA WALKER MD Service: Urology Author Type: Physician Type: Operative Report Filed: 10/31/2024 13:08 Note Text: UROLOGY OPERATIVE/PROCEDURE REPORT LOG ID: [id number] Surgery/Procedure Date: 10/30/2024 Incision/Procedure Start Time: 1:35 PM Incision Close/Procedure End Time: 3:45 PM Surgeon(s)/Procedural ist(s) and Assembler Faucets(s): Surgeons and Role: * Kiya Walker MD - Primary * Bear Moore MD - Assisting No Additional Staff Procedure(s): Right Percutaneous Nephrolithotomy (>2cm), Right nephrostomy tube placement ,nephrostogram Anesthesia: General Pre-Op/Pre-Procedure Diagnosis: Pre-Op Diagnosis Codes: * Kidney stone [N20.0] Post-Op/Post-Procedur e Diagnosis: Same Estimated Blood Loss: <50cc Specimens: right renal calculus Drains: 16F [place] catheter as PNT Complications: None Procedure Details: Justin Love is a 29 year old female who presents with a large right sided staghorn renal calculus. After having a discussion on treatment options, risks and benefits, the patient wishes to proceed forward with surgical intervention. It was explained in detail the procedure of PCNL. It was discussed how access to the kidney is performed in radiology by the interventional radiologist. It was discussed the surgical success largely depends on the ability to get good access and this is affected often by the stone size, location, patient body habitus, anatomy and other factors. Possible complications were described which can include pain, bleeding, infection. Rarely a second intervention may be needed if severe complications develop. This option was compared to ESWL and ureteroscopy and explained why one options may be chosen over the others. Patient understands this and wishes to proceed forward. PROCEDURE: Patient was brought to the operating room. A thorough time out was performed. General endotracheal anesthesia was induced and all airways and lines were maintained by anesthesia. A chen catheter was inserted in a sterile fashion. The patient was carefully moved to the prone position and pressure points padded. Patient was prepped and draped in a usual sterile fashion. SCDs were on and functional. Sterility indicators were appropriate. A timeout was performed and all present were in agreement. Using the access obtained previously by interventional radiology a 0.035 glidewire and a 0.035 glidewire were advanced to the level of the bladder under fluoroscopic visualization, through the nephrostomy tube and then the tube was removed. The glidewire was secured to the skin with a silk suture. The skin incision was enlarged with a scalpel. A Nephromax balloon dilator was advanced over the stiff wire to the level of the stone under flouroscopy. It was inflated to 18 TOAN. After the fascia was appropriately dilated the sheath was advanced to the level of the stone. The balloon was deflated and removed. A nephroscope was inserted and on further inspection the stone was able to be visualized. Using a combination of the cyberwand/shock pulse and grasping forceps, the stone in middle pole calyces, the renal pelvis and reachable portion of the upper pole renal pelvis was fragmented and extracted in the entirety. On further inspection using rigid nephroscopes, no further stone was able to be visualized. The upper pole calyces and lower power calyces were not reachable with the given access. Extensive time was taken to search for these but they could not be found. Eventually, the decision was made that she would need brought back for complete stone clearance during another procedure with different access. After clearing these stones, the decision was made to place a nephrostomy tube . A 16F [place] catheter was inserted over the wire and placed in the renal pelvis. This was confirmed with a nephrostogram. 3 cc's was placed in the chen balloon. Once it was in position, both wires were removed. The scope and the sheath were removed. Dressings were applied. Urethral catheter was then removed. Patient was awaken from anesthesia and transferred to recovery room in stable condition. The primary surgeon/proceduralist performed the procedure with assistance. SIGNATURE: Bear Moore MD PATIENT NAME: Justin Love DATE: October 30, 2024 TIME: 4:12 PM PAGER/CONTACT #: [facility] Izaiah 10-25-2024 FÁTIMA Telephone ([place]) SHALLENBERGER,JUSTIN Christiane ([id number]) 1995 F Date Time Provider Department 10/25/24 KIYA WALKER During your visit today, we recorded the following information about you: Tabitha Gutierrez 10/25/2024 3:10 PM Signed Labs have been faxed over from [facility], they have been scanned into chart. Allergies As of Date: 10/25/2024 Noted Allergy Reaction CIPROFLOXACIN 06/16/2016 2 - Rash 8 - GI Upset Comments: Nausea, Dizziness, and Racing Heartbeat. AMOXICILLIN 12/12/2012 4 - Hives CODEINE 04/05/2016 4 - Hives FLU VAC 2011 (18-64YRS)(PF) 01/23/2018 8 - GI Upset Date Reviewed: 10/24/2024 Reviewed by: Melina Santos APRN.BRASSIERE CUP MOLD CUTTER - Fully Assessed Reason for Visit: Results [95] Prescriptions as of 10/26/2024 - levonorgestrel (MIRENA) 21 mcg/24hr (up to 8 yrs) 52 mg IUD 1 each by INTRAUTERINE route as directed. - albuterol HFA (PROVENTIL HFA, VENTOLIN HFA) 90 mcg/actuation inhaler Inhale 2 puffs as instructed every 4 hours as needed for wheezing/shortness of breath. - ondansetron orally disintegrating (ZOFRAN ODT) 4 mg disintegrating tablet Take 1 tablet by mouth every 6 hours as needed for nausea/vomiting. - levonorgestrel (MIRENA) 20 mcg/24 hr (5 years) IUD 1 Each by INTRAUTERINE route one time only. - loratadine (CLARITIN) 10 mg tablet Take 10 mg by mouth once daily. - MOMETASONE FUROATE (NASONEX NASAL) Use in the nose. Problem List As Of Date 10/25/2024 Noted Resolved Kidney disorder [N28.9] 12/12/2012 Asthma, exercise induced [J45.990] 12/12/2012 Late care [O09.30] 04/08/2016 09/09/2016 History of bipolar disorder [Z86.59] 04/08/2016 History of recurrent UTI (urinary tract infecti*04/08/2016 09/09/2016 Positive GBS test [B95.1] 07/20/2016 09/09/2016 Kidney stone [N20.0] 08/15/2020 Staghorn calculus [N20.0] 09/15/2024 Preop examination [Z01.818] 10/24/2024 Encounter Status:Closed by TABITHA GUTIERREZ on 10/26/24 [facility] Bacteria Ur Culton Bacteria identified Cx Nom (U) CULTURE, URINE: No growth (<1,000 CFU/ml) [facility] Comment on above: Performed By: #### 6 30-4 ####[facility] LABORATORYCLIA [id number] [address] [place] CBC panel Auto (Bld)on 10-24 Erythrocyte distribution width (RBC) [Ratio] 11.9 % Normal 11.5-15.0 [facility] Comment on above: Order Comment: Speci men Type: BLOOD SPECIMENOrdering Facility: [facility] Address: [address] [place] [address] Performed By: #### 5 8410-2 ####[facility] LABORATORYCLIA [id number] [address] [place] Hematocrit (Bld) [Volume fraction] 40.9 % Normal 36.0-46.0 [facility] Comment on above: Order Comment: Speci men Type: BLOOD SPECIMENOrdering Facility: [facility] Address: [address] [place] [address] Performed By: #### 5 8410-2 ####[facility] LABORATORYCLIA [id number] [address] [place] Hemoglobin (Bld) [Mass/Vol] 13.4 g/dL Normal 11.5-15.5 [facility] Comment on above: Order Comment: Speci men Type: BLOOD SPECIMENOrdering Facility: [facility] Address: [address] [place] [address] Performed By: #### 5 8410-2 ####[facility] LABORATORYCLIA [id number] [address] MCH (RBC) [Entitic mass] 30.3 pg Normal 26.0-34.0 [facility] Comment on above: Order Comment: Speci men Type: BLOOD SPECIMENOrdering Facility: [facility] Address: [address] [place] [address] Performed By: #### 5 8410-2 ####[facility] LABORATORYCLIA [id number] [address] [place] MCHC (RBC) [Mass/Vol] 32.8 g/dL Normal 30.5-36.0 [facility] Comment on above: Order Comment: Speci men Type: BLOOD SPECIMENOrdering Facility: [facility] Address: [address] [place] [address] Performed By: #### 5 8410-2 ####[facility] LABORATORYCLIA [id number] [address] MCV (RBC) [Entitic vol] 92.5 fL Normal 80.0-100.0 [facility] Comment on above: Order Comment: Speci men Type: BLOOD SPECIMENOrdering Facility: [facility] Address: [address] [place] [address] Performed By: #### 5 8410-2 ####[facility] LABORATORYCLIA [id number] [address] Nucleated RBC (Bld) [#/Vol] 10*3/uL Normal <0.01 [facility] Comment on above: Order Comment: Speci men Type: BLOOD SPECIMENOrdering Facility: [facility] Address: [address] [place] [address] Performed By: #### 5 8410-2 ####[facility] LABORATORYCLIA [id number] [address] Platelet mean volume (Bld) [Entitic vol] 9.7 fL Normal 9.0-12.7 [facility] Comment on above: Order Comment: Speci men Type: BLOOD SPECIMENOrdering Facility: [facility] Address: [address] [place] [address] Performed By: #### 5 8410-2 ####[facility] LABORATORYCLIA [id number] [address] Platelets (Bld) [#/Vol] 392 10*3/uL Normal 150-400 [facility] Comment on above: Order Comment: Speci men Type: BLOOD SPECIMENOrdering Facility: [facility] Address: [address] [place] [address] Performed By: #### 5 8410-2 ####[facility] LABORATORYCLIA [id number] [address] OF [facility] RBC (Bld) [#/Vol] 4.42 10*6/uL Normal 3.90-5.20 [facility] Comment on above: Order Comment: Speci men Type: BLOOD SPECIMENOrdering Facility: [facility] Address: [address] [place] [address] Performed By: #### 5 8410-2 ####[facility] LABORATORYCLIA [id number] [address] WBC (Bld) [#/Vol] 11.63 10*3/uL High 3.70-11.00 [facility] Comment on above: Order Comment: Speci men Type: BLOOD SPECIMENOrdering Facility: [facility] Address: [address] [place] [address] Performed By: #### 5 8410-2 ####[facility] LABORATORYCLIA [id number] [address] Comprehensive metabolic 2000 panelon 10-24-2024 Albumin [Mass/Vol] 4.1 g/dL Normal 3.9-4.9 [facility] Comment on above: Order Comment: Speci men Type: BLOOD SPECIMEN [facility] Address: [address] [place] [address] Performed By: #### 2 4323-8 #### [facility] CLIA [id number] [address] ALP [Catalytic activity/Vol] 75 U/L Normal 34-123 [facility] Comment on above: Order Comment: Speci men Type: BLOOD SPECIMEN [facility] Address: [facility] [place] [address] Performed By: #### 2 4323-8 #### [facility] CLIA [id number] [address] ALT With P-5'-P [Catalytic activity/Vol] 15 U/L Normal 7-38 [facility] Comment on above: Order Comment: Speci men Type: BLOOD SPECIMEN [facility] Address: [address] [place] [address] Performed By: #### 2 4323-8 #### [facility] CLIA [id number] [address] OF [facility] Anion gap [Moles/Vol] 13 mmol/L Normal 8-15 [facility] Comment on above: Order Comment: Speci men Type: BLOOD SPECIMEN [facility] Address: [address] [place] [address] Performed By: #### 2 4323-8 #### [facility] CLIA [id number] [address] AST With P-5'-P [Catalytic activity/Vol] 15 U/L Normal 13-35 [facility] Comment on above: Order Comment: Speci men Type: BLOOD SPECIMEN [facility] Address: [address] [place] [address] Performed By: #### 2 4323-8 #### [facility] CLIA [id number] [address] [place] Bilirubin [Mass/Vol] 0.2 mg/dL Normal 0.2-1.3 [facility] Comment on above: Order Comment: Speci men Type: BLOOD SPECIMEN [facility] Address: [address] [place] [address] Performed By: #### 2 4323-8 #### [facility] CLIA [id number] [address] [place] [address] [place] Calcium [Mass/Vol] 9.1 mg/dL Normal 8.5-10.2 [facility] Comment on above: Order Comment: Speci men Type: BLOOD SPECIMEN [facility] Address: [address] [place] [address] Performed By: #### 2 4323-8 #### [facility] CLIA [id number] [address] [place] [address] [place] Chloride [Moles/Vol] 104 mmol/L Normal 98-107 [facility] Comment on above: Order Comment: Speci men Type: BLOOD SPECIMEN [facility] Address: [address] [place] [address] Performed By: #### 2 4323-8 #### [facility] CLIA [id number] [address] [place] CO2 [Moles/Vol] 25 mmol/L Normal 22-30 [facility] Comment on above: Order Comment: Speci men Type: BLOOD SPECIMEN [facility] Address: [address] [place] [address] Performed By: #### 2 4323-8 #### [facility] CLIA [id number] [address] [place] Creatinine [Mass/Vol] 0.53 mg/dL Low 0.58-0.96 [facility] Comment on above: Order Comment: Speci men Type: BLOOD SPECIMEN [facility] Address: [address] [place] [address] Performed By: #### 2 4323-8 #### [facility] CLIA [id number] [address] [place] [address] [place] eGFRcr SerPlBld CKD-EPI 2020 129 mL/min/1.73m??? Normal >=60 [facility] Comment on above: Order Comment: Speci men Type: BLOOD SPECIMEN [facility] Address: [address] [place] [address] Result Comment: Verito mated Glomerular Filtration Rate (eGFR) is calculated using the 2020 CKD-EPI creatinine equation. This equation utilizes serum creatinine, sex, and age as parameters. The creatinine assay has traceable calibration to isotope dilution-mass spectrometry. Refer to KDIGO guidelines for clinical interpretation. In patients with unstable renal function, e.g. those with acute kidney injury, the eGFR may not accurately reflect actual GFR. Performed By: #### 2 4323-8 #### [facility] CLIA [id number] [address] [place] [address] [place] Glucose [Mass/Vol] 87 mg/dL Normal 74-99 [facility] Comment on above: Order Comment: Emmanuel hensley Type: BLOOD SPECIMEN [facility] Address: [address] [place] [address] Result Comment: The [place] [employer] (ADA) provides guidance for cutoff values for fasting glucose and random glucose. The ADA defines fasting as no caloric intake for at least 8 hours. Fasting plasma glucose results between 100 to 125 mg/dL indicate increased risk for diabetes (prediabetes). Fasting plasma glucose results greater than or equal to 126 mg/dL meet the criteria for diagnosis of diabetes. In the absence of unequivocal hyperglycemia, results should be confirmed by repeat testing. In a patient with classic symptoms of hyperglycemia or hyperglycemic crisis, random plasma glucose results greater than or equal to 200 mg/dL meet the criteria for diagnosis of diabetes. Reference: Standards of Medical Care in Diabetes 2016, [place] [employer]. Diabetes Care. 2016.39(Suppl 1). Performed By: #### 2 4323-8 #### [facility] CLIA [id number] [address] [place] [address] [place] Potassium [Moles/Vol] 3.6 mmol/L Low 3.7-5.1 [facility] Comment on above: Order Comment: Emmanuel hensley Type: BLOOD SPECIMEN [facility] Address: [address] [id number] Performed By: #### 2 4323-8 #### [facility] CLIA [id number] [address] [place] [address] [place] Protein [Mass/Vol] 6.8 g/dL Normal 6.3-8.0 [facility] Comment on above: Order Comment: Speci men Type: BLOOD SPECIMEN [facility] Address: [address] [place] [address] Performed By: #### 2 4323-8 #### [facility] CLIA [id number] [address] Sodium [Moles/Vol] 142 mmol/L Normal 136-144 [facility] Comment on above: Order Comment: Speci men Type: BLOOD SPECIMEN [facility] Address: [address] [place] [address] Performed By: #### 2 4323-8 #### [facility] CLIA [id number] [address] [address] STATES OF [place] [facility] Urea nitrogen [Mass/Vol] 5 mg/dL Low 7-21 [facility] Comment on above: Order Comment: Speci men Type: BLOOD SPECIMEN [facility]ing Facility: [facility] Address: [address] [place] [address] Performed By: #### 2 4323-8 #### [facility] CLIA [id number] [address] [place] HISTORY PHYSICALon HISTORY PHYSICAL HNO ID: [id number] Author: MELINA SANTOS APRN.BRASSIERE CUP MOLD CUTTER Service: ? Author Type: Nurse Practitioner Type: H&P Filed: 10/24/2024 15:24 Note Text: [facility] HISTORY AND PHYSICAL EXAMINATION SERVICE DATE: 10/24/2024 SERVICE TIME: 3:24 PM PRIMARY CARE PHYSICIAN: Tony Pepe MD Recording using [employer] software for draft documentation of the visit was discussed with the patient/authorized hostess party sales representative; all questions welcomed and answered. Patient/authorized hostess party sales representative agreed to proceed Assessment Patient has the following medical conditions which may affect neda-operative course: Preop examination Patient has the following medical conditions which may affect neda-operative course addressed in assessment and plan today. Kidney stone Surgery is scheduled for Tuesday, the at [facility] with Dr. Walker Asthma, exercise induced - Uses albuterol inhaler PRN, approximately once per month after exercise. - Advised to bring inhaler on day of surgery. ANESTHESIA FINDINGS: Intubation History: No history of difficult intubation. No abnormal airway history Significant Anesthesia Considerations: none Airway History: No history of difficult airway No abnormal airway history Mckenzie Activity Status Index: METS: Run a short distance (8.00 METs) DASI Score: 8 Patient denies any chest pain or undue shortness of breath with the above physical activity. ARISCAT Score: Age: <=50 Preoperative SpO2: >=96% Respiratory infection in the last month: No Preoperative anemia: No Surgical incision: peripheral Duration of surgery: >3 hrs Emergency procedure: No ARISCAT Score: 23 I - PHYSICAL EVALUATION AIRWAY Patient intubated: No. DENTAL Dental findings: teeth intact and broken tooth. II - ANESTHESIA PLAN Anesthetic Plan: general Informed Consent Prepared for Surgery: CONSULTS: Patient does not require consults for optimization at this time Planned Anesthetic: general The Following Tests/Procedures Have Been Initiated: Orders Placed This Encounter Urine Culture Standing Status: Future Expected Date: 10/24/2024 Expiration Date: 01/23/2025 REASON FOR VISIT: Justin Love is a 29 year old female who is scheduled for * No surgery found * at the request of Dr. Walker, Kiya Mitchell MD for routine HANDP. My final recommendation will be communicated back to the requesting physician by way of shared medical record or letter. The reason for this visit is to perform a comprehensive review of the patient's past medical history, assess their current health status and obtain any additional testing required based on anesthesia guidelines. We will also identify any potential anesthesia problems or contraindications to the planned procedure. Subjective The patient has the following: COVID-19 Immunization Status This patient has no relevant Health Maintenance data. CHIEF COMPLAINT: Kidney stone HPI: Patient is a 29 year old female here for a preoperative exam. - Large staghorn calculus in right kidney identified on renal and bladder ultrasound 09/10 following hospitalization for persistent vomiting on 08/25. - Currently experiencing mild right flank pain (3/10); no hematuria, dysuria, or recurrent nausea/vomiting. Pt discussed with surgeon and agrees to surgical intervention. REVIEW OF SYSTEMS: General: Negative for: unintentional weight change, malaise and fever. Neurological: Positive for: headaches. Negative for: seizures and strokes. Respiratory: Positive for: asthma. Negative for: COPD, tobacco use, URI < 2 weeks and obstructive sleep apnea. Cardiovascular: Negative for: arrhythmia, CAD, chest pain, CHF, DVT/PE, hyperlipidemia and hypertension. GI: Negative for: abdominal pain, GERD, nausea and vomiting. : See HPI. Negative for: dysuria, hematuria and renal failure. CREDIT RISK OFFICER: Negative for abnormal vaginal bleeding, abnormal vaginal discharge. Endocrine: Negative for: diabetes mellitus, hyperthyroidism and hypothyroidism. Hematology: Negative for: anemia, factor V Leiden, von Willebrand disease and chronic anti-coagulation/plat elet meds. Oncology: No history of CA metastasis, chemo within 30 days, or radiotherapy within 90 days. No history of oncological symptoms or problems. Psych: Positive for: anxiety. Negative for: depression. Musculoskeletal: Negative for joint pain or swelling, back pain or muscle pain. Skin: Negative for lesions, rash and itching. The patient has the following comorbidities: Chronic pulmonary disease Continue current outpatient treatment plan and current medications for these conditions, except where otherwise noted. PAST MEDICAL HISTORY Diagnosis Date Anemia Asthma, exercise induced (HCC) 12/12/2012 Bipolar disorder ([facility]) 2012 Dr. Feng History of bipolar disorder 04/08/2016 off medication since 2016 (more content not included)... Normal [facility] TYPE AND SCREEN,30 DAYon ABO A Normal [facility] Comment on above: Order Comment: Speci men Type: BLOOD SPECIMENOrdering Facility: [facility] Address: [address] [place] [address] Performed By: #### T SCR30 ####[facility] BLOOD BANKCLIA [id number] [place] [address] [place] Rh Nom (Bld) Positive Normal [facility] Comment on above: Order Comment: Speci men Type: BLOOD SPECIMENOrdering Facility: [facility] Address: [address] [place] [address] Performed By: #### T SCR30 ####[facility] BLOOD BANKCLIA [id number] [place] [address] [place] CNPTosin 10-02-2024 [facility] Telephone (URCANT) KATEJUSTIN ([id number]) 1995 F Date Time Provider Department 10/02/24 KIYA WALKER During your visit today, we recorded the following information about you: Mimi Ojeda 10/02/2024 11:30 AM Signed Kiya Walker MD Smith-Mizik, Marryssa Anne Request for right PCNL was sent to [facility] Surgery scheduling Called [facility] and had to leave message. Called pt to make aware and she voiced understanding. Majosarahimontserrat David Mimi Rizvi 10/05/2024 2:52 PM Signed Called pt to notify her of surgery dates and had to leave message. Majosarahimontserrat David Mimi Rizvi 10/11/2024 1:58 PM Signed Called pt and she is aware of her surgery on 10/30. Aware of instruction. Aware of neph tube appt. Aware of pretesting appt. Wants to know how long she will have to be out of work after PCNL and how long she will stay at hospital after surgery? Mimi Ojeda 10/25/2024 2:01 PM Signed Pt is on for a PCNL under general anesthesia with Dr. Walker on 10/30/2024 at [facility] CASE# [id number] Pt is aware of prep and arrival instructions given verbally 10/11. Pt states they are not on nsaids/asprin/WL/or GLP1. Mychart message sent 10/25. Pt has pre-testing appointment 10/24 Post Op 11/14/2024 at 1:40 in the [place] office. [facility] calls for equipment. Sent over form for neph tubes Neph tubes morning of PCNL at 10:00 Mimi Moya 10/25/2024 2:07 PM Signed Called to confirm surgery and pt confirmed date and procedure. 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 Reminded no NSAIDS and NPO. Reminded of arrival time. Went over [employer] message regarding the marijuana and she voiced understanding. Mimi BhatiaChitowilliams NaziaMimi kramer 10/29/2024 12:16 PM Signed Kiya Walker MD Smith-Mizik Mimi David Have patient come to the [place] office today,she needs to sign the surgical consent before IR can put the PERC tomorrow Called [facility] IR and spoke with Claudia they do the consent for the neph tube the day before. Per Claudia surgical team has to come down to pt in the morning because pt has to have surgery explained to her. The surgery team can talk to pt. Mimi David Rusty OjedaMimie 10/29/2024 1:38 PM Signed Called pt to have her come to come the [place] office to sign the consent form. [facility] before visit. Mimi David Rusty OjedaMimi 10/30/2024 9:08 AM Signed Called Irina at [facility] and she confirmed they received the consent form. Mimi Fernandezgiovanny Ojeda Allergies As of Date: 10/02/2024 Noted Allergy Reaction CIPROFLOXACIN 06/16/2016 2 - Rash 8 - GI Upset Comments: Nausea, Dizziness, and Racing Heartbeat. AMOXICILLIN 12/12/2012 4 - Hives CODEINE 04/05/2016 4 - Hives FLU VAC 2011 (18-64YRS)(PF) 01/23/2018 8 - GI Upset Date Reviewed: 09/26/2024 Reviewed by: Ritika Farr MA - Fully Assessed Reason for Visit: Surgery [Other] Prescriptions as of 10/30/2024 - levonorgestrel (MIRENA) 21 mcg/24hr (up to 8 yrs) 52 mg IUD 1 each by INTRAUTERINE route as directed. - albuterol HFA (PROVENTIL HFA, VENTOLIN HFA) 90 mcg/actuation inhaler Inhale 2 puffs as instructed every 4 hours as needed for wheezing/shortness of breath. - ondansetron orally disintegrating (ZOFRAN ODT) 4 mg disintegrating tablet Take 1 tablet by mouth every 6 hours as needed for nausea/vomiting. - levonorgestrel (MIRENA) 20 mcg/24 hr (5 years) IUD 1 Each by INTRAUTERINE route one time only. - loratadine (CLARITIN) 10 mg tablet Take 10 mg by mouth once daily. - MOMETASONE FUROATE (NASONEX NASAL) Use in the nose. Problem List As Of Date 10/02/2024 Noted Resolved Kidney disorder [N28.9] 12/12/2012 Asthma, exercise induced [J45.990] 12/12/2012 Late care [O09.30] 04/08/2016 09/09/2016 History of bipolar disorder [Z86.59] 04/08/2016 History of recurrent UTI (urinary tract infecti*04/08/2016 09/09/2016 Positive GBS test [B95.1] 07/20/2016 09/09/2016 Kidney stone [N20.0] 08/15/2020 Staghorn calculus [N20.0] 09/15/2024 Encounter Status:Closed by MIMI OJEDA on 10/02/24 Normal [facility] Bacteria Ur Culton Bacteria identified Cx Nom (U) CULTURE, URINE: <10,000 CFU/ml Normal Urogenital Leta Normal [facility] Comment on above: Performed By: #### 6 30-4 #### [facility] CLIA [id number] [facility] [address] [place] CNOVon 09-26-2024 CNOV Office Visit (URMASS ) JUSTIN LOVE ([id number]) 1995 F Date Time Provider Department 09/26/24 2:00 PM KIYA WALKER During your visit today, we recorded the following information about you: Kiya Walker MD 09/26/2024 3:04 PM Signed [facility] [place] NEW PATIENT ENCOUNTER HISTORY OF PRESENT ILLNESS: Justin Love is a 29 year old female who presents history of nausea and vomiting requiring investigation, abdominal ultrasound was done showing a staghorn calculus affecting the right kidney with thinning of the renal cortex Denies any lower urinary tract symptoms patient claims that she had a CT scan abdomen and pelvis with and without contrast, this was done at [facility] but I do not see the CT images in epic Patient Entered Questionnaires PROMIS Global Health 09/05/2024 PROMIS Global Health Scale Physical Health Percentile 22 Mental Health Percentile 43 Patient-reported Percentiles provide an indication of how the patient's score ranks in relation to the general population. Higher percentile rankings indicate better function/quality of life. 50th percentile is the average of the general population and indicates half of respondents had a worse score. Review of Systems LAB No results found for: CREAT GLUCOSE UA (POCT) (mg/dL) Date Value 09/26/2024 Negative BILIRUBIN UA (POCT) (no units) Date Value 09/26/2024 Negative KETONE UA (POCT) (mg/dL) Date Value 09/26/2024 Negative SPECIFIC GRAVITY UA (POCT) (no units) Date Value 09/26/2024 1.015 HEMOGLOBIN/BLOOD UA (POCT) (no units) Date Value 09/26/2024 Moderate (A) PH UA (POCT) (no units) Date Value 09/26/2024 8.0 PROTEIN UA (POCT) (mg/dL) Date Value 09/26/2024 30 (A) UROBILINOGEN UA (POCT) (E.U./dL) Date Value 09/26/2024 0.2 NITRITE UA (POCT) (no units) Date Value 09/26/2024 Negative LEUKOCYTES UA (POCT) (no units) Date Value 09/26/2024 Large (A) COLOR UA (POCT) (no units) Date Value 09/26/2024 Yellow CLARITY UA (POCT) (no units) Date Value 09/26/2024 Slightly Cloudy ] MEDICATIONS levonorgestrel (MIRENA) 21 mcg/24hr (up to 8 yrs) 52 mg IUD 1 each by INTRAUTERINE route as directed. albuterol HFA (PROVENTIL HFA, VENTOLIN HFA) 90 mcg/actuation inhaler Inhale 2 puffs as instructed every 4 hours as needed for wheezing/shortness of breath. ondansetron orally disintegrating (ZOFRAN ODT) 4 mg disintegrating tablet Take 1 tablet by mouth every 6 hours as needed for nausea/vomiting. levonorgestrel (MIRENA) 20 mcg/24 hr (5 years) IUD 1 Each by INTRAUTERINE route one time only. loratadine (CLARITIN) 10 mg tablet Take 10 mg by mouth once daily. MOMETASONE FUROATE (NASONEX NASAL) Use in the nose. HISTORIES PAST MEDICAL HISTORY Diagnosis Date Anemia Asthma, exercise induced (HCC) 12/12/2012 Bipolar disorder ([facility]) 2012 Dr. Feng History of bipolar disorder 04/08/2016 off medication since 2016 History of frequent urinary tract infections 10/14/2012 History of suicidal ideation 2012 Hydronephrosis, left 10/14/2012 Irregular menses Kidney stones 08/15/2020 Seasonal allergies 2013 Staghorn calculus 09/15/2024 Right side. PAST SURGICAL HISTORY Procedure Laterality Date CYSTOSCOPY, W/INSERTION URETHRAL STENT Left 08/12/2020 retrograde pyelogram CYSTOSCOPY, W/INSERTION URETHRAL STENT Right 05/23/2019 CYSTOSCOPY,URETEROSCO PY,STONE REMV Left 08/15/2020 INSERTION OF IUD 09/26/2024 Mirena placed in office LITHOTRIPSY EXTRACORP SHOCK WAVE(ESWL) Right 07/13/2019 PAST SURGICAL HISTORY OF wisdom teeth, tubes in ears FAMILY HISTORY Problem Relation Age of Onset Psychiatry Mother Bipolar Arthritis Mother Asthma Father No Known Problems Brother COPD Maternal Grandmother Breast Cancer Maternal Grandmother 68 Heart Maternal Grandfather Liver Disease Maternal Grandfather of liver failure ~72 years Alcohol abuse Maternal Grandfather Kidney Disease Paternal Grandmother Alzheimer's Disease Paternal Grandfather age 71 SOCIAL HISTORY SOCIAL HISTORY[1] LMP 05/09/2023 (Exact Date) Physical Exam Constitutional: Appearance: Normal appearance. HENT: Head: Normocephalic. Nose: Nose normal. Pulmonary: Effort: Pulmonary effort is normal. Abdominal: General: Abdomen is flat. Psychiatric: Mood and Affect: Mood normal. ASSESSMENT AND PLAN ASSESSMENT/PLAN: 1. Kidney stone - ICD9: 592.0, ICD10: N20.0 For right For right percutaneous nephrolithotripsy - XR ABDOMEN 1V SUPINE Discussed with patient She may require multiple sessions due to the size of the kidney stones for Kiya Walker MD This note was partially created using voice recognition software and is inherently subject to errors including those of syntax and sound-alike substitutions which may escape p (more content not included)... 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 Patient's last menstrual period was 05/09/2023. GC/chlamydia: Negative on 09/06/2024 test: negative Side effects including irregular bleeding were discussed with the patient. The patient understands that it should be removed in 8 years or sooner if the patient desires a . IUD source: office provided IUD lot #: [id number] Exp date: September 2026 UNIVERSAL PROTOCOL / SAFETY CHECKLIST Procedure to be Performed: Insertion Mirena Intrauterine Device. Sign In: A Moment of CARE was completed. Appropriate PPE (Personal Protective Equipment) worn by all providers involved with the procedure. Special equipment not required. Patient/Surrogate Stated/Verified: Patient name, Date of , Relevant allergies, and The intended procedure Time Out: Relevant labs, photos, and/or imaging studies have been reviewed. Intended patient and procedure match the source document(s) (e.g. consent, HANDP, associated studies [imaging, pathology]) are not applicable. Consent obtained and matches the intended procedure. Yes. Correct side/site is not applicable. Medications required for this procedure are verified. are not applicable. Fire risk assessed and is not applicable. Implants: are not applicable. Sign Out: Specimens not collected. All instruments, equipment, possible retained foreign bodies are accounted for. Yes. The post-procedure plan of care has been communicated to the patient or surrogate. The cervix was prepped with betadine. The uterus sounded to 7 cm and the uterus is Midposition.. Using sterile technique, the Mirena IUD was inserted without difficulty and the string was cut to 2 cm from the external os of the cervix. Patient tolerated procedure well. PLAN: Patient was advised to observe for signs and symptoms of infection including but not limited to fever, malodorous vaginal discharge and/or pain. The patient was told to check the string monthly for accurate placement. Bleeding expectations were reviewed. Follow up 4 to 6 weeks . Kimberly Stubbs APRN.ROMAN Singletary presents for removal of IUD due to expiration of IUD. UNIVERSAL PROTOCOL / SAFETY CHECKLIST Procedure to be Performed: Removal Mirena Intrauterine Device Sign In: A Moment of CARE was completed. Appropriate PPE (Personal Protective Equipment) worn by all providers involved with the procedure. Special equipment not required. Patient/Surrogate Stated/Verified: Patient name, Date of , Relevant allergies, and The intended procedure Time Out: Relevant labs, photos, and/or imaging studies have been reviewed. Intended patient and procedure match the source document(s) (e.g. consent, HANDP, associated studies [imaging, pathology]) match the intended patient and procedure. Consent obtained and matches the intended procedure. Yes. Correct side/site is not applicable. Medications required for this procedure are verified. Fire risk assessed and is not applicable. Implants: Correct implant(s) confirmed including size and side. Expiration date(s) reviewed. Sign Out: Specimens not collected. All instruments, equipment, possible retained foreign bodies are accounted for. Yes. The post-procedure plan of care has been communicated to the patient or surrogate. PROCEDURE: Speculum placed in vagina, IUD string visualized and grasped with ring forceps. ASSESSMENT/PLAN: IUD removed without difficulty, intact, and patient tolerated procedure well. Contraception plans: Mirena IUD- Replaced today Kimberly Stubbs APRN.CNM Etelvina ArvizuAJ 09/26/2024 8:49 AM Signed POST IUD INSTRUCTIONS You may have irregular bleeding during the first 3 months of use. You may have mild-severe cramping for the next 48 hours. You may use over the counter medication (Motrin, Tylenol) as needed. Your IUD must be removed or replaced based on the following table: IUD Type Removed or replaced within: Jodi 3 years Kyleena 5 years Mirena 8 years Liletta 8 years Paragard 10 years Call the office for signs/symptoms of infection such as severe cramping, fever, or unusual bleeding. Check for string placement as instructed by your doctor. If you have any additional questions, please contact the office. Referring Provider: KIMBERLY STUBBS [[id number]] Allergies As of Date: 09/26/2024 Noted Allergy Reaction CIPROFLOXACIN 06/16/2016 2 - Rash 8 - GI Upset Comments: Nausea, Dizziness, and Racing Heartb (more content not included)... Normal [facility] No Panel Informationon 09-26 [facility] UA DIP, URINE (POC)on 2024 BILIRUBIN UA (POCT) Negative Negative [facility] CLARITY UA (POCT) Slightly Cloudy Cl [facility] COLOR UA (POCT) Yellow [facility] GLUCOSE UA (POCT) Negative Negative mg/dL [facility] Hemoglobin Ql (U) Moderate Abnormal Negative [facility] Interpretation and review of laboratory results Abnormal [facility] KETONE UA (POCT) Negative Negative mg/dL [facility] LEUKOCYTES UA (POCT) Large Abnormal Negative [facility] NITRITE UA (POCT) Negative Negative [facility] PH UA (POCT) 8.0 4.5 - 8.0 [facility] Protein Ql (U) 30 mg/dL Abnormal Negative [facility] SPECIFIC GRAVITY UA (POCT) 1.015 1.005 - 1.030 [facility] UROBILINOGEN UA (POCT) 0.2 Tabatha l E.U./dL [facility] Location:[facility] [place], [address] [place] [address], [address] [place] [address] POINT OF CARE UA DIP,URINE HCG (POC)on Beta HCG ( test) Ql (U) Negative Negative [facility] Comment on above: Location:[facility], [address], [place], [address]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 There were no prior studies available for comparison. The bowel gas pattern is unremarkable. There is no abnormal gaseous distention. There are large staghorn calculi throughout the right kidney. The left kidney shows no acute findings. IMPRESSION: Large staghorn calculi extending throughout the right kidney. Forming Machine Upkeep Mechanic Helper: PSCB Transcribe Date/Time: Oct 01 2024 11:49A Dictated by : AUSTIN WATERS MD This examination was interpreted and the report reviewed and electronically signed by: AUSTIN WATERS MD on Oct 01 2024 11:50AM EST [id number] [facility] JUST[facility] LOVE ([id number]) 1995 F Date Time Provider Department 09/18/24 TONY PEPE INTMWS During your visit today, we recorded the following information about you: Ember Holley LPN 09/18/2024 2:27 PM Signed Fax rec'd from Dr. Davila's office. They can not see pt. She has a balance. Pcp reviewed and noted to consult with Aly Velasquez. Please file consult Will need to fax notes and demographic to that office too. Tony Pepe MD 09/19/2024 1:07 PM Signed Okay. Ember Holley LPN 09/19/2024 3:14 PM Signed Faxed records and consult to Dr. Velasquez. Message left to pt with info. Allergies As of Date: 09/18/2024 Noted Allergy Reaction CIPROFLOXACIN 06/16/2016 2 - Rash 8 - GI Upset Comments: Nausea, Dizziness, and Racing Heartbeat. AMOXICILLIN 12/12/2012 4 - Hives CODEINE 04/05/2016 4 - Hives FLU VAC 2011 (18-64YRS)(PF) 01/23/2018 8 - GI Upset Date Reviewed: 09/05/2024 Reviewed by: Aure Aaron LPN - Fully Assessed Reason for Visit: Consult [173] Primary Visit Diagnosis:Staghorn calculus [N20.0] Order(s):CONSULT TO UROLOGY [9041] Order #: [id number]: 1 FUTURE Prescriptions as of 09/19/2024 - albuterol HFA (PROVENTIL HFA, VENTOLIN HFA) 90 mcg/actuation inhaler Inhale 2 puffs as instructed every 4 hours as needed for wheezing/shortness of breath. - ondansetron orally disintegrating (ZOFRAN ODT) 4 mg disintegrating tablet Take 1 tablet by mouth every 6 hours as needed for nausea/vomiting. - levonorgestrel (MIRENA) 20 mcg/24 hr (5 years) IUD 1 Each by INTRAUTERINE route one time only. - loratadine (CLARITIN) 10 mg tablet Take 10 mg by mouth once daily. - MOMETASONE FUROATE (NASONEX NASAL) Use in the nose. Problem List As Of Date 09/18/2024 Noted Resolved Kidney disorder [N28.9] 12/12/2012 Asthma, exercise induced [J45.990] 12/12/2012 Late care [O09.30] 04/08/2016 09/09/2016 History of bipolar disorder [Z86.59] 04/08/2016 History of recurrent UTI (urinary tract infecti*04/08/2016 09/09/2016 Positive GBS test [B95.1] 07/20/2016 09/09/2016 Kidney stones [N20.0] 08/15/2020 Staghorn calculus [N20.0] 09/15/2024 Encounter Status:Closed by EMBER HOLLEY on 09/19/24 Normal [facility] US KIDNEY/BLADDERon 09-11-19 US KIDNEY/BLADDER * * *Final Report* * * DATE OF EXAM: Sep 10 2024 1:23PM U 1055 - US KIDNEY/BLADDER / PROCEDURE REASON: Staghorn calculus * * * * Physician Interpretation * * * * EXAMINATION: RENAL ULTRASOUND CLINICAL HISTORY: 29 years old Female with Staghorn calculus TECHNIQUE: Sonography of the kidneys and urinary bladder was performed. Images were obtained and stored in a permanent archive. MQ: UR_1 COMPARISON: None RESULT: Right Kidney: -Renal length: 10.0 cm -Parenchyma: Normal parenchymal echogenicity. Diffuse parenchymal thinning present. -Collecting system: Cystic area in the upper pole may represent dilated calyx versus parapelvic cyst. -Calculus: Large echogenic shadowing staghorn calculus throughout the kidney -Lesion: None. Left Kidney: -Renal length: 10.3 cm -Parenchyma: Normal parenchymal echogenicity. Normal parenchymal thickness. -Collecting system: No hydronephrosis. -Calculus: No echogenic, shadowing calculus. -Lesion: None. Bladder: Normal sonographic appearance. IMPRESSION: Large staghorn RIGHT renal calculus with diffuse parenchymal thinning of the RIGHT kidney. Cystic area in the RIGHT upper pole may represent dilated calyx versus parapelvic cyst. Otherwise, no apparent hydronephrosis. Forming Machine Upkeep Mechanic Helper: PSCB Transcribe Date/Time: Sep 12 2024 5:27P Dictated by : HECTOR IBRHAIM DO This examination was interpreted and the report reviewed and electronically signed by: HECTOR IBRAHIM DO on Sep 12 2024 5:32PM EST [id number] Normal [facility] C. trachomatis+N. gonorrhoea e DNA YOMAIRA+probe Ql (Unsp spec)on 09-06-2024 C. trachomatis rRNA YOMAIRA+probe Ql (Unsp spec) Not detected Normal Not detected [facility] Comment on above: Order Comment: Speci men Type: SWABOrdering Facility: [facility] Address: [address] [place] [address] Performed By: #### T RVAMP, [id number] ####[facility] LABCLIA [id number] [address] N. gonorrhoeae rRNA YOMAIRA+probe Ql (Unsp spec) Not detected Normal Not detected [facility] Comment on above: Order Comment: Speci men Type: SWABOrdering Facility: [facility] Address: [address] [place] [address] Performed By: #### T RVAMP, 64236-2 ####[facility] LABCLIA [id number] [address] [place] CNOVon 09-06-2024 CNOV Office Visit (OBGYWM ) JUSTIN LOVE ([id number]) 1995 F Date Time Provider Department 09/06/24 10:00 AM KIMBERLY STUBBS OBGYWM During your visit today, we recorded the following information about you: Blood pressure Weight Height Last Period 10460 53.5 kg 1.53 m 05/09/23 Kimberly Stubbs APRN.CNM 09/06/2024 11:11 AM Signed Justin is a 29 year old who presents for an annual gynecologic exam without complaints. Maternal grandmother recently diagnosed with breast cancer and family getting gene testing. Still get period: No Time with current partner: 11 years Number of lifetime partners: 1 control frequency: Always HPV vaccine: Unsure; HPV:N/A Last pap smear: 03/2016 History of abnormal pap: No, all prior PAP smears have been normal Bothersome pelvic pain: No Last mammogram: never Family hx of gynecological assistant malignancy: Breast cancer OB History Gravida1 Para1 Term1 Preterm0 AB0 Living1 SAB0 IAB0 Ectopic0 Multiple0 Live Births1 Flight Attendant Ramp History LMP: 05/09/2023, IUD Age at Menarche: 9 Age at First : Age at Menopause: Flight Attendant Ramp History Comments: Sexual Activity: Yes; Male Contraception: I.U.D. PAST MEDICAL HISTORY Diagnosis Date Anemia Asthma, exercise induced (HCC) 12/12/2012 Bipolar disorder (HCC) 2012 Dr. Feng History of bipolar disorder 04/08/2016 off medication since 2016 History of frequent urinary tract infections 10/14/2012 History of suicidal ideation 2013 Hydronephrosis, left 10/14/2012 Irregular menses Kidney stones 08/15/2020 Seasonal allergies 2012 PAST SURGICAL HISTORY Procedure Laterality Date CYSTOSCOPY, W/INSERTION URETHRAL STENT Left 08/12/2020 retrograde pyelogram CYSTOSCOPY, W/INSERTION URETHRAL STENT Right 05/23/2019 CYSTOSCOPY,URETEROSCO PY,STONE REMV Left 08/15/2020 INSERTION OF IUD 01/06/2017 LITHOTRIPSY EXTRACORP SHOCK WAVE(ESWL) Right 07/13/2019 PAST SURGICAL HISTORY OF wisdom teeth, tubes in ears FAMILY HISTORY Problem Relation Age of Onset Psychiatry Mother Bipolar Arthritis Mother Asthma Father No Known Problems Brother COPD Maternal Grandmother Breast Cancer Maternal Grandmother Heart Maternal Grandfather Liver Disease Maternal Grandfather of liver failure ~72 years Alcohol abuse Maternal Grandfather Kidney Disease Paternal Grandmother Alzheimer's Disease Paternal Grandfather age 71 SOCIAL HISTORY Social History Tobacco Use Smoking status: Former Current packs/day: 0.50 Average packs/day: 0.5 packs/day for 1 year (0.5 ttl pk-yrs) Types: Cigarettes Start date: 09/06/2023 Smokeless tobacco: Never Vaping Use Vaping status: current everyday user Start date: 02/07/2022 Substances: Nicotine Devices: Disposable Substance Use Topics Alcohol use: No Drug use: Never REVIEW OF SYSTEMS Abdomen: No abdominal pain, nausea, vomiting, diarrhea, or constipation. No bloating, early satiety, indigestion, or increased flatulence. Bladder: No dysuria, gross hematuria, urinary frequency, urinary urgency, or incontinence. Breast: No breast lumps, nipple d/c, overlying skin changes, redness or skin retraction. Allergies and current medication updated:Yes SENSITIVE EXAM: The sensitive examination was discussed with the Patient or Patient's Authorized Help Desk Technician. As applicable, any other physician, advance practice provider, medical student, or other health professional student that will be observing or involved in the sensitive examination for educational or training purposes was discussed with the Patient or Authorized Help Desk Technician. The Patient or Authorized Help Desk Technician has agreed to proceed with the sensitive examination. (Sensitive examination includes inspection and/or palpation of the breasts, pelvis, prostate and anorectal regions). EXAM: BP 104/60 Ht 5' .25 (1.53m) Wt 118 lb (53.5kg) LMP 05/09/2023 BMI 22.86 kg/(m2). GENERAL: pleasant, female in no apparent distress HEENT: Normocephalic and atraumatic NECK: Supple, full range of motion, and no adenopathy DERMATOLOGY: Normal, without lesions, non-icteric, and non-hirsute BREAST: soft, non-tender, symmetric, no dominant mass, normal nipple-areolar complex, no lymphadenopathy, no nipple discharge, and fibrocystic changes CHEST: Normal inspiratory effort ABDOMEN: soft, non-tender, and no masses PELVIC: external genitalia normal, normal Bartholin's glands, urethra, Tabernash's glands, no vulvar lesions, no cervical lesions, good vaginal support, physiologic discharge present, normal appearing perineal body and perianal region BIMANUAL: uterus normal size, shape and consistency, no adnexal masses, non-tender, and IUD strings visible RECTOVAGINAL: deferred. NEURO: alert and oriented x3,exam grossly non-focal EXTREMITIES: normal ASSESSMENT/PLAN: 1) Health maintenance: Pap done with (more content not included)... Normal [facility] PAP TESTon 09-06-2024 ADEQUACY Normal [facility] Comment on above: Order Comment: Speci men Type: FLUID SPECIMENOrdering Facility: [facility] Address: [address] [place] [address] Result Comment: Sati sfactory for interpretation. Transformation zone present Performed By: #### L [id number] ####[facility] LABCLIA [id number] [address] [address] [place] CASE REPORT Normal [facility] Comment on above: Order Comment: Speci men Type: FLUID SPECIMENOrdering Facility: [facility] Address: [address] [place] [address] Result Comment: Gyne cologic Cytology Report Case: [id number] Authorizing Provider: Kimberly Stubbs APRN.CNM Collected: 09/06/2024 10:58 AM Ordering Location: OB/Gynecology Received: 09/06/2024 03:15 PM First Screen: Jia, Patsy, CT, ASCP Specimen: Pap Test, ThinPrep, Cervix Performed By: #### L [id number] ####[facility]CLIA [id number] [address] [address] [place] CLINICAL HISTORY, CYTOLOGY, CREDIT RISK OFFICER Routine Exam Normal [facility] Comment on above: Order Comment: Speci men Type: FLUID SPECIMENOrdering Facility: [facility] Address: [address] [place] [address] Performed By: #### L [id number] ####[facility]CLIA [id number] [address] [address] [place] CYTOLOGY PAP OTHER INTERPRETATION Predominance of coccobacilli consistent with shift in vaginal leta. Normal [facility] Comment on above: Order Comment: Speci men Type: FLUID SPECIMENOrdering Facility: [facility] Address: [address] [place] [address] Performed By: #### L [id number] ####[facility]CLIA [id number] [address] [address] [place] FINAL PERFORMING LAB Normal [facility] Comment on above: Order Comment: Speci men Type: FLUID SPECIMENOrdering Facility: [facility] Address: [address] [place] [address] Result Comment: Tech nical component, digital composer screening performed at: [facility], [address] [place] [address] [place] [address] CLIA: [id number] Diagnostic interpretation performed at: [facility], [address] [place] [address] [place] [address] CLIA# [id number] Senior Financial Reporting Analyst: Heladio Barraza MD Performed By: #### L [id number] ####[facility]CLIA [id number] [address] [address] [place] INTERPRETATION, CYTOLOGY, CREDIT RISK OFFICER Normal [facility] Comment on above: Order Comment: Speci men Type: FLUID SPECIMENOrdering Facility: [facility] Address: [address] [place] [address] Result Comment: Nega tive for intraepithelial lesion or malignancy. at 1409 EDT Performed By: #### L [id number] ####[facility]CLIA [id number] [place] [id number] [place] LMP 05/09/2023 Normal [facility] Comment on above: Order Comment: Speci men Type: FLUID SPECIMENOrdering Facility: [facility] Address: [address] [place] [address] Performed By: #### L [id number] ####[facility]CLIA [id number] [address] [address] [place] PAP DISCLAIMER COMMENT The Pap Smear is a screening test for cervical cancer. False negative results occur with all screening tests, emphasizing the need for rescreening at recommended intervals, and clinical correlation. Normal [facility] Comment on above: Order Comment: Speci men Type: FLUID SPECIMENOrdering Facility: [facility] Address: [address] [place] [address] Performed By: #### L [id number] ####[facility]CLIA [id number] [address] [address] [place] PAP MOLD FILLING OPERATOR COMMENT This specimen has been analyzed by the FDA-approved Photos I LikeTM System, which uses digital imaging and an enhanced artificial intelligence image analysis algorithm to identify cuellar of interest on the microscopic slide, to assist the aircraft maintenance supervisor and pathologist in evaluating cells on ThinPrep Pap tests. Following analysis, cuellar of interest on the microscopic slide selected by the algorithm are reviewed by a aircraft maintenance supervisor. If a sample requires hierarchical review, the pathologist will review the same cuellar of interest selected by the algorithm prior to final interpretation. Normal [facility] Comment on above: Order Comment: Speci men Type: FLUID SPECIMENOrdering Facility: [facility] Address: [address] [place] [address] Performed By: #### L [id number] ####[facility] LABIA [id number] [place] [address] [place] TRICHOMONAS VAGINALIS NAATon 09-06-2024 T. vaginalis DNA YOMAIRA+probe Ql (Unsp spec) Not detected Normal Not detected [facility] Comment on above: Order Comment: Speci men Type: SWABOrdering Facility: [facility] Address: [address] [place] [address] Performed By: #### T RVAMP, [id number] ####[facility] LABIA [id number] [place] [address] [place] CNOVon 09-05-2024 CNOV Office Visit (INTMWS ) JUSTIN LOVE ([id number]) 1995 F Date Time Provider Department 09/05/24 1:00 PM TONY PEPE INTMWS During your visit today, we recorded the following information about you: Temperature Pulse Respiration Blood pressure 98 degrees 96/minute 18/minute 100/66 Weight Height 54.2 kg 1.543 m Tony Pepe MD 09/05/2024 6:11 PM Signed Subjective Justin Love is a 29 year old female. Patient presents with: Establish Care Justin was here to establish. She had no PCP for several years. She was in the ER recently for right flank pain and there was concern about a staghorn calculus. Her flank pain resolved. She had a history of kidney disease and urinary tract infection since childhood. On review, this was probably from recurrent kidney stones. She had seen Dr. Love Alfonso in the past, but did not appreciate her care, so she was cared for by Dr. Jenesn Davila in 2020. Asthma and allergies were mild and generally controlled. PAST MEDICAL HISTORY Diagnosis Date Anemia Asthma, exercise induced (HCC) 12/12/2012 Bipolar disorder ([facility]) 2012 Dr. Feng History of bipolar disorder 04/08/2016 off medication since 2016 History of frequent urinary tract infections 10/14/2012 History of suicidal ideation 2012 Hydronephrosis, left 10/14/2012 Irregular menses Kidney stones 08/15/2020 Seasonal allergies 2012 PAST SURGICAL HISTORY Procedure Laterality Date CYSTOSCOPY, W/INSERTION URETHRAL STENT Left 08/12/2020 retrograde pyelogram CYSTOSCOPY, W/INSERTION URETHRAL STENT Right 05/23/2019 CYSTOSCOPY,URETEROSCO PY,STONE REMV Left 08/15/2020 LITHOTRIPSY EXTRACORP SHOCK WAVE(ESWL) Right 07/13/2019 PAST SURGICAL HISTORY OF wisdom teeth, tubes in ears FAMILY HISTORY Problem Relation Age of Onset Psychiatry Mother Bipolar Arthritis Mother Asthma Father No Known Problems Brother COPD Maternal Grandmother Breast Cancer Maternal Grandmother Heart Maternal Grandfather Liver Disease Maternal Grandfather of liver failure ~72 years Alcohol abuse Maternal Grandfather Kidney Disease Paternal Grandmother Alzheimer's Disease Paternal Grandfather age 71 Social History Tobacco Use Smoking status: Former Current packs/day: 0.50 Average packs/day: 0.5 packs/day for 1 year (0.5 ttl pk-yrs) Types: Cigarettes Start date: 09/06/2023 Smokeless tobacco: Never Vaping Use Vaping status: current everyday user Start date: 02/07/2022 Substances: Nicotine, Flavoring Devices: Disposable Substance Use Topics Alcohol use: No Drug use: Never ALLERGIES Allergen Reactions Ciprofloxacin Rash, GI Upset Nausea, Dizziness, and Racing Heartbeat. Amoxicillin Hives Codeine Hives Flu Vac 2011 (18-64* GI Upset Current Outpatient Medications Medication Sig ondansetron orally disintegrating (ZOFRAN ODT) 4 mg disintegrating tablet Take 1 tablet by mouth every 6 hours as needed for nausea/vomiting. levonorgestrel (MIRENA) 20 mcg/24 hr (5 years) IUD 1 Each by INTRAUTERINE route one time only. loratadine (CLARITIN) 10 mg tablet Take 10 mg by mouth once daily. MOMETASONE FUROATE (NASONEX NASAL) Use in the nose. albuterol HFA (PROVENTIL HFA, VENTOLIN HFA) 90 mcg/actuation inhaler Inhale 2 puffs as instructed every 4 hours as needed for wheezing/shortness of breath. No current facility-administered medications for this visit. Objective BP 100/66 (BP Site: Left Arm, BP Position: Sitting, BP Cuff Size: Large Adult) Pulse 96 Temp 36.7 ?C (98 ?F) (Temporal) Resp 18 Ht 154.3 cm (5' 0.75) Wt 54.2 kg (119 lb 7.8 oz) LMP 01/02/2017 (Exact Date) BMI 22.76 kg/m? Physical Exam Constitutional: Appearance: Normal appearance. HENT: Head: Normocephalic. Nose: No congestion or rhinorrhea. Mouth/Throat: Mouth: Mucous membranes are moist. Pharynx: Oropharynx is clear. Eyes: Extraocular Movements: Extraocular movements intact. Conjunctiva/sclera: Conjunctivae normal. Cardiovascular: Rate and Rhythm: Normal rate. Heart sounds: No murmur heard. No gallop. Pulmonary: Breath sounds: Normal breath sounds. Abdominal: Palpations: Abdomen is soft. Tenderness: There is no abdominal tenderness. There is no right CVA tenderness or left CVA tenderness. Musculoskeletal: General: No tenderness. Normal range of motion. Right lower leg: No edema. Left lower leg: No edema. Lymphadenopathy: Cervical: No cervical adenopathy. Skin: General: Skin is warm and dry. Neurological: General: No focal deficit present. Mental Status: She is alert. ASSESSMENT/PLAN: 1. Screening for cervical cancer - ICD9: V76.2, ICD10: Z12.4 (primary diagnosis) - CONSULT TO GYNECOLOGY 2. Screening for depression - ICD9: V79.0, ICD10: Z13.31 - DEPRESSION SCREENING 3. Encounter for screening examination for other mental heal (more content not included)... Normal [facility] Abdomen/Pelvis W IV Cont ONL Yon 08-20-2024 Abdomen/Pelvis W IV Cont ONLY [facility] Imaging Services [address] [place], [place] [address] Abdomen/Pelvis W IV Cont ONLY MR#: [id number] Acct: [id number] Name: JUSTIN LOVE Rep #: [id number] : 1995 F 29 From: Garrick santoro MD PCP: Care Physician,No Primary Status: REG ER Study: Abdomen/Pelvis W IV Cont ONLY Date of Exam: Exam# [id number] Ordering Dr: Umesh Payne MD ADDENDUM by Dr. Garrick Katz MD on 08/20/24 at 1026 This is an addendum report. If the patient does not have any history of right staghorn calculus, this most likely represents right hydronephrosis with dilatation of the right renal calices with possible inflammation in the renal pelvis with thickening of the proximal right ureter. Clinical correlation recommended. Reading Location: [facility] 08/20/24 1026 Date cc: Dr. Umesh Payne MD; No Primary Care Physician * Signed PROCEDURE: ABDOMEN/PELVIS W IV CONT ONLY 08/20/2024 REASON FOR EXAM: BILAT LOWER ABD PAIN, N/V, FEVER TECHNIQUE: ABDOMEN/PELVIS W IV CONT ONLY Coronal and Sagittal reconstruction series were provided. CONTRAST: Isovue-300 VOLUME: 100 mL One or more dose reduction techniques were used (e.g., Automated exposure control, adjustment of the mA and/or kV according to patient size, use of iterative reconstruction technique. RADIATION DOSE SUMMARY: CTDlvol: 15.5 mGy DLP: 386.93 mGycm COMPARISON: Prior study dated August 11, 2020. FINDINGS: Lung bases: Lung bases are clear. Liver: Normal size. No mass. Gallbladder: No evidence of gallstones. Spleen: Normal size. Pancreas: Normal size without evidence of mass surrounding inflammation or ductal dilation. Adrenals: Unremarkable Kidneys: There is evidence of a large staghorn calculus in the right kidney filling the entire collecting system with the minimal left hydronephrosis. Bladder: Unremarkable Reproductive Organs: There is a 1.7 cm follicle in the right ovary. An IUD is seen within the endometrium. Bowel: Unremarkable Appendix: Unremarkable Lymph nodes: Unremarkable. Vasculature: The abdominal aorta and IVC are normal. Peritoneum / Retroperitoneum: Unremarkable Bones: Unremarkable CT/Abdomen/Pelvis W IV Cont ONLY IMPRESSION: Large right staghorn calculus. Reading Location: [place] [address] CC: Dr. Umesh Payne MD; No Primary Care Physician Forming Machine Upkeep Mechanic Helper: Signed Normal [facility] Absolute lymphocyte countOrd ered By: Umesh Payne on 08-20-2024 Lymphocytes Auto (Unsp spec) [#/Vol] 2.41 10*3/uL 0.83-4.51 [facility] Absolute neutrophil countOrd ered By: Umesh Payne on 08-20-2024 Neutrophils (Bld) [#/Vol] 15.6 10*3/uL High 2.0-7.7 [facility] Anion gap in Serum or Plasma Ordered By: Umesh Payne on 08-20-2024 Anion gap [Moles/Vol] 14 mmol/L 5-15 [facility] BUN/creatinine ratioOrdered By: Umesh Payne on 08-20-2024 Urea nitrogen/Creatinine [Mass ratio] 9.5 mg/mg Low 10-20 [facility] Basophil percentageOrdered B y: Umesh Payne on 08-20-2024 Basophils/100 WBC (Bld) 0.3 % 0-1 [facility] Bilirubin, totalOrdered By: Umesh Payne on 08-20-2024 Bilirubin [Mass/Vol] 0.42 mg/dL 0.00-1.30 [facility] Blood platelets count (numbe r/volume)Ordered By: Umesh Payne on 07-14-2025 Platelets (Bld) [#/Vol] 460 10*3/uL High 150-450 [facility] CBC W/Diff, Automatedon 07-1 -2024 Absolute Lymph 2.41 X10 3/uL Normal 0.83-4.51 [facility] Comment on above: Performed By: #### L 100.0100, L500.4050 #### [facility] [address] [place], [address] Absolute Neut 15.6 X10 3/uL High 2.0-7.7 [facility] Comment on above: Performed By: #### L 100.0100, L500.4050 #### [facility] [address] [place], [address] Basophils/100 WBC (Bld) 0.3 % Normal 0-1 [facility] Comment on above: Performed By: #### L 100.0100, L500.4050 #### [facility] [address] [place], [address] Eosinophils/100 WBC (Bld) 0.1 % Normal 0-5 [facility] Comment on above: Performed By: #### L 100.0100, L500.4050 #### [facility] [address] [place], [address] IG% 1.000 High 0.0-0.9 [facility] Comment on above: Result Comment: IG% - Immature Granulocytes (promyelocytes, myelocytes and metamyelocytes) > 1% indicates that a LEFT SHIFT is Present. Performed By: #### L 100.0100, L500.4050 #### [facility] [address] [place], [address] Lymphocytes/100 WBC (Bld) 12.3 % Low 19-41 [facility] Comment on above: Performed By: #### L 100.0100, L500.4050 #### [facility] [address] [place], [address] Monocytes/100 WBC (Bld) 6.4 % Normal 0-10 [facility] Comment on above: Performed By: #### L 100.0100, L500.4050 #### [facility] [address] [place], [address] Erythrocyte distribution width (RBC) [Ratio] 11.9 % Normal 11.6-14.6 [facility] Comment on above: Performed By: #### L 100.0100, L500.4050 #### [facility] [address] [place], [address] Hematocrit (Bld) [Volume fraction] 40.1 % Normal 37-47 [facility] Comment on above: Performed By: #### L 100.0100, L500.4050 #### [facility] [address] [place], [address] Hemoglobin (Bld) [Mass/Vol] 14.1 g/dL Normal 12.0-15.0 [facility] Comment on above: Performed By: #### L 100.0100, L500.4050 #### [facility] [address] [place], [address] MCH (RBC) [Entitic mass] 30.8 pg Normal 27.0-32.0 [facility] Comment on above: Performed By: #### L 100.0100, L500.4050 #### [facility] [address] [place], [address] MCHC (RBC) [Mass/Vol] 35.2 g/dL Normal 32-36 [facility] Comment on above: Performed By: #### L 100.0100, L500.4050 #### [facility] [address] [place], [address] MCV (RBC) [Entitic vol] 87.6 fL Normal 81-99 [facility] Comment on above: Performed By: #### L 100.0100, L500.4050 #### [facility] [address] [place], [address] Neutrophils/100 WBC (Bld) 79.9 % High 47-70 [facility] Comment on above: Performed By: #### L 100.0100, L500.4050 #### [facility] [address] [place], [address] Platelet mean volume (Bld) [Entitic vol] 9.6 fL Normal 6.2-12.0 [facility] Comment on above: Performed By: #### L 100.0100, L500.4050 #### [facility] [address] [place], [address] Platelets (Bld) [#/Vol] 460 10*3/uL High 150-450 [facility] Comment on above: Performed By: #### L 100.0100, L500.4050 #### [facility] [address] [place], [address] RBC (Bld) [#/Vol] 4.58 10*6/uL Normal 4.2-5.4 [facility] Comment on above: Performed By: #### L 100.0100, L500.4050 #### [facility] [address] [place], [address] RDW SD 38.4 fl Normal 35.1-43.9 [facility] Comment on above: Performed By: #### L 100.0100, L500.4050 #### [facility] [address] [place], [address] WBC (Bld) [#/Vol] 19.6 10*3/uL High 4.4-11.0 [facility] Comment on above: Performed By: #### L 100.0100, L500.4050 #### [facility] [address] [place], [place], [address] Carbon dioxide, total [Moles /volume] in Central venous bloodOrdered By: Umesh Payne on 08-20-2024 CO2 [Moles/Vol] 23.3 mmol/L 21.0-32.0 [facility] Chest PA and Lateralon 08-20 Chest PA and Lateral [facility] Imaging Services [address] [place], [place] [address] Chest PA and Lateral MR#: [id number] Acct: [id number] Name: JUSTIN LOVE Rep #: [id number] : 1995 F 29 From: Garrick santoro MD PCP: Care Physician,No Primary Status: REG ER Study: Chest PA and Lateral Date of Exam: 08/20/24 Exam# [id number] Ordering Dr: Umesh Payne MD PROCEDURE: CHEST PA AND LATERAL 08/20/2024 REASON FOR EXAM: COUGH, VOMITING, FEVER TECHNIQUE: CHEST PA AND LATERAL COMPARISON: None FINDINGS: Hardware: None Heart: The heart size is normal. Mediastinum: The mediastinal contour is unremarkable. Lungs: The lungs are clear. Bones: The bones are unremarkable. RAD/Chest PA and Lateral IMPRESSION: NEGATIVE CHEST Reading Location: [place] [address] CC: Dr. Umesh Payne MD; No Primary Care Physician Forming Machine Upkeep Mechanic Helper: Signed Normal [facility] Chloride assayOrdered By: Kylie Payne on 08-20-2024 Chloride [Moles/Vol] 104 mmol/L 98-108 [facility] Comprehensive Metabolic Prof ilon 08-20-2024 Albumin [Mass/Vol] 4.2 g/dL Normal 3.5-5.0 [facility] Comment on above: Performed By: #### L 100.0100, L500.4050 ####[facility] [address] [place], [place], [address] Albumin/Globulin [Mass ratio] 1.5 {ratio} Normal 0.9-2.4 [facility] Comment on above: Performed By: #### L 100.0100, L500.4050 ####[facility] [address] [place], [address] ALK PHOS 86 U/L Normal 35-104 [facility] Comment on above: Performed By: #### L 100.0100, L500.4050 ####[facility] [address] [place], [address] ALT [Catalytic activity/Vol] 12 U/L Normal <=34 [facility] Comment on above: Performed By: #### L 100.0100, L500.4050 ####[facility] [address] [place], [address] AST [Catalytic activity/Vol] 20 U/L Normal <=31 [facility] Comment on above: Performed By: #### L 100.0100, L500.4050 ####[facility] [address] [place], [address] Bilirubin [Mass/Vol] 0.42 mg/dL Normal 0.00-1.30 [facility] Comment on above: Performed By: #### L 100.0100, L500.4050 ####[facility] [address] [place], [address] BUN/CRE 9.5 RATIO Low 10-20 [facility] Comment on above: Performed By: #### L 100.0100, L500.4050 ####[facility] [address] [place], [address] Calcium [Mass/Vol] 9.6 mg/dL Normal 7.6-11.0 [facility] Comment on above: Performed By: #### L 100.0100, L500.4050 ####[facility] [address] [place], [address] Chloride [Moles/Vol] 104 mmol/L Normal 98-108 [facility] Comment on above: Performed By: #### L 100.0100, L500.4050 ####[facility] [address] [place], [address] CO2 [Moles/Vol] 23.3 mmol/L Normal 21.0-32.0 [facility] Comment on above: Performed By: #### L 100.0100, L500.4050 ####[facility] [address] [place], [address] Creatinine [Mass/Vol] 0.57 mg/dL Low 0.70-1.20 [facility] Comment on above: Performed By: #### L 100.0100, L500.4050 ####[facility] [address] [place], [address] ECRCL 104.60 ml/min Normal 50-250 [facility] Comment on above: Performed By: #### L 100.0100, L500.4050 ####[facility] [address] [place], [address] GAP 14 Normal 5-15 [facility] Comment on above: Performed By: #### L 100.0100, L500.4050 ####[facility] [address] [place], [address] GFR/1.73 sq M.predicted among non-blacks MDRD (S/P/Bld) [Vol rate/Area] 126 mL/min/{1.73_m2} Normal >60 [facility] Comment on above: Result Comment: mL/m in/1.73m2 CKD-EPI Creatinine Equation (2020) Performed By: #### L 100.0100, L500.4050 ####[facility] [address] [place], [address] Globulin (S) [Mass/Vol] 2.8 g/dL Normal 2.2-4.2 [facility] Comment on above: Performed By: #### L 100.0100, L500.4050 ####[facility] [address] [place], [address] Glucose [Mass/Vol] 107 mg/dL High 70-99 [facility] Comment on above: Performed By: #### L 100.0100, L500.4050 ####[facility] [address] [place], [address] Potassium [Moles/Vol] 3.1 mmol/L Low 3.3-5.1 [facility] Comment on above: Performed By: #### L 100.0100, L500.4050 ####[facility] [address] [place], [address] Sodium [Moles/Vol] 140 mmol/L Normal 133-145 [facility] Comment on above: Performed By: #### L 100.0100, L500.4050 ####[facility] [address] [place], [address] T PROT 7.0 g/dL Normal 5.9-8.4 [facility] Comment on above: Performed By: #### L 100.0100, L500.4050 ####[facility] [address] [place], [address] Urea nitrogen [Mass/Vol] 5 mg/dL Normal 4-19 [facility] Comment on above: Performed By: #### L 100.0100, L500.4050 ####[facility] [address] [place], [address] Emergency Department Summary on 08-20-2024 Emergency Department Summary [facility] Medical Records Department [address] [place] [address] Emergency Department Summary 08/20/24 MR#: [id number] Acct: [id number] Name: VEE LOVEMALA SNYDER Rep #: [id number] : 1995 29 From: Umesh Payne MD PCP: Care Physician,No Primary Status:REG ER Location: ED HPI HPI - GI History of Present Illness Chief Complaint: Nausea/Vomiting Informant: patient Narrative Narrative: 29-year-old female has been vomiting since yesterday morning. She was seen here yesterday for the same thing, she states she is feeling worse. She admits she has not been able to olive picker her promethazine prescription yet. She is still vomiting and having significant diffuse abdominal pain that radiates into her back. The pain is worse in the lower but she states even when it started, it was on both sides at the same time. She has had kidney stones in the past and states this does not feel the same. She has had urinary infections in the past and states she has no symptoms of a urinary infection such as frequency, dysuria, urgency. She has had no vaginal bleeding or discharge and actually has not had a menstrual cycle in 8 years since she has been on Mirena which is currently in place. She states after the ER visit yesterday she went home and had a fever up to 100.8. She denies any known sick contacts. She has had no diarrhea or blood in her stool or melena, her bowel movements been normal. She denies any hematemesis. She has had a cough and a little bit of asthma exacerbation wheezing, she states she was on vacation recently and thought it was related. She states the breathing is not as bad now but the cough is persistent occasionally productive with clear phlegm. No blood. PFSH PFSH Medical History Wears contact lenses Wears glasses History of renal disease Asthma Anemia Depression Former smoker Home Medications ???Medication ???Instructions ???Recorded ???Last Taken ???Type albuterol sulfate 90 mcg/actuation 1 inh inhalation Q4H 08/19/24 Un known History aerosol inhaler ciprofloxacin HCl 500 mg tablet 500 mg PO BID #14 TABLETS 08/20/24 Unknown Rx tramadol 50 mg tablet 50 mg PO Q6H PRN pain 3 days #12 0 08/20/24 Unknown Rx tabs Allergy/AdvReac Type Severity Reaction Status Date / Time amoxicillin (Amoxicillin) Allergy Hives Verified 08/20/24 08:38 codeine Allergy Hives Verified 08/20/24 08:38 hydrocodone Allergy Hives Verified 08/20/24 08:38 Influenza Virus Vaccines Allergy Anaphylaxis Verified 08/20/24 08:38 strawberry Allergy Anaphylaxis Verified 08/20/24 08:38 Surgical History History of lithotripsy Social History Smoking Status: Former smoker ROS ROS ED Constitutional Constitutional ED: Reports fever(s); Denies chills Eyes Eyes: Denies change in vision or diplopia ENT ENT ED: Denies rhinorrhea or sore throat Cardiovascular Cardiovascular: Denies chest pain or palpitations Respiratory/Chest Respiratory/Chest: Reports cough, dyspnea and sputum Gastrointestinal Gastrointestinal: Reports abdominal pain, nausea and vomiting; Denies diarrhea Genitourinary Genitourinary ED: Denies dysuria, hematuria or urinary frequency Musculoskeletal Musculoskeletal: Reports back pain; Denies neck pain Integumentary Denies abscess or rash Neurologic Neurologic: Denies headache(s), paresthesias or weakness Psychiatric Psychiatric: Denies suicidal thoughts EXAM Physical Exam Const Vital Signs: 08/20/24 08:38 08/20/24 10:38 08/20/24 12:00 Temperature 98.1 F Temperature Source Temporal Pulse Rate 99 74 71 Respiratory Rate 14 16 16 Blood Pressure 113/82 H 110/88 H 112/81 H Blood Pressure Mean 92 95 91 Pulse Ox 98 100 97 Oxygen Delivery Method Room Air Positive well nourished and well developed General Appearance ED: well developed and NAD HEENT Reports moist mucous membranes normocephalic and atraumatic Eyes PERRL and EOMs intact bilaterally Neck full ROM and supple Resp normal respiratory effort and clear to auscultation bilaterally Cardio regular rate, regular rhythm and no murmurs Rate: Negative for tachycardic GI non-distended GI Narrative: Diffuse abdominal tenderness but more prominent in the lower abdomen bilaterally, including McBurney's point the patient states more tender on the left than on the right. No guarding or rebound. No pulsatile mass. Auscultation: hyperactive bowel sounds Palpation: soft Back/Spine Back/Spine Narrative: Mild CVA tenderness on the left no rash or ecchymosis. General Back: other FROM Extremity normal to inspection General Extremety ED: Negative for edema, pulses abnormal or tenderness Gene (more content not included)... Normal [facility] Eosinophil %Ordered By: Richy Payne on 08-20-2024 Eosinophils/100 WBC (Bld) 0.1 % 0-5 [facility] Erythrocyte distribution wid th ratioOrdered By: Umesh Payne on 08-20-2024 Erythrocyte distribution width (RBC) [Ratio] 11.9 % 11.6-14.6 [facility] Glomerular filtration rate ( GFR) estimation/1.73 sq m using serum, plasma, or whole bOrdered By: Umesh Payne on 08-20-2024 GFR/1.73 sq M.predicted among non-blacks MDRD (S/P/Bld) [Vol rate/Area] 126 mL/min/{1.73_m2} >60 [facility] Comment on above: mL/min/1.73m2 CKD-EP I Creatinine Equation (2020) Hematocrit Auto (Bld) [Volum e fraction]Ordered By: Umesh Payne on 08-20-2024 Hematocrit (Bld) [Volume fraction] 40.1 % 37-47 [facility] Hemoglobin measurementOrdere d By: Umesh Payne on 08-20-2024 Hemoglobin (Bld) [Mass/Vol] 14.1 g/dL 12.0-15.0 [facility] Immature granulocyte percent ageOrdered By: Umesh Payne on 08-20-2024 Immature granulocytes/100 WBC (Bld) 1.000 % High 0.0-0.9 [facility] Comment on above: IG% - Immature Granu locytes (promyelocytes, myelocytes and metamyelocytes) > 1% indicates that a LEFT SHIFT is Present. Laboratory - Chemistry and C hemistry - challengeOrdered By: Umesh Payne on 08-20-2024 AST [Catalytic activity/Vol] 20 U/L <32 [facility] Lymphocyte %Ordered By: Richy Payne on 08-20-2024 Lymphocytes/100 WBC (Bld) 12.3 % Low 19-41 [facility] MCV (mean corpuscular volume ) determinationOrdered By: Umesh Payne on 08-20-2024 MCV (RBC) [Entitic vol] 87.6 fL 81-99 [facility] Mean corpuscular hemoglobin (MCH) determinationOrdered By: Umesh Payne on 08-20-2024 MCH (RBC) [Entitic mass] 30.8 pg 27.0-32.0 [facility] Mean corpuscular hemoglobin concentration (MCHC) determinationOrdered By: Umesh Payne on 08-20-2024 MCHC (RBC) [Mass/Vol] 35.2 g/dL 32-36 [facility] Mean platelet volume determi nationOrdered By: Umesh Payne on 08-20-2024 Platelet mean volume (Bld) [Entitic vol] 9.6 fL 6.2-12.0 [facility] Monocyte percentageOrdered B y: Umesh Payne on 08-20-2024 Monocytes/100 WBC (Bld) 6.4 % 0-10 [facility] Neutrophil %Ordered By: Richy Payne on 08-20-2024 Neutrophils/100 WBC (Bld) 79.9 % High 47-70 [facility] Potassium measurement (mass/ volume)Ordered By: Umesh Payne on 08-20-2024 Potassium (Unsp spec) [Mass/Vol] 3.1 mmol/L Low 3.3-5.1 [facility] RBC Auto (Bld) [#/Vol]Ordere d By: Umesh Payne on 08-20-2024 RBC (Bld) [#/Vol] 4.58 10*6/uL 4.2-5.4 [facility] RDWOrdered By: Umesh baltazar on 08-20-2024 RDW 38.4 fl 35.1-43.9 [facility] Serum creatinine measurement (mass/volume)Ordered By: Umesh Payne on 08-20-2024 Creatinine [Mass/Vol] 0.57 mg/dL Low 0.70-1.20 [facility] Serum globulin measurementOr dered By: Umesh Payne on 08-20-2024 Globulin (S) [Mass/Vol] 2.8 g/dL 2.2-4.2 [facility] Serum glucose measurement (m ass/volume)Ordered By: Umesh Payne on 08-20-2024 Glucose [Mass/Vol] 107 mg/dL High 70-99 [facility] Serum or plasma alanine hollingsworth otransferase (ALT) measurementOrdered By: Umesh Payne on 08-20-2024 ALT [Catalytic activity/Vol] 12 U/L <35 [facility] Serum or plasma albumin marques urement (mass/volume)Ordered By: Umesh Payne on 08-20-2024 Albumin [Mass/Vol] 4.2 g/dL 3.5-5.0 [facility] Serum or plasma albumin/glob ulin mass ratioOrdered By: Umesh Payne on 08-20-2024 Albumin/Globulin [Mass ratio] 1.5 {ratio} 0.9-2.4 [facility] Serum or plasma alkaline francesco sphatase measurementOrdered By: Umesh Payne on 08-20-2024 ALP [Catalytic activity/Vol] 86 U/L 35-104 [facility] Serum or plasma calcium marques urement (mass/volume)Ordered By: Umesh Payne on 08-20-2024 Calcium [Mass/Vol] 9.6 mg/dL 7.6-11.0 [facility] Serum or plasma urea nitroge n measurement (mass/volume)Ordered By: Umesh Payne on 08-20-2024 Urea nitrogen [Mass/Vol] 5 mg/dL 4-19 [facility] Sodium levelOrdered By: Richy Payne on 08-20-2024 Sodium [Moles/Vol] 140 mmol/L 133-145 [facility] Total proteinOrdered By: David Payne on 08-20-2024 Protein [Mass/Vol] 7.0 g/dL 5.9-8.4 [facility] White blood cell (WBC) count Ordered By: Umesh Payne on 08-20-2024 WBC (Bld) [#/Vol] 19.6 10*3/uL High 4.4-11.0 [facility] 12 Lead EKGon 08-19-2024 12 Lead EKG [facility] Cardiovascular Services [address] [place] [address] 12 Lead EKG 08/19/24 1253 MR#: [id number] Acct: [id number] Name: JUSTIN LOVE Rep #: [id number] : 1995 29 From: Timur Arce MD Attending Dr: Status: DEP ER Ordering Dr: Joshua Lopez DO Date: 08/19/24 Location: ED Sex: F C Admitted: Test Reason : N/V Blood Pressure : */* mmHG Vent. Rate : 53 BPM Atrial Rate : 53 BPM P-R Int : 110 ms QRS Dur : 94 ms QT Int : 566 ms P-R-T Axes : 37 68 61 degrees QTcB Int : 531 ms Sinus bradycardia with short MI Prolonged QT Abnormal ECG Confirmed by Timur Arce ([id number]), supervising editor trailer NAY MURRY ([id number]) on 08/20/2024 1:10:36 PM Referred By: Confirmed By: Timur Arce 08/20/24 1310 Date Timur Arce MD CC: Dr. Joshua Lopez DO; No Primary Care Physician Signed Normal [facility] Absolute lymphocyte countOrd ered By: Joshua Lopez on 08-19-2024 Lymphocytes Auto (Unsp spec) [#/Vol] 1.46 10*3/uL 0.83-4.51 [facility] Absolute neutrophil countOrd ered By: Joshua Lopez on 08-19-2024 Neutrophils (Bld) [#/Vol] 11.5 10*3/uL High 2.0-7.7 [facility] Anion gap in Serum or Plasma Ordered By: Joshua Lopez on 08-19-2024 Anion gap [Moles/Vol] 16 mmol/L High 5-15 [facility] Automated lymphocyte count a s percentage of total leukocytesOrdered By: Joshua Lopez on 08-19-2024 Lymphocytes/100 WBC Auto (Unsp spec) 10.9 % Low 19-41 [facility] BUN/creatinine ratioOrdered By: Joshua Lopez on 08-19-2024 Urea nitrogen/Creatinine [Mass ratio] 8.9 mg/mg Low 10-20 [facility] Basophil percentageOrdered B y: Joshua Lopez on 08-19-2024 Basophils/100 WBC (Bld) 0.4 % 0-1 [facility] Bilirubin Test strip Ql (U)O rdered By: Joshua Lopez on 08-19-2024 Bilirubin Ql (U) Negative Negative [facility] Bilirubin, totalOrdered By: Joshua Lopez on 08-19-2024 Bilirubin [Mass/Vol] 0.62 mg/dL 0.00-1.30 [facility] CBC W/Diff, Automatedon 08-07 Absolute Lymph 1.46 X10 3/uL Normal 0.83-4.51 [facility] Comment on above: Performed By: #### L 501.2450, L500.4050, L100.0100 #### [facility] [address] [place], [address] Absolute Neut 11.5 X10 3/uL High 2.0-7.7 [facility] Comment on above: Performed By: #### L 501.2450, L500.4050, L100.0100 #### [facility] [address] [place], [address] Basophils/100 WBC (Bld) 0.4 % Normal 0-1 [facility] Comment on above: Performed By: #### L 501.2450, L500.4050, L100.0100 #### [facility] [address] [place], [address] Eosinophils/100 WBC (Bld) 0.0 % Normal 0-5 [facility] Comment on above: Performed By: #### L 501.2450, L500.4050, L100.0100 #### [facility] [address] [place], [address] Erythrocyte distribution width (RBC) [Ratio] 11.9 % Normal 11.6-14.6 [facility] Comment on above: Performed By: #### L 501.2450, L500.4050, L100.0100 #### [facility] [address] [place], [address] Hematocrit (Bld) [Volume fraction] 40.7 % Normal 37-47 [facility] Comment on above: Performed By: #### L 501.2450, L500.4050, L100.0100 #### [facility] [address] [place], [address] Hemoglobin (Bld) [Mass/Vol] 14.5 g/dL Normal 12.0-15.0 [facility] Comment on above: Performed By: #### L 501.2450, L500.4050, L100.0100 #### [facility] [address] [place], [address] IG% 0.700 Normal 0.0-0.9 [facility] Comment on above: Result Comment: IG% - Immature Granulocytes (promyelocytes, myelocytes and metamyelocytes) > 1% indicates that a LEFT SHIFT is Present. Performed By: #### L 501.2450, L500.4050, L100.0100 #### [facility] [address] [place], [address] Lymphocytes/100 WBC (Bld) 10.9 % Low 19-41 [facility] Comment on above: Performed By: #### L 501.2450, L500.4050, L100.0100 #### [facility] [address] [place], [address] MCH (RBC) [Entitic mass] 30.9 pg Normal 27.0-32.0 [facility] Comment on above: Performed By: #### L 501.2450, L500.4050, L100.0100 #### [facility] [address] [place], [address] MCHC (RBC) [Mass/Vol] 35.6 g/dL Normal 32-36 [facility] Comment on above: Performed By: #### L 501.2450, L500.4050, L100.0100 #### [facility] [address] [place], [address] MCV (RBC) [Entitic vol] 86.8 fL Normal 81-99 [facility] Comment on above: Performed By: #### L 501.2450, L500.4050, L100.0100 #### [facility] [address] [place], [address] Monocytes/100 WBC (Bld) 1.9 % Normal 0-10 [facility] Comment on above: Performed By: #### L 501.2450, L500.4050, L100.0100 #### [facility] [address] [place], [address] Neutrophils/100 WBC (Bld) 86.1 % High 47-70 [facility] Comment on above: Performed By: #### L 501.2450, L500.4050, L100.0100 #### [facility] [address] [place], [address] Nucleated RBC (Bld) [#/Vol] 0 10*3/uL Normal 0-5 [facility] Comment on above: Performed By: #### L 501.2450, L500.4050, L100.0100 #### [facility] [address] [place], [address] Platelet mean volume (Bld) [Entitic vol] 9.8 fL Normal 6.2-12.0 [facility] Comment on above: Performed By: #### L 501.2450, L500.4050, L100.0100 #### [facility] [address] [place], [address] Platelets (Bld) [#/Vol] 487 10*3/uL High 150-450 [facility] Comment on above: Performed By: #### L 501.2450, L500.4050, L100.0100 #### [facility] [address] [place], [address] RBC (Bld) [#/Vol] 4.69 10*6/uL Normal 4.2-5.4 [facility] Comment on above: Performed By: #### L 501.2450, L500.4050, L100.0100 #### [facility] [address] [place], [address] RDW SD 37.4 fl Normal 35.1-43.9 [facility] Comment on above: Performed By: #### L 501.2450, L500.4050, L100.0100 #### [facility] [address] [place], [address] WBC (Bld) [#/Vol] 13.4 10*3/uL High 4.4-11.0 [facility] Comment on above: Performed By: #### L 501.2450, L500.4050, L100.0100 #### [facility] [address] [place], [address] Carbon dioxide, total [Moles /volume] in Central venous bloodOrdered By: Joshua Lopez on 08-19-2024 CO2 [Moles/Vol] 22.6 mmol/L 21.0-32.0 [facility] Chloride assayOrdered By: Flakito Lopez on 08-19-2024 Chloride [Moles/Vol] 102 mmol/L 98-108 [facility] Comprehensive Metabolic Prof ilon 08-19-2024 Albumin [Mass/Vol] 4.4 g/dL Normal 3.5-5.0 [facility] Comment on above: Performed By: #### L 501.2450, L500.4050, L100.0100 #### [facility] [address] [place], [address] Albumin/Globulin [Mass ratio] 1.4 {ratio} Normal 0.9-2.4 [facility] Comment on above: Performed By: #### L 501.2450, L500.4050, L100.0100 #### [facility] [address] [place], [address] ALK PHOS 97 U/L Normal 35-104 [facility] Comment on above: Performed By: #### L 501.2450, L500.4050, L100.0100 #### [facility] [address] [place], [address] ALT [Catalytic activity/Vol] 14 U/L Normal <=34 [facility] Comment on above: Performed By: #### L 501.2450, L500.4050, L100.0100 #### [facility] [address] [place], [address] AST [Catalytic activity/Vol] 20 U/L Normal <=31 [facility] Comment on above: Performed By: #### L 501.2450, L500.4050, L100.0100 #### [facility] [address] [place], [address] Bilirubin [Mass/Vol] 0.62 mg/dL Normal 0.00-1.30 [facility] Comment on above: Performed By: #### L 501.2450, L500.4050, L100.0100 #### [facility] [address] [place], [address] BUN/CRE 8.9 RATIO Low 10-20 [facility] Comment on above: Performed By: #### L 501.2450, L500.4050, L100.0100 #### [facility] [address] [place], [address] Calcium [Mass/Vol] 9.6 mg/dL Normal 7.6-11.0 [facility] Comment on above: Performed By: #### L 501.2450, L500.4050, L100.0100 #### [facility] [address] [place], [address] Chloride [Moles/Vol] 102 mmol/L Normal 98-108 [facility] Comment on above: Performed By: #### L 501.2450, L500.4050, L100.0100 #### [facility] [address] [place], [address] CO2 [Moles/Vol] 22.6 mmol/L Normal 21.0-32.0 [facility] Comment on above: Performed By: #### L 501.2450, L500.4050, L100.0100 #### [facility] [address] [place], [address] Creatinine [Mass/Vol] 0.60 mg/dL Low 0.70-1.20 [facility] Comment on above: Performed By: #### L 501.2450, L500.4050, L100.0100 #### [facility] [address] [place], [address] ECRCL 99.37 ml/min Normal 50-250 [facility] Comment on above: Performed By: #### L 501.2450, L500.4050, L100.0100 #### [facility] [address] [place], [address] GAP 16 High 5-15 [facility] Comment on above: Performed By: #### L 501.2450, L500.4050, L100.0100 #### [facility] [address] [place], [address] GFR/1.73 sq M.predicted among non-blacks MDRD (S/P/Bld) [Vol rate/Area] 125 mL/min/{1.73_m2} Normal >60 [facility] Comment on above: Result Comment: mL/m in/1.73m2 CKD-EPI Creatinine Equation (2020) Performed By: #### L 501.2450, L500.4050, L100.0100 #### [facility] [address] [place], [address] Globulin (S) [Mass/Vol] 3.0 g/dL Normal 2.2-4.2 [facility] Comment on above: Performed By: #### L 501.2450, L500.4050, L100.0100 #### [facility] [address] [place], [address] Glucose [Mass/Vol] 169 mg/dL High 70-99 [facility] Comment on above: Performed By: #### L 501.2450, L500.4050, L100.0100 #### [facility] [address] [place], [address] Potassium [Moles/Vol] 3.6 mmol/L Normal 3.3-5.1 [facility] Comment on above: Performed By: #### L 501.2450, L500.4050, L100.0100 #### [facility] [address] [place], [address] Sodium [Moles/Vol] 140 mmol/L Normal 133-145 [facility] Comment on above: Performed By: #### L 501.2450, L500.4050, L100.0100 #### [facility] [address] [place], [address] T PROT 7.4 g/dL Normal 5.9-8.4 [facility] Comment on above: Performed By: #### L 501.2450, L500.4050, L100.0100 #### [facility] [address] [place], [address] Urea nitrogen [Mass/Vol] 5 mg/dL Normal 4-19 [facility] Comment on above: Performed By: #### L 501.2450, L500.4050, L100.0100 #### [facility] [address] [place], [address] Emergency Department Summary on 08-19-2024 Emergency Department Summary [facility] Medical Records Department [address] [place] [address] Emergency Department Summary 08/19/24 MR#: [id number] Acct: [id number] Name: JUSTIN LOVE Rep #: [id number] : 1995 29 From: Joshua Lopez DO PCP: Care Physician,No Primary Status:REG ER Location: ED HPI History of Present Illness Chief Complaint: Nausea/Vomiting PFSH PFSH Medical History Anemia Asthma Depression Former smoker History of renal disease Wears contact lenses Wears glasses Home Medications ???Medication ???Instructions ???Recorded ???Last Taken ???Type ondansetron 4 mg disintegrating 4 mg PO Q6H PRN nausea and 4 Unknown Rx tablet vomiting #12 tabs albuterol sulfate 90 mcg/actuation inhalation 08/19/24 Unknown Hist ory aerosol inhaler benzonatate 100 mg capsule 100 mg PO TID 08/19/24 Unknown His tory Allergy/AdvReac Type Severity Reaction Status Date / Time amoxicillin (Amoxicillin) Allergy Hives Verified 08/19/24 12:10 codeine Allergy Hives Verified 08/19/24 12:10 hydrocodone Allergy Hives Verified 08/19/24 12:10 Influenza Virus Vaccines Allergy Anaphylaxis Verified 08/19/24 12:10 strawberry Allergy Anaphylaxis Verified 08/19/24 12:10 Surgical History History of lithotripsy Social History Smoking Status: Former smoker EXAM Physical Exam Const Vital Signs: 08/19/24 12:09 08/19/24 14:08 Temperature 97.8 F 98.4 F Temperature Source Oral Oral Pulse Rate 62 55 L Respiratory Rate 18 17 Blood Pressure 124/77 H 121/86 H Blood Pressure Mean 92 97 Pulse Ox 98 100 Oxygen Delivery Method Room Air Room Air MDM MDM MDM Narrative Medical decision making narrative: HISTORY OF PRESENT ILLNESS: Chief complaint: Nausea vomiting 29-year-old female history of bipolar disorder, asthma presents with nausea vomiting since 5 AM approximately 7 hours prior to arrival. She states she is exhausted. She notes no sick contacts. No recent travel, antibiotics hospitalization. She notes left-sided abdominal pain. She denies any dysuria, hematuria urgency. Does not feel like prior kidney stones. Denies fevers or chills or cough. REVIEW OF SYSTEMS: Pertinent positives: Nausea vomiting, abdominal pain Pertinent negatives: Chest pain, fever PHYSICAL EXAM: Nursing triage notes reviewed, Vital signs reviewed Constitutional: please see mdm HENT: MMM Eyes: Pupils equal round and reactive to light, Extraocular muscles intact Neck: No stridor, no JVD, full neck ROM Lungs: Clear to auscultation, No wheezing or rales. No increased work of breathing, no conversational dyspnea, no accessory muscle use, no nasal flaring. No respiratory distress noted Heart: Regular rate and rhythm, No murmurs, No rubs and No gallops, 2+ distal pulses (radial, femoral, posterior tibial) in all extremities Abdomen: Soft, there is no tenderness, rigidity, rebound or guarding, no obvious peritoneal signs, no palpable pulsatile abdominal masses, no auscultated abdominal bruit : No CVAT Extremities: No edema Neuro: No new focal neurological deficits, cranial nerves II through XII intact, 5/5 strength in all present extremities. Intact sensation to light touch in all present extremities, 2+ reflexes bilateral patella tendons. Skin: No rash or lesions noted MEDICAL DECISION MAKING: Chief Complaint: please see HPI External records reviewed: Reviewed prior ER visits. Factors affecting care: Social determinants of health: none History obtained from others: none Consults: none [facility] Narrative: Patient was initially hemodynamically stable, afebrile and nontoxic-appearing. Exam with benign abdomen. No CVA tenderness. No elicited tenderness on exam. I considered the following differential diagnosis: Dehydration, viral gastroenteritis, obstruction, perforation While I considered bowel obstruction or solid organ perforation the patient abdominal exam and vital signs not consistent with these etiologies. As such no advanced imaging was pursued initially I obtained labs and gave IV fluids as well as Reglan and Pepcid for symptomatic relief. Labs to further determine if the patient was suffering from a life-threatening etiology specifically dehydration, electrolyte abnormalities or BETTINA. ALL IMAGES (IF OBTAINED) HAVE BEEN PERSONALLY REVIEWED AND INTERPRETED BY MYSELF. CBC with leukocytosis that similar to prior studies actually downtrending from prior studies, no significant anemia or thrombocytopenia noted Lipase is wnl indicating no pancreatic inflammation. LFTs show no evidence of hepatobiliary pathology. (more content not included)... Normal [facility] Eosinophil percentageOrdered By: Joshua Lopez on 08-19-2024 Eosinophils/100 WBC (Bld) 0.0 % 0-5 [facility] Erythrocyte distribution wid th ratioOrdered By: Joshua Lopez on 08-19-2024 Erythrocyte distribution width (RBC) [Ratio] 11.9 % 11.6-14.6 [facility] Erythrocyte distribution wid th standard deviationOrdered By: Joshua oLpez on 08-19-2024 Erythrocyte distribution width (RBC) [Ratio] 37.4 fl 35.1-43.9 [facility] Glomerular filtration rate ( GFR) estimation/1.73 sq m using serum, plasma, or whole bOrdered By: Joshua Lopez on 08-19-2024 GFR/1.73 sq M.predicted among non-blacks MDRD (S/P/Bld) [Vol rate/Area] 125 mL/min/{1.73_m2} >60 [facility] Comment on above: mL/min/1.73m2 CKD-EP I Creatinine Equation (2020) Hematocrit Auto (Bld) [Volum e fraction]Ordered By: Joshua Lopez on 08-19-2024 Hematocrit (Bld) [Volume fraction] 40.7 % 37-47 [facility] Hemoglobin measurementOrdere d By: Joshua Lopez on 08-19-2024 Hemoglobin (Bld) [Mass/Vol] 14.5 g/dL 12.0-15.0 [facility] Immature granulocytes/100 WB C Auto (Bld)Ordered By: Joshua Lopez on 08-19-2024 Immature granulocytes/100 WBC (Bld) 0.700 % 0.0-0.9 [facility] Comment on above: IG% - Immature Granu locytes (promyelocytes, myelocytes and metamyelocytes) > 1% indicates that a LEFT SHIFT is Present. Ketones Test strip Ql (U)Ord ered By: Joshua Lopez on 08-19-2024 Ketones Ql (U) 150 mg/dl Abnormal Negative [facility] Comment on above: CRITICAL VALUE USLTANA D TO KASHIF CORRALESG008/19/24 1545 Tanesha Hernandez.RESULTS READ BACK BY SAME. Laboratory - Chemistry and C hemistry - challengeOrdered By: Joshua Lopez on 08-19-2024 AST [Catalytic activity/Vol] 20 U/L <32 [facility] Lipaseon 08-19-2024 Lipase [Catalytic activity/Vol] 18 U/L Normal 13-75 [facility] Comment on above: Result Comment: Jed bean note: LIPASE revised reference range effective 22. New Lipase methodology. Expected to produce lower values than the previous assay method. NEW Reference Range: 13 - 75 U/L Performed By: #### L 501.2450, L500.4050, L100.0100 #### [facility] [address] [place], [address] Lipase measurementOrdered By : Joshua Lopez on 08-19-2024 Lipase [Catalytic activity/Vol] 18 U/L 13-75 [facility] Comment on above: Please note:LIPASE r evised reference range effective 22. New Lipase methodology. Expected to produce lower values than the previous assay method. NEW Reference Range: 13 - 75 U/L MCV (mean corpuscular volume ) determinationOrdered By: Joshua Lopez on 08-19-2024 MCV (RBC) [Entitic vol] 86.8 fL 81-99 [facility] Mean corpuscular hemoglobin (MCH) determinationOrdered By: Joshau Lopez on 08-19-2024 MCH (RBC) [Entitic mass] 30.9 pg 27.0-32.0 [facility] Mean corpuscular hemoglobin concentration (MCHC) determinationOrdered By: Joshua Lopez on 08-19-2024 MCHC (RBC) [Mass/Vol] 35.6 g/dL 32-36 [facility] Mean platelet volume determi nationOrdered By: Joshua Lopez on 08-19-2024 Platelet mean volume (Bld) [Entitic vol] 9.8 fL 6.2-12.0 [facility] Microscopic analysis of urin e for red blood cells (RBC)Ordered By: Joshua Lopez on 08-19-2024 Microscopic analysis of urine for red blood cells (RBC) 5-10 SEEN /hpf 0-5 [facility] Monocyte percentageOrdered B y: Joshua Lopez on 08-19-2024 Monocytes/100 WBC (Bld) 1.9 % 0-10 [facility] Mucus LM Ql (Urine sed)Order ed By: Joshua Lopez on 08-19-2024 Mucus Ql (Urine sed) 0 SEEN /hpf [facility] Neutrophil percentageOrdered By: Joshua Lopez on 08-19-2024 Neutrophils/100 WBC (Bld) 86.1 % High 47-70 [facility] Nitrite Test strip Ql (U)Ord ered By: Joshua Lopez on 08-19-2024 Nitrite Ql (U) Negative Negative [facility] Nucleated red blood cell per centageOrdered By: Joshua Lopez on 08-19-2024 Nucleated RBC/100 WBC (Bld) [Ratio] 0 % 0-5 [facility] Platelet countOrdered By: Flakito Lopez on 08-19-2024 Platelets (Bld) [#/Vol] 487 10*3/uL High 150-450 [facility] Potassium measurement (mass/ volume)Ordered By: Joshua Lopez on 08-19-2024 Potassium (Unsp spec) [Mass/Vol] 3.6 mmol/L 3.3-5.1 [facility] ,Urineon 08-19-2024 Beta HCG ( test) Ql (U) Negative Normal [facility] Comment on above: Result Comment: Very dilute urine specimens, as indicated by a low specific gravity, may not contain hostess party sales representative levels of hCG. If is still suspected, a first morning urine specimen should be collected 48 hours later and tested. Performed By: #### L 476.1820 ####[facility] [id number] [place], [place], [id number] Protein Test strip Ql (U)Ord ered By: Joshua Lopez on 08-19-2024 Protein Ql (U) 100 mg/dl High Negative [facility] RBC Auto (Bld) [#/Vol]Ordere d By: Joshua Lopez on 08-19-2024 RBC (Bld) [#/Vol] 4.69 10*6/uL 4.2-5.4 [facility] Serum creatinine measurement (mass/volume)Ordered By: Joshua Lopez on 08-19-2024 Creatinine [Mass/Vol] 0.60 mg/dL Low 0.70-1.20 [facility] Serum globulin measurementOr dered By: Joshua Lopez on 08-19-2024 Globulin (S) [Mass/Vol] 3.0 g/dL 2.2-4.2 [facility] Serum glucose measurement (m ass/volume)Ordered By: Joshua Lopez on 08-19-2024 Glucose [Mass/Vol] 169 mg/dL High 70-99 [facility] Serum or plasma alanine hollingsworth otransferase (ALT) measurementOrdered By: Joshua Lopez on 08-19-2024 ALT [Catalytic activity/Vol] 14 U/L <35 [facility] Serum or plasma albumin marques urement (mass/volume)Ordered By: Joshua Lopez on 08-19-2024 Albumin [Mass/Vol] 4.4 g/dL 3.5-5.0 [facility] Serum or plasma albumin/glob ulin mass ratioOrdered By: Joshua Lopez on 08-19-2024 Albumin/Globulin [Mass ratio] 1.4 {ratio} 0.9-2.4 [facility] Serum or plasma alkaline francesco sphatase measurementOrdered By: Joshua Lopez on 08-19-2024 ALP [Catalytic activity/Vol] 97 U/L 35-104 [facility] Serum or plasma calcium marques urement (mass/volume)Ordered By: Joshua Lopez on 08-19-2024 Calcium [Mass/Vol] 9.6 mg/dL 7.6-11.0 [facility] Serum or plasma urea nitroge n measurement (mass/volume)Ordered By: Joshua Lopez on 08-19-2024 Urea nitrogen [Mass/Vol] 5 mg/dL 4-19 [facility] Sodium levelOrdered By: Mihir Lopez on 08-19-2024 Sodium [Moles/Vol] 140 mmol/L 133-145 [facility] Squamous epithelial cells de tection in urine sediment by light microscopyOrdered By: Joshua Lopez on 08-19-2024 Epithelial cells.squamous LM Ql (Urine sed) 5-10 SEEN /hpf 5-10 [facility] Total proteinOrdered By: Damon Lopez on 08-19-2024 Protein [Mass/Vol] 7.4 g/dL 5.9-8.4 [facility] Urinalysis, Completeon 08-19 BACTERIA 3+ /hpf Normal None Seen [facility] Comment on above: Order Comment: CLEAN CATCH Performed By: #### L 400.0001 #### [facility] [address] [place], [address] EPI,SQUAMOUS 5-10 SEEN Normal 5-10 [facility] Comment on above: Order Comment: CLEAN CATCH Performed By: #### L 400.0001 #### [facility] [address] [place], [address] RBC 5-10 SEEN Normal 0-5 [facility] Comment on above: Order Comment: CLEAN CATCH Performed By: #### L 400.0001 #### [facility] [address] [place], [address] WBC >100 SEEN Normal 0-5 [facility] Comment on above: Order Comment: CLEAN CATCH Result Comment: Micr oscopic field is filled. Other elements may be obscured. Performed By: #### L 400.0001 #### [facility] [address] [place], [address] Mucus Ql (Urine sed) 0 SEEN Normal [facility] Comment on above: Order Comment: CLEAN CATCH Performed By: #### L 400.0001 #### [facility] [address] [place], [address] Urine clarityOrdered By: Damon Lopez on 08-19-2024 Clarity (U) Turbid Clear [facility] Urine color determinationOrd ered By: Joshua Lopez on 08-19-2024 Color (U) Yellow Yellow [facility] Urine glucose detectionOrder ed By: Joshua Lopez on 08-19-2024 Glucose Ql (U) Normal mg/dl Normal [facility] Urine leukocyte esterase det ection by dipstickOrdered By: Joshua Lopez on 08-19-2024 Leukocyte esterase Test strip Ql (U) 500 /ul High Negative [facility] Urine pHOrdered By: Joshua alvarez on 08-19-2024 pH (U) 8.0 [pH] 5.0 - 8.0 [facility] Urine testOrdered By: Joshua Lopez on 08-19-2024 HCG ( test) Ql (U) Negative [facility] Comment on above: Very dilute urine sp ecimens, as indicated by a low specificgravity, may not contain hostess party sales representative levels of hCG. If is still suspected, a first morning urinespecimen should be collected 48 hours later and tested. Urine sediment bacteria coun t by microscopy (number/high power field)Ordered By: Joshua Lopez on 08-19-2024 Bacteria LM.HPF (Urine sed) [#/Area] 3 /[HPF] None Seen [facility] Urine specific gravity measu rementOrdered By: Joshua Lopez on 08-19-2024 Specific gravity (U) [Rel density] 1.015 1.002-1.030 [facility] Urine urobilinogen measureme ntOrdered By: Joshua Lopez on 08-19-2024 Urobilinogen Ql (U) Normal mg/dl Normal [facility] White blood cell (WBC) count Ordered By: Joshua Lopez on 08-19-2024 WBC (Bld) [#/Vol] 13.4 10*3/uL High 4.4-11.0 [facility] White blood cell countOrdere d By: Joshua Lopez on 08-19-2024 White blood cell count >100 SEEN /hpf 0-5 [facility] Comment on above: Microscopic field is filled. Other elements may be obscured. CNOVon 08-13-2024 CNOV Office Visit ([facility] ) JUSTIN LOVE ([id number]) 1995 F Date Time Provider Department 08/13/24 7:00 PM ERIKAROYAL MEANS [facility] During your visit today, we recorded the following information about you: Temperature Pulse Respiration Blood pressure 99.2 degrees 112/minute 16/minute 108/62 Weight 52.7 kg Royal Xavier PA-C 08/13/2024 7:17 PM Signed This note was created using [employer]. Subjective Justin Love is a 29 year old female. Patient [...] J06.9 - BENZONATATE 100 MG CAPSULE Royal Xavier PA-C Allergies As of Date: 08/13/2024 Noted [...] Acute URI [J06.9] Order(s):STREP A MOLECULAR (POC) [9982141] Order #: [id number]. #:[id number] albuterol HFA (PROVENTIL HFA, VENTOLIN HFA) 90 [...] 1 tablet (more content not included)... Normal [facility] STREP A MOLECULAR (POC)on Procedural Control Valid [facility] Strep A (POCT) Negative Negative [facility] CNOVon 08-01-2024 CNOV Office Visit ([facility] ) JUSTIN LOVE ([id number]) 1995 F Date Time Provider Department 08/01/24 8:15 AM [facility] During your visit today, we recorded the following information about you: Temperature Pulse Respiration Blood pressure 98.3 degrees 104/minute 18/minute 102/64 Weight 55 kg Naomi Mitchell APRN.BRASSIERE CUP MOLD CUTTER 08/01/2024 8:30 AM Signed [facility] Subjective Justinmala Love is a 29 year old female. Patient presents with: Fever: Fever, vomiting, diarrhea and bodyaches x 1 day Fever, Nausea, Emesis, and Abdominal Pain: - Symptoms began after returning from a 5-day vacation at [place]. - Initially thought it was sun poisoning; [...] history; returned from a five-day vacation at [place]. - Experiencing nausea, vomiting, and low-grade fever [...] or worsening of symptoms. and Recording using [employer] software for draft documentation of the visit was discussed with the patient/authorized hostess party sales representative; all questions welcomed and answered. Patient/authorized hostess party sales representative agreed to proceed History and Record [...] limits, MERA (more content not included)... Normal [facility] CNCOon 03-18-2024 CNCO Letter Text Normal [facility] CNOVon 03-14-2024 CNOV Office Visit ([facility] ) JUSTIN LOVE ([id number]) 1995 F Date Time Provider Department 03/14/24 4:30 PM NANO GODOY During your visit today, we recorded the following information about you: Temperature Pulse Respiration Blood pressure 98.3 degrees 64/minute 20/minute 106/74 Weight 56.1 kg Nano Godoy APRN.BRASSIERE CUP MOLD CUTTER 03/14/2024 5:07 PM Signed This note was created using NoteWriter. Subjective Justin Love is a 29 year old female. 29 [...] history is provided by the patient. No group product manager was used. Flu Like Symptoms This is [...] no distension. (more content not included)... 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[address], [address]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) Internal [facility] Location:[address], [address] [facility] POINT OF CARE [facility] Emergency Room Note on 02-27-2017 [facility] Note Normal [facility] ([place]) Patient Summary Documentson 02-27-2017 Patient Summary Documents Normal [facility] [place] XR WRIST MINIMUM 3 VIEWS RIG [...] Date: 02/27/2017 9:17:56 AM Normal [facility] [place]) Vital Signs Date Time Vital Sign Value Performing Clinician Facility 09-26-2024 10:37-0400 Body mass index (BMI) [Ratio] 23.9 kg/m2 Kimberly Plotts HANDBAG STITCHER.CNM Work Phone: [facility] 09-26-2024 10:37-0400 Body weight 55.97 kg Kimberly Plotts HANDBAG STITCHER.CNM Work Phone: [facility] 09-26-2024 10:37-0400 Diastolic blood pressure 64 mm[Hg] Kimberly Plotts HANDBAG STITCHER.CNM Work Phone: [facility] 09-26-2024 10:37-0400 Systolic blood pressure 118 mm[Hg] Kimberly Plotts HANDBAG STITCHER.CNM Work Phone: [facility] 09-06-2024 10:14-0400 Body height 153 cm Kimberly Plotts HANDBAG STITCHER.CNM Work Phone: [facility] 09-06-2024 10:14-0400 Body mass index (BMI) [Ratio] 22.85 kg/m2 Kimberly Plotts HANDBAG STITCHER.CNM Work Phone: [facility] 09-06-2024 10:14-0400 Body weight 53.52 kg Kimberly Plotts HANDBAG STITCHER.CNM Work Phone: [facility] 09-06-2024 10:14-0400 Diastolic blood pressure 60 mm[Hg] Kimberly Plotts HANDBAG STITCHER.CNM Work Phone: [facility] 09-06-2024 10:14-0400 Systolic blood pressure 104 mm[Hg] Kimberly Stubbs APRN.CNM Work Phone: [facility] 09-05-2024 12:57-0400 Body height 154.3 cm Tony Pepe MD Work Phone: [facility] 09-05-2024 12:57-0400 Body mass index (BMI) [Ratio] 22.76 kg/m2 Tony Pepe MD Work Phone: [facility] 09-05-2024 12:57-0400 Body temperature 98.01 [degF] Tony Pepe MD Work Phone: [facility] 09-05-2024 12:57-0400 Body weight 54.2 kg Tony Pepe MD Work Phone: [facility] 09-05-2024 12:57-0400 Diastolic blood pressure 66 mm[Hg] Tony Pepe MD Work Phone: [facility] 09-05-2024 12:57-0400 Heart rate 96 /min Tony Pepe MD Work Phone: [facility] 09-05-2024 12:57-0400 Respiratory rate 18 /min Tony Pepe MD Work Phone: [facility] 09-05-2024 12:57-0400 Systolic blood pressure 100 mm[Hg] Tony Pepe MD Work Phone: [facility] 08-20-2024 13:51-0400 Body temperature 98.6 [degF] No Primary Care Physician [facility] 08-20-2024 13:51-0400 Diastolic blood pressure 88 mm[Hg] No Primary Care Physician [facility] 08-20-2024 13:51-0400 Heart rate 76 /min No Primary Care Physician [facility] 08-20-2024 13:51-0400 Respiratory rate 16 /min No Primary Care Physician [facility] 08-20-2024 13:51-0400 SaO2% (BldA) [Mass fraction] 99 % No Primary Care Physician [facility] 08-20-2024 13:51-0400 Systolic blood pressure 110 mm[Hg] No Primary Care Physician [facility] 08-20-2024 08:38-0400 Body height 152.4 cm No Primary Care Physician [facility] 08-20-2024 08:38-0400 Body mass index (BMI) [Ratio] 22.5 kg/m2 No Primary Care Physician [facility] 08-20-2024 08:38-0400 Body weight 52.4 kg No Primary Care Physician [facility] 08-19-2024 15:48-0400 Body temperature 98.4 [degF] No Primary Care Physician [facility] 08-19-2024 15:48-0400 Diastolic blood pressure 78 mm[Hg] No Primary Care Physician [facility] 08-19-2024 15:48-0400 Heart rate 64 /min No Primary Care Physician [facility] 08-19-2024 15:48-0400 Respiratory rate 16 /min No Primary Care Physician [facility] 08-19-2024 15:48-0400 SaO2% (BldA) [Mass fraction] 99 % No Primary Care Physician [facility] 08-19-2024 15:48-0400 Systolic blood pressure 134 mm[Hg] No Primary Care Physician [facility] 08-19-2024 12:09-0400 Body height 152.4 cm No Primary Care Physician [facility] 08-19-2024 12:09-0400 Body mass index (BMI) [Ratio] 21.5 kg/m2 No Primary Care Physician [facility] 08-19-2024 12:09-0400 Body weight 50 kg No Primary Care Physician [facility] 08-13-2024 18:57-0400 Body mass index (BMI) [Ratio] 21.95 kg/m2 Royal Clutter PA-C Work Phone: [facility] 08-13-2024 18:57-0400 Body temperature 99.19 [degF] Royal Clutter PA-C Work Phone: [facility] 08-13-2024 18:57-0400 Body weight 52.7 kg Royal Clutter PA-C Work Phone: [facility] 08-13-2024 18:57-0400 Diastolic blood pressure 62 mm[Hg] Royal Clutter PA-C Work Phone: [facility] 08-13-2024 18:57-0400 Heart rate 112 /min Royal Clutter PA-C Work Phone: [facility] 08-13-2024 18:57-0400 Respiratory rate 16 /min Royal Clutter PA-C Work Phone: [facility] 08-13-2024 18:57-0400 SaO2% (BldA) [Mass fraction] 94 % Royal Clutter PA-C Work Phone: [facility] 08-13-2024 18:57-0400 Systolic blood pressure 108 mm[Hg] Royal Clutter PA-C Work Phone: [facility] 08-01-2024 08:04-0400 Body mass index (BMI) [Ratio] 22.91 kg/m2 Naomi Swank HANDBAG STITCHER.[employer] M[employer] C[employer]TER Work Phone: [facility] 08-01-2024 08:04-0400 Body temperature 98.29 [degF] Naomi Swank HANDBAG STITCHER.[employer] M[employer] C[employer]TER Work Phone: [facility] 08-01-2024 08:04-0400 Body weight 55 kg Naomi Swank HANDBAG STITCHER.[employer] M[employer] C[employer]TER Work Phone: [facility] 08-01-2024 08:04-0400 Diastolic blood pressure 64 mm[Hg] Naomi Swank HANDBAG STITCHER.[employer] M[employer] C[employer]TER Work Phone: [facility] 08-01-2024 08:04-0400 Heart rate 104 /min Naomi Swank HANDBAG STITCHER.[employer] M[employer] C[employer]TER Work Phone: [facility] 08-01-2024 08:04-0400 Respiratory rate 18 /min Naomi Swank HANDBAG STITCHER.[employer] C[employer]TER Work Phone: [facility] 08-01-2024 08:04-0400 SaO2% (BldA) [Mass fraction] 99 % Naomi Swank HANDBAG STITCHER.[employer] M[employer] C[employer]TER Work Phone: [facility] 08-01-2024 08:04-0400 Systolic blood pressure 102 mm[Hg] Naomi Olman HANDBAG STITCHER.[employer] M[employer] C[employer]TER Work Phone: [facility] 03-14-2024 16:40-0500 Body mass index (BMI) [Ratio] 23.37 kg/m2 Nano Godoy HANDBAG STITCHER.[employer] M[employer] C[employer]TER Work Phone: [facility] 03-14-2024 16:40-0500 Body temperature 98.29 [degF] Nano Godoy HANDBAG STITCHER.[employer] M[employer] C[employer]TER Work Phone: [facility] 03-14-2024 16:40-0500 Body weight 56.1 kg Nano Godoy HANDBAG STITCHER.[employer] C[employer]TER Work Phone: [facility] 03-14-2024 16:40-0500 Diastolic blood pressure 74 mm[Hg] Nano Godoy HANDBAG STITCHER.[employer] M[employer] C[employer]TER Work Phone: [facility] 03-14-2024 16:40-0500 Heart rate 64 /min Nano Godoy HANDBAG STITCHER.[employer] M[employer] C[employer]TER Work Phone: [facility] 03-14-2024 16:40-0500 Respiratory rate 20 /min Nano Godoy HANDBAG STITCHER.[employer]ERE [employer] M[employer] CUTTER Work Phone: [facility] 03-14-2024 16:40-0500 SaO2% (BldA) [Mass fraction] 99 % Nano Godoy HANDBAG STITCHER.[employer] M[employer] C[employer]TER Work Phone: [facility] 03-14-2024 16:40-0500 Systolic blood pressure 106 mm[Hg] Nano Godoy HANDBAG STITCHER.[employer] M[employer] C[employer]TER Work Phone: [facility] 08-25-2023 09:14-0400 Body mass index (BMI) [Ratio] 24.49 kg/m2 Lucita Cruz HANDBAG STITCHER.[employer] M[employer] C[employer]TER Work Phone: [facility] 08-25-2023 09:14-0400 Body temperature 98.01 [degF] Lucita Curz HANDBAG STITCHER.[employer] M[employer] C[employer]TER Work Phone: [facility] 08-25-2023 09:14-0400 Body weight 58.8 kg Lucita Cruz HANDBAG STITCHER.[employer] M[employer] C[employer]TER Work Phone: [facility] 08-25-2023 09:14-0400 Diastolic blood pressure 94 mm[Hg] Lucita Cruz HANDBAG STITCHER.[employer] C[employer]TER Work Phone: [facility] 08-25-2023 09:14-0400 Heart rate 69 /min Lucita Cruz HANDBAG STITCHER.[employer] M[employer] C[employer]TER Work Phone: [facility] 08-25-2023 09:14-0400 Respiratory rate 18 /min Lucita Cruz HANDBAG STITCHER.[employer] M[employer] C[employer]TER Work Phone: [facility] 08-25-2023 09:14-0400 SaO2% (BldA) [Mass fraction] 100 % Lucita Cruz HANDBAG STITCHER.[employer]ERE [employer] M[employer] C[employer]TER Work Phone: [facility] 08-25-2023 09:14-0400 Systolic blood pressure 123 mm[Hg] Lucita Cruz HANDBAG STITCHER.[employer] M[employer] C[employer]TER Work Phone: [facility] 03-22-2023 18:20-0500 Body temperature 98.2 [degF] [facility] 03-22-2023 18:20-0500 Diastolic blood pressure 76 mm[Hg] [facility] 03-22-2023 18:20-0500 Heart rate 66 /min [facility] 03-22-2023 18:20-0500 Respiratory rate 18 /min [facility] 03-22-2023 18:20-0500 SaO2% (BldA) [Mass fraction] 100 % [facility] 03-22-2023 18:20-0500 Systolic blood pressure 112 mm[Hg] [facility] 03-22-2023 14:38-0500 Body height 152.4 cm [facility] 03-22-2023 14:38-0500 Body mass index (BMI) [Ratio] 24.6 kg/m2 [facility] 03-22-2023 14:38-0500 Body weight 57.15 kg [facility] Encounters Encounter Date Encounter Type Care Provider Facility Start: 10-30-2024 End: 10-31-2024 ambulatory KIYA WALKER Facility:[facility] Start: 10-24-2024 End: 10-24-2024 ambulatory KIYA WALKER Facility:[facility] Start: 10-24-2024 Encounter for other preprocedural examination KIYA WALKER [facility] Start: 10-02-2024 End: 10-02-2024 Telephone encounter Kiya Walker MD Work Phone: Urology Start: 09-26-2024 End: 09-26-2024 Subsequent hospital visit by physician Chance Christina Work Phone: [facility] Comment on above: Kidney stone [N20.0] Start: 09-26-2024 End: 09-26-2024 Preprocedural examination done Kiya Walker MD Work Phone: [facility] Start: 09-26-2024 End: 09-26-2024 ambulatory KIYA WALKER Facility:[id number] Start: 09-26-2024 End: 09-26-2024 Patient encounter procedure Kimberly Stubbs HANDBAG STITCHER.CNM Work Phone: OB/Gynecology Comment on above: Encounter for IUD in sertion (Primary Dx); Encounter for IUD removal Kidney stone (Primar y Dx); Preop examination Start: 09-26-2024 End: 09-26-2024 ambulatory TONY PEPE Facility:[facility] Start: 09-18-2024 End: 09-18-2024 ambulatory Kathy Sabillon RN [employer] Start: 09-18-2024 End: 09-18-2024 Patient encounter procedure Kathy Sabillon RN NURSE [employer] Comment on above: Appointment Start: 09-18-2024 End: 09-19-2024 Telephone encounter Tony Pepe MD Work Phone: Internal Medicine [place] Comment on above: Consult Start: 09-15-2024 End: 09-17-2024 Follow-up encounter Tony Pepe MD Work Phone: Internal Medicine [place] Start: 09-10-2024 ambulatory TONY PEPE Faci lity:[facility] Start: 09-10-2024 End: 09-10-2024 Subsequent hospital visit by physician [facility] [employer] Work Phone: Radiology Comment on above: 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] Start: 09-06-2024 End: 09-06-2024 Patient encounter procedure Kimberly Stubbs APRN.ROMAN Work Phone: OB/Gynecology Comment on above: Encounter for IUD re moval and reinsertion (Primary Dx); Screening for cervical cancer; Encounter for gynecological examination (general) (routine) without abnormal findings; Screen for STD (sexually transmitted disease) Start: 09-06-2024 End: 09-06-2024 Patient encounter status Kimberly Stubbs HANDBAG STITCHER.CNM Work Phone: [facility] Start: 09-06-2024 End: 09-06-2024 ambulatory TONY PEPE Facility:[facility] Start: 09-06-2024 Encounter for gynecological examination (general) (routine) without abnormal findings KIMBERLY STUBBS [facility] Start: 09-05-2024 End: 09-05-2024 Patient encounter procedure Tony Pepe MD Work Phone: Internal Medicine [place] Comment on above: Screening for cervic al cancer (Primary Dx); Screening for depression; Encounter for screening examination for other mental health and behavioral disorders; Staghorn calculus; Kidney stones Start: 09-05-2024 End: 09-05-2024 ambulatory TONY PEPE Facility:[facility] Start: 08-20-2024 End: 08-20-2024 Emergency department patient visit No Primary Care Physician -Emergency Department Work Phone: Start: 08-19-2024 End: 08-19-2024 Emergency department patient visit No Primary Care Physician -Emergency Department Work Phone: Start: 08-13-2024 End: 08-13-2024 Office outpatient visit 25 minutes Royal Xavier PA-C Work Phone: [facility] Comment on above: Sore throat (Primary Dx); Mild intermittent asthma without complication (HCC); Acute URI Start: 08-13-2024 End: 08-13-2024 ambulatory ROYAL XAVIER Facility:[facility] Start: 08-01-2024 End: 08-01-2024 Patient encounter procedure Naomi Mitchell EDDIE.[employer] M[employer] CUTTER Work Phone: [place] [facility] Comment on above: Viral gastroenteriti s; Nausea and vomiting, unspecified vomiting type; Fever, unspecified fever cause Start: 08-01-2024 End: 08-01-2024 ambulatory NAOMI MITCHELL Facility:[facility] Start: 03-18-2024 End: 03-18-2024 ambulatory TONY PEPE Facility:[facility] Start: 03-18-2024 End: 03-18-2024 Telemedicine consultation with patient Sandra Nunes EDDIE.[employer] C[employer]TER Work Phone: Telemedicine Comment on above: Flu-like symptoms (P rimary Dx) Start: 03-14-2024 End: 03-14-2024 ambulatory SELF Facility:[facility] Start: 03-14-2024 End: 03-14-2024 Patient encounter procedure Nano Diane [facility] Work Phone: [place] [facility] Comment on above: Exposure to the flu (Primary Dx); URI, acute; Encounter to obtain excuse from work Start: 08-26-2023 Telephone encounter Marysol Clark APRN.[facility] Work Phone: [place] [facility] Comment on above: Results Start: 08-25-2023 End: 08-25-2023 Office outpatient visit 25 minutes Lucita Cruz APRN.[employer]TER Work Phone: [place] [facility] Comment on above: Nausea and vomiting, unspecified vomiting type (Primary Dx) Start: 03-22-2023 End: 03-22-2023 Emergency department patient visit [facility]gency Department Work Phone: Start: 03-16-2023 Telephone encounter Adrienne Esteves APRN.[facility] Work Phone: [place] [facility] Comment on above: Patient Update Start: 02-27-2017 End: 02-27-2017 Emergency department patient visit CHARLEE CHAVEZ Facility:B Procedures Date Procedure Procedure Detail Performing Clinician Start: 10-24-2024 Antibody screen BECHARA TABET Comment on above: Order Comment: Speci men Type: BLOOD SPECIMENOrdering Facility: [facility] Address: [facility] [place] [id number] Performed By: #### T [id number] ####[facility] BLOOD BANKCLIA [id number] [place] [address] [place] Start: 09-26-2024 Urnls dip stick/tabl et rgnt auto w/o microscopy [facility] Provider Start: 09-26-2024 UA DIP,URINE HCG (POC) Kimberly Stubbs APRN.CNM Work Phone: Start: 09-05-2024 Adult depression scr eening assessment Tony Pepe MD Work Phone: Start: 08-20-2024 Estimated creatinine clearance No Primary Care Physician Start: 08-20-2024 X-ray of chest, PA a nd lateral views No Primary Care Physician Start: 08-20-2024 Computed tomography of abdomen and pelvis with intravenous contrast No Primary Care Physician Start: 08-19-2024 Urnls dip stick/tabl et reagent auto microscopy No Primary Care Physician Start: 08-19-2024 Estimated creatinine clearance No Primary Care Physician Start: 08-13-2024 Iadna streptococcus group a amplified probe tq Royal Xavier PA-C Work Phone: Start: 08-25-2023 UA DIP,URINE HCG (POC) Lucita Cruz APRN.[employer] Work Phone: Plan of Treatment Date Care Activity Detail Author Start: 09-07-2027 Screening for malignant neoplasm of cervix Cervical Cancer Screening [facility] Start: 05-05-2026 Urine microalbumin profile DTaP,Tdap,Td Vaccine (9 - Td or Tdap) [facility] Start: 09-05-2025 Annual PCP Team Chronic Disease Visit Annual PCP Team Chronic Disease Visit [facility] Start: 09-05-2025 Anxiety Screening Anxiety Screening [facility] Start: 09-05-2025 Depression Screening Depression Screening [facility] Start: 2025 End: 2025 Patient encounter procedure 2025 8:40 AM EST Office Visit Internal Medicine [place] [address] [place] [address] Tony Pepe MD [address] [place] [address] followup 6 month [facility] [place] Comment on above: followup 6 month Start: 10-31-2024 End: 10-31-2024 Patient encounter procedure 10/31/2024 9:30 AM EDT Office Visit OB/Gynecology [address] [place] [address] Kimberly Stubbs APRN.CNM [address] [place] [address] IUD follow up OB/Gynecology Comment on above: IUD follow up Start: 10-30-2024 End: 10-30-2024 Njx retrograde urethrocstograpy RETROGRADE PYELOGRAM Kidney stone 10/30/2024 12:00 PM EDT [place] Start: 10-30-2024 End: 10-30-2024 Prq nephrostolithotomy/pyelo stolithotomy > 2 cm PERC NEPHROLITHOTOMY LITHOTRIPSY,STONE EXTRACTION,ANTEGRADE URETEROSCOPY,STENT PLACEMENT WHEN PERFORMED INCD IMAGING OVER 2cm Kidney stone 10/30/2024 12:00 PM EDT [place] Start: 10-30-2024 End: 10-30-2024 Admission to same day surgery center [facility] Comment on above: Perc placement for OR RETROGRADE PYELOGRAM Start: 10-30-2024 End: 10-30-2024 Plmt nephrostomy cath prq new access rs&i PERC PLACEMENT NEPHROSTOMY CATH,INCLUDING DIAGNOSTIC NEPHROSTOGRAM/URETEROGR AM WHEN PERFORMED,IMAGING GUIDANCE AND ALL ASSOCIATED RAD S&I Kidney stones 10/30/2024 10:00 AM EDT [place] [facility] Start: 10-30-2024 Subsequent hospital visit by physician 10/30/2024 10:00 AM EDT Hospital Encounter [facility] [address] [place] [address] Juhi Pimentel MD, [address] [place] [address] Kidney stone [N20.0], Kidney stones [N20.0] [facility] Comment on above: Kidney stone [N20.0], Kidney stones [N20 .0] Start: 10-24-2024 End: 10-24-2024 ambulatory 10/24/2024 3:00 PM EDT PAT Pre Surgical Testing [address] [facility] [place] [address] 1. RETROGRADE PYELOGRAM Pre Surgical Testing Comment on above: 1. RETROGRADE PYELOGRAM Start: 10-08-2024 Influenza vaccination [facility] Start: 09-26-2024 End: 10-26-2024 CBC panel - Blood by Automated count COMPLETE BLOOD COUNT Lab Routine Kidney stone Expected: 09/26/2024 (Approximate), Expires: 10/26/2024 [facility] Comment on above: Expected: 09/26/2024 (Approximate), Expi res: 10/26/2024 Start: 09-26-2024 End: 10-26-2024 Comprehensive metabolic 2000 panel - Serum or Plasma COMPREHENSIVE METABOLIC PANEL Lab Routine Kidney stone Expected: 09/26/2024 (Approximate), Expires: 10/26/2024 [facility] Comment on above: Expected: 09/26/2024 (Approximate), Expi res: 10/26/2024 Start: 09-26-2024 End: 12-26-2024 TYPE AND SCREEN,30 DAY TYPE AND SCREEN,30 DAY Blood Bank Routine Kidney stone Expected: 09/26/2024, Expires: 12/26/2024 [facility] Comment on above: Expected: 09/26/2024, Expires: Start: 09-26-2024 End: 09-26-2024 Patient encounter procedure OB/Gynecology Comment on above: IUD Removal/ Insertion Kidney Stone Start: 09-10-2024 End: 09-10-2024 Patient encounter procedure 09/10/2024 1:00 PM EDT Appointment Radiology [address] [place] [address] Dx: Staghorn calculus [N20.0] Radiology Comment on above: Dx: Staghorn calculus [N20.0] Start: 09-06-2024 End: 09-06-2024 Patient encounter procedure 09/06/2024 10:00 AM EDT Office Visit OB/Gynecology [address] [place] [address] Kimberly Stubbs [facility]N.[facility] [address] [place] [address] Dx: Screening for cervical cancer [Z12.4] OB/Gynecology Comment on above: Dx: Screening for cervical cancer [Z12.4 ] Start: 08-20-2024 [facility] Start: 08-19-2024 [facility] Start: 10-09-2023 Covid-19 Vaccine ( season) Covid-19 Vaccine () [facility] Start: 10-09-2023 Influenza vaccination Influenza Vaccine (#1) [facility] Start: 02-07-2023 Behavioral Health Screening Behavioral Health Screening [facility] Start: 02-07-2023 Depression Assessment Depression Assessment [facility] Start: 10-08-2022 Covid-19 Vaccine ( season) Covid-19 Vaccine ( season) [facility] Start: 10-08-2022 Influenza vaccination Influenza Vaccine (#1) [facility] Start: 04-05-2019 Screening for malignant neoplasm of cervix [facility] Start: 2013 Annual PCP Team Chronic Disease Visit Annual PCP Team Chronic Disease Visit [facility] Start: 2013 Anxiety Screening Anxiety Screening [facility] Start: 2013 Depression Screening Depression Screening [facility] Start: 2013 Spirometry Spirometry [facility] Start: 2001 Pneumococcal vaccination Pneumococcal Vaccine (1 of 2 - PCV) [facility] Start: 1995 Covid-19 Vaccine (#1) Covid-19 Vaccine (#1) [facility] Bacteria identified in Urine by Culture URINE CULTURE Microbiology Routine Nausea and vomiting, unspecified vomiting type Ordered: 08/25/2023 [facility] Comment on above: Ordered: 08/25/2023 Bacteria identified in Urine by Culture BACTERIAL CULTURE, URINE Microbiology Routine Kidney stone 09/26/2024 2:50 PM EDT [facility] Bilirubin measuremen t, urine [facility] Chlamydia trachomatis+Neisseria gonorrhoeae DNA [Presence] in Unspecified specimen by YOMAIRA with probe detection GONORRHEA/CHLAMYDIA NAAT Lab Routine Encounter for gynecological examination (general) (routine) without abnormal findings Screen for STD (sexually transmitted disease) 09/06/2024 10:58 AM EDT [facility] COVID & INFLUENZA A/ B & RSV PCR, ROUTINE COVID & INFLUENZA A/B & RSV PCR, ROUTINE Microbiology Routine Exposure to the flu URI, acute Ordered: 03/14/2024 [facility] Work Phone: Comment on above: Ordered: 03/14/2024 Hemoglobin [Presence ] in Urine [facility] Insertion intrauteri ne device iud INSERT INTRAUTERINE DEVICE Procedures Routine Encounter for IUD removal and reinsertion Ordered: 09/06/2024 [facility] Comment on above: Ordered: 09/06/2024 Insertion intrauteri ne device iud INSERT INTRAUTERINE DEVICE Procedures Routine Encounter for IUD insertion Ordered: 09/26/2024 [facility] Work Phone: Comment on above: Ordered: 09/26/2024 Measurement of keton es in urine using dipstick [facility] Microscopic urinalysis [facility] Njx retrograde urethrocstograpy RETROGRADE PYELOGRAM Kidney stone [place] Organism count, microscopic method [facility] PAP TEST PAP TEST Lab Rou valeria Screening for cervical cancer Encounter for gynecological examination (general) (routine) without abnormal findings 09/06/2024 10:58 AM EDT [facility] Patient Education [facility] Work Phone: Patient referral [facility] Work Phone: pH of Urine [facility] Prq nephrostolithotomy/pyelo stolithotomy > 2 cm PERC NEPHROLITHOTOMY LITHOTRIPSY,STONE EXTRACTION,ANTEGRADE URETEROSCOPY,STENT PLACEMENT WHEN PERFORMED INCD IMAGING OVER 2cm Kidney stone [place] OR REFER FOR ADMIT INTERVIEW REFER FOR ADMIT INTERVIEW Procedures Routine Kidney stone Ordered: 09/26/2024 [facility] Comment on above: Ordered: 09/26/2024 Removal intrauterine device iud REMOVE INTRAUTERINE DEVICE Procedures Routine Encounter for IUD removal and reinsertion Ordered: 09/06/2024 [facility] Work Phone: Comment on above: Ordered: 09/06/2024 Removal intrauterine device iud REMOVE INTRAUTERINE DEVICE Procedures Routine Encounter for IUD removal Ordered: 09/26/2024 [facility] Comment on above: Ordered: 09/26/2024 Specific gravity of Urine [facility] TRICHOMONAS VAGINALI S NAAT TRICHOMONAS VAGINALIS NAAT Lab Routine Encounter for gynecological examination (general) (routine) without abnormal findings Screen for STD (sexually transmitted disease) 09/06/2024 10:58 AM EDT [facility] UA DIP, URINE (POC) UA DIP, URIN E (POC) Lab Routine Nausea and vomiting, unspecified vomiting type Ordered: 08/25/2023 [facility] Work Phone: Comment on above: Ordered: 08/25/2023 Urine dipstick for glucose [facility] Urine dipstick for leukocyte esterase [facility] Urine dipstick for nitrite [facility] Urine dipstick for protein [facility] Urine examination [facility] Urine microscopy: epithelial cells [facility] Urine microscopy: re d cells [facility] Urobilinogen [Presen ce] in Urine [facility] End: 10-05-2025 US Kidney - bilateral and Urinary bladder US KIDNEY/BLADDER Radiology Routine Staghorn calculus 1 Occurrences starting 09/05/2024 until 10/05/2025 [facility] Work Phone: Comment on above: 1 Occurrences starting 09/05/2024 until 10/05/2025 US Kidney - bilatera l and Urinary bladder US KIDNEY/BLADDER Radiology Routine Staghorn calculus 09/10/2024 1:23 PM EDT [facility] Work Phone: White blood cell count [facility] End: 10-26-2025 XR Abdomen Supine and Upright XR ABDOMEN 1V SUPINE Radiology Routine Kidney stone 1 Occurrences starting 09/26/2024 until 10/26/2025 [facility] Work Phone: Comment on above: 1 Occurrences starting 09/26/2024 until 10/26/2025 XR Abdomen Supine an d Upright XR ABDOMEN 1V SUPINE Radiology Routine Kidney stone 09/26/2024 2:38 PM EDT [facility] Immunizations Immunization Date Immunization Notes Care Provider Kike dubose 05-05-2016 tetanus toxoid, redu rosana diphtheria toxoid, and acellular pertussis vaccine, adsorbed Adrienne Jenkins APRN.[employer] Work Phone: [facility] 04-08-2016 tetanus toxoid, redu rosana diphtheria toxoid, and acellular pertussis vaccine, adsorbed [facility] 11-08-2013 influenza, injectabl e, quadrivalent, preservative free Tony Pepe MD Work Phone: [facility] 11-08-2013 influenza virus vacc ine, unspecified formulation Adrienne Jenkins HANDBAG STITCHER.[employer]SIERE [employer]UP MOLD CUTTER Work Phone: [facility] 12-30-2010 hepatitis A vaccine, pediatric/adolescent dosage, 2 dose schedule Tony Pepe MD Work Phone: [facility] 12-30-2010 influenza, seasonal, injectable, preservative free Tony Pepe MD Work Phone: [facility] 05-11-2010 human papilloma viru s vaccine, quadrivalent Tony Pepe MD Work Phone: [facility] 12-29-2009 human papilloma viru s vaccine, quadrivalent Tony Pepe MD Work Phone: [facility] 12-29-2009 influenza, seasonal, injectable, preservative free Tony Pepe MD Work Phone: [facility] 12-29-2009 meningococcal polysaccharide (groups A, C, Y and W-135) diphtheria toxoid conjugate vaccine (MCV4P) Tony Pepe MD Work Phone: [facility] 12-29-2009 tetanus toxoid, redu rosana diphtheria toxoid, and acellular pertussis vaccine, adsorbed Tony Pepe MD Work Phone: [facility] 10-26-2006 hepatitis A vaccine, adult dosage Tony Pepe MD Work Phone: [facility] 10-26-2006 human papilloma viru s vaccine, quadrivalent Tony Pepe MD Work Phone: [facility] 09-13-2001 diphtheria, tetanus toxoids and acellular pertussis vaccine, unspecified formulation Tony Pepe MD Work Phone: [facility] 09-13-2001 measles, mumps and rubella virus vaccine Tony Pepe MD Work Phone: [facility] 09-13-2001 poliovirus vaccine, inactivated Tony Pepe MD Work Phone: [facility] 04-18-2000 diphtheria, tetanus toxoids and acellular pertussis vaccine, unspecified formulation Tony Pepe MD Work Phone: [facility] 04-18-2000 measles, mumps and rubella virus vaccine Tony Pepe MD Work Phone: [facility] 04-18-2000 poliovirus vaccine, inactivated Tony Pepe MD Work Phone: [facility] 05-29-1998 diphtheria, tetanus toxoids and acellular pertussis vaccine, unspecified formulation Tony Pepe MD Work Phone: [facility] 05-29-1998 haemophilus influenz ae type b vaccine, PRP-T conjugate Tony Pepe MD Work Phone: [facility] 09-10-1997 diphtheria, tetanus toxoids and acellular pertussis vaccine, unspecified formulation Tony Pepe MD Work Phone: [facility] 09-10-1997 haemophilus influenz ae type b vaccine, PRP-T conjugate Tony Pepe MD Work Phone: [facility] 09-10-1997 hepatitis B vaccine, pediatric or pediatric/adolescent dosage Tony Pepe MD Work Phone: [facility] 09-10-1997 measles, mumps and rubella virus vaccine Tony Pepe MD Work Phone: [facility] 09-10-1997 poliovirus vaccine, inactivated Tony Pepe MD Work Phone: [facility] 11-21-1996 diphtheria, tetanus toxoids and acellular pertussis vaccine, unspecified formulation Tony Pepe MD Work Phone: [facility] 11-21-1996 haemophilus influenz ae type b vaccine, PRP-T conjugate Tony Pepe MD Work Phone: [facility] 11-21-1996 poliovirus vaccine, inactivated Tony Pepe MD Work Phone: [facility] 08-02-1996 diphtheria, tetanus toxoids and acellular pertussis vaccine, unspecified formulation Tony Pepe MD Work Phone: [facility] 08-02-1996 haemophilus influenz ae type b vaccine, PRP-T conjugate Tony Pepe MD Work Phone: [facility] 08-02-1996 hepatitis B vaccine, pediatric or pediatric/adolescent dosage Tony Pepe MD Work Phone: [facility] 08-02-1996 poliovirus vaccine, inactivated Tony Pepe MD Work Phone: [facility] 06-22-1996 hepatitis B vaccine, pediatric or pediatric/adolescent dosage Tony Pepe MD Work Phone: [facility] Payers Date Payer Category Payer Self-pay [id number] 2024 Medicaid [employer] [id number] 2024 Medicaid [id number] 2017 Private Health Insurance [id number] Medicaid MEDICAID [id number] [facility] [employer] [id number] Unknown [id number] Unknown [id number] Social History Date Type Detail Facility [facility]: [facility] Work Phone: Start: 03-15-2023 End: 09-05-2024 Tobacco use and exposure Smokeless tobacco non-user [facility] Work Phone: Start: 03-15-2023 End: 09-26-2024 Alcohol intake Current non-drinker of alcohol (finding) [facility] Start: 03-15-2023 End: 09-05-2024 History of Social function [facility] Start: 03-15-2023 End: 09-05-2024 Tobacco use panel [facility] Start: 01-09-2012 National Score (1-100), lower number is lower risk Not on file [facility] Start: 1995 Sex Assigned At Not on file [facility] Start: 03-22-2023 Tobacco smoking stat [facility] Unknown if ever smoked [facility] Start: 04-09-2019 With Family [facility] Start: 06-18-2019 Cigarettes [facility] Start: 1995 Sex Assigned At Female W [facility] Start: 08-19-2024 End: 09-05-2024 Tobacco smoking status NHIS Ex-smoker (finding) [facility] Start: 09-06-2023 History of tobacco use Current smoke r [facility] Start: 09-06-2023 History of tobacco use Cigarette Smo ker [facility] Medical Equipment Procedure Code Equipment Code Equipment Origin al Text Equipment Identifier Dates Cystoscopy, with retrograde pyelogram and ureteral stent insertion STENT,URETERAL PIGTAIL [id number] FDA Start: 08-12-2020 Cystoscopy, with retrograde pyelogram and ureteral stent insertion STENT,URETERAL PIGTAIL [id number] FDA Start: 08-12-2020 Cystoscopy, with retrograde pyelogram and ureteral stent insertion STENT,URETERAL PIGTAIL [id number] FDA Start: 08-12-2020 Cystoscopic insertion of stent STENT,URET PIGTAIL 6x22 [facility] Start: 05-21-2019 Cystoscopic insertion of stent STENT,URET PIGTAIL 6x22 [facility] Start: 05-21-2019 Cystoscopic insertion of stent STENT,URET PIGTAIL 6x22 [facility] Start: 05-21-2019 Goals Date Patient Goal Desired Activity /State Personal health goal Clinical Notes 07-20-2016 to 10-31-2024 Telephone Encounter - Mimi Ojeda - 10/02/2024 11:29 AM EDTTelephone Encounter - Mimi Ojeda - 10/02/2024 11:29 AM EDTPatient InstructionsPatient Instructions Note Date & Type Note Facility 10-31-2024 Note HNO ID: [id number] Author: KIYA WALKER MD Service: Urology Author Type: Resident Type: Progress Notes Filed: 10/31/2024 13:09 Note Text: Attestation signed by Kiya Walker MD at 10/31/2024 1:09 PM Kiya Walker MD UROLOGY PROGRESS NOTE PATIENT NAME: Justin Love DATE OF : 1995 ADMISSION DATE: 10/30/2024 9:14 AM Subjective On room air Pain controlled (2/10) Having PNT site leakage Urine clear this AM Denies fevers and chills Objective VS: BP 124/85 Pulse 80 Temp 37 ?C (98.6 ?F) (Temporal) Resp 18 Ht 153 cm (5' 0.25) Wt 56.7 kg (125 lb) LMP 05/09/2023 (Exact Date) SpO2 98% BMI 24.21 kg/m? I AND O - 24hr: Intake/Output Summary (Last 24 hours) at 10/31/2024 0736 Last data filed at 10/31/2024 0600 Gross per 24 hour Intake 4775 ml Output 1575 ml Net 3200 ml Physical Exam: General: Neck: Resp: Abdomen: No acute distress Supple Normal effort Soft, non-tender, non-distended : R PNT draining yellow urine with pink tinge Participation of a fellow, resident, medical student, or advanced practice provider student in performing the sensitive examination was discussed with the patient or authorized hostess party sales representative. The patient or authorized hostess party sales representative has agreed to proceed with the sensitive examination. Labs and Imaging Studies LABS: BMP: Recent Labs 10/31/24 0554 10/30/242055 NA 138 139 K 3.2* 3.0* CHLOR 105 107 CO2 20* 20* BUN 5* 5* CREAT 0.57* 0.56* GLUC 138* 124* CBC: Recent Labs 10/31/24 0554 10/30/242055 WBC 20.66* 18.97* HB 10.7* 11.0* HCT 30.8* 31.5* PLT 234 251 Urinalysis: Specific [place], Ur Date Value Ref Range Status 01/06/2017 1.020 1.005 - 1.030 Final Glucose, Urine Date Value Ref Range Status 01/06/2017 neg Neg mg/dL Final Bilirubin, Urine Date Value Ref Range Status 01/06/2017 neg Neg Final Ketones, Urine Date Value Ref Range Status 01/06/2017 neg Neg Final Hemoglobin/Blood,Ur Date Value Ref Range Status 01/06/2017 large Neg Final Protein, Urine Date Value Ref Range Status 01/06/2017 neg Neg mg/dL Final Urobilinogen, Urine Date Value Ref Range Status 01/06/2017 normal Normal (<1.1) EU Final Nitrites Date Value Ref Range Status 01/06/2017 neg Neg Final Leukocytes Date Value Ref Range Status 01/06/2017 neg Neg Final Urine Culture: No results found for: URCUL RADIOLOGY: N/a Assessment/Plan ASSESSMENT: 29 year old female with right renal calculus s/p right PCNL PLAN: -Clamp trial this AM -will consider restarting abx this AM due to leukocytosis -continue home meds -encouraged ambulation -regular diet -will consider discharge later today Lamine Moore MD Urology PGY5 10/31/2024 Page apprenticeship consultant resident with questions [facility] 10-30-2024 Note HNO ID: [id number] Author: MIKHAIL BELL RN Service: Nursing Author Type: Registered Nurse Type: Nursing Progress Note Filed: 10/30/2024 19:17 Note Text: Report given to Stan Munoz RN for coverage. [facility] 10-30-2024 Note HNO ID: [id number] Author: KARIN VALDERRAMA APRN.CRNA Service: ? Author Type: Nurse Wic Site Coordinator Type: Anesthesia Procedure Notes Filed: 10/30/2024 13:26 Note Text: ANESTHESIOLOGY PROCEDURE NOTE Airway General Information Procedure Start Time/Medication Administration: 10/30/2024 1:06 PM Procedure End Time: 10/30/2024 1:07 PM Patient location during procedure: OR Timeout Performed Pre-procedure: timeout performed Consent Obtained: Yes Patient identity confirmed: arm band Staffing Performed by: ARMANI Indications and Patient Condition Indications for airway management: anesthesia Preoxygenated: yes anesthesia circuit Patient position: sniffing Method: rapid sequence Final Airway Details Final airway type: endotracheal airwayFinal Endotracheal Airway: ETT Successful intubation technique: video laryngoscopy Devices used: Valero Endotracheal tube insertion site: oral Blade: Joyce Blade size: #3 ETT size (mm): 7.0 Measured from: lips Measurement (cm): 21 Placement verified by: capnometry Cormack-Lehane Classification: grade I - full view of glottis Number of attempts at approach: 1 SIGNATURE: Karin Valderrama APRN.SUPERVISOR ACOUSTICAL TILE CARPENTERS PATIENT NAME: Justin Love DATE: October 30, 2024 TIME: 1:25 PM CSN: [id number] [facility] 10-02-2024 Telephone encounter Note Images from the original note were not included. Kiya Walker MD Smith-Mizik, Marryssa Anne Request for right PCNL was sent to [facility] Surgery scheduling Called [facility] and had to leave message. Called pt to make aware and she voiced understanding. Mimi Ojeda [facility] 10-02-2024 Miscellaneous Notes Images from the original note were not included. Kiya Walker MD Smith-Mizik, Marryssa Anne Request for right PCNL was sent to [facility] Surgery scheduling Called [facility] and had to leave message. Called pt to make aware and she voiced understanding. Mimi Ojeda documented in this encounter [facility] 09-26-2024 Instructions Kiya Walker MD - 09/26/2024 3:04 PM EDT Images from the original note were not included. PATIENT SURGICAL CHECKLIST - NEXT STEPS Your surgeon's office will call you to arrange your surgery date and pre-admission testing appointments. You should receive a call within 2-5 business days from our scheduling team. (If you do not receive a call within 5 days - please call [phone]) Pre-admission testing appointments include: - Preop anesthesia clearance with [facility] (pre-anesthesia consultation clinic). There are options for in person appointments or virtual appointments based on the recommendations from your surgeon. - Preop exam which can be done at the time of an in person pre-anesthesia appointment or by your surgeon's team depending on the complexity of your medical history. This needs to be done within 30 days of surgery. - Virtual shared preop nurse teaching appointment. - Lab work - Any other testing that the provider orders for prior to surgery if needed You will receive a call from the rn plastic surgery the business day prior to your surgery as to when and where to arrive on the day of your scheduled surgery CREDIT RISK OFFICER ONCOLOGY PHYSICIAN CONTACT INFORMATION Surgery Scheduling Office Surgeons: Dr. Leighann Booker Dr. Katherin Mejia Dr. Stevie Tomas Dr. Richy Rand Dr. Zehra Roberson Dr. Claudia Gonsalez Dr. Bhaskar Baca Dr. Tonny Dickinson Dr. Dilan Sales Dr. Giacomo Chand Flight Attendant Ramp Oncology Nurse Practitioners: Zayda Anaya, HANDBAG STITCHER.MYNOR Walls, HANDBAG STITCHER.MYNOR Stanford, HANDBAG STITCHER.MYNOR Sanderson, HANDBAG STITCHER.MYNOR Cline, HANDBAG STITCHER.MYNOR After 4:30 pm or on holidays or weekends, call: or . Ask the cat wagon operator to page the gynecological assistant oncologist apprenticeship consultant. PRE-OPERATIVE CHECKLIST: PATIENT INSTRUCTIONS PRIOR TO SURGERY Our guidelines have changed, so please read these instructions carefully. Your surgery may be cancelled if you do not follow these instructions. MY ARRIVAL TIME IS: I have been instructed not to have any solid food to eat after midnight prior to my surgery (this includes no gum, mints, smoking). I am allowed to drink small amounts (up to 12 oz) of clear liquids up until 2 hours prior to my arrival time. Clear liquids include water, fruit juices without pulp, carbonated beverages (i.e. malaika warren), electrolyte beverages (i.e. Gatorade), clear tea and black coffee, clear broth, popsicles and jello. (No milk). No alcohol the day before or day of surgery. I will bring this binder to all pre and post-operative appointments AND day of surgery. MEDICATION STOPPAGE: Unless my surgeon tells me differently, I will STOP THESE MEDICATIONS 7 DAYS PRIOR TO SURGERY: (Motrin/ibuprofen/Naproxen/Aleve /Advil), Aspirin, vitamin E, herbal medications, diet pills, and rnim-bjj-vtsjbkj medications. Tylenol (acetaminophen) is okay. I will not wear jewelry, body piercing(s), makeup, nail south sudanese, hairpins, or contacts on the day of surgery. I am to leave valuables and money at home or with family members. If I am prescribed inhalers for breathing, I will use them and bring them to the hospital. Medication(s) to be taken on the morning of surgery with a few sips of water: If I am taking any of the following blood thinning medications - Aspirin, clopidogrel (Plavix), ticagrelor (Brilinta), prasugrel (Efficient), ticlodipine (Ticlid), warfarin (Coumadin), dibigatran (Pradaxa) or rivaroxaban (Xarelto) - I will discuss whether or not I should stop them before surgery with my surgeon. Discuss medication changes with your biodiesel plant superintendent or primary care physician as well. If I stopped taking my blood-thinning medication, I will ask the surgeon when to resume taking it. If I am an outpatient, a responsible person will drive me home and it was suggested that someone stay with me for 24 hours. I understand that a sap fico business analyst or cabdriver is NOT a responsible caregiver. Patients with diabetes, I will not take my morning diabetes medication (pills) on the morning of surgery. If I am on insulin, someone has gone over those instructions with me for the morning of surgery. I understand if my surgery is delayed, I will notify the check in desk that I have diabetes. See the Diabetic Guidelines Before Surgery in the patient education section. If I have Obstructive Sleep Apnea and use a CPAP/BiPAP machine, I will bring my mask, tubing, and machine with me on the day of surgery. Pain management education material found in Your Surgical Guide was reviewed with me. To find out my arrival time for surgery, I must call my surgical pathologist after 2pm the day before surgery. Pre-operative instructions given by: PREOP INSTRUCTIONS THE DAY OF SURGERY/CHECK IN Report to DESK J1-9 for surgery. A map is located in Your Surgical Guide Book. The online version of the surgical guide book can be found at: [email or web address] The address is [address] [place] [address]/[place] [address] INFECTION PREVENTION Please notify your doctor if you have any signs of an infection (i.e. fever, severe cough, nasal congestion, pain with urination, abnormal vaginal discharge, diarrhea, etc). Your surgeon will let you know if a bowel prep is needed before your surgery. If so, please see the attached instructions. Shower the night before surgery AND the morning of surgery with Hibiclens (provided by your surgeon). If you are allergic to Hibiclens or unable to obtain the Hibiclens, please wash with antibacterial soap. Wash your body from the neck down, focusing on your abdomen, belly button and external genitalia. Do not forget to scrub any skin folds and creases. No lotions, oils, creams, or powders after your shower. Underarm deodorant is okay. No shaving (abdominal or pubic hair) or douching the day before surgery. You may be asked to apply an antiseptic solution called Chlorhexidine Gluconate (CHG) which will be provided to you on arrival to the preop area. Hand washing is extremely important in preventing infection (for both you as the patient and for the caregivers). HOSPITALIZATION Before you leave the hospital, you typically need to be able to eat/drink, urinate, and have your pain controlled with oral medication. Your surgeon or other members of your surgeon s team will discuss any other specific medical issues related to your discharge with you. Your surgeon may order intermittent compression sleeves. These are massaging leg pumps to help prevent blood clots after surgery. See Your Surgical Guide Book for more information. It is also very important that you walk as soon as possible and as frequently as possible after surgery. This will help decrease your risk of blood clots, exercise your lungs and speed up your recovery after surgery. If you are admitted to the hospital overnight, you will be given an incentive spirometer, which is a breathing machine that will help make sure that you are taking deep breaths and expanding your lungs while in the hospital. See Your Surgical Guide Book for more information. [facility] TEAM At the [facility], we have a multidisciplinary team of caregivers that includes fellows, residents, nurse practitioners, physician assistants, clinical nurse specialists, nurses, medical assistants, patient care nursing assistants, social workers, director of casework services and many others. We all have different roles and responsibilities but we are all here to help. documented in this encounter [facility] 09-26-2024 Note HNO ID: [id number] Author: KIYA WALKER MD Service: ? Author Type: Physician Type: Progress Notes Filed: 09/26/2024 15:04 Note Text: [facility] [place] NEW PATIENT ENCOUNTER HISTORY OF PRESENT ILLNESS: Justin Love is a 29 year old female who presents history of nausea and vomiting requiring investigation, abdominal ultrasound was done showing a staghorn calculus affecting the right kidney with thinning of the renal cortex Denies any lower urinary tract symptoms patient claims that she had a CT scan abdomen and pelvis with and without contrast, this was done at [facility] but I do not see the CT images in epic Patient Entered Questionnaires PROMIS Global Health 09/05/2024 PROMIS Global Health Scale Physical Health Percentile 22 Mental Health Percentile 43 Patient-reported Percentiles provide an indication of how the patient's score ranks in relation to the general population. Higher percentile rankings indicate better function/quality of life. 50th percentile is the average of the general population and indicates half of respondents had a worse score. Review of Systems LAB No results found for: CREAT GLUCOSE UA (POCT) (mg/dL) Date Value 09/26/2024 Negative BILIRUBIN UA (POCT) (no units) Date Value 09/26/2024 Negative KETONE UA (POCT) (mg/dL) Date Value 09/26/2024 Negative SPECIFIC GRAVITY UA (POCT) (no units) Date Value 09/26/2024 1.015 HEMOGLOBIN/BLOOD UA (POCT) (no units) Date Value 09/26/2024 Moderate (A) PH UA (POCT) (no units) Date Value 09/26/2024 8.0 PROTEIN UA (POCT) (mg/dL) Date Value 09/26/2024 30 (A) UROBILINOGEN UA (POCT) (E.U./dL) Date Value 09/26/2024 0.2 NITRITE UA (POCT) (no units) Date Value 09/26/2024 Negative LEUKOCYTES UA (POCT) (no units) Date Value 09/26/2024 Large (A) COLOR UA (POCT) (no units) Date Value 09/26/2024 Yellow CLARITY UA (POCT) (no units) Date Value 09/26/2024 Slightly Cloudy ] MEDICATIONS levonorgestrel (MIRENA) 21 mcg/24hr (up to 8 yrs) 52 mg IUD 1 each by INTRAUTERINE route as directed. albuterol HFA (PROVENTIL HFA, VENTOLIN HFA) 90 mcg/actuation inhaler Inhale 2 puffs as instructed every 4 hours as needed for wheezing/shortness of breath. ondansetron orally disintegrating (ZOFRAN ODT) 4 mg disintegrating tablet Take 1 tablet by mouth every 6 hours as needed for nausea/vomiting. levonorgestrel (MIRENA) 20 mcg/24 hr (5 years) IUD 1 Each by INTRAUTERINE route one time only. loratadine (CLARITIN) 10 mg tablet Take 10 mg by mouth once daily. MOMETASONE FUROATE (NASONEX NASAL) Use in the nose. HISTORIES PAST MEDICAL HISTORY Diagnosis Date Anemia Asthma, exercise induced (HCC) 12/12/2012 Bipolar disorder ([facility]) 2012 Dr. Feng History of bipolar disorder 04/08/2016 off medication since 2016 History of frequent urinary tract infections 10/14/2012 History of suicidal ideation 2013 Hydronephrosis, left 10/14/2012 Irregular menses Kidney stones 08/15/2020 Seasonal allergies 2013 Staghorn calculus 09/15/2024 Right side. PAST SURGICAL HISTORY Procedure Laterality Date CYSTOSCOPY, W/INSERTION URETHRAL STENT Left 08/12/2020 retrograde pyelogram CYSTOSCOPY, W/INSERTION URETHRAL STENT Right 05/23/2019 CYSTOSCOPY,URETEROSCOPY,STONE REMV Left 08/15/2020 INSERTION OF IUD 09/26/2024 Mirena placed in office LITHOTRIPSY EXTRACORP SHOCK WAVE(ESWL) Right 07/13/2019 PAST SURGICAL HISTORY OF wisdom teeth, tubes in ears FAMILY HISTORY Problem Relation Age of Onset Psychiatry Mother Bipolar Arthritis Mother Asthma Father No Known Problems Brother COPD Maternal Grandmother Breast Cancer Maternal Grandmother 68 Heart Maternal Grandfather Liver Disease Maternal Grandfather of liver failure ~72 years Alcohol abuse Maternal Grandfather Kidney Disease Paternal Grandmother Alzheimer's Disease Paternal Grandfather age 71 SOCIAL HISTORY SOCIAL HISTORY[1] LMP 05/09/2023 (Exact Date) Physical Exam Constitutional: Appearance: Normal appearance. HENT: Head: Normocephalic. Nose: Nose normal. Pulmonary: Effort: Pulmonary effort is normal. Abdominal: General: Abdomen is flat. Psychiatric: Mood and Affect: Mood normal. ASSESSMENT AND PLAN ASSESSMENT/PLAN: 1. Kidney stone - ICD9: 592.0, ICD10: N20.0 For right For right percutaneous nephrolithotripsy - XR ABDOMEN 1V SUPINE Discussed with patient She may require multiple sessions due to the size of the kidney stones for Kiya Walker MD This note was partially created using voice recognition software and is inherently subject to errors including those of syntax and sound-alike substitutions which may escape proofreading. In such instances, original meaning may be extrapolated by contextual derivation. [1] Social History Tobacco Use Smoking status: Former Current packs/day: 0.50 Average packs/day: 0.5 pac (more content not included)... [facility] 09-26-2024 History of Presen t illness Narrative Images from the original note were not included. [facility] [place] NEW PATIENT ENCOUNTER HISTORY OF PRESENT ILLNESS: Justin Love is a 29 year old female who presents history of nausea and vomiting requiring investigation, abdominal ultrasound was done showing a staghorn calculus affecting the right kidney with thinning of the renal cortex Denies any lower urinary tract symptoms patient claims that she had a CT scan abdomen and pelvis with and without contrast, this was done at [facility] but I do not see the CT images in epic Patient Entered Questionnaires PROMIS Global Health 09/05/2024 PROMIS Global Health Scale Physical Health Percentile 22 Mental Health Percentile 43 Patient-reported Percentiles provide an indication of how the patient's score ranks in relation to the general population. Higher percentile rankings indicate better function/quality of life. 50th percentile is the average of the general population and indicates half of respondents had a worse score. Review of Systems LAB No results found for: CREAT GLUCOSE UA (POCT) (mg/dL) Date Value 09/26/2024 Negative BILIRUBIN UA (POCT) (no units) Date Value 09/26/2024 Negative KETONE UA (POCT) (mg/dL) Date Value 09/26/2024 Negative SPECIFIC GRAVITY UA (POCT) (no units) Date Value 09/26/2024 1.015 HEMOGLOBIN/BLOOD UA (POCT) (no units) Date Value 09/26/2024 Moderate (A) PH UA (POCT) (no units) Date Value 09/26/2024 8.0 PROTEIN UA (POCT) (mg/dL) Date Value 09/26/2024 30 (A) UROBILINOGEN UA (POCT) (E.U./dL) Date Value 09/26/2024 0.2 NITRITE UA (POCT) (no units) Date Value 09/26/2024 Negative LEUKOCYTES UA (POCT) (no units) Date Value 09/26/2024 Large (A) COLOR UA (POCT) (no units) Date Value 09/26/2024 Yellow CLARITY UA (POCT) (no units) Date Value 09/26/2024 Slightly Cloudy ] MEDICATIONS levonorgestrel (MIRENA) 21 mcg/24hr (up to 8 yrs) 52 mg IUD 1 each by INTRAUTERINE route as directed. albuterol HFA (PROVENTIL HFA, VENTOLIN HFA) 90 mcg/actuation inhaler Inhale 2 puffs as instructed every 4 hours as needed for wheezing/shortness of breath. ondansetron orally disintegrating (ZOFRAN ODT) 4 mg disintegrating tablet Take 1 tablet by mouth every 6 hours as needed for nausea/vomiting. levonorgestrel (MIRENA) 20 mcg/24 hr (5 years) IUD 1 Each by INTRAUTERINE route one time only. loratadine (CLARITIN) 10 mg tablet Take 10 mg by mouth once daily. MOMETASONE FUROATE (NASONEX NASAL) Use in the nose. HISTORIES PAST MEDICAL HISTORY Diagnosis Date Anemia Asthma, exercise induced (HCC) 12/12/2012 Bipolar disorder (HCC) 2012 Dr. Feng History of bipolar disorder 04/08/2016 off medication since 2017 History of frequent urinary tract infections 10/14/2012 History of suicidal ideation 2013 Hydronephrosis, left 10/14/2012 Irregular menses Kidney stones 08/15/2020 Seasonal allergies 2013 Staghorn calculus 09/15/2024 Right side. PAST SURGICAL HISTORY Procedure Laterality Date CYSTOSCOPY, W/INSERTION URETHRAL STENT Left 08/12/2020 retrograde pyelogram CYSTOSCOPY, W/INSERTION URETHRAL STENT Right 05/23/2019 CYSTOSCOPY,URETEROSCOPY,STONE REMV Left 08/15/2020 INSERTION OF IUD 09/26/2024 Mirena placed in office LITHOTRIPSY EXTRACORP SHOCK WAVE(ESWL) Right 07/13/2019 PAST SURGICAL HISTORY OF wisdom teeth, tubes in ears FAMILY HISTORY Problem Relation Age of Onset Psychiatry Mother Bipolar Arthritis Mother Asthma Father No Known Problems Brother COPD Maternal Grandmother Breast Cancer Maternal Grandmother 68 Heart Maternal Grandfather Liver Disease Maternal Grandfather of liver failure ~72 years Alcohol abuse Maternal Grandfather Kidney Disease Paternal Grandmother Alzheimer's Disease Paternal Grandfather age 71 SOCIAL HISTORY SOCIAL HISTORY[1] LMP 05/09/2023 (Exact Date) Physical Exam Constitutional: Appearance: Normal appearance. HENT: Head: Normocephalic. Nose: Nose normal. Pulmonary: Effort: Pulmonary effort is normal. Abdominal: General: Abdomen is flat. Psychiatric: Mood and Affect: Mood normal. ASSESSMENT & PLAN ASSESSMENT/PLAN: 1. Kidney stone - ICD9: 592.0, ICD10: N20.0 For right For right percutaneous nephrolithotripsy - XR ABDOMEN 1V SUPINE Discussed with patient She may require multiple sessions due to the size of the kidney stones for Kiya Walker MD This note was partially created using voice recognition software and is inherently subject to errors including those of syntax and sound-alike substitutions which may escape proofreading. In such instances, original meaning may be extrapolated by contextual derivation. [1] Social History Tobacco Use Smoking status: Former Current packs/day: 0.50 Average packs/day: 0.5 packs/day for 1.1 years (0.5 ttl pk-yrs) Types: Cigarettes Start date: 09/06/2023 Smokeless tobacco: Never Vaping Use Vaping status: current everyday user Start date: 02/07/2022 Substances: Nicotine Devices: Disposable Substance Use Topics Alcohol use: No Drug use: Never documented in this encounter [facility] 09-26-2024 History of Presen t illness Narrative Radiology Service Progress Note PATIENT NAME: Justin Love DATE OF SERVICE: September 26, 2024 TIME: 2:38 PM PATIENT IDENTITY VERIFICATION COMPLETED USING TWO (2) IDENTIFIERS: Name and Date of confirmed by patient verbally. FALL SCREENING: Has the patient had 2 falls in the last year or 1 fall with injury or currently using an Ambulatory Assistive Device (Walker, Cane, Wheelchair, Crutches, etc.)? No PATIENT GENDER DATA: Assigned female at . status: : No status: NO. PATIENT RELEVANT IMPLANT DATA REVIEWED: Yes PATIENT PRESENTS WITH AN IMPLANTABLE OR ATTACHED BRIQUETTER OPERATOR: No RADIOLOGY DEPARTMENT: General X-ray: Exam(s) Completed: Abdomen X-Ray: Abdomen PERIPHERAL IV DATA: Not applicable SIGNED BY: RT Elisabeth(R) September 26, 2024 2:38 PM documented in this encounter [facility] 09-26-2024 Note HNO ID: [id number] Author: ELLI CHOWDARY RT(Kimi) Service: Radiology Author Type: Technologist Type: Progress Notes Filed: 09/26/2024 14:38 Note Text: Radiology Service Progress Note PATIENT NAME: Justin Love DATE OF SERVICE: September 26, 2024 TIME: 2:38 PM PATIENT IDENTITY VERIFICATION COMPLETED USING TWO (2) IDENTIFIERS: Name and Date of confirmed by patient verbally. FALL SCREENING: Has the patient had 2 falls in the last year or 1 fall with injury or currently using an Ambulatory Assistive Device (Walker, Cane, Wheelchair, Crutches, etc.)? No PATIENT GENDER DATA: Assigned female at . status: : No status: NO. PATIENT RELEVANT IMPLANT DATA REVIEWED: Yes PATIENT PRESENTS WITH AN IMPLANTABLE OR ATTACHED BRIQUETTER OPERATOR: No RADIOLOGY DEPARTMENT: General X-ray: Exam(s) Completed: Abdomen X-Ray: Abdomen PERIPHERAL IV DATA: Not applicable SIGNED BY: RT Elisabeth(R) September 26, 2024 2:38 PM [facility] 09-26-2024 Note HNO ID: [id number] Author: KIMBERLY STUBBS APRN.CNM Service: ? Author Type: Sole Leveler Type: Progress Notes Filed: 09/26/2024 11:45 Note Text: Patient declined retail account manager. Justin presents today for IUD insertion for contraception. Patient's last menstrual period was 05/09/2023. GC/chlamydia: Negative on 09/06/2024 test: negative Side effects including irregular bleeding were discussed with the patient. The patient understands that it should be removed in 8 years or sooner if the patient desires a . IUD source: office provided IUD lot #: [id number] Exp date: September 2026 UNIVERSAL PROTOCOL / SAFETY CHECKLIST Procedure to be Performed: Insertion Mirena Intrauterine Device. Sign In: A Moment of CARE was completed. Appropriate PPE (Personal Protective Equipment) worn by all providers involved with the procedure. Special equipment not required. Patient/Surrogate Stated/Verified: Patient name, Date of , Relevant allergies, and The intended procedure Time Out: Relevant labs, photos, and/or imaging studies have been reviewed. Intended patient and procedure match the source document(s) (e.g. consent, HANDP, associated studies [imaging, pathology]) are not applicable. Consent obtained and matches the intended procedure. Yes. Correct side/site is not applicable. Medications required for this procedure are verified. are not applicable. Fire risk assessed and is not applicable. Implants: are not applicable. Sign Out: Specimens not collected. All instruments, equipment, possible retained foreign bodies are accounted for. Yes. The post-procedure plan of care has been communicated to the patient or surrogate. The cervix was prepped with betadine. The uterus sounded to 7 cm and the uterus is Midposition.. Using sterile technique, the Mirena IUD was inserted without difficulty and the string was cut to 2 cm from the external os of the cervix. Patient tolerated procedure well. PLAN: Patient was advised to observe for signs and symptoms of infection including but not limited to fever, malodorous vaginal discharge and/or pain. The patient was told to check the string monthly for accurate placement. Bleeding expectations were reviewed. Follow up 4 to 6 weeks . Kimberly Stubbs APRN.ROMAN Singletary presents for removal of IUD due to expiration of IUD. UNIVERSAL PROTOCOL / SAFETY CHECKLIST Procedure to be Performed: Removal Mirena Intrauterine Device Sign In: A Moment of CARE was completed. Appropriate PPE (Personal Protective Equipment) worn by all providers involved with the procedure. Special equipment not required. Patient/Surrogate Stated/Verified: Patient name, Date of , Relevant allergies, and The intended procedure Time Out: Relevant labs, photos, and/or imaging studies have been reviewed. Intended patient and procedure match the source document(s) (e.g. consent, HANDP, associated studies [imaging, pathology]) match the intended patient and procedure. Consent obtained and matches the intended procedure. Yes. Correct side/site is not applicable. Medications required for this procedure are verified. Fire risk assessed and is not applicable. Implants: Correct implant(s) confirmed including size and side. Expiration date(s) reviewed. Sign Out: Specimens not collected. All instruments, equipment, possible retained foreign bodies are accounted for. Yes. The post-procedure plan of care has been communicated to the patient or surrogate. PROCEDURE: Speculum placed in vagina, IUD string visualized and grasped with ring forceps. ASSESSMENT/PLAN: IUD removed without difficulty, intact, and patient tolerated procedure well. 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 Justin presents today for IUD insertion for contraception. Patient's last menstrual period was 05/09/2023. GC/chlamydia: Negative on 09/06/2024 test: negative Side effects including irregular bleeding were discussed with the patient. The patient understands that it should be removed in 8 years or sooner if the patient desires a . IUD source: office provided IUD lot #: [id number] Exp date: September 2026 UNIVERSAL PROTOCOL / SAFETY CHECKLIST Procedure to be Performed: Insertion Mirena Intrauterine Device. Sign In: A Moment of CARE was completed. Appropriate PPE (Personal Protective Equipment) worn by all providers involved with the procedure. Special equipment not required. Patient/Surrogate Stated/Verified: Patient name, Date of , Relevant allergies, and The intended procedure Time Out: Relevant labs, photos, and/or imaging studies have been reviewed. Intended patient and procedure match the source document(s) (e.g. consent, H&P, associated studies [imaging, pathology]) are not applicable. Consent obtained and matches the intended procedure. Yes. Correct side/site is not applicable. Medications required for this procedure are verified. are not applicable. Fire risk assessed and is not applicable. Implants: are not applicable. Sign Out: Specimens not collected. All instruments, equipment, possible retained foreign bodies are accounted for. Yes. The post-procedure plan of care has been communicated to the patient or surrogate. The cervix was prepped with betadine. The uterus sounded to 7 cm and the uterus is Midposition.. Using sterile technique, the Mirena IUD was inserted without difficulty and the string was cut to 2 cm from the external os of the cervix. Patient tolerated procedure well. PLAN: Patient was advised to observe for signs and symptoms of infection including but not limited to fever, malodorous vaginal discharge and/or pain. The patient was told to check the string monthly for accurate placement. Bleeding expectations were reviewed. Follow up 4 to 6 weeks . JOSE LUIS Knight presents for removal of IUD due to expiration of IUD. UNIVERSAL PROTOCOL / SAFETY CHECKLIST Procedure to be Performed: Removal Mirena Intrauterine Device Sign In: A Moment of CARE was completed. Appropriate PPE (Personal Protective Equipment) worn by all providers involved with the procedure. Special equipment not required. Patient/Surrogate Stated/Verified: Patient name, Date of , Relevant allergies, and The intended procedure Time Out: Relevant labs, photos, and/or imaging studies have been reviewed. Intended patient and procedure match the source document(s) (e.g. consent, H&P, associated studies [imaging, pathology]) match the intended patient and procedure. Consent obtained and matches the intended procedure. Yes. Correct side/site is not applicable. Medications required for this procedure are verified. Fire risk assessed and is not applicable. Implants: Correct implant(s) confirmed including size and side. Expiration date(s) reviewed. Sign Out: Specimens not collected. All instruments, equipment, possible retained foreign bodies are accounted for. Yes. The post-procedure plan of care has been communicated to the patient or surrogate. PROCEDURE: Speculum placed in vagina, IUD string visualized and grasped with ring forceps. ASSESSMENT/PLAN: IUD removed without difficulty, intact, and patient tolerated procedure well. Contraception plans: Mirena IUD- Replaced today Kimberly Stubbs APRN.CNM documented in this encounter [facility] 09-26-2024 Instructions Etelvina Arvizu LPN - 09/26/2024 8:49 AM EDT POST IUD INSTRUCTIONS You may have irregular bleeding during the first 3 months of use. You may have mild-severe cramping for the next 48 hours. You may use over the counter medication (Motrin, Tylenol) as needed. Your IUD must be removed or replaced based on the following table: IUD Type Removed or replaced within: Jodi 3 years Kyleena 5 years Mirena 8 years Liletta 8 years Paragard 10 years Call the office for signs/symptoms of infection such as severe cramping, fever, or unusual bleeding. Check for string placement as instructed by your doctor. If you have any additional questions, please contact the office. documented in this encounter [facility] 09-19-2024 Telephone encounter Note Faxed records and consult to Dr. Velasquez. Message left to pt with info. [facility] 09-19-2024 Miscellaneous Notes Faxed records and consult to Dr. Velasquez. Message left to pt with info. Okay. Fax rec'd from Dr. Davila's office. They can not see pt. She has a balance. Pcp reviewed and noted to consult with Aly Velasquez. Please file consult Will need to fax notes and demographic to that office too. documented in this encounter [facility] 09-19-2024 Telephone encounter Note Okay. [facility] 09-18-2024 Telephone encounter Note Fax rec'd from Dr. Davila's office. They can not see pt. She has a balance. Pcp reviewed and noted to consult with Nunam Iquamarry Velasquez. Please file consult Will need to fax notes and demographic to that office too. [facility] 09-18-2024 Telephone encounter Note Patient called trying to schedule an appointment with another urologist since [facility] u[facility] Dr Davila will not see her. Patient denies any new or worsening symptoms today of which a provider is not aware although she admits to sharp pain and nausea yesterday. Approval to schedule with patient informed to not wait for the appointment if pain returns and GO TO THE EMERGENCY ROOM OR CALL 911 IF: * You develop any new symptoms * Your condition worsens * You are concerned or anxious about your condition for any other reason. Patient verbalized understanding. [facility] 09-18-2024 Miscellaneous Notes Patient called trying to schedule an appointment with another urologist since Nick Davila will not see her. Patient denies any new or worsening symptoms today of which a provider is not aware although she admits to sharp pain and nausea yesterday. Approval to schedule with patient informed to not wait for the appointment if pain returns and GO TO THE EMERGENCY ROOM OR CALL 911 IF: * You develop any new symptoms * Your condition worsens * You are concerned or anxious about your condition for any other reason. Patient verbalized understanding. documented in this encounter [facility] 09-10-2024 History of Presen t illness Narrative Radiology Service Progress Note PATIENT NAME: Justin Love DATE OF SERVICE: September 10, 2024 TIME: 2:39 PM PATIENT IDENTITY VERIFICATION COMPLETED USING TWO (2) IDENTIFIERS: Name and Date of confirmed by patient verbally. FALL SCREENING: Has the patient had 2 falls in the last year or 1 fall with injury or currently using an Ambulatory Assistive Device (Walker, Cane, Wheelchair, Crutches, etc.)? No PATIENT GENDER DATA: Assigned female at . status: : No status: NO. PATIENT RELEVANT IMPLANT DATA REVIEWED: Not Applicable PATIENT PRESENTS WITH AN IMPLANTABLE OR ATTACHED BRIQUETTER OPERATOR: No RADIOLOGY DEPARTMENT: Ultrasound PERIPHERAL IV DATA: Not applicable SIGNED BY: Nano Álvarez RDMS RVT September 10, 2024 2:39 PM documented in this encounter [facility] 09-10-2024 Note HNO ID: [id number] Author: NANO ÁLVAREZ RDMS Service: ? Author Type: Document Image Technician Type: Progress Notes Filed: 09/10/2024 14:39 Note Text: Radiology Service Progress Note PATIENT NAME: Justin Love DATE OF SERVICE: September 10, 2024 TIME: 2:39 PM PATIENT IDENTITY VERIFICATION COMPLETED USING TWO (2) IDENTIFIERS: Name and Date of confirmed by patient verbally. FALL SCREENING: Has the patient had 2 falls in the last year or 1 fall with injury or currently using an Ambulatory Assistive Device (Walker, Cane, Wheelchair, Crutches, etc.)? No PATIENT GENDER DATA: Assigned female at . status: : No status: NO. PATIENT RELEVANT IMPLANT DATA REVIEWED: Not Applicable PATIENT PRESENTS WITH AN IMPLANTABLE OR ATTACHED BRIQUETTER OPERATOR: No RADIOLOGY DEPARTMENT: Ultrasound PERIPHERAL IV DATA: Not applicable SIGNED BY: Nano Álvarez RDMS RVJudy September 10, 2024 2:39 PM [facility] 09-06-2024 Note HNO ID: [id number] Author: KIMBERLY STUBBS APRN.CNM Service: ? Author Type: Sole Leveler Type: Progress Notes Filed: 09/06/2024 11:11 Note Text: Justin is a 29 year old who presents for an annual gynecologic exam without complaints. Maternal grandmother recently diagnosed with breast cancer and family getting gene testing. Still get period: No Time with current partner: 11 years Number of lifetime partners: 1 control frequency: Always HPV vaccine: Unsure; HPV:N/A Last pap smear: 03/2016 History of abnormal pap: No, all prior PAP smears have been normal Bothersome pelvic pain: No Last mammogram: never Family hx of gynecological assistant malignancy: Breast cancer OB History Gravida1 Para1 Term1 Preterm0 AB0 Living1 SAB0 IAB0 Ectopic0 Multiple0 Live Births1 Flight Attendant Ramp History LMP: 05/09/2023, IUD Age at Menarche: 9 Age at First : Age at Menopause: Flight Attendant Ramp History Comments: Sexual Activity: Yes; Male Contraception: I.U.D. PAST MEDICAL HISTORY Diagnosis Date Anemia Asthma, exercise induced (HCC) 12/12/2012 Bipolar disorder ([facility]) 2012 Dr. Feng History of bipolar disorder 04/08/2016 off medication since 2016 History of frequent urinary tract infections 10/14/2012 History of suicidal ideation 2013 Hydronephrosis, left 10/14/2012 Irregular menses Kidney stones 08/15/2020 Seasonal allergies 2012 PAST SURGICAL HISTORY Procedure Laterality Date CYSTOSCOPY, W/INSERTION URETHRAL STENT Left 08/12/2020 retrograde pyelogram CYSTOSCOPY, W/INSERTION URETHRAL STENT Right 05/23/2019 CYSTOSCOPY,URETEROSCOPY,STONE REMV Left 08/15/2020 INSERTION OF IUD 01/06/2017 LITHOTRIPSY EXTRACORP SHOCK WAVE(ESWL) Right 07/13/2019 PAST SURGICAL HISTORY OF wisdom teeth, tubes in ears FAMILY HISTORY Problem Relation Age of Onset Psychiatry Mother Bipolar Arthritis Mother Asthma Father No Known Problems Brother COPD Maternal Grandmother Breast Cancer Maternal Grandmother Heart Maternal Grandfather Liver Disease Maternal Grandfather of liver failure ~72 years Alcohol abuse Maternal Grandfather Kidney Disease Paternal Grandmother Alzheimer's Disease Paternal Grandfather age 71 SOCIAL HISTORY Social History Tobacco Use Smoking status: Former Current packs/day: 0.50 Average packs/day: 0.5 packs/day for 1 year (0.5 ttl pk-yrs) Types: Cigarettes Start date: 09/06/2023 Smokeless tobacco: Never Vaping Use Vaping status: current everyday user Start date: 02/07/2022 Substances: Nicotine Devices: Disposable Substance Use Topics Alcohol use: No Drug use: Never REVIEW OF SYSTEMS Abdomen: No abdominal pain, nausea, vomiting, diarrhea, or constipation. No bloating, early satiety, indigestion, or increased flatulence. Bladder: No dysuria, gross hematuria, urinary frequency, urinary urgency, or incontinence. Breast: No breast lumps, nipple d/c, overlying skin changes, redness or skin retraction. Allergies and current medication updated:Yes SENSITIVE EXAM: The sensitive examination was discussed with the Patient or Patient's Authorized Help Desk Technician. As applicable, any other physician, advance practice provider, medical student, or other health professional student that will be observing or involved in the sensitive examination for educational or training purposes was discussed with the Patient or Authorized Help Desk Technician. The Patient or Authorized Help Desk Technician has agreed to proceed with the sensitive examination. (Sensitive examination includes inspection and/or palpation of the breasts, pelvis, prostate and anorectal regions). EXAM: BP 104/60 Ht 5' .25 (1.53m) Wt 118 lb (53.5kg) LMP 05/09/2023 BMI 22.86 kg/(m2). GENERAL: pleasant, female in no apparent distress HEENT: Normocephalic and atraumatic NECK: Supple, full range of motion, and no adenopathy DERMATOLOGY: Normal, without lesions, non-icteric, and non-hirsute BREAST: soft, non-tender, symmetric, no dominant mass, normal nipple-areolar complex, no lymphadenopathy, no nipple discharge, and fibrocystic changes CHEST: Normal inspiratory effort ABDOMEN: soft, non-tender, and no masses PELVIC: external genitalia normal, normal Bartholin's glands, urethra, [place]ernash's glands, no vulvar lesions, no cervical lesions, good vaginal support, physiologic discharge present, normal appearing perineal body and perianal region BIMANUAL: uterus normal size, shape and consistency, no adnexal masses, non-tender, and IUD strings visible RECTOVAGINAL: deferred. NEURO: alert and oriented x3,exam grossly non-focal EXTREMITIES: normal ASSESSMENT/PLAN: 1) Health maintenance: Pap done with reflex HPV. Nutrition, exercise and routine health maintenance exams reviewed. 2) Contraception: IUD. Mirena due for removal and patient desires replacement 3) STD screening: Accepted STI check for Gonorrhea and Chlamydia. 4) Follow up one year or sooner as needed Courtn (more content not included)... [facility] 09-06-2024 History of Presen t illness Narrative Justin is a 29 year old who presents for an annual gynecologic exam without complaints. Maternal grandmother recently diagnosed with breast cancer and family getting gene testing. Still get period: No Time with current partner: 11 years Number of lifetime partners: 1 control frequency: Always HPV vaccine: Unsure; HPV:N/A Last pap smear: 03/2016 History of abnormal pap: No, all prior PAP smears have been normal Bothersome pelvic pain: No Last mammogram: never Family hx of gynecological assistant malignancy: Breast cancer OB History Gravida1 Para1 Term1 Preterm0 AB0 Living1 SAB0 IAB0 Ectopic0 Multiple0 Live Births1 Flight Attendant Ramp History LMP: 05/09/2023, IUD Age at Menarche: 9 Age at First : Age at Menopause: Flight Attendant Ramp History Comments: Sexual Activity: Yes; Male Contraception: I.U.D. PAST MEDICAL HISTORY Diagnosis Date Anemia Asthma, exercise induced (HCC) 12/12/2012 Bipolar disorder (HCC) 2012 Dr. Feng History of bipolar disorder 04/08/2016 off medication since 2016 History of frequent urinary tract infections 10/14/2012 History of suicidal ideation 2013 Hydronephrosis, left 10/14/2012 Irregular menses Kidney stones 08/15/2020 Seasonal allergies 2012 PAST SURGICAL HISTORY Procedure Laterality Date CYSTOSCOPY, W/INSERTION URETHRAL STENT Left 08/12/2020 retrograde pyelogram CYSTOSCOPY, W/INSERTION URETHRAL STENT Right 05/23/2019 CYSTOSCOPY,URETEROSCOPY,STONE REMV Left 08/15/2020 INSERTION OF IUD 01/06/2017 LITHOTRIPSY EXTRACORP SHOCK WAVE(ESWL) Right 07/13/2019 PAST SURGICAL HISTORY OF wisdom teeth, tubes in ears FAMILY HISTORY Problem Relation Age of Onset Psychiatry Mother Bipolar Arthritis Mother Asthma Father No Known Problems Brother COPD Maternal Grandmother Breast Cancer Maternal Grandmother Heart Maternal Grandfather Liver Disease Maternal Grandfather of liver failure ~72 years Alcohol abuse Maternal Grandfather Kidney Disease Paternal Grandmother Alzheimer's Disease Paternal Grandfather age 71 SOCIAL HISTORY Social History Tobacco Use Smoking status: Former Current packs/day: 0.50 Average packs/day: 0.5 packs/day for 1 year (0.5 ttl pk-yrs) Types: Cigarettes Start date: 09/06/2023 Smokeless tobacco: Never Vaping Use Vaping status: current everyday user Start date: 02/07/2022 Substances: Nicotine Devices: Disposable Substance Use Topics Alcohol use: No Drug use: Never REVIEW OF SYSTEMS Abdomen: No abdominal pain, nausea, vomiting, diarrhea, or constipation. No bloating, early satiety, indigestion, or increased flatulence. Bladder: No dysuria, gross hematuria, urinary frequency, urinary urgency, or incontinence. Breast: No breast lumps, nipple d/c, overlying skin changes, redness or skin retraction. Allergies and current medication updated:Yes SENSITIVE EXAM: The sensitive examination was discussed with the Patient or Patient's Authorized Help Desk Technician. As applicable, any other physician, advance practice provider, medical student, or other health professional student that will be observing or involved in the sensitive examination for educational or training purposes was discussed with the Patient or Authorized Help Desk Technician. The Patient or Authorized Help Desk Technician has agreed to proceed with the sensitive examination. (Sensitive examination includes inspection and/or palpation of the breasts, pelvis, prostate and anorectal regions). EXAM: BP 104/60 Ht 5' .25 (1.53m) Wt 118 lb (53.5kg) LMP 05/09/2023 BMI 22.86 kg/(m^2). GENERAL: pleasant, female in no apparent distress HEENT: Normocephalic and atraumatic NECK: Supple, full range of motion, and no adenopathy DERMATOLOGY: Normal, without lesions, non-icteric, and non-hirsute BREAST: soft, non-tender, symmetric, no dominant mass, normal nipple-areolar complex, no lymphadenopathy, no nipple discharge, and fibrocystic changes CHEST: Normal inspiratory effort ABDOMEN: soft, non-tender, and no masses PELVIC: external genitalia normal, normal Bartholin's glands, urethra, Tabernash's glands, no vulvar lesions, no cervical lesions, good vaginal support, physiologic discharge present, normal appearing perineal body and perianal region BIMANUAL: uterus normal size, shape and consistency, no adnexal masses, non-tender, and IUD strings visible RECTOVAGINAL: deferred. NEURO: alert and oriented x3,exam grossly non-focal EXTREMITIES: normal ASSESSMENT/PLAN: 1) Health maintenance: Pap done with reflex HPV. Nutrition, exercise and routine health maintenance exams reviewed. 2) Contraception: IUD. Mirena due for removal and patient desires replacement 3) STD screening: Accepted STI check for Gonorrhea and Chlamydia. 4) Follow up one year or sooner as needed Kimberly Stubbs APRN.CNM documented in this encounter [facility] 09-05-2024 Note HNO ID: [id number] Author: TONY PEPE MD Service: ? Author Type: Physician Type: Progress Notes Filed: 09/05/2024 18:11 Note Text: Subjective Justin Love is a 29 year old female. Patient presents with: Establish Care Justin was here to establish. She had no PCP for several years. She was in the ER recently for right flank pain and there was concern about a staghorn calculus. Her flank pain resolved. She had a history of kidney disease and urinary tract infection since childhood. On review, this was probably from recurrent kidney stones. She had seen Dr. Love Alfonso in the past, but did not appreciate her care, so she was cared for by Dr. Jensen Davila in 2020. Asthma and allergies were mild and generally controlled. PAST MEDICAL HISTORY Diagnosis Date Anemia Asthma, exercise induced (HCC) 12/12/2012 Bipolar disorder (HCC) 2012 Dr. Feng History of bipolar disorder 04/08/2016 off medication since 2016 History of frequent urinary tract infections 10/14/2012 History of suicidal ideation 2012 Hydronephrosis, left 10/14/2012 Irregular menses Kidney stones 08/15/2020 Seasonal allergies 2012 PAST SURGICAL HISTORY Procedure Laterality Date CYSTOSCOPY, W/INSERTION URETHRAL STENT Left 08/12/2020 retrograde pyelogram CYSTOSCOPY, W/INSERTION URETHRAL STENT Right 05/23/2019 CYSTOSCOPY,URETEROSCOPY,STONE REMV Left 08/15/2020 LITHOTRIPSY EXTRACORP SHOCK WAVE(ESWL) Right 07/13/2019 PAST SURGICAL HISTORY OF wisdom teeth, tubes in ears FAMILY HISTORY Problem Relation Age of Onset Psychiatry Mother Bipolar Arthritis Mother Asthma Father No Known Problems Brother COPD Maternal Grandmother Breast Cancer Maternal Grandmother Heart Maternal Grandfather Liver Disease Maternal Grandfather of liver failure ~72 years Alcohol abuse Maternal Grandfather Kidney Disease Paternal Grandmother Alzheimer's Disease Paternal Grandfather age 71 Social History Tobacco Use Smoking status: Former Current packs/day: 0.50 Average packs/day: 0.5 packs/day for 1 year (0.5 ttl pk-yrs) Types: Cigarettes Start date: 09/06/2023 Smokeless tobacco: Never Vaping Use Vaping status: current everyday user Start date: 02/07/2022 Substances: Nicotine, Flavoring Devices: Disposable Substance Use Topics Alcohol use: No Drug use: Never ALLERGIES Allergen Reactions Ciprofloxacin Rash, GI Upset Nausea, Dizziness, and Racing Heartbeat. Amoxicillin Hives Codeine Hives Flu Vac 2011 (18-64* GI Upset Current Outpatient Medications Medication Sig ondansetron orally disintegrating (ZOFRAN ODT) 4 mg disintegrating tablet Take 1 tablet by mouth every 6 hours as needed for nausea/vomiting. levonorgestrel (MIRENA) 20 mcg/24 hr (5 years) IUD 1 Each by INTRAUTERINE route one time only. loratadine (CLARITIN) 10 mg tablet Take 10 mg by mouth once daily. MOMETASONE FUROATE (NASONEX NASAL) Use in the nose. albuterol HFA (PROVENTIL HFA, VENTOLIN HFA) 90 mcg/actuation inhaler Inhale 2 puffs as instructed every 4 hours as needed for wheezing/shortness of breath. No current facility-administered medications for this visit. Objective BP 100/66 (BP Site: Left Arm, BP Position: Sitting, BP Cuff Size: Large Adult) Pulse 96 Temp 36.7 ?C (98 ?F) (Temporal) Resp 18 Ht 154.3 cm (5' 0.75) Wt 54.2 kg (119 lb 7.8 oz) LMP 01/02/2017 (Exact Date) BMI 22.76 kg/m? Physical Exam Constitutional: Appearance: Normal appearance. HENT: Head: Normocephalic. Nose: No congestion or rhinorrhea. Mouth/Throat: Mouth: Mucous membranes are moist. Pharynx: Oropharynx is clear. Eyes: Extraocular Movements: Extraocular movements intact. Conjunctiva/sclera: Conjunctivae normal. Cardiovascular: Rate and Rhythm: Normal rate. Heart sounds: No murmur heard. No gallop. Pulmonary: Breath sounds: Normal breath sounds. Abdominal: Palpations: Abdomen is soft. Tenderness: There is no abdominal tenderness. There is no right CVA tenderness or left CVA tenderness. Musculoskeletal: General: No tenderness. Normal range of motion. Right lower leg: No edema. Left lower leg: No edema. Lymphadenopathy: Cervical: No cervical adenopathy. Skin: General: Skin is warm and dry. Neurological: General: No focal deficit present. Mental Status: She is alert. ASSESSMENT/PLAN: 1. Screening for cervical cancer - ICD9: V76.2, ICD10: Z12.4 (primary diagnosis) - CONSULT TO GYNECOLOGY 2. Screening for depression - ICD9: V79.0, ICD10: Z13.31 - DEPRESSION SCREENING 3. Encounter for screening examination for other mental health and behavioral disorders - ICD9: V79.8, ICD10: Z13.39 - ANXIETY SCREENING 4. Staghorn calculus - ICD9: 592.0, ICD10: N20.0 Versus hydronephrosis. - US KIDNEY/BLADDER 5. Kidney stones - ICD9: 592.0, ICD10: N20.0 Recurrent. - Hydrate well. Tony Pepe MD [facility] 09-05-2024 History of Presen t illness Narrative Subjective Justin Love is a 29 year old female. Patient presents with: Establish Care Justin was here to establish. She had no PCP for several years. She was in the ER recently for right flank pain and there was concern about a staghorn calculus. Her flank pain resolved. She had a history of kidney disease and urinary tract infection since childhood. On review, this was probably from recurrent kidney stones. She had seen Dr. Love Alfonso in the past, but did not appreciate her care, so she was cared for by Dr. Jensen Davila in 2020. Asthma and allergies were mild and generally controlled. PAST MEDICAL HISTORY Diagnosis Date Anemia Asthma, exercise induced (HCC) 12/12/2012 Bipolar disorder (HCC) 2012 Dr. Feng History of bipolar disorder 04/08/2016 off medication since 2016 History of frequent urinary tract infections 10/14/2012 History of suicidal ideation 2012 Hydronephrosis, left 10/14/2012 Irregular menses Kidney stones 08/15/2020 Seasonal allergies 2013 PAST SURGICAL HISTORY Procedure Laterality Date CYSTOSCOPY, W/INSERTION URETHRAL STENT Left 08/12/2020 retrograde pyelogram CYSTOSCOPY, W/INSERTION URETHRAL STENT Right 05/23/2019 CYSTOSCOPY,URETEROSCOPY,STONE REMV Left 08/15/2020 LITHOTRIPSY EXTRACORP SHOCK WAVE(ESWL) Right 07/13/2019 PAST SURGICAL HISTORY OF wisdom teeth, tubes in ears FAMILY HISTORY Problem Relation Age of Onset Psychiatry Mother Bipolar Arthritis Mother Asthma Father No Known Problems Brother COPD Maternal Grandmother Breast Cancer Maternal Grandmother Heart Maternal Grandfather Liver Disease Maternal Grandfather of liver failure ~72 years Alcohol abuse Maternal Grandfather Kidney Disease Paternal Grandmother Alzheimer's Disease Paternal Grandfather age 71 Social History Tobacco Use Smoking status: Former Current packs/day: 0.50 Average packs/day: 0.5 packs/day for 1 year (0.5 ttl pk-yrs) Types: Cigarettes Start date: 09/06/2023 Smokeless tobacco: Never Vaping Use Vaping status: current everyday user Start date: 02/07/2022 Substances: Nicotine, Flavoring Devices: Disposable Substance Use Topics Alcohol use: No Drug use: Never ALLERGIES Allergen Reactions Ciprofloxacin Rash, GI Upset Nausea, Dizziness, and Racing Heartbeat. Amoxicillin Hives Codeine Hives Flu Vac 2011 (18-64* GI Upset Current Outpatient Medications Medication Sig ondansetron orally disintegrating (ZOFRAN ODT) 4 mg disintegrating tablet Take 1 tablet by mouth every 6 hours as needed for nausea/vomiting. levonorgestrel (MIRENA) 20 mcg/24 hr (5 years) IUD 1 Each by INTRAUTERINE route one time only. loratadine (CLARITIN) 10 mg tablet Take 10 mg by mouth once daily. MOMETASONE FUROATE (NASONEX NASAL) Use in the nose. albuterol HFA (PROVENTIL HFA, VENTOLIN HFA) 90 mcg/actuation inhaler Inhale 2 puffs as instructed every 4 hours as needed for wheezing/shortness of breath. No current facility-administered medications for this visit. Objective BP 100/66 (BP Site: Left Arm, BP Position: Sitting, BP Cuff Size: Large Adult) Pulse 96 Temp 36.7 C (98 F) (Temporal) Resp 18 Ht 154.3 cm (5' 0.75) Wt 54.2 kg (119 lb 7.8 oz) LMP 01/02/2017 (Exact Date) BMI 22.76 kg/m Physical Exam Constitutional: Appearance: Normal appearance. HENT: Head: Normocephalic. Nose: No congestion or rhinorrhea. Mouth/Throat: Mouth: Mucous membranes are moist. Pharynx: Oropharynx is clear. Eyes: Extraocular Movements: Extraocular movements intact. Conjunctiva/sclera: Conjunctivae normal. Cardiovascular: Rate and Rhythm: Normal rate. Heart sounds: No murmur heard. No gallop. Pulmonary: Breath sounds: Normal breath sounds. Abdominal: Palpations: Abdomen is soft. Tenderness: There is no abdominal tenderness. There is no right CVA tenderness or left CVA tenderness. Musculoskeletal: General: No tenderness. Normal range of motion. Right lower leg: No edema. Left lower leg: No edema. Lymphadenopathy: Cervical: No cervical adenopathy. Skin: General: Skin is warm and dry. Neurological: General: No focal deficit present. Mental Status: She is alert. ASSESSMENT/PLAN: 1. Screening for cervical cancer - ICD9: V76.2, ICD10: Z12.4 (primary diagnosis) - CONSULT TO GYNECOLOGY 2. Screening for depression - ICD9: V79.0, ICD10: Z13.31 - DEPRESSION SCREENING 3. Encounter for screening examination for other mental health and behavioral disorders - ICD9: V79.8, ICD10: Z13.39 - ANXIETY SCREENING 4. Staghorn calculus - ICD9: 592.0, ICD10: N20.0 Versus hydronephrosis. - US KIDNEY/BLADDER 5. Kidney stones - ICD9: 592.0, ICD10: N20.0 Recurrent. - Hydrate well. Tony Pepe MD documented in this encounter [facility] 08-20-2024 Discharge summary [facility] 08-20-2024 Radiology Diagnostic study note [facility] Imaging Services [address] [place] [address] Abdomen/Pelvis W IV Cont ONLY MR#: [id number] Acct: [id number] Name: JUSTIN LOVE Rep #: [id number] : 1995 F 29 From: Rakesh Katz MD PCP: Care Physician,No Primary Status: REG ER Study:Abdomen/Pelvis W IV Cont ONLY Date of E xam: 08/20/24 Exam# [id number] Ordering Dr: Modesto Payne MD ADDENDUM by Dr. Garrick Katz MD on 08/20/24 at 1026 This is an addendum report. If the patient does not have any history of right staghorn calculus, this most likely represents right hydronephrosis with dilatation of the right renal calices with possible inflammation in the renal pelvis with thickening of the proximal right ureter. Clinical correlation recommended. [facility]24 1026 Date cc: Dr. Umesh Payne MD; No Primary Care Physician ~* Signed PROCEDURE: ABDOMEN/PELVIS W IV CONT ONLY 08/20/2024 REASON FOR EXAM: BILAT LOWER ABD PAIN, N/V, FEVER TECHNIQUE: ABDOMEN/PELVIS W IV CONT ONLY Coronal and Sagittal reconstruction series were provided. CONTRAST: Isovue-300 VOLUME: 100 mL One or more dose reduction techniques were used (e.g., Automated exposure control, adjustment of the mA and/or kV according to patient size, use of iterative reconstruction technique. RADIATION DOSE SUMMARY: CTDlvol: 15.5 mGy DLP: 386.93 mGycm COMPARISON: Prior study dated August 11, 2020. FINDINGS: Lung bases: Lung bases are clear. Liver: Normal size. No mass. Gallbladder: No evidence of gallstones. Spleen: Normal size. Pancreas: Normal size without evidence of mass surrounding inflammation or ductal dilation. Adrenals: Unremarkable Kidneys: There is evidence of a large staghorn calculus in the right kidney filling the entire collecting system with the minimal left hydronephrosis. Bladder: Unremarkable Reproductive Organs: There is a 1.7 cm follicle in the right ovary. An IUD is seen within the endometrium. Bowel: Unremarkable Appendix: Unremarkable Lymph nodes: Unremarkable. Vasculature: The abdominal aorta and IVC are normal. Peritoneum / Retroperitoneum: Unremarkable Bones: Unremarkable CT/Abdomen/Pelvis W IV Cont ONLY IMPRESSION: Large right staghorn calculus. Reading Location: [facility] CC: Dr. 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: Signed [facility] 08-20-2024 Radiology Diagnostic study note [facility] Imaging Services [address] [place] [address] Chest PA and Lateral MR#: [id number] Acct: [id number] Name: JUSTIN LOVE Rep #: [id number] : 1995 F 29 From: Rakesh Katz MD PCP: Care Physician,No Primary Status: REG ER Study:Chest PA and Lateral Date of Exam: 08/20/24 Exam# [id number] Ordering Dr: Modesto Payne MD PROCEDURE: CHEST PA AND LATERAL 08/20/2024 REASON FOR EXAM: COUGH, VOMITING, FEVER TECHNIQUE: CHEST PA AND LATERAL COMPARISON: None FINDINGS: Hardware: None Heart: The heart size is normal. Mediastinum: The mediastinal contour is unremarkable. Lungs: The lungs are clear. Bones: The bones are unremarkable. RAD/Chest PA and Lateral IMPRESSION: NEGATIVE CHEST Reading Location: [facility] CC: Dr. 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: Signed [facility] 08-19-2024 Discharge summary [facility] 08-19-2024 Discharge summary Note Date/Time August 19, 2024 3:30pm [facility] Medical Records Department [address] [place] [address] Emergency Department Summary 08/19/24 MR#: [id number] Acct: [id number] Name: JUSTIN LOVE Rep #:[id number] : 1995 29 From: Joshua Padilla PCP: Care Physician,No Primary Status :REG ER Location: ED HPI History of Present Illness Chief Complaint: Nausea/Vomiting PFSH PFS Medical History Anemia Asthma Depression Former smoker History of renal disease Wears contact lenses Wears glasses Home Medications ?Medication ?Instructions ?Recorded ?Last Taken ?Type ondansetron 4 mg disintegrating 4 mg PO Q6H PRN nausea and 08/26/23 Unknown Rx tablet vomiting #12 tabs albuterol sulfate 90 mcg/actuation inhalation 08/19/24 Unknown History aerosol inhaler benzonatate 100 mg capsule 100 mg PO TID 08/19/24 Unkn own History Allergy/AdvReac Type Severity Reaction Status Date / Time amoxicillin (Amoxicillin) Allergy Hives Verified 08/19/24 12:10 codeine Allergy Hives Verified 08/19/24 12:10 hydrocodone Allergy Hives Verified 08/19/24 12:10 Influenza Virus Vaccines Allergy Anaphylaxis Verified 08/19/24 12:10 strawberry Allergy Anaphylaxis Verified 08/19/24 12:10 Surgical History History of lithotripsy Social History Smoking Status: Former smoker EXAM Physical Exam Const Vital Signs: 08/19/24 12:09 08/19/24 14:08 Temperature 97.8 F 98.4 F Temperature Source Oral Oral Pulse Rate 62 55 L Respiratory Rate 18 17 Blood Pressure 124/77 H 121/86 H Blood Pressure Mean 92 97 Pulse Ox 98 100 Oxygen Delivery Method Room Air Room Air MDM MDM MDM Narrative Medical decision making narrative: HISTORY OF PRESENT ILLNESS: Chief complaint: Nausea vomiting 29-year-old female history of bipolar disorder, asthma presents with nausea vomiting since 5 AM approximately 7 hours prior to arrival. She states she is exhausted. She notes no sick contacts. No recent travel, antibiotics hospitalization. She notes left-sided abdominal pain. She denies any dysuria, hematuria urgency. Does not feel like prior kidney stones. Denies fevers or chills or cough. REVIEW OF SYSTEMS: Pertinent positives: Nausea vomiting, abdominal pain Pertinent negatives: Chest pain, fever PHYSICAL EXAM: Nursing triage notes reviewed, Vital signs reviewed Constitutional: please see mdm HENT: MMM Eyes: Pupils equal round and reactive to light, Extraocular muscles intact Neck: No stridor, no JVD, full neck ROM Lungs: Clear to auscultation, No wheezing or rales. No increased work of breathing, no conversational dyspnea, no accessory muscle use, no nasal flaring. No respiratory distress noted Heart: Regular rate and rhythm, No murmurs, No rubs and No gallops, 2+ distal pulses (radial, femoral, posterior tibial) in all extremities Abdomen: Soft, there is no tenderness, rigidity, rebound or guarding, no obviousperitoneal signs, no palpable pulsatile abdominal masses, no auscultated abdominal bruit : No CVAT Extremities: No edema Neuro: No new focal neurological deficits, cranial nerves II through XII intact,5/5 strength in all present extremities. Intact sensation to light touch in all present extremities, 2+ reflexes bilateral patella tendons. Skin: No rash or lesions noted MEDICAL DECISION MAKING: Chief Complaint: please see HPI External records reviewed: Reviewed prior ER visits. Factors affecting care: Social determinants of health: none History obtained from others: none Consults: none [facility] Narrative: Patient was initially hemodynamically stable, afebrile and nontoxic-appearing. Exam with benign abdomen. No CVA tenderness. No elicited tenderness on exam. I considered the following differential diagnosis: Dehydration, viral gastroenteritis, obstruction, perforation While I considered bowel obstruction or solid organ perforation the patient abdominal exam and vital signs not consistent with these etiologies. As such noadvanced imaging was pursued initially I obtained labs and gave IV fluids as well as Reglan and Pepcid for symptomatic relief. Labs to further determine if the patient was suffering from a life-threatening etiology specifically dehydration, electrolyte abnormalities or BETTINA. ALL IMAGES (IF OBTAINED) HAVE BEEN PERSONALLY REVIEWED AND INTERPRETED BY MYSELF. CBC with leukocytosis that similar to prior studies actually downtrending from prior studies, no significant anemia or thrombocytopenia noted Lipase is wnl indicating no pancreatic inflammation. LFTs show no evidence of hepatobiliary pathology. Repeat abdominal exam remained benign. Patient was able to tolerate p.o. ice chips and fluids after haloperidol. Will give Phenergan for home-going nausea control. Strict return precaution will be discussed The patient and/or family, caregivers express understanding. The patient and/orfamily, caregivers agrees with the plan. Shared decision making: I will have a discussion with the patient and or visitors regarding risk/benefits of further testing or admission. They will be made aware of of therisk/benefits inherent in this decision they will be given the opportunity to voice understanding. Total critical care time today provided was at least 0 minutes. This excludes separately billable procedures. Critical care time (if documented) is secondary to the patient having high probability of clinically significant/life threatening deterioration in the patient's condition which required my urgent intervention. Impression: 1. Acute abdominal pain 2. Nausea vomiting Dispo: Discharge home This note was generated with Ripl dictation software. It may contain incorrectwords, spelling, and punctuation that were not noted in review of the chart prior to signing. Lab Data Labs: Laboratory Results - last 24 hr 08/19/24 12:30 WBC 13.4 H RBC 4.69 Hgb 14.5 Hct 40.7 MCV 86.8 MCH 30.9 MCHC 35.6 RDW Std Deviation 37.4 RDW Coeff of Esme 11.9 Plt Count 487 H MPV 9.8 Immature Gran % (Auto) 0.700 Neut % (Auto) 86.1 H Lymph % (Auto) 10.9 L Hooker % (Auto) 1.9 Eos % (Auto) 0.0 Baso % (Auto) 0.4 Absolute Neuts (auto) 11.5 H Absolute Lymphs (auto) 1.46 Nucleated RBC % 0 Sodium 140 Potassium 3.6 Chloride 102 Carbon Dioxide 22.6 Anion Gap 16 H BUN 5 Creatinine 0.60 L Estim Creat Clear Calc 99.37 Est GFR (MDRD) Non-Af 125 BUN/Creatinine Ratio 8.9 L Glucose 169 H Calcium 9.6 Total Bilirubin 0.62 AST 20 ALT 14 Alkaline Phosphatase 97 Total Protein 7.4 Albumin 4.4 Globulin 3.0 Albumin/Globulin Ratio 1.4 Lipase 18 Discharge Plan Triage Chief Complaint: Nausea/Vomiting ED Provider: Joshua Lopez Dx/Rx/DC Orders Instructions: ED Diet Vomiting Diarrhea Prescriptions: No Action ondansetron 4 mg tablet,disintegrating 4 mg PO Q6H PRN (Reason: nausea and vomiting) Qty: 12 0RF benzonatate 100 mg capsule 100 mg PO TID albuterol sulfate 90 mcg/actuation HFA aerosol inhaler inhalation Primary Care Provider: Care Physician,No Primary Referrals: Care Physician,No Primary [Primary Care Provider] - Print Language: Bur[place]ian What to do if you have Problems For any increased pain, shortness of breath, bleeding, nausea or vomiting, chestpain, or any unexpected problems, contact your Primary Care Provider. Call [facility] ([phone]) or report to the closest Emergency Room. Call 911 if necessary. 08/19/24 1530 <Electronically signed by Joshua Lopez DO> Cosigner Signature (if applicable): CC: No Primary Care Physician ~ Signed [facility] Work Phone: 1(371) 993-662307-07-2025 NoteHNO ID: [id number] Author: ROYAL XAVIER PA-C Service: ? Author Type: Physician Assembler Faucets Type: Progress Notes Filed: 08/13/2024 19:17 Note Text: This note was created using [employer]. Subjective Justin Love is a 29 year old female. Patient [...] ICD10: J06.9 - BENZONATATE 100 MG CAPSULE MARY [facility]07-07-2025 History of Present illness Narrative* Royal Xavier PA-C - 08/13/2024 7:04 PM EDT This note was created using LuxVue Technologyriter. Subjective Justin Love is a 29 year old female. Patient is a 29-year-old female who complains of mild congestion, sore throat and cough that she has been experiencing for the past 3 days. Patient reports no sinus pressure or ear pain. Patient alsodenies fever, chills or myalgia. Patient does have asthma but reports no increased episodes of wheezing. Patient states that her albuterol inhaler is and is requesting a new prescription for s pedro. Review of Systems HENT: Positive for congestion [...] J06.9 - BENZONATATE 100 MG CAPSULE Royal Xavier PA-C documented in this encounterHol[facility]25 NoteHNO ID: [id number] Author: NAOMI MITCHELL APRN.BRASSIERE CUP MOLD CUTTER Service: ? Author Type: Nurse Practitioner Type: Progress Notes Filed: 08/01/2024 08:30 Note Text: [facility] Subjective Justin Love is a 29 year old female. Patient presents with: Fever: Fever, vomiting, diarrhea and bodyaches x 1 day Fever, Nausea, Emesis, and Abdominal Pain: - Symptoms began after returning from a 5-day vacation at [place]. - Initially thought it was sun poisoning; [...] history; returned from a five-day vacation at [place]. - Experiencing nausea, vomiting, and low-grade fever [...] or worsening of symptoms. and Recording using Perfect Commerce software for draft documentation of the visit was discussed with the patient/authorized hostess party sales representative; all questions welcomed and answered. Patient/authorized hostess party sales representative agreed to proceed History and Record [...] OTC Medications were advised: Tylenol, Ibuprofen as neededReg[facility]06-25-2025 History of Present illness Narrative* Naomi Mitchell APRN.BRASSIERE CUP MOLD CUTTER - 08/01/2024 8:17 AM EDT [facility] Subjective Justin Love is a 29 year old female. Patient presents with: Fever: Fever, vomiting, diarrhea and bodyaches x 1 day Fever, Nausea, Emesis, and Abdominal Pain: - Symptoms began after returning from a 5-day vacation at [place]. - Initially thought it was sun poisoning; stayed indoors with blinds shut and air conditioning on low. - Persistent emesis since 529 this morning. - Recorded fever of 100.1 degreeF; took Tylenol 45 minutes before leaving home, reducing fever to 99.6 degreeF. - Experiencing mild abdominal pain upper gastric. - Able to drink fluids; slight improvement in nausea. - Does have zophran at home. - Fiance was sick for a couple of days [...] is no right CVA tenderness, left CVA tendernessor guarding. Neurological: Mental Status: She is alert. {1. Viral gastroenteritis (A08.4) 2. Nausea and vomiting, unspecified vomiting type (R11.2) 3. Fever, unspecified fever cause (R50.9) - Recent travel history; returned from a five-day vacation at [place]. - Experiencing nausea, vomiting, and low-grade fever [...] or worsening of symptoms. and Recording using Perfect Commerce software for draft documentation of the visit was discussed with thepatient/authorized hostess party sales representative; all questions welcomed and answered. Patient/authorized hostess party sales representative agreed to proceed History and Record Review Clinical information obtained from an independent historian. History obtained from or confirmed by:parent. External record(s) reviewed: prior outpatient record. Findings [...] Tylenol, Ibuprofen as needed documented in this encounterHolzer Medical Center – [place]02-09-2025 NoteHNO ID: [id number] Author: SANDRA NUNES APRN.CNP Service: ? Author Type: Nurse Practitioner Type: Progress Notes Filed: 03/18/2024 18:44 Note Text: Telemedicine Visit - Distance Health Virtual Visit Note Patient seen on [employer] Video Visit platform. Location of patient: [place] I have communicated my name and active licensure. The patient's identity and physical location were verified at the time of this visit. Either the patient or their legal hostess party sales representative has been informed of the risks and benefits of -- and alternatives to -- treatment through a remote evaluation and consents to proceed with the evaluation remotely. CC: work note History of Present Illness Justin Love is a 29 year old female who [...] - Symptoms resolved - Work note provided -http://[email or web address]/patient-resources/antibiotics/. This link shares information about when antibiotics may help and when they may not. - Red flags discussed for need for in person care - All questions answered Sandra Nunes APRN.[facility]02-09-2025 History of Present illness Narrative* Sandra Nunes APRN.BRASSIERE CUP MOLD CUTTER - 03/18/2024 6:38 PM EST Telemedicine Visit - Distance Health Virtual Visit Note Patient seen on [employer] Video Visit platform. Location of patient: [place] I have communicated my name and active licensure. The patient's identity and physical location wereverified at the time of this visit. Either the patient or their legal hostess party sales representative has been informed of the risks and benefits of -- and alternatives to -- treatment through a remote evaluation andconsents to proceed with the evaluation remotely. CC: work note History of Present Illness Justin Love is a 29 year old female who presents for the past 5 days with symptoms thatare:improving. Symptoms include: Positive for Headache, Negative for [...] Racing Heartbeat. Codeine Hives Flu Vac 2011 (1864* GI Upset Seasonal Allergies Other: See Comments [...] - Symptoms resolved - Work note provided -http://[email or web address]/patient-resources/antibiotics/. This link shares information about when antibiotics may help and when they may not. - Red flags discussed for need for in person care - All questions answered Sandra Nunes APRN.BRASSIERE CUP MOLD CUTTER documented in this encounterHolzer Medical Center – [place]02-05-2025 NoteHNO ID: [id number] Author: NANO GODOY APRN.MYNOR Service: ? Author Type: Nurse Practitioner Type: Progress Notes Filed: 03/14/2024 17:07 Note Text: This note was created using NoteWriter. Subjective Justin Love is a 29 year old female. 29 [...] history is provided by the patient. No group product manager was used. Flu Like Symptoms This is [...] signs of injury. Normal (more content not included)...[facility]02-05-2025 History of Present illness Narrative* Nano Godoy APRN.BRASSIERE CUP MOLD CUTTER - 03/14/2024 4:43 PM EST This note was created using LuxVue Technologyriter. Subjective Justin Love is a 29 year old female. 29 [...] history is provided by the patient. No group product manager was used. Flu Like Symptoms This is [...] her employer is requesting work note. Provided Nano Godoy APRN.MYNOR documented in this encounterHolzer Medical Center [facility]07-19-2024 Telephone encounter Note * Telephone Encounter - Tabitha Squires RN - 08/26/2023 1:47 PM EDT Patient notified of results and provider's instructions. Patient verbalizes understanding. Tabitha Squires RN [facility]07-19-2024 Miscellaneous Notes* Telephone Encounter - Tabitha Squires RN - 08/26/2023 1:47 PM EDT Patient notified of results and provider's instructions. Patient verbalizes understanding. Tabitha Squires, RN * Telephone Encounter - Soumya Harris MA - 08/26/2023 1:36 PM EDT Left VM instructing patient to return call to receive results. Soumya Harris MA * Telephone Encounter - Marysol Clark APRN.CNP - 08/26/2023 1:21 PM EDT No significant bacteria growth on urine culture. Please notify. If symptoms [persist she needs to follow up with PCP. documented in this encounterHolzer Medical Center – [place]07-19-2024 Telephone encounter Note * Telephone Encounter - Soumya Harris MA - 08/26/2023 1:36 PM EDT Left VM instructing patient to return call to receive results. Soumya Harris MA [facility]07-19-2024 Telephone encounter Note* Telephone Encounter - Marysol Clark APRN.CNP - 08/26/2023 1:21 PM EDT No significant bacteria growth on urine culture. Please notify. If symptoms [persist she needs to follow up with PCP. [facility] Work Phone: 1(774) 365-434207-18-2024 History of Present illness Narrative* Lucita Cruz APRN.CNP - 08/25/2023 9:12 AM EDT This note was created using NoteWriter. Subjective Justin Love is a 28 year old female. HPI by patient: Justin Love is a 28 year old presenting to [...] vomiting, and a dry cough that she alwayshas. Is more fatigued. States a baseline of [...] Covid Immunization Dates Overdue - Covid-19 Vaccine (2022- season) Never done No completion, postpone, frequency [...] leukocytes and moderate blood. Will start macrobid andsend culture. Check mychart for results. -Negative . [...] flank areas, life threatening symptoms, or signs ofdehydration. The patient will pursue further outpatient evaluation with the primary care physician or another Urgent Care/Express Care as outlined in the after visit summary. The patient is agreeable to this planof care and follow-up instructions have been explained in detail. The patient has received these instructions in written format and have expressed an understanding of the after visit summary. Medical Decision Making: Level: 4 - Moderate I spent a total of 20 minutes on the date of the service which included preparing to see the patient, [id number] patient care, completing clinical documentation, obtaining and/or reviewing separately obtained history, performing a medically appropriate examination, counseling and educating the pat ient/family/caregiver, and ordering medications, tests, or procedures. documented in this encounterHolzer Medical Center – [place]07-18-2024 Instructions* Patient Instructions* Lucita Cruz APRN.CNP - 08/25/2023 9:12 AM [...] flank areas, life threatening symptoms, or signs ofdehydration. BRAT DIET (may eat any of the following as tolerated) Bananas Applesauce [place] Saltine Crackers Animal Crackers Pretzels Oatmeal Unsweetened Dry Cereal (Rice Krispies, Cheerios) Plain Baked or Boiled Potato Plain White Rice Plain Noodles All clear liquid listed below CLEAR LIQUID DIET (need to drink 2 ounces total every half hour) Broth Jello Popsicles Pedialyte Gatorade NO Juices NO Milk NO Dairy Products documented in this encounterHolzer Medical Center – [place]02-13-2024 Discharge summary Author Moses Khalil [facility] March 22, 2023 5:19pm Note Date/Time March 22, 2023 5:19pm [facility] Medical Records Department [address] [place] [address] Emergency Department Summary 03/22/23 MR#: [id number] Acct: [id number] Name: JUSTIN LOVE Rep #:[id number] : 1995 28 From: Moses Khalil DO [...] Endocrine Endocrinology: Denies polydipsia or polyuria PFSH PFS Medical History Anemia Asthma Depression Former [...] your Primary Care Provider. Call [facility] ([phone]) or report to the closest Emergency Room. Call 911 if necessary. 03/22/23 7205 <Electronically signed by Moses Khalil DO> Cosigner Signature (if applicable): CC: No Primary Care Physician ~ Signed [facility] Work Phone: 1(736) 486-272302-07-2024 Miscellaneous Notes* Telephone Encounter - Adrienne Jenkins APRN.CNP - 03/16/2023 3:01 PM EST Note created and handed to patient. Adrienne Jenkins APRN.MYNOR * Telephone Encounter - Sonia Montez LPN - 03/16/2023 2:58 PM EST Patient seen yesterday and we called today with positive flu results. They would like a work note-please review and advise.Sonia Montez LPN documented in this encounterHolzer Medical Center [facility] [place]06-13-2017 History of Past illness Narrative* Problem Noted Date Diagnosed Date Resolved Date Positive GBS test 07/20/2016 09/09/2016 Late care 04/08/2016 7 Overview: Quang boy on us Repeat us growth ordered June 16, 2016 Celina Rudolph MD 04/08/2016Patient has not had any care prior to her appointment with Dr Curtis 017 due to insurance issues. She had an [...] get her medical records from [facility] from [facility]. TKRN documented as of this encounter (statuses as of 03/17/2023) [facility] Jackson[facility] summary Author Umesh Payne [facility] Note Date/Time August 20, 2024 1:23 pm [facility] Medical Records Department [address] [place] [address] Emergency Department Summary 08/20/24 MR#: [id number] Acct: [id number] Name: JUSTIN LOVE Rep #:[id number] : 1995 29 From: Umesh Payne MD PCP: Care Physician,No Primary Status :REG ER Location: ED HPI HPI - GI History of Present Illness Chief Complaint: Nausea/Vomiting Informant: patient Narrative Narrative: 29-year-old female has been vomiting since yesterday morning. She was seen hereyesterday for the same thing, she states she is feeling worse. She admits she has not been able to olive picker her promethazine prescription yet. She is still vomiting and having significant diffuse abdominal pain that radiates into her back. The pain is worse in the lower but she states even when it started, it was on both sides at the same time. She has had kidney stones in the past and states this does not feel the same. She has had urinary infections in the past and states she has no symptoms of a urinary infection such as frequency, dysuria, urgency. She has had no vaginal bleeding or discharge and actually hasnot had a menstrual cycle in 8 years since she has been on Mirena which is currently in place. She states after the ER visit yesterday she went home and had a fever up to 100.8. She denies any known sick contacts. She has had no diarrhea or blood in her stool or melena, her bowel movements been normal. She denies any hematemesis. She has had a cough and a little bit of asthma exacerbation wheezing, she states she was on vacation recently and thought it was related. She states the breathing is not as bad now but the cough is persistent occasionally productive with clear phlegm. No blood. PFSH PFSH Medical History Wears contact lenses Wears glasses History of renal disease Asthma Anemia Depression Former smoker Home Medications ?Medication ?Instructions ?Recorded ?Last Taken ?Type albuterol sulfate 90 mcg/actuation 1 inh inhalation Q4 H 08/19/24 Unknown History aerosol inhaler ciprofloxacin HCl 500 mg tablet 500 mg PO BID #14 TABL ETS 08/20/24 Unknown Rx tramadol 50 mg tablet 50 mg PO Q6H PRN pain 3 days #12 08/20/24 Unknown Rx tabs Allergy/AdvReac Type Severity Reaction Status Date / Time amoxicillin (Amoxicillin) Allergy Hives Verified 08/20/24 08:38 codeine Allergy Hives Verified 08/20/24 08:38 hydrocodone Allergy Hives Verified 08/20/24 08:38 Influenza Virus Vaccines Allergy Anaphylaxis Verified 08/20/24 08:38 strawberry Allergy Anaphylaxis Verified 08/20/24 08:38 Surgical History History of lithotripsy Social History Smoking Status: Former smoker ROS ROS ED Constitutional Constitutional ED: Reports fever(s); Denies chills Eyes Eyes: Denies change in vision or diplopia ENT ENT ED: Denies rhinorrhea or sore throat Cardiovascular Cardiovascular: Denies chest pain or palpitations Respiratory/Chest Respiratory/Chest: Reports cough, dyspnea and sputum Gastrointestinal Gastrointestinal: Reports abdominal pain, nausea and vomiting; Denies diarrhea Genitourinary Genitourinary ED: Denies dysuria, hematuria or urinary frequency Musculoskeletal Musculoskeletal: Reports back pain; Denies neck pain Integumentary Denies abscess or rash Neurologic Neurologic: Denies headache(s), paresthesias or weakness Psychiatric Psychiatric: Denies suicidal thoughts EXAM Physical Exam Const Vital Signs: 08/20/24 08:38 08/20/24 10:38 08/20/24 12:00 Temperature 98.1 F Temperature Source Temporal Pulse Rate 99 74 71 Respiratory Rate 14 16 16 Blood Pressure 113/82 H 110/88 H 112/81 H Blood Pressure Mean 92 95 91 Pulse Ox 98 100 97 Oxygen Delivery Method Room Air Positive well nourished and well developed General Appearance ED: well developed and NAD HEENT Reports moist mucous membranes normocephalic and atraumatic Eyes PERRL and EOMs intact bilaterally Neck full ROM and supple Resp normal respiratory effort and clear to auscultation bilaterally Cardio regular rate, regular rhythm and no murmurs Rate: Negative for tachycardic GI non-distended GI Narrative: Diffuse abdominal tenderness but more prominent in the lower abdomen bilaterally, including McBurney's point the patient states more tender on the left than on the right. No guarding or rebound. No pulsatile mass. Auscultation: hyperactive bowel sounds Palpation: soft Back/Spine Back/Spine Narrative: Mild CVA tenderness on the left no rash or ecchymosis. General Back: other FROM Extremity normal to inspection General Extremety ED: Negative for edema, pulses abnormal or tenderness General Extremity: Negative for edema or pulses abnormal Neuro oriented x3, CN's II-XII intact bilaterally and no sensory deficits noted Sensorium / Orientation: awake and alert Motor Exam: strength 5/5 throughout Skin no rashes or lesions noted and no wounds MDM MDM MDM Narrative Medical decision making narrative: I reviewed the ED visit from yesterday. Patient had a leukocytosis around 13 88% segs, no bands, otherwise labs unremarkable, no imaging was performed. She has had a cough since before the vomiting and abdominal pain, so pneumonia is inthe differential, and given that she is quite tender and had a fever last night,I will obtain a CT of the abdomen/pelvis which was not performed yesterday. Shehad a test that was negative yesterday so I do not think we need to repeat that to rule out ectopic. I think this is less likely to be tubo-ovarianabscess, she is having tenderness that is less pelvic and more lower abdomen, the tenderness is not very distal that is to say. The only surgery she has had in the past is lithotripsy, she has never had her abdomen open so about obstruction is less likely and she is having bowel movements. There is also possible that she is having pyelonephritis, she is a little tender in the left CVA, but again the majority of her symptoms are nonlateralizing making this lesslikely but still in the differential. She did have a urine culture yesterday after an abnormal urinalysis that is showing 80-100,000 CFU per mL E. coli resistant to many antibiotics but sensitive to ciprofloxacin. Given all of this, she was given cefepime, also appropriate according to sensitivities, 2 g here IV, and reevaluated. She is tolerating oral fluids, she is no longer nauseated or vomiting, her pain is well-controlled after Toradol, and clinicallyher vital signs are normal and she is not septic. I offered admission for intractable symptoms she states she does not have any intractable symptoms and wants to try going home first which I think is reasonable, and we will treat leora a pyelonephritis causing all of this. We discussed reasons to return, including all of the above that are not the case right now including intractablevomiting not able to keep antibiotics down. She already has promethazine prescribed at the pharmacy, that is reasonable to use for nausea we will also prescribe her something for pain as well as the Cipro. Lab Data Attestation: I reviewed the patient's lab results. Labs: Laboratory Results - last 24 hr 08/20/24 09:14 WBC 19.6 H RBC 4.58 Hgb 14.1 Hct 40.1 MCV 87.6 MCH 30.8 MCHC 35.2 RDW Std Deviation 38.4 RDW Coeff of Esme 11.9 Plt Count 460 H MPV 9.6 Immature Gran % (Auto) 1.000 H Neut % (Auto) 79.9 H Lymph % (Auto) 12.3 L Hooker % (Auto) 6.4 Eos % (Auto) 0.1 Baso % (Auto) 0.3 Absolute Neuts (auto) 15.6 H Absolute Lymphs (auto) 2.41 Sodium 140 Potassium 3.1 L Chloride 104 Carbon Dioxide 23.3 Anion Gap 14 BUN 5 Creatinine 0.57 L Estim Creat Clear Calc 104.60 Est GFR (MDRD) Non-Af 126 BUN/Creatinine Ratio 9.5 L Glucose 107 H Calcium 9.6 Total Bilirubin 0.42 AST 20 ALT 12 Alkaline Phosphatase 86 Total Protein 7.0 Albumin 4.2 Globulin 2.8 Albumin/Globulin Ratio 1.5 Radiography Chest X-Ray - ED: 1 View, Read by ED Physician, No Acute Disease and No Infiltrates Diagnostic Testing: Clinical Impression(s) from Imaging Studies Abdomen/Pelvis CT 08/20/24 09:06 IMPRESSION: Large right staghorn calculus. Reading Location: [facility] Chest X-Ray 08/20/24 09:10 IMPRESSION: NEGATIVE CHEST Reading Location: [facility] Garrick Katz MD on 08/20/24 at 1026 This is an addendum report. If the patient does not have any history of right staghorn calculus, this most likely represents right hydronephrosis with dilatation of the right renal calices with possible inflammation in the renal pelvis with thickening of the proximal right ureter. Clinical correlation recommended. Reading Location: [facility] Management Discussion w/another healthcare provider: Radiologist Discharge Plan Triage Chief Complaint: Nausea/Vomiting ED Provider: Umesh Payne Dx/Rx/DC Orders Clinical Impression: Pyelonephritis of right kidney Instructions: Kidney Infec Dc Prescriptions: New ciprofloxacin HCl 500 mg tablet 500 mg PO BID Qty: 14 0RF tramadol 50 mg tablet 50 mg PO Q6H PRN (Reason: pain) 3 Days Qty: 12 0RF No Action albuterol sulfate 90 mcg/actuation HFA aerosol inhaler 1 inh inhalation Q4H Primary Care Provider: Care Physician,No Primary Referrals: Love Velasquez MD [Med Staff - Active Staff] - As soon as possible Print Language: Burundian Disposition Disposition: Home, Self Care What to do if you have Problems For any increased pain, shortness of breath, bleeding, nausea or vomiting, chestpain, or any unexpected problems, contact your Primary Care Provider. Call [facility] ([phone]) or report to the closest Emergency Room. Call 911 if necessary. 08/20/24 1323 <Electronically signed by Umesh Payne MD> Cosigner Signature (if applicable): CC: No Primary Care Physician ~ Signed [facility] Work Phone: Evaluation noteNo assessment information available [facility] Work Phone: Evaluation note* Diagnosis Nausea and vomiting, unspecified vomiting type- Primary documented [facility] [place] [facility]* Diagnosis Exposure to the flu- Primary Contact with or exposure to other viral diseases URI, acute Acute upper respiratory infections of unspecified site Encounter to obtain excuse from work documented in this encounter [facility]* Diagnosis Flu-like symptoms- Primary Other general symptoms documented in this [facility] [place] [facility]* Diagnosis Viral gastroenteritis Intestinal infection due to other organism, not elsewhere classified Nausea and vomiting, unspecified vomiting type Fever, unspecified fever cause documented [facility] this [facility]* Diagnosis Sore throat- Primary Acute pharyngitis Mild intermittent asthma without complication (HCC) Unspecified asthma Acute URI Acute upper respiratory infections of unspecified site documented [facility]* Diagnosis Screening for cervical cancer- Primary Screening for malignant neoplasm of the cervix Screening for depression Encounter for screening examination for other mental health and behavioral disorders Staghorn calculus Calculus of kidney Kidney stones Calculus of kidney documented in this [facility] [place] emergency department note* Diagnosis Encounter for IUD removal and reinsertion- Primary Encounter for removal and reinsertion of intrauterine contraceptive device Screening for cervical cancer Screening for malignant neoplasm of the cervix Encounter for gynecological examination (general) (routine) without abnormal findings Screen for STD (sexually transmitted disease) Screening examination for venereal disease [facility] Diagnosis Staghorn calculus Calculus of kidney [facility] Diagnosis Staghorn calculus- Primary Calculus of kidney [facility] Diagnosis Staghorn calculus- Primary Calculus of kidney [facility] Diagnosis Encounter for IUD insertion- Primary Encounter for insertion of intrauterine contraceptive device Encounter for IUD removal Encounter for removal of intrauterine contraceptive device [facility] Diagnosis Kidney stone- Primary Calculus of kidney Preop examination Preoperative examination, unspecified [facility] Diagnosis Kidney stone Calculus of kidney [facility] instructions[facility] Instructions Thank you for trusting us with your care today! Please take Phenergan as needed for nausea and vomiting. Please take Tylenol (2 pills, 650 mg), ibuprofen (2 pills, 400 mg) every 6 hours as needed for pain and fever control. Please return to the emergency department if your symptoms change or worsen. Please follow with your primary care physician for further outpatient evaluation and management.[facility] Work Phone: Reason for referral (narrative)No reason for referral information availableWCleveland Clinic [facility] Work Phone: Reason for visit Narrative* Diagnostic Procedure Only (Routine) - Closed Specialty Diagnoses / Procedures Referred By [place]o Referred To Contact XR IMAGING Diagnoses Kidney stone Procedures XR ABDOMEN 1V SUPINE RADIOLOGIC EXAM ABDOMEN 1 VIEW Kiya Walker MD [address] [place] [address] Phone: tel: fax: [place] [id number] Referral ID Status Reason Start Date Expiration Date V isits Requested Visits Authorized [id number] Closed Auto-Generate d Referral 09/26/2024 10/26/2025 1 1 [facility] Summary Purpose Family History No Family History Records FoundNo Family History Records FoundNo Family History Records FoundNo Family History Records FoundNo Family History Records Found Advance Directives No Advanced Directives Records Found Advance Directive Response Recorded Date/ Time Living Will No March 22, 2 024 3:32pm Power of Ice Cream Van Vendor No March 22, 2023 3:32pm Advance Directive Response Recorded Date/ Time Do you have a Healthcare Power of Ice Cream Van Vendor? No August 19, 2024 12:23pm Advance Directive Response Recorded Date/ Time Do you have a Healthcare Power of Ice Cream Van Vendor? No August 19, 2024 12:23pm Do you have a Healthcare Power of Ice Cream Van Vendor? No August 20, 2024 8:38am Health Concerns Infection Onset Date Last Indicated Resolved Time COVID-19 Rule-Out 03/15/2023 03/15/2023 03/16/2023 5:42 AM EST Influenza 03/15/2023 03/15/2023 Chief Complaint and Reason for Visit Chief Complaint nausea/vomitting/fev er Chief Complaint Admit Date N/V August 19, 2024 12:0 8pm Chief Complaint Admit Date N/V August 19, 2024 12:0 8pm N/V August 20, 2024 8:38 am Additional Source Comments INFORMATION SOURCE (unrecogn ized section and content) DATE CREATED AUTHOR 08/01/2017 [facility] ([place]) DATE CREATED AUTHOR AUTHOR'S ORGANIZ ATION 08/27/2024 [facility] DATE CREATED AUTHOR AUTHOR'S ORGANIZ ATION 09/28/2024 [facility] DATE CREATED AUTHOR AUTHOR'S ORGANIZ ATION 10/31/2024 [facility] DATE CREATED AUTHOR AUTHOR'S ORGANIZ ATION 11/01/2024 [facility] Source Comments (unrecognize d section and content) In the event this informatio n is protected by the Federal Confidentiality of Alcohol and Drug Abuse Patient Records regulations: The Federal rules restrict any use of the information to criminally investigate or prosecute any alcohol or drug abuse patient.[facility] the event this information is protected by the Federal Confidentiality of Alcohol and Drug Abuse Patient Records regulations: The Federal rules restrict any use of the information to criminally investigate or prosecute any alcohol or drug abuse patient.[facility] the event this information is protected by the Federal Confidentiality of Alcohol and Drug Abuse Patient Records regulations: The Federal rules restrict any use of the information to criminally investigate or prosecute any alcohol or drug abuse patient.[facility] the event this information is protected by the Federal Confidentiality of Alcohol and Drug Abuse Patient Records regulations: The Federal rules restrict any use of the information to criminally investigate or prosecute any alcohol or drug abuse patient.[facility] the event this information is protected by the Federal Confidentiality of Alcohol and Drug Abuse Patient Records regulations: The Federal rules restrict any use of the information to criminally investigate or prosecute any alcohol or drug abuse patient.[facility] the event this information is protected by the Federal Confidentiality of Alcohol and Drug Abuse Patient Records regulations: The Federal rules restrict any use of the information to criminally investigate or prosecute any alcohol or drug abuse patient.[facility] the event this information is protected by the Federal Confidentiality of Alcohol and Drug Abuse Patient Records regulations: The Federal rules restrict any use of the information to criminally investigate or prosecute any alcohol or drug abuse patient.[facility] the event this information is protected by the Federal Confidentiality of Alcohol and Drug Abuse Patient Records regulations: The Federal rules restrict any use of the information to criminally investigate or prosecute any alcohol or drug abuse patient.[facility] the event this information is protected by the Federal Confidentiality of Alcohol and Drug Abuse Patient Records regulations: The Federal rules restrict any use of the information to criminally investigate or prosecute any alcohol or drug abuse patient.[facility] the event this information is protected by the Federal Confidentiality of Alcohol and Drug Abuse Patient Records regulations: The Federal rules restrict any use of the information to criminally investigate or prosecute any alcohol or drug abuse patient.[facility] the event this information is protected by the Federal Confidentiality of Alcohol and Drug Abuse Patient Records regulations: The Federal rules restrict any use of the information to criminally investigate or prosecute any alcohol or drug abuse patient.[facility] the event this information is protected by the Federal Confidentiality of Alcohol and Drug Abuse Patient Records regulations: The Federal rules restrict any use of the information to criminally investigate or prosecute any alcohol or drug abuse patient.[facility] the event this information is protected by the Federal Confidentiality of Alcohol and Drug Abuse Patient Records regulations: The Federal rules restrict any use of the information to criminally investigate or prosecute any alcohol or drug abuse patient.[facility] the event this information is protected by the Federal Confidentiality of Alcohol and Drug Abuse Patient Records regulations: The Federal rules restrict any use of the information to criminally investigate or prosecute any alcohol or drug abuse patient.[facility] the event this information is protected by the Federal Confidentiality of Alcohol and Drug Abuse Patient Records regulations: The Federal rules restrict any use of the information to criminally investigate or prosecute any alcohol or drug abuse patient.[facility] the event this information is protected by the Federal Confidentiality of Alcohol and Drug Abuse Patient Records regulations: The Federal rules restrict any use of the information to criminally investigate or prosecute any alcohol or drug abuse patient.[facility] the event this information is protected by the Federal Confidentiality of Alcohol and Drug Abuse Patient Records regulations: The Federal rules restrict any use of the information to criminally investigate or prosecute any alcohol or drug abuse patient.[facility] Reason for Visit (unrecogniz ed section and content) Reason Comments Patient Update Reason Comments Nausea & Vomiting X1 week Specialty Diagnoses / Procedures Referred By Contac t Referred To Contact Internal Medicine / [facility] Diagnoses nausea and vomiting, fever off and on x1wk Procedures EST SAME DAY Self Lucita Cruz APRN.[facility] [address] [place] [address] Referral ID Status Reason Start Date Expiration Date Visits Requested Visits Authorized [id number] New Request Financial Clearance Required - Self Pay 08/25/2023 11/23/2023 1 1 Reason Comments Results Reason Comments Cough Nausea, vomiting, di arrhea, LUO, fever x 2 days Specialty Diagnoses / Procedures Referred By Contac t Referred To Contact Internal Medicine / [facility] Diagnoses fever, vomiting, diarrhea, cough, headache Procedures EST SAME DAY Self [facility] [address] [place] [address] Referral ID Status Reason Start Date Expiration Date Visits Requested Visits Authorized [id number] New Request Financial Clearance Required - Self Pay 03/14/2024 06/12/2024 1 1 Reason Comments Appointment Cancelled Reason Comments Fever Fever, vomiting, rafia rrhea and bodyaches x 1 day Reason Comments Chest Congestion cough x 1 week Reason Comments Establish Care Reason Comments Yearly Exam Specialty Diagnoses / Procedures Referred By Contac t Referred To Contact Gynecology Diagnoses Screening for cervical cancer Procedures CONSULT TO GYNECOLOGY OFFICE/OUTPATIENT NEW HIGH MDM 60 MINUTES Tony Pepe MD [address] [place] [address] Phone: tel: fax: Referral ID Status Reason Start Date Expiration Date V isits Requested Visits Authorized [id number] Closed PCP Requested Referral Auto-Generated Referral 09/05/2024 09/05/2025 1 1 Reason Comments Radiology US Specialty Diagnoses / Procedures Referred By Contac t Referred To Contact US IMAGING Diagnoses Staghorn calculus Procedures US KIDNEY/BLADDER US RETROPERITONEAL REAL TIME W/IMAGE COMPLETE Tony Pepe MD [address] [place] [address] Phone: tel: fax: US IMAGING [facility] Referral ID Status Reason Start Date Expiration Date V isits Requested Visits Authorized [id number] Closed Auto-Generate d Referral 09/05/2024 10/05/2025 1 1 Reason Comments Appointment Reason Comments Consult Reason Onset Date Comments Insertion Of IUD 09/26/2024 IUD Removal 09/26/2024 Specialty Diagnoses / Procedures Referred By Contsin t Referred To Contact [facility] Diagnoses Encounter for IUD removal and reinsertion Procedures REMOVE INTRAUTERINE DEVICE REMOVE INTRAUTERINE DEVICE Kimberly Stubbs APRN.[facility] [address] [place] [address] Phone: tel: fax: [facility] [address] [place] [id number] Referral ID Status Reason Start Date Expiration Date V isits Requested Visits Authorized [id number] Closed Auto-Generate d Referral 09/06/2024 09/06/2025 1 1 Reason Comments Kidney Stones New pt here for K/S, US in chart. Care Teams (unrecognized sec tion and content) Script Supervisor Relationship Specialty Start Date End Date Debra Feng [address] [facility] [address] [place] [address] PCP - General Pediatrics 10/05/12 Team Status: Active Member Role Status Dates No Primary Care Physician Family Provider Active No Primary Care Physician Primary Care Provider Active Team Status: Inactive Member Role Status Dates No Primary Care Physician Primary Care Provider Active Dr. Moses Khalil , DO Emergency Provider Active Script Supervisor Relationship Specialty Start Date End Date JungDebra [address] [facility] [address] [place] [address] PCP - General Pediatrics 10/05/12 Script Supervisor Relationship Specialty Start Date End Date Debra Feng Leslie CHEEK [address] [address] PCP - General Pediatrics 10/05/12 Team Status: Active Member Role/Relationship Status Dates No Primary Care Physician Primary Care Provider Active Team Status: Inactive Member Role/Relationship Status Dates No Primary Care Physician Primary Care Provider Active Start: August 19, 2024 End: August 19, 2024 Dr. Joshua Lopez DO Emergency Provider Active Start: August 19, 2024 End: August 19, 2024 Team Status: Inactive Member Role/Relationship Status Dates No Primary Care Physician Primary Care Provider Active Start: August 20, 2024 End: August 20, 2024 Dr. Umesh Payne MD Emergency Provider Active Start: August 20, 2024 End: August 20, 2024 Script Supervisor Relationship Specialty Start Date End Date Tony Pepe MD [address] [place] [address] PCP - General Internal Medicine 09/05/24 Lou Truong, HANDBAG STITCHER.BRASSIERE CUP MOLD CUTTER [address] [place] [address] Internal Medicine 09/05/24 Script Supervisor Relationship Specialty Start Date End Date Tony Pepe MD [address] [place] [address] PCP - General Internal Medicine 09/05/24 Lou Truong, HANDBAG STITCHER.[employer]SIERE [employer]UP MOLD CUTTER [address] [place] [address] Internal Medicine 09/05/24 Script Supervisor Relationship Specialty Start Date End Date Tony Pepe MD [address] [place] [address] PCP - General Internal Medicine 09/05/24 Lou Truong, HANDBAG STITCHER.BRASSIERE CUP MOLD CUTTER [address] [place] [address] Internal Medicine 09/05/24 Lou Truong, HANDBAG STITCHER.BRASSIERE CUP MOLD CUTTER [address] [facility] [place] [address] Manager Agricultural Internal Medicine 09/10/24 Script Supervisor Relationship Specialty Start Date End Date Tony Pepe MD [address] [facility] [place] [address] PCP - General Internal Medicine 09/05/24 Lou Truong, HANDBAG STITCHER.BRASSIERE CUP MOLD CUTTER [address] [facility] [address] Internal Medicine 09/05/24 Lou Truong, HANDBAG STITCHER.BRASSIERE CUP MOLD CUTTER [address] [facility] [place] [address] Manager Agricultural Internal Medicine 09/10/24 Script Supervisor Relationship Specialty Start Date End Date Tony Pepe MD [address] [facility] [place] [address] PCP - General Internal Medicine 09/05/24 Lou Truong, HANDBAG STITCHER.BRASSIERE CUP MOLD CUTTER [address] [facility] [place] [address] Internal Medicine 09/05/24 Lou Truong, HANDBAG STITCHER.BRASSIERE CUP MOLD CUTTER [address] [facility] [address] Manager Agricultural Internal Medicine 09/10/24 Script Supervisor Relationship Specialty Start Date End Date Tony Pepe MD [address] [facility] [place] [address] PCP - General Internal Medicine 09/05/24 Lou Truong, HANDBAG STITCHER.BRASSIERE CUP MOLD CUTTER [address] [facility] [place] [address] Internal Medicine 09/05/24 Lou Truong, HANDBAG STITCHER.BRASSIERE CUP MOLD CUTTER [address] [facility] [place] [address] [facility] Internal Medicine 09/10/24 Script Supervisor Relationship Specialty Start Date End Date Tony Pepe MD [address] [facility] [address] PCP - General Internal Medicine 09/05/24 Lou Truong, HANDBAG STITCHER.BRASSIERE CUP MOLD CUTTER [address] [facility] [place] [address] Internal Medicine 09/05/24 Lou Truong, HANDBAG STITCHER.BRASSIERE CUP MOLD CUTTER [address] [facility] [place] [address] [facility] Internal Medicine 09/10/24 Script Supervisor Relationship Specialty Start Date End Date Tony Pepe MD [address] [facility] [place] [address] PCP - General Internal Medicine 09/05/24 Lou Truong, HANDBAG STITCHER.BRASSIERE CUP MOLD CUTTER [address] [facility] [place] [address] Internal Medicine 09/05/24 Lou Truong, HANDBAG STITCHER.BRASSIERE CUP MOLD CUTTER [address] [place], [place] [address] [facility] Internal [facility] 09/10/24 Script Supervisor Relationship Specialty Start Date End Date Tony Pepe MD [address] [place], [place] [address] PCP - General Internal Medicine 09/05/24 Lou Truong, HANDBAG STITCHER.BRASSIERE CUP MOLD CUTTER [address] [place], [place] [address] Internal Medicine 09/05/24 Lou Truong, HANDBAG STITCHER.BRASSIERE CUP MOLD CUTTER [address] [place], [place] [address] [facility] Internal [facility] 09/10/24 Goals (unrecognized section and content) Goals may be documented in a n alternate sectionGoals may be documented in an alternate sectionGoals may be documented in an alternate section FOR RECORDS PERTAINING TO PATIENTS [...] BE BASED ON THE PRIMARY CLINICAL RECORDS. [employer] provides no warranty or guarantee of the accuracy or completeness of information in this document.
[2024-11-01 22:09] LABS: AST(SGOT) 26 U/L (<=31); Alanine Aminotransfer ALT/SGPT 26 U/L (<=34); Albumin, Serum 3.3 g/dL (3.5-5.0); Alkaline Phosphatase 59 U/L (35-104); Anion Gap 12 (5-15); BUN 4 mg/dL (4-19); BUN/Creat Ratio 8.9 RATIO (10-20); Calcium,Total 8.0 mg/dL (7.6-11.0); Carbon Dioxide 21.9 mmol/L (21.0-32.0); Chloride 101 mmol/L (98-108); Estimated Creatinine Clearance 140.26 ml/min (50-250); Globulin 2.6 g/dL (2.2-4.2); Glucose 131 mg/dL (70-99); Potassium 2.9 mmol/L (3.3-5.1)
[2024-11-01 22:12] LABS: Prothrombin Time (Protime)PT. 13.8 SECONDS (11.7-14.9)
[2024-11-01] MEDS: 0.9% Normal Saline (1000mL) 1,000 ML 1000 ML IV (22:12)
[2024-11-01 22:13] LABS: Partial Thromboplast Time 28.6 Seconds (24.1-36.2)
[2024-11-01 22:17] LABS: Mucous, Urine 0 SEEN /hpf (<or=2+)
--- NOTE | 2024-11-01 22:20 | CT_ITS ---
PROCEDURE: CT ABDOMEN/PELVIS W IV CONT ONLY 11/01/2024 REASON FOR EXAM: CONCERN FOR PYELO OR ABSCESS. Nephrostomy placed 2 days prior. TECHNIQUE: Procedure Code: [id number] Modality: CT Procedure: ABDOMEN/PELVIS W IV CONT ONLY Coronal and Sagittal reconstruction series were provided. CONTRAST: Isovue 370 VOLUME: 75 mL One or more dose reduction techniques were used (e.g., Automated exposure control, adjustment of the mA and/or kV according to patient size, use of iterative reconstruction technique. RADIATION DOSE SUMMARY: DLP: 413.49 mGycm COMPARISON: 08/20/2024 FINDINGS: Lung bases: Clear. Liver: Unremarkable. Gallbladder: Unremarkable. Spleen: Unremarkable. Pancreas: Unremarkable. Adrenals: Unremarkable. Kidneys/Bladder: Redemonstrated large right staghorn calculus occupying the right renal collecting system. Associated mild-moderate right hydronephrosis, and right perinephric/periureteric fat stranding/edema. Percutaneous nephrostomy tube in place, with catheter tip positioned in the right renal pelvis. New patchy areas of right renal parenchymal hypoenhancement compatible with pyelonephritis, and small marginal perinephric fluid collections which are potentially developing renal abscesses at the posterior aspect of the right kidney, closely adjacent to the nephrostomy insertion site. Urothelial enhancement on the right compatible with ureteritis/pyelitis, which was seen on prior exam. There also subtle patchy areas of cortical hypo enhancement in the left kidney, which may reflect pyelonephritis as well. No left hydronephrosis. Urinary bladder is underdistended. Small amount of air within the bladder lumen and within the right renal collecting system and proximal ureter, nonspecific and may be related to recent instrumentation, or may reflect emphysematous infection. Reproductive Organs: IUD in place. Grossly unremarkable uterus and adnexae otherwise. Bowel: No evidence of obstruction or active inflammatory process. Normal appendix. Lymph nodes: Multiple mildly enlarged retroperitoneal lymph nodes, likely reactive. Vasculature: Normal course and caliber of the abdominal aorta and IVC. Peritoneum / Retroperitoneum: No drainable fluid collection/ascites or pneumoperitoneum. Bones: Unremarkable. CT/Abdomen/Pelvis W IV Cont ONLY IMPRESSION: 1. Interval right percutaneous nephrostomy tube placement. 2. Redemonstrated large right renal collecting system staghorn calculus, with a ssociated mild-moderate right hydronephrosis, and perinephric fat stranding/edema. 3. Findings of bilateral pyelonephritis, more marked on the right with small pr obable developing renal abscess collections at the dorsal aspect of the right kidney about the nephrostomy insertion site. Air wit hin the bladder lumen and right renal collecting system is nonspecific and may be related to recent instrumentation, or could re flect emphysematous pyelitis/pyelonephritis. Reading Location: [id number]
[2024-11-01 22:22] VITALS: PULSE 98; RESP 19; O2SAT 100
[2024-11-01 22:22] LABS: Color, Urine Yellow (Yellow); Glucose, Dipstick 50 mg/dl (Normal); Ketone-Dipstick Negative (Negative); Leukocyte Esterase-Dipstick 500 /ul (Negative); Nitrite-Dipstick Negative (Negative); Occult Blood-Urine 250 /ul (Negative); Protein-Dipstick 100 mg/dl (Negative); Specific Gravity, Urine 1.010 (1.002-1.030); Urine Bilirubin Dipstick Negative (Negative)
[2024-11-01 22:25] VITALS: BP 100/74; PULSE 98; RESP 19; TEMP 37.2; O2SAT 100
[2024-11-01 22:40] LABS: Red Blood Cells-Urine 25-50 SEEN /hpf (0-5)
[2024-11-01 22:44] LABS: Squamous Epithelial Cells - UA 25-50 SEEN /hpf (5-10)
[2024-11-01] MEDS: Potassium Chloride 10mEq/100mL 10 MEQ/100 ML IV.SOLN. 100 MEQ IV BOLUS (22:59)
[2024-11-01 23:00] VITALS: BP 101/76; PULSE 92; RESP 19; TEMP 36.9; O2SAT 100
--- NOTE | 2024-11-01 23:06 | EDS_ITS ---
HPI History of Present Illness Chief Complaint: Fever Narrative Narrative: Patient is a 29-year-old female presenting to the emergency department for concern of an infected nephrostomy tube site. Patient has a prior history of staghorn calculi, pyelonephritis, UTI. Patient states that 2 days ago she had a nephrostomy tube placed at [facility] by Dr. Hackett? for a staghorn calculi. States she thinks she has had a fever over the past 2 days checked her temperature and it was 100.9. She reports that there was some milky pus drainage from around the nephrostomy site. She endorses nausea with 1 episode of nonbloody, nonbilious emesis. She denies any abdominal pain. Denies any dysuria or hematuria. Denies any constipation or diarrhea. PFSH PFSH Medical History Wears contact lenses Wears glasses History of renal disease Asthma Anemia Depression Former smoker Home Medications ?Medication ?Instructions ?Recorded ?Last Taken ?Type albuterol sulfate 90 mcg/actuation 1 inh inhalation Q4 H 08/19/24 Unknown History aerosol inhaler ciprofloxacin HCl 500 mg tablet 500 mg PO BID #14 TABL ETS 08/20/24 Unknown Rx tramadol 50 mg tablet 50 mg PO Q6H PRN pain 3 days #12 08/20/24 Unknown Rx tabs Allergy/AdvReac Type Severity Reaction Status Date / Time amoxicillin (Amoxicillin) Allergy Hives Verified 11/01/24 21:23 codeine Allergy Hives Verified 11/01/24 21:23 hydrocodone Allergy Hives Verified 11/01/24 21:23 Influenza Virus Vaccines Allergy Anaphylaxis Verified 11/01/24 21:23 strawberry Allergy Anaphylaxis Verified 11/01/24 21:23 Family History no significant family his Surgical History History of lithotripsy Social History Smoking Status: Current every day smoker tobacco type: e-cigarettes ROS ROS ED ROS Narrative See HPI EXAM Physical Exam Narrative Exam Narrative: Vital signs: Reviewed General: Alert and oriented x 3. No acute distress HEENT: Head is normocephalic and atraumatic, sinuses nontender, pupils equal round and reactive. Nares are patent. Oropharynx and throat exams normal. Neck: Supple without lymphadenopathy nontender Cardiovascular: Tachycardic rate and regular rhythm, no murmurs. No rubs or gallops. Normal S1 and S2 Respiratory: Clear to auscultation bilaterally. No wheezes, rales, rhonchi Abdominal: Soft and nontender. Normal bowel sounds. No guarding or rebound. Right-sided nephrostomy tube draining light yellow urine. There is no erythema, warmth or fluctuance around the nephrostomy tube. There is some drainage on the gauze covering the nephrostomy tube. There is bilateral CVA tenderness to palpation. Extremities: No tenderness. No bruising. Normal range of motion. Normal sensation. The rest of the physical exam is unremarkable Const Vital Signs: 11/01/24 21:23 11/01/24 21:25 11/01/24 22:06 Temperature 98.9 F 98.9 F Temperature Source Oral Oral Pulse Rate 142 H 142 H Respiratory Rate 18 18 Respiratory Effort Blood Pressure 108/79 108/79 Blood Pressure Mean 88 88 Pulse Ox 97 97 Oxygen Delivery Method Room Air Room Air Room Air 11/01/24 22:06 11/01/24 22:14 11/01/24 22:22 Temperature Temperature Source Pulse Rate 98 Respiratory Rate 19 H Respiratory Effort Normal Non-Labored Blood Pressure Blood Pressure Mean Pulse Ox 100 100 Oxygen Delivery Method Room Air 11/01/24 22:25 11/01/24 23:00 Temperature 98.9 F 98.5 F Temperature Source Oral Oral Pulse Rate 98 92 Respiratory Rate 19 H 19 H Respiratory Effort Blood Pressure 100/74 101/76 Blood Pressure Mean 82 84 Pulse Ox 100 100 Oxygen Delivery Method Room Air Room Air MDM MDM MDM Narrative Medical decision making narrative: Patient is a 29-year-old female presenting to the emergency department for concern of an infected nephrostomy tube. Patient was seen and examined. Vitals are stable however she does arrive tachycardic reportedly at a rate of 142. BP stable at 108/79. Patient is afebrile saturating 97% on room air with respirations of 18. When I evaluated the patient she was still tachycardic in the 110s. Differential includes but is not limited to: Pyelonephritis, renal abscess, UTI, sepsis cellulitis or abscess superficially of the nephrostomy tube Patient given analgesia and antiemetic. CBC with a leukocytosis of 18.9 and anemia of 10.8. Blood cultures obtained. Patient started on fluid bolus for possible sepsis and patient's tachycardia and IV Rocephin given for coverage of presumed pyelonephritis versus UTI. This appears to be new, she is normally in the mid 14's. CMP with mild hypokalemia of 2.9, repleted IV. Normal BUN and creatinine. Lactate within normal limits. Urinalysis with evidence of UTI with occult blood, leukocyte esterase, WBCs and bacteria. However there are epithelial cells and may be contaminated, urine culture was sent. CT shows a redemonstrated staghorn calculi with associated mild to moderate right hydronephrosis and perinephric fat stranding and edema. There is evidence of bilateral pyelonephritis more marked on the right with a small developing renal abscess collection. Patient updated on the lab and imaging findings. I discussed the patient with on-call urologist, Dr. Davila, who recommended the patient be transferred to [facility] For further care given the renal abscess and she was just there for the nephrostomy tube placement 2 days ago. Patient is agreeable with transfer. Discussed with transfer center at [facility] for transfer. Clinical impression Pyelonephritis Sepsis Renal abscess History & Record Review Discussion w/independent historian: Patient Additional record(s) reviewed:: Prior labs Lab Data Attestation: I reviewed the patient's lab results. Labs: Laboratory Results - last 24 hr 11/01/24 11/01/24 21:40 22:03 WBC 18.9 H RBC 3.39 L Hgb 10.8 L Hct 29.7 L MCV 87.6 MCH 31.9 MCHC 36.4 H RDW Std Deviation 39.6 RDW Coeff of Esme 12.3 Plt Count 215 MPV 10.0 Immature Gran % (Auto) 1.200 H Neut % (Auto) 85.0 H Lymph % (Auto) 9.8 L [place] % (Auto) 3.5 Eos % (Auto) 0.2 Baso % (Auto) 0.3 Absolute Neuts (auto) 16.1 H Absolute Lymphs (auto) 1.85 Nucleated RBC % 0 PT 13.8 INR 1.0 APTT 28.6 Sodium 135 Potassium 2.9 L Chloride 101 Carbon Dioxide 21.9 Anion Gap 12 BUN 4 Creatinine 0.47 L Estim Creat Clear Calc 140.26 Est GFR (MDRD) Non-Af 132 BUN/Creatinine Ratio 8.9 L Glucose 131 H Lactic Acid 1.1 Calcium 8.0 Total Bilirubin 0.45 AST 26 ALT 26 Alkaline Phosphatase 59 Total Protein 5.9 Albumin 3.3 L Globulin 2.6 Albumin/Globulin Ratio 1.3 Urine Color Yellow Urine Clarity Cloudy Urine pH 6.5 Ur Specific [place] 1.010 Urine Protein 100 H Urine Glucose (UA) 50 H Urine Ketones Negative Urine Occult Blood 250 H Urine Nitrite Negative Urine Bilirubin Negative Urine Urobilinogen Normal Ur Leukocyte Esterase 500 H Urine RBC 25-50 SEEN Urine WBC >100 SEEN Ur Squamous Epith Cells 25-50 SEEN Urine Bacteria 3+ Urine Mucus 0 SEEN Radiography Diagnostic Testing: Clinical Impression(s) from Imaging Studies Abdomen/Pelvis CT 11/01/24 22:20 IMPRESSION: 1. Interval right percutaneous nephrostomy tube placement. 2. Redemonstrated large right renal collecting system staghorn calculus, with associated mild-moderate right hydronephrosis, and perinephric fat stranding/edema. 3. Findings of bilateral pyelonephritis, more marked on the right with small probable developing renal abscess collections at the dorsal aspect of the right kidney about the nephrostomy insertion site. Air w ithin the bladder lumen and right renal collecting system is nonspecific and may be related to recent instrumentation, or could reflect emphysematous pyelitis/pyelonephritis. Reading Location: [facility] Discharge Plan Triage Chief Complaint: Fever Other Complaint: Wound Check ED Provider: Lauryn Kyle Dx/Rx/DC Orders Prescriptions: No Action albuterol sulfate 90 mcg/actuation HFA aerosol inhaler 1 inh inhalation Q4H ciprofloxacin HCl 500 mg tablet 500 mg PO BID Qty: 14 0RF tramadol 50 mg tablet 50 mg PO Q6H PRN (Reason: pain) 3 Days Qty: 12 0RF Primary Care Provider: Tony Pepe Referrals: Tony Pepe MD [Primary Care Provider, Internal Medicine] Print Language: Bel[place]ian
[2024-11-02] VITALS (9 sets, daily range): BP systolic 98–113; BP diastolic 72–82; PULSE 87–105; RESP 14–20; TEMP 36.7–37; O2SAT 98–100
[2024-11-02] MEDS: Potassium Chloride 10mEq/100mL 10 MEQ/100 ML IV.SOLN. 100 MEQ IV BOLUS (00:06)
[2024-11-02] MEDS: 0.9% Normal Saline (1000mL) 1,000 ML 1000 ML IV (02:59)
[2024-11-02] MEDS: fentaNYL 100 MCG/2 ML Ampul 50 MCG IV ×2 (04:16→07:00)
== END 2024-11-02 07:04 | disposition short-term general hospital (02) ==
PROVIDERS: Emergency Provider Student in an Organized Health Care Education/Training Program; PCP Internal Medicine; Visit Provider Student in an Organized Health Care Education/Training Program
DX: A41.9 Sepsis, unspecified organism (principal); Z93.6 Other artificial openings of urinary tract status; N13.6 Pyonephrosis; E87.6 Hypokalemia; R00.0 Tachycardia, unspecified; F17.290 Nicotine dependence, other tobacco product, uncomplicated; Z79.899 Other long term (current) drug therapy
CPT/HCPCS: 74177; 80053; 81001; 83605; 85025; 85610; 85730; 87040; 87086; 94760; 96361; 96365; 96366; 96367; 96375; 99285; Q9967; A4216; J2405